=== PATIENT | female | born 1940 | race Caucasian/White ===

== ENCOUNTER 2021-06-07 13:34 | Inpatient (IN) | payer MEDICARE, OTHER ==
[2021-06-07] MEDS ORDERED: Albuterol 0.083% 2.5 MG/3 ML Neb Soln NEB ONE (15:18)
--- NOTE | 2021-06-07 15:21 | EDM.PDOC ---
<Jens Owens - Last Filed: 06/08/21 11:12> ED HPI GENERAL MEDICAL PROBLEM - General Chief Complaint: Respiratory Problem Stated Complaint: LOW OXYGEN Time Seen by Provider: 06/07/21 15:07 - Related Data Allergies Allergy/AdvReac Type Severity Reaction Status Date / Time acetaminophen Allergy Rash Verified 06/07/21 17:26 Beef Containing Products Allergy Hives Verified 06/08/21 12:26 Pork/Porcine Containing Allergy Hives Verified 06/08/21 12:25 Products soap Allergy Rash Verified 06/08/21 12:27 codeine AdvReac Nausea and Verified 06/08/21 12:25 Vomiting Home Meds: Home Meds Cholecalciferol (Vitamin D3) [Vitamin D] 4,000 unit PO DAILY 06/08/21 [History] Fish Oil/Borage/Flax/Om3,6,9 1 [[place] 3-6-9 Complex Softgel] 1 each PO DAILY [History] Mv-Mn/Folic AC/Calcium/Vit K1 [Women 50 Plus Multivit Adv Tab] 1 tab PO DAILY 06/08/21 [History] Zinc 1 tab PO DAILY 06/08/21 [History] Course - Re-Assessments/Exams Free Text/Narrative Re-Assessment/Exam: 06/08/21 08:22. Have assumed care from Dr Rojo after another change of shift. I agree with hx and exam initially done by Betsy Galeas about 18 hrs ago. Pt is reported to have done OK during the night, continues on high flow 02 60 L, 95 %, sats currently 95 to 96 %. RT reported did try lower her her O2 but sats are reported to have fallen with that. We continue to wait for a bed to open up somewhere in the region. 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 However there is no report of worsening cough, fever or chills so pneumonia was not the primary consideration last evening. The greater concern was her increased oxygen demand and her elevated trop of 0.127. Have ordered a repeat trop. Have ordered solumedrol 125 mg IV and a duoneb. Will see if we can start weaning her oxygen requirement as we further await a bed. Of note she has requested to be LYNDA [facility]. 06/08/21 09:07. On further review of labs I see there is a urine that has come back showing UTI, 1 + leuk Pos., 20-30 WBC. Have ordered a urine culture, rocephin 1 gram IV. I am informed that the neb treatment helped her, feels like it has helped her breathing 06/08/21 09:08 Departure - Departure Time of Disposition: 11:00 Disposition: Admitted As Inpatient 67 Condition: Serious Clinical Impression: Hypoxia Dyspnea Qualifiers: Dyspnea type: unspecified Qualified Code(s): R06.00 - Dyspnea, unspecified UTI (urinary tract infection) Qualifiers: Urinary tract infection type: site unspecified Hematuria presence: without hematuria Qualified Code(s): N39.0 - Urinary tract infection, site not specified - Discharge Information ED Communication - Discussed Case With (1) Discussed Case With (1): Admitting Provider ( discussed with Dr Lewis, decision to admit at about 1100.) <Sagar Galeas - Last Filed: 06/11/21 11:07> ED HPI GENERAL MEDICAL PROBLEM - General Source of Information: Reports: Patient, Family History Limitations: Reports: No Limitations - History of Present Illness INITIAL COMMENTS - FREE TEXT/NARRATIVE: 80-year-old female presents the emergency department with complaints of low oxygen saturations. Per the patient and her report, the patient was hospitalized at [facility] in [place] for 2 weeks for Covid pneumonia. She states that she has been home approximately 2 weeks on home oxygen. Prior to this she was not oxygen dependent. Patient's reports that in the middle the night last night, the patient's O2 saturations dropped down to a low as low as 50% and he increased her oxygen to 8 L per nasal cannula. 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 She does not have a history of smoking. She denies any recent fever, chills, nausea, vomiting or diarrhea. She denies any urinary symptoms. Past Medical History Respiratory History: Reports: Other (See Below) Other Respiratory History: meiners disease; covid pneumonia Gastrointestinal History: Reports: GERD - Infectious Disease History Infectious Disease History: Reports: Chicken Pox, Measles, Mumps - Past Surgical History HEENT Surgical History: Reports: Adenoidectomy, Cataract Surgery, Tonsillectomy GI Surgical History: Reports: Hernia, Inguinal Female Surgical History: Reports: Hysterectomy Social & Family History - Tobacco Use Tobacco Use Status *Q: Never Tobacco User - Caffeine Use Caffeine Use: Reports: Coffee, Tea - Recreational Drug Use Recreational Drug Use: No ED ROS GENERAL - Review of Systems Review Of Systems: Comprehensive ROS is negative, except as noted in HPI. ED EXAM, GENERAL - Physical Exam Exam: See Below Exam Limited By: No Limitations General Appearance: Alert, WD/WN, Moderate Distress Ears: Normal External Exam, Hearing Grossly Normal Nose: Normal Inspection Throat/Mouth: Normal Inspection, Normal Lips, Normal Voice, No Airway Compromise Head: Atraumatic Neck: Normal Inspection, Supple Respiratory/Chest: Chest Non-Tender, Respiratory Distress, Decreased Breath Sounds, Crackles (Left lower lobe) Cardiovascular: Normal Peripheral Pulses, No Edema, No Murmur, Tachycardia Peripheral Pulses: 2+: Radial (L), Radial (R) GI/Abdominal: Normal Bowel Sounds, Soft, Non-Tender, No Distention (Female) Exam: Deferred Rectal (Female) Exam: Deferred Back Exam: Normal Inspection Extremities: Normal Inspection Neurological: Alert, Oriented, Normal Cognition Psychiatric: Normal Affect, Normal Mood Skin Exam: Warm, Dry, Intact, Normal Color, No Rash Lymphatic: No Adenopathy #1 Interpretation EKG Date: 06/07/21 Time: 15:28 Rhythm: NSR Rate (Beats/Min): 109 [place]: Normal P-Wave: Present QRS: Normal ST-T: Normal QT: Normal Comparison: NA - No Prior EKG EKG Interpretation Comments: Per Dr. Owens interpretation: Sinus tach at a rate of 109; LAFB; very mild ST elevation in V2 and V3 Course - Vital Signs Text/Narrative:: Attestation above, patient presents with a history of Covid. Patient was sent home on home O2. Over the night, patient's O2 saturations dropped into the 50s and her oxygen was increased to 8 L per nasal cannula per the patient's . At the time of my exam, the patient is currently on a nonrebreather mask and O2 saturations are at about 90 to 91%. She is dyspneic at rest but only to speak in a few word sentences. Physical exam reveals crackles noted to the left posterior lobe. I have ordered labs to include CBC, CMP, magnesium, C-reactive protein, troponin, pro BNP, portable chest x-ray and an EKG. We will also obtain ABGs. Will order an albuterol nebulizer for this patient. Last Recorded V/S: Last Vital Signs Temp 97.2 F 06/11/21 03:11 Pulse 104 H 06/11/21 03:11 Resp 28 H 06/11/21 03:11 BP 146/94 H 06/11/21 03:11 Pulse Ox 93 L 06/11/21 08:59 - Orders/Labs/Meds Orders: Medication Orders Albuterol (Albuterol 0.083% 2.5 Mg/3 Ml Neb Soln) 2.5 mg NEB Q2H PRN PRN Reason: Shortness Of Breath/wheezing Albuterol/Ipratropium (Albuterol/Ipratropium 3.0-0.5 Mg/3 Ml Neb Soln) 3 ml NEB QIDRT CY Last Admin: 06/11/21 08:59 Dose: 3 ml Documented by: Admin: 06/11/21 05:59 Dose: 3 ml Documented by: Admin: 06/10/21 20:18 Dose: 3 ml Documented by: Admin: 06/10/21 15:02 Dose: 3 ml Documented by: Admin: 06/10/21 09:01 Dose: 3 ml Documented by: Admin: 06/10/21 05:55 Dose: 3 ml Documented by: Admin: 06/09/21 20:25 Dose: 3 ml Documented by: Admin: 06/09/21 14:59 Dose: 3 ml Documented by: Admin: 06/09/21 09:55 Dose: 3 ml Documented by: Admin: 06/09/21 06:19 Dose: 3 ml Documented by: Admin: 06/08/21 21:50 Dose: 3 ml Documented by: Admin: 06/08/21 18:27 Dose: Not Given Documented by: Admin: 06/08/21 13:43 Dose: 3 ml Documented by: ALEJANDRA Docusate Sodium (Docusate Sodium 100 Mg Cap) 100 mg PO Q12H PRN PRN Reason: Constipation Last Admin: 06/10/21 09:12 Dose: 100 mg Documented by: EDEEGRA Enoxaparin Sodium (Enoxaparin 60 Mg/0.6 Ml Syringe) 60 mg SUBCUT Q12H [facility] Last Admin: 06/11/21 09:56 Dose: 60 mg Documented by: Admin: 06/10/21 22:00 Dose: 60 mg Documented by: CECELIA Furosemide (Furosemide 20 Mg/2 Ml Vial) 20 mg IVPUSH DAILY [facility] Guaifenesin (Guaifenesin 600 Mg Tab.Er) 600 mg PO BID [facility] Last Admin: 06/11/21 09:56 Dose: 600 mg Documented by: Admin: 06/10/21 22:00 Dose: 600 mg Documented by: Admin: 06/10/21 09:12 Dose: 600 mg Documented by: Admin: 06/09/21 21:48 Dose: 600 mg Documented by: Admin: 06/09/21 08:57 Dose: 600 mg Documented by: Admin: 06/08/21 21:33 Dose: 600 mg Documented by: Admin: 06/08/21 15:56 Dose: 600 mg Documented by: JOVANNI Potassium Chloride 10 meq/ (Premix) 100 mls @ 100 mls/hr IV Q1H [facility] Stop: 06/11/21 12:59 Last Admin: 06/11/21 09:55 Dose: 100 mls/hr Documented by: ADRIANA Sodium Chloride (Normal Saline) 250 mls @ 40 mls/hr IV ASDIRECTED [facility] Last Admin: 06/11/21 09:54 Dose: 40 mls/hr Documented by: ADRIANA Methylprednisolone Sodium Succinate (Methylprednisolone Sodium Succinate 40 Mg/1 Ml Sdv) 60 mg IVPUSH Q8H [facility] Last Admin: 06/11/21 09:39 Dose: 60 mg Documented by: ADRIANA Ondansetron HCl (Ondansetron 4 Mg/2 Ml Sdv) 4 mg IV Q6H PRN PRN Reason: Nausea/Vomiting Sodium Chloride (Sodium Chloride 0.9% 10 Ml Syringe) 10 ml FLUSH ASDIRECTED PRN PRN Reason: Keep Vein Open Last Admin: 06/07/21 18:12 Dose: 10 ml Documented by: Admin: 06/07/21 15:30 Dose: 10 ml Documented by: MENDEZ Trimethoprim/Sulfamethoxazole (Sulfamethoxazole/Trimethoprim 800-160 Mg Tab) 1 tab PO BID [facility] Last Admin: 06/11/21 09:56 Dose: 1 tab Documented by: ADRIANA Warfarin Sodium (Pharmacy To Dose - Warfarin) 1 dose .XX ASDIRECTED PRN PRN Reason: RX TOD DOSE WARFARIN Warfarin Sodium (Warfarin 4 Mg Tab) 4 mg PO QPM [facility] Stop: 06/11/21 18:01 Labs: Laboratory Tests 06/07/21 06/07/21 06/07/21 Range/Units 15:10 15:10 15:10 WBC 8.57 (3.98-10.04) K/mm3 RBC 4.28 (3.98-5.22) M/mm3 Hgb 13.0 (11.2-15.7) gm/dl Hct 38.5 (34.1-44.9) % MCV 90.0 (79.4-94.8) fl MCH 30.4 (25.6-32.2) pg MCHC 33.8 (32.2-35.5) g/dl RDW Std Deviation 45.2 (36.4-46.3) fL Plt Count 250 (182-369) K/mm3 MPV 10.3 (9.4-12.3) fl Neut % (Auto) 75.7 H (34.0-71.1) % Lymph % (Auto) 9.9 L (19.3-51.7) % [place] % (Auto) 13.3 H (4.7-12.5) % Eos % (Auto) 0.5 L (0.7-5.8) Baso % (Auto) 0.4 (0.1-1.2) % Neut # (Auto) 6.49 H (1.56-6.13) K/mm3 Lymph # (Auto) 0.85 L (1.18-3.74) K/mm3 [place] # (Auto) 1.14 H (0.24-0.36) K/mm3 Eos # (Auto) 0.04 (0.04-0.36) K/mm3 Baso # (Auto) 0.03 (0.01-0.08) K/mm3 D-Dimer, Quantitative 8.16 H (0.19-0.50) mg/L Puncture Site ABG pH (7.35-7.45) ABG pCO2 (35.0-45.0) mmHg ABG pO2 (80.0-100.0) mmHg ABG HCO3 (22.0-26.0) meq/L ABG O2 Saturation (96.0-97.0) % ABG Base Excess (-2-2.0) Dae Test A-a Gradient mmHg Oxygen Flow Rate FiO2 (21.00-100.00) % Sodium 129 L (136-145) mEq/L Potassium 3.8 (3.5-5.1) mEq/L Chloride 94 L (98-107) mEq/L Carbon Dioxide 24 (21-32) mEq/L Anion Gap 14.8 (5-15) BUN 15 (7-18) mg/dL Creatinine 0.6 (0.55-1.02) mg/dL Est Cr Clr Drug Dosing 57.37 mL/min Estimated GFR (MDRD) > 60 (>60) mL/min BUN/Creatinine Ratio 25.0 H (14-18) Glucose 126 H (70-99) mg/dL Calcium 8.7 (8.5-10.1) mg/dL Magnesium 1.8 (1.8-2.4) mg/dL Total Bilirubin 0.6 (0.2-1.0) mg/dL AST 36 (15-37) U/L ALT 31 (14-59) U/L Alkaline Phosphatase 86 (46-116) U/L Troponin I 0.127 H* (0.00-0.056) ng/mL C-Reactive Protein 29.3 H* (<1.0) mg/dL NT-Pro-B Natriuret Pep (0-450) pg/mL Total Protein 7.1 (6.4-8.2) g/dl Albumin 2.1 L (3.4-5.0) g/dl Globulin 5.0 gm/dL Albumin/Globulin Ratio 0.4 L (1-2) Procalcitonin ng/mL Urine Color (Yellow) Urine Appearance (Clear) Urine pH (5.0-8.0) Ur Specific [place] (1.005-1.030) Urine Protein (Negative) Urine Glucose (UA) (Negative) Urine Ketones (Negative) Urine Occult Blood (Negative) Urine Nitrite (Negative) Urine Bilirubin (Negative) Urine Urobilinogen (0.2-1.0) Ur Leukocyte Esterase (Negative) Urine RBC (0-5) /hpf Urine WBC (0-5) /hpf Urine WBC Clumps (NOT SEEN) /hpf Ur Squamous Epith Cells (0-5) /hpf Urine Bacteria (FEW) /hpf Urine Mucus (FEW) /hpf Mycoplasma pneumon IgM (NEGATIVE) 06/07/21 06/07/21 06/07/21 Range/Units 15:10 15:18 19:10 WBC (3.98-10.04) K/mm3 RBC (3.98-5.22) M/mm3 Hgb (11.2-15.7) gm/dl Hct (34.1-44.9) % MCV (79.4-94.8) fl MCH (25.6-32.2) pg MCHC (32.2-35.5) g/dl RDW Std Deviation (36.4-46.3) fL Plt Count (182-369) K/mm3 MPV (9.4-12.3) fl Neut % (Auto) (34.0-71.1) % Lymph % (Auto) (19.3-51.7) % [place] % (Auto) (4.7-12.5) % Eos % (Auto) (0.7-5.8) Baso % (Auto) (0.1-1.2) % Neut # (Auto) (1.56-6.13) K/mm3 Lymph # (Auto) (1.18-3.74) K/mm3 [place] # (Auto) (0.24-0.36) K/mm3 Eos # (Auto) (0.04-0.36) K/mm3 Baso # (Auto) (0.01-0.08) K/mm3 D-Dimer, Quantitative (0.19-0.50) mg/L Puncture Site Lt radial ABG pH 7.44 (7.35-7.45) ABG pCO2 30.9 L (35.0-45.0) mmHg ABG pO2 58.0 L (80.0-100.0) mmHg ABG HCO3 20.5 L (22.0-26.0) meq/L ABG O2 Saturation 86.0 L (96.0-97.0) % ABG Base Excess -2.3 L (-2-2.0) Dae Test Positive A-a Gradient 474 mmHg Oxygen Flow Rate 15.0 FiO2 80.00 (21.00-100.00) % Sodium (136-145) mEq/L Potassium (3.5-5.1) mEq/L Chloride (98-107) mEq/L Carbon Dioxide (21-32) mEq/L Anion Gap (5-15) BUN (7-18) mg/dL Creatinine (0.55-1.02) mg/dL Est Cr Clr Drug Dosing mL/min Estimated GFR (MDRD) (>60) mL/min BUN/Creatinine Ratio (14-18) Glucose (70-99) mg/dL Calcium (8.5-10.1) mg/dL Magnesium (1.8-2.4) mg/dL Total Bilirubin (0.2-1.0) mg/dL AST (15-37) U/L ALT (14-59) U/L Alkaline Phosphatase (46-116) U/L Troponin I 0.156 H* (0.00-0.056) ng/mL C-Reactive Protein (<1.0) mg/dL NT-Pro-B Natriuret Pep 3117 H (0-450) pg/mL Total Protein (6.4-8.2) g/dl Albumin (3.4-5.0) g/dl Globulin gm/dL Albumin/Globulin Ratio (1-2) Procalcitonin ng/mL Urine Color (Yellow) Urine Appearance (Clear) Urine pH (5.0-8.0) Ur Specific [place] (1.005-1.030) Urine Protein (Negative) Urine Glucose (UA) (Negative) Urine Ketones (Negative) Urine Occult Blood (Negative) Urine Nitrite (Negative) Urine Bilirubin (Negative) Urine Urobilinogen (0.2-1.0) Ur Leukocyte Esterase (Negative) Urine RBC (0-5) /hpf Urine WBC (0-5) /hpf Urine WBC Clumps (NOT SEEN) /hpf Ur Squamous Epith Cells (0-5) /hpf Urine Bacteria (FEW) /hpf Urine Mucus (FEW) /hpf Mycoplasma pneumon IgM (NEGATIVE) 06/07/21 06/08/21 06/08/21 Range/Units 23:30 07:56 09:36 WBC (3.98-10.04) K/mm3 RBC (3.98-5.22) M/mm3 Hgb (11.2-15.7) gm/dl Hct (34.1-44.9) % MCV (79.4-94.8) fl MCH (25.6-32.2) pg MCHC (32.2-35.5) g/dl RDW Std Deviation (36.4-46.3) fL Plt Count (182-369) K/mm3 MPV (9.4-12.3) fl Neut % (Auto) (34.0-71.1) % Lymph % (Auto) (19.3-51.7) % [place] % (Auto) (4.7-12.5) % Eos % (Auto) (0.7-5.8) Baso % (Auto) (0.1-1.2) % Neut # (Auto) (1.56-6.13) K/mm3 Lymph # (Auto) (1.18-3.74) K/mm3 [place] # (Auto) (0.24-0.36) K/mm3 Eos # (Auto) (0.04-0.36) K/mm3 Baso # (Auto) (0.01-0.08) K/mm3 D-Dimer, Quantitative (0.19-0.50) mg/L Puncture Site ABG pH (7.35-7.45) ABG pCO2 (35.0-45.0) mmHg ABG pO2 (80.0-100.0) mmHg ABG HCO3 (22.0-26.0) meq/L ABG O2 Saturation (96.0-97.0) % ABG Base Excess (-2-2.0) Dae Test A-a Gradient mmHg Oxygen Flow Rate FiO2 (21.00-100.00) % Sodium (136-145) mEq/L Potassium (3.5-5.1) mEq/L Chloride (98-107) mEq/L Carbon Dioxide (21-32) mEq/L Anion Gap (5-15) BUN (7-18) mg/dL Creatinine (0.55-1.02) mg/dL Est Cr Clr Drug Dosing mL/min Estimated GFR (MDRD) (>60) mL/min BUN/Creatinine Ratio (14-18) Glucose (70-99) mg/dL Calcium (8.5-10.1) mg/dL Magnesium (1.8-2.4) mg/dL Total Bilirubin (0.2-1.0) mg/dL AST (15-37) U/L ALT (14-59) U/L Alkaline Phosphatase (46-116) U/L Troponin I 0.067 H* (0.00-0.056) ng/mL C-Reactive Protein (<1.0) mg/dL NT-Pro-B Natriuret Pep (0-450) pg/mL Total Protein (6.4-8.2) g/dl Albumin (3.4-5.0) g/dl Globulin gm/dL Albumin/Globulin Ratio (1-2) Procalcitonin 0.29 H ng/mL Urine Color Yellow (Yellow) Urine Appearance Slt cloudy H (Clear) Urine pH 6.0 (5.0-8.0) Ur Specific [place] 1.010 (1.005-1.030) Urine Protein 1+ H (Negative) Urine Glucose (UA) Negative (Negative) Urine Ketones 3+ H (Negative) Urine Occult Blood 2+ H (Negative) Urine Nitrite Negative (Negative) Urine Bilirubin Negative (Negative) Urine Urobilinogen 0.2 (0.2-1.0) Ur Leukocyte Esterase 1+ H (Negative) Urine RBC 5-10 H (0-5) /hpf Urine WBC 20-30 H (0-5) /hpf Urine WBC Clumps Rare (NOT SEEN) /hpf Ur Squamous Epith Cells 0-5 (0-5) /hpf Urine Bacteria Moderate H (FEW) /hpf Urine Mucus Few (FEW) /hpf Mycoplasma pneumon IgM (NEGATIVE) 06/08/21 Range/Units 09:36 WBC (3.98-10.04) K/mm3 RBC (3.98-5.22) M/mm3 Hgb (11.2-15.7) gm/dl Hct (34.1-44.9) % MCV (79.4-94.8) fl MCH (25.6-32.2) pg MCHC (32.2-35.5) g/dl RDW Std Deviation (36.4-46.3) fL Plt Count (182-369) K/mm3 MPV (9.4-12.3) fl Neut % (Auto) (34.0-71.1) % Lymph % (Auto) (19.3-51.7) % [place] % (Auto) (4.7-12.5) % Eos % (Auto) (0.7-5.8) Baso % (Auto) (0.1-1.2) % Neut # (Auto) (1.56-6.13) K/mm3 Lymph # (Auto) (1.18-3.74) K/mm3 [place] # (Auto) (0.24-0.36) K/mm3 Eos # (Auto) (0.04-0.36) K/mm3 Baso # (Auto) (0.01-0.08) K/mm3 D-Dimer, Quantitative (0.19-0.50) mg/L Puncture Site ABG pH (7.35-7.45) ABG pCO2 (35.0-45.0) mmHg ABG pO2 (80.0-100.0) mmHg ABG HCO3 (22.0-26.0) meq/L ABG O2 Saturation (96.0-97.0) % ABG Base Excess (-2-2.0) Dae Test A-a Gradient mmHg Oxygen Flow Rate FiO2 (21.00-100.00) % Sodium (136-145) mEq/L Potassium (3.5-5.1) mEq/L Chloride (98-107) mEq/L Carbon Dioxide (21-32) mEq/L Anion Gap (5-15) BUN (7-18) mg/dL Creatinine (0.55-1.02) mg/dL Est Cr Clr Drug Dosing mL/min Estimated GFR (MDRD) (>60) mL/min BUN/Creatinine Ratio (14-18) Glucose (70-99) mg/dL Calcium (8.5-10.1) mg/dL Magnesium (1.8-2.4) mg/dL Total Bilirubin (0.2-1.0) mg/dL AST (15-37) U/L ALT (14-59) U/L Alkaline Phosphatase (46-116) U/L Troponin I (0.00-0.056) ng/mL C-Reactive Protein (<1.0) mg/dL NT-Pro-B Natriuret Pep (0-450) pg/mL Total Protein (6.4-8.2) g/dl Albumin (3.4-5.0) g/dl Globulin gm/dL Albumin/Globulin Ratio (1-2) Procalcitonin ng/mL Urine Color (Yellow) Urine Appearance (Clear) Urine pH (5.0-8.0) Ur Specific [place] (1.005-1.030) Urine Protein (Negative) Urine Glucose (UA) (Negative) Urine Ketones (Negative) Urine Occult Blood (Negative) Urine Nitrite (Negative) Urine Bilirubin (Negative) Urine Urobilinogen (0.2-1.0) Ur Leukocyte Esterase (Negative) Urine RBC (0-5) /hpf Urine WBC (0-5) /hpf Urine WBC Clumps (NOT SEEN) /hpf Ur Squamous Epith Cells (0-5) /hpf Urine Bacteria (FEW) /hpf Urine Mucus (FEW) /hpf Mycoplasma pneumon IgM Negative (NEGATIVE) Meds: Medications Generic Name Dose Route Start Last Admin Trade Name Freq PRN Reason Stop Dose Admin Albuterol 2.5 mg 06/08/21 11:19 Albuterol 0.083% 2.5 Mg/3 Ml Neb Soln NEB Q2H PRN Shortness Of Breath/wheezing Albuterol/Ipratropium 3 ml 06/08/21 16:00 06/11/21 08:59 Albuterol/Ipratropium 3.0-0.5 Mg/3 Ml Neb Soln NEB 3 ml QIDRT CY Administration Docusate Sodium 100 mg 06/08/21 11:19 06/10/21 09:12 Docusate Sodium 100 Mg Cap PO 100 mg Q12H PRN Administration Constipation Enoxaparin Sodium 60 mg 06/10/21 21:00 06/11/21 09:56 Enoxaparin 60 Mg/0.6 Ml Syringe SUBCUT 60 mg Q12H CY Administration Furosemide 20 mg 06/12/21 09:00 Furosemide 20 Mg/2 Ml Vial IVPUSH DAILY CY Guaifenesin 600 mg 06/08/21 15:30 06/11/21 09:56 Guaifenesin 600 Mg Tab.Er PO 600 mg BID CY Administration Potassium Chloride 10 meq/ 100 mls @ 100 mls/hr 06/11/21 07:00 06/11/21 09:55 Premix IV 06/11/21 12:59 100 mls/hr Q1H CY Administration Sodium Chloride 250 mls @ 40 mls/hr 06/11/21 07:00 06/11/21 09:54 Normal Saline IV 40 mls/hr ASDIRECTED CY Administration Methylprednisolone Sodium Succinate 60 mg 06/11/21 07:00 06/11/21 09:39 Methylprednisolone Sodium Succinate 40 Mg/1 Ml Sdv IVPUSH 60 mg Q8H CY Administration Ondansetron HCl 4 mg 06/08/21 11:19 Ondansetron 4 Mg/2 Ml Sdv IV Q6H PRN Nausea/Vomiting Sodium Chloride 10 ml 06/07/21 15:18 06/07/21 18:12 Sodium Chloride 0.9% 10 Ml Syringe FLUSH 10 ml ASDIRECTED PRN Administration Keep Vein Open Trimethoprim/Sulfamethoxazole 1 tab 06/11/21 09:00 06/11/21 09:56 Sulfamethoxazole/Trimethoprim 800-160 Mg Tab PO 1 tab BID CY Administration Warfarin Sodium 1 dose 06/10/21 13:15 Pharmacy To Dose - Warfarin .XX ASDIRECTED PRN RX TOD DOSE WARFARIN Warfarin Sodium 4 mg 06/11/21 18:00 Warfarin 4 Mg Tab PO 06/11/21 18:01 QPM CY Discontinued Medications Generic Name Dose Route Start Last Admin Trade Name Freq PRN Reason Stop Dose Admin Albuterol 2.5 mg 06/07/21 15:18 06/07/21 15:47 Albuterol 0.083% 2.5 Mg/3 Ml Neb Soln NEB 06/07/21 15:19 2.5 mg ONETIME ONE Administration Albuterol/Ipratropium 3 ml 06/08/21 08:20 06/08/21 08:37 Albuterol/Ipratropium 3.0-0.5 Mg/3 Ml Neb Soln NEB 06/08/21 08:21 3 ml ONETIME ONE Administration Apixaban 10 mg 06/09/21 09:00 06/10/21 09:13 Apixaban 5 Mg Tab PO 06/15/21 21:01 10 mg BID CY Administration Enoxaparin Sodium 40 mg 06/08/21 09:00 06/08/21 14:49 Enoxaparin 40 Mg/0.4 Ml Syringe SUBCUT 40 mg DAILY CY Administration Enoxaparin Sodium 20 mg 06/08/21 16:30 06/08/21 16:53 Enoxaparin 60 Mg/0.6 Ml Syringe SUBCUT 06/08/21 16:31 20 mg ONETIME ONE Administration Furosemide 40 mg 06/08/21 20:03 06/08/21 21:33 Furosemide 40 Mg/4 Ml Vial IVPUSH 06/08/21 20:04 40 mg NOW ONE Administration Furosemide 20 mg 06/09/21 07:00 06/11/21 06:34 Furosemide 20 Mg/2 Ml Vial IVPUSH 20 mg TIDMEALS CY Administration Furosemide 20 mg 06/11/21 09:00 Furosemide 20 Mg/2 Ml Vial IVPUSH DAILY CY Sodium Chloride 100 mls @ 60 mls/min 06/07/21 18:15 06/07/21 18:12 Normal Saline IV 60 mls/min ASDIRECTED CY Administration Sodium Chloride 1,000 mls @ 250 mls/hr 06/07/21 22:15 06/07/21 22:14 Normal Saline IV 250 mls/hr ASDIRECTED CY Administration Ceftriaxone Sodium 1 gm/ 100 mls @ 200 mls/hr 06/08/21 08:56 06/08/21 09:20 Sodium Chloride IV 06/08/21 09:25 200 mls/hr ONETIME ONE Administration Vancomycin HCl 1 gm/ Sodium 250 mls @ 250 mls/hr 06/08/21 12:00 06/08/21 14:26 Chloride IV Not Given Q18H CY Vancomycin HCl 1 gm/ Sodium 250 mls @ 250 mls/hr 06/08/21 13:30 06/08/21 15:37 Chloride IV Not Given Q18H CY Piperacillin Sod/Tazobactam 100 mls @ 200 mls/hr 06/08/21 14:30 06/08/21 14:19 Sod 4.5 gm/ Sodium Chloride IV 06/08/21 14:59 200 mls/hr ONETIME ONE Administration Piperacillin Sod/Tazobactam 100 mls @ 25 mls/hr 06/08/21 22:30 06/11/21 06:34 Sod 4.5 gm/ Sodium Chloride IV 25 mls/hr Q8H CY Administration Vancomycin HCl 1 gm/ Sodium 250 mls @ 250 mls/hr 06/08/21 15:00 06/10/21 22:00 Chloride IV 06/10/21 23:59 250 mls/hr Q18H CY Administration Sodium Chloride 1,000 mls @ 100 mls/hr 06/08/21 18:45 Normal Saline IV ASDIRECTED CY Vancomycin HCl 1 gm/ Sodium 250 mls @ 250 mls/hr 06/11/21 10:00 Chloride IV Q12H CY Iopamidol 100 ml 06/07/21 18:11 06/07/21 18:12 Iopamidol 755 Mg/Ml 100 Ml Bottle IVPUSH 06/07/21 18:12 100 ml ONETIME ONE Administration Methylprednisolone Sodium Succinate 125 mg 06/08/21 08:20 06/08/21 08:25 Methylprednisolone Sodium Succinate 125 Mg/2 Ml Sdv IVPUSH 06/08/21 08:21 125 mg ONETIME ONE Administration Potassium Chloride 10 meq 06/08/21 21:00 06/10/21 22:00 Potassium Chloride 10 Meq Tab.Er PO 10 meq TID CY Administration Potassium Chloride 20 meq 06/09/21 07:20 06/09/21 08:37 Potassium Chloride 20 Meq Tab.Er PO 06/09/21 07:21 20 meq ONETIME ONE Administration Sodium Chloride 10 ml 06/07/21 18:11 06/07/21 20:31 Sodium Chloride 0.9% 10 Ml Sdv FLUSH 06/07/21 18:12 10 ml ONETIME ONE Administration Vancomycin HCl 1 dose 06/08/21 11:30 Pharmacy To Dose - Vancomycin .XX ASDIRECTED CY Warfarin Sodium 4 mg 06/10/21 18:00 06/10/21 18:08 Warfarin 4 Mg Tab PO 06/10/21 18:01 4 mg QPM CY Administration - Re-Assessments/Exams Free Text/Narrative Re-Assessment/Exam: 06/07/21 15:55 ABGs reveal a pH of 7.44, PCO2 30.9, PO2 58, HCO3 20.5 with a base excess of - 2.3 O2 saturation 86.9% on a nonrebreather mask. Spoke with respiratory care regarding starting the patient on CPAP however they are unsure if there are any CPAP's left in this facility. Respiratory therapist is going to check and let me know. 06/07/21 16:17 Respiratory therapist is going to start high flow O2 on this patient. 06/07/21 17:00 Hematology reveals a WBC of 8.57, hemoglobin 13.0, hematocrit 38.5, platelet count 250 Coagulation reveals a D-dimer of 8.16 Chemistry reveals a sodium of 129, potassium 3.8, chloride 94, carbon dioxide 24, anion gap 14.8, BUN 15, creatinine 0.6, glucose 126, magnesium 1.8, troponin 0 0.127, C-reactive protein 29.3, proBNP 3117 Patient is currently tolerating high flow O2 very well. O2 saturations are 92%. Heart rate in the 1 teens in a sinus rhythm. Patient denies having any chest pain or discomfort nor has she had any chest pain or discomfort. With the elevation in the patient's D-dimer I have ordered a CTA of the chest to rule out PE. 06/07/21 17:25 Portable chest x-ray reveals scattered infiltrates noted bilaterally most prominent in the left lower lobe. 06/07/21 18:[address] of the chest: 1. No findings of pulmonary embolism. 2. Minimal left-sided pleural effusion. 3. Diffuse emphysematous changes is seen. Both lungs show diffuse increased density and uncertain how much of this represents diffuse fibrosis versus possible superimposed pneumonia. Old comparison studies would be needed if available. 4. A sending aorta is mildly aneurysmal. 5. Other findings which are felt to be chronic as described above. Patient will need to be hospitalized however there are no beds available here at this hospital or at either hospitals in [place]. I will call the [facility] transfer [place] in regards to finding a bed for this patient. 06/07/21 19:37 The [facility] [place] calls to tell me that there are no beds available in [place], [place] or [place]. They state that they will revisit attempting to find her bed placement in the morning. The patient has stated that she request to be a DNR/DNI. 06/07/21 20:04 [address] [facility] call in [place] regarding the patient having positive troponins. They tell me that they are on diversion and have no beds available and are unable to take this patient in transfer. 06/07/21 22:17 Patient's blood pressure is noted to be 80/61. Will order for the patient to receive 500 mils of normal saline over 2 hours. 06/07/21 23:21 Pt's blood pressure is 69/52. I have ordered for nursing staff to give another 500ml bolus wide open. I have reported off to Dr. Rojo who will take over care of the patient.
[2021-06-07] MEDS: Sodium Chloride 0.9% 10 ML Syringe FLUSH PRN ×2 (15:30→18:12)
[2021-06-07] MEDS ORDERED: Iopamidol 755 Mg/ML 100 ML Bottle IVPUSH ONE (18:11)
[2021-06-07] MEDS ORDERED: Sodium Chloride 0.9% 10 ML SDV FLUSH ONE (18:11)
[2021-06-07] MEDS ORDERED: Sodium Chloride 0.9% 100 ML IV SCH (18:15)
--- NOTE | 2021-06-07 18:24 | CT ---
CT chest Technique: Multiple axial sections were obtained through the chest. Intravenous contrast was utilized. Study has been performed as a pulmonary angiogram protocol. Comparison: No prior chest imaging is available. Findings: Ascending aorta is mildly aneurysmal with AP dimension of 4.4 cm. Pulmonary arteries are well opacified. No filling defects are seen to indicate pulmonary embolism. Small scattered mediastinal lymph nodes are seen which are felt to be within normal limits. Moderately large hiatal hernia is noted. No pericardial thickening is seen. Other visualized upper abdominal structures show a small cyst within the right kidney. Lung window settings were reviewed which show diffuse emphysematous change. There is diffuse opacity seen throughout both lungs. Uncertain how much of this opacity is due to prominent pulmonary fibrosis versus questionable pneumonia. Old studies would be needed to differentiate. Minimal left-sided pleural effusion is noted. Bone window settings were reviewed. Diffuse disc space narrowing and endplate spurring is noted within the spine. No acute osseous abnormality is appreciated. Impression: 1. No findings of pulmonary embolism. 2. Minimal left-sided pleural effusion. 3. Diffuse emphysematous change is seen. Both lungs show diffuse increased density and uncertain how much of this represents diffuse fibrosis versus possible superimposed pneumonia. Old comparison studies would be needed if available. 4. 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 5. Other findings which are felt to be chronic as described above. Diagnostic code #3
[2021-06-07] MEDS ORDERED: Sodium Chloride 0.9% 1,000 ML IV SCH (22:15)
[2021-06-08] MEDS ORDERED: methylPREDNISolone Sodium Succinate 125 MG/2 ML SDV IVPUSH ONE (08:20)
[2021-06-08] MEDS ORDERED: Albuterol/Ipratropium 3.0-0.5 MG/3 ML Neb Soln NEB ONE (08:20)
[2021-06-08] MEDS ORDERED: cefTRIAXone 1 GM in Sodium Chloride 0.9% 100 ML IV ONE (08:56)
[2021-06-08] MEDS ORDERED: Enoxaparin 40 MG/0.4 ML Syringe SUBCUT SCH (09:00)
[2021-06-08] MEDS ORDERED: Piperacillin/Tazobactam 4.5 GM in Sodium Chloride 0.9% 100 ML IV ONE ×2 (11:17→14:30)
[2021-06-08] MEDS ORDERED: Ondansetron 4 MG/2 ML SDV IV PRN (11:19)
[2021-06-08] MEDS ORDERED: Docusate Sodium 100 MG Cap PO PRN (11:19)
--- NOTE | 2021-06-08 11:32 | PCM.HP.2 ---
<Zeus Carcamo - Last Filed: 06/08/21 15:24> H&P History of Present Illness - General Date of Service: 06/08/21 Admit Problem/Dx: Admission Diagnosis/Problem Admission Diagnosis/Problem Hypoxia Source of Information: Patient, Old Records, Provider, RN, RN Notes Reviewed History Limitations: Reports: No Limitations - History of Present Illness Initial Comments - Free Text/Narative: This is a 80-year-old female who presents to ED on 06/07/2021 with low oxygen saturations. Patient was hospitalized from 05/17/2021 through 05/31/2021 with COVID-19 pneumonia at [facility] in [place]. She was discharged home on 4 L of oxygen with activity after completing 4 days of remdesivir and 10 days of Decadron. Of note patient was noted to have episodes of bradycardia and hypotension with heart rate in the 30s and 40s. She was noticed to have episodes of Mobitz type I AV block and 2.5-second sinus pauses. It was believed this was due to remdesivir however this continued after stopping. Patient was to follow- up with EP and have a 2-week cross tie cutter after discharge. Prior to presenting to the ED she was noted to have saturations in the low 50s. Patient's increased her oxygen to 8 L via nasal cannula. Denies any recent fever, chills, nausea, vomiting, diarrhea, urinary symptoms, or smoking history. Of note patient did have acute cystitis with an E. coli UTI well in the hospital in [place] and completed 5 days of Rocephin there. In the ED twelve-lead EKG was obtained showing a sinus tachycardia at 109 bpm with a LAFB and very mild ST elevation in V2 and V3. She was placed on a nonrebreather mask which improved her saturations to 90 to 91%. She is noted to be dyspneic and only able to complete a few word sentences. Labs are obtained showing WBC of 8.57. Hemoglobin 13.0. Hematocrit 30.5. Platelet 250,000. Neutrophils are elevated 75.7%. D-dimer is very high at 8.16. Sodium is low at 129. Potassium 3.8. Chloride 94. Carbon dioxide 24. Anion gap is 14.8. BUN is 15. Creatinine 0.6. GFR greater than 60. Glucose is 126. Calcium 8.7. Magnesium 1.8. Total bilirubin 0.6. AST is 36, ALT 31, alkaline phosphatase 86. Troponin is elevated at 0.127. CRP is very high at 29.3. Protein 7.1. Albumin 2.1. ABGs obtained in the left radial with a pH of 7.44. PCO2 of 30.9. PO2 of 58.0. HCO3 of 20.5. O2 saturations 86%. Base excess is -2.3. Aa gradient is 15.0. This is obtained while on nonrebreather at 15 L. Facility was out of CPAP and BiPAP as they were being used on other patients and patient was started on high flow O2 with saturations in the low 90s. CTA of the chest is obtained to rule out PE and shows "1. No findings of pulmonary embolism. 2. Minimal left-sided pleural effusion. 3. Diffuse emphysematous changes seen. Both lungs show diffuse increased density uncertain how much of this represents diffuse fibrosis versus possible superimposed pneumonia. Old comparison studies would be needed if available. 4. 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 5. Other findings which are felt to be chronic as described above. Chest x-ray shows scattered infiltrates bilaterally most prominent in the left lower lobe. Plan was to transfer the patient for continued care due to elevated troponin however no beds are noted to be available [place], [place], or [place]. Patient does request to be a DNR/DNI. Patient is noted to have a blood pressure of 80/61 and is given a 500 mill fluid bolus over 2 hours. Repeat blood pressure is 69/52 and another 500 mL fluid bolus is given. proBNP is 3117. Repeat troponin is elevated at 0.156. UA is obtained and is mildly positive with slightly cloudy urine, 1+ protein, 3+ ketones, 2+ occult blood, 1+ leukocyte esterase, 5-10 RBCs, 20-30 WBCs, rare WBC clumps, and moderate bacteria. Patient remained in her ER. Attempts were made to decrease O2 but these were unsuccessful. Repeat troponin returns decreased at 0.067. She is given 1 dose of Rocephin in the ED. She is also given 125 mg Solu- Medrol and a DuoNeb, which she reports greatly helped. Ultimately inpatient bed does open up at our facility and she is admitted to the floor on telemetry for management of her hypoxia, suspected pneumonia, elevated BNP, elevated troponin - likely demand ischemia, and questionable UTI. She is a DNR/DNI. Her PCP is Dr. Isidoro Morley in [place]. She carries a history of Mnire's disease, GERD, and prior Covid pneumonia. - Related Data Allergies/Adverse Reactions: Allergies Allergy/AdvReac Type Severity Reaction Status Date / Time acetaminophen Allergy Rash Verified 06/07/21 17:26 Beef Containing Products Allergy Hives Verified 06/08/21 12:26 Pork/Porcine Containing Allergy Hives Verified 06/08/21 12:25 Products soap Allergy Rash Verified 06/08/21 12:27 codeine AdvReac Nausea and Verified 06/08/21 12:25 Vomiting Home Medications: Home Meds Cholecalciferol (Vitamin D3) [Vitamin D] 4,000 unit PO DAILY 06/08/21 [History] Fish Oil/Borage/Flax/Om3,6,9 1 [Rozet 3-6-9 Complex Softgel] 1 each PO DAILY 06/08/21 [History] Mv-Mn/Folic AC/Calcium/Vit K1 [Women 50 Plus Multivit Adv Tab] 1 tab PO DAILY 06/08/21 [History] Zinc 1 tab PO DAILY 06/08/21 [History] Past Medical History Respiratory History: Reports: Other (See Below) Other Respiratory History: meiners disease; covid pneumonia Gastrointestinal History: Reports: GERD - Infectious Disease History Infectious Disease History: Reports: Chicken Pox, Measles, Mumps, Novel Coronavirus - Past Surgical History HEENT Surgical History: Reports: Adenoidectomy, Cataract Surgery, Tonsillectomy GI Surgical History: Reports: Hernia, Inguinal Female Surgical History: Reports: Hysterectomy Social & Family History - Tobacco Use Tobacco Use Status *Q: Never Tobacco User - Caffeine Use Caffeine Use: Reports: Coffee, Tea - Recreational Drug Use Recreational Drug Use: No H&P Review of Systems - Review of Systems: Review Of Systems: See Below General: Reports: Weakness (mild baseline ). Denies: Fever, Chills, Malaise, Fatigue HEENT: Reports: No Symptoms. Denies: Headaches, Sore Throat Pulmonary: Denies: Shortness of Breath, Wheezing Cardiovascular: Reports: Dyspnea on Exertion, Orthopnea. Denies: Chest Pain, Palpitations, Edema Gastrointestinal: Reports: No Symptoms. Denies: Abdominal Pain, Constipation, Nausea, Vomiting Genitourinary: Reports: No Symptoms. Denies: Pain Musculoskeletal: Reports: No Symptoms. Denies: Leg Pain, Foot Pain Skin: Reports: No Symptoms. Denies: Cyanosis Psychiatric: Reports: No Symptoms. Denies: Confusion Neurological: Reports: No Symptoms. Denies: Confusion, Dizziness, Headache, Numbness, Pre-Existing Deficit, Seizure, Syncope, Tingling, Trouble Speaking, Difficulty Walking, Weakness, Change in Speech, Gait Disturbance Hematologic/Lymphatic: Reports: No Symptoms Immunologic: Reports: No Symptoms Exam - Exam Exam: See Below - Vital Signs Vital Signs: Last Vital Signs Temp 98.7 F 06/07/21 14:08 Pulse 112 H 06/07/21 14:08 Resp 28 H 06/07/21 14:08 BP 138/94 H 06/07/21 14:08 Pulse Ox 90 L 06/08/21 08:38 Weight: 135 lb - Exam Quality Assessment: Supplemental Oxygen (High flow 60 L with 95% FiO2), DVT Prophylaxis. No: Urinary Catheter General: Alert, Oriented, Cooperative. No: Mild Distress HEENT: Conjunctiva Clear, EACs Clear, Mucosa Moist & Peck, Posterior Pharynx Clear Neck: Supple, Trachea Midline Lungs: Decreased Breath Sounds, Crackles. No: Normal Respiratory Effort (Tachypnea), Rhonchi, Wheezing Cardiovascular: Regular Rhythm, Tachycardia. No: Systolic Murmur, Diastolic Murmur GI/Abdominal Exam: Normal Bowel Sounds, Soft, Non-Tender, No Distention (Female) Exam: Deferred Rectal (Female) Exam: Deferred Back Exam: Normal Inspection, Full Range of Motion Extremities: Normal Inspection, Normal Range of Motion, Non-Tender, No Pedal Edema, Normal Capillary Refill Peripheral Pulses: 2+: Radial (L), Radial (R), Dorsalis Pedis (L), Dorsalis Pedis (R) Skin: Warm, Dry, Intact Neurological: Cranial Nerves Intact (Grossly ) Neuro Extensive - Mental Status: Alert, Oriented x3, Normal Mood/Affect - Patient Data Lab Results Last 24 hrs: Laboratory Results - last 24 hr 06/07/21 06/07/21 06/07/21 Range/Units 15:10 15:10 15:10 WBC 8.57 (3.98-10.04) K/mm3 RBC 4.28 (3.98-5.22) M/mm3 Hgb 13.0 (11.2-15.7) gm/dl Hct 38.5 (34.1-44.9) % MCV 90.0 (79.4-94.8) fl MCH 30.4 (25.6-32.2) pg MCHC 33.8 (32.2-35.5) g/dl RDW Std Deviation 45.2 (36.4-46.3) fL Plt Count 250 (182-369) K/mm3 MPV 10.3 (9.4-12.3) fl Neut % (Auto) 75.7 H (34.0-71.1) % Lymph % (Auto) 9.9 L (19.3-51.7) % [place] % (Auto) 13.3 H (4.7-12.5) % Eos % (Auto) 0.5 L (0.7-5.8) Baso % (Auto) 0.4 (0.1-1.2) % Neut # (Auto) 6.49 H (1.56-6.13) K/mm3 Lymph # (Auto) 0.85 L (1.18-3.74) K/mm3 [place] # (Auto) 1.14 H (0.24-0.36) K/mm3 Eos # (Auto) 0.04 (0.04-0.36) K/mm3 Baso # (Auto) 0.03 (0.01-0.08) K/mm3 D-Dimer, Quantitative 8.16 H (0.19-0.50) mg/L Puncture Site ABG pH (7.35-7.45) ABG pCO2 (35.0-45.0) mmHg ABG pO2 (80.0-100.0) mmHg ABG HCO3 (22.0-26.0) meq/L ABG O2 Saturation (96.0-97.0) % ABG Base Excess (-2-2.0) Dae Test A-a Gradient mmHg Oxygen Flow Rate FiO2 (21.00-100.00) % Sodium 129 L (136-145) mEq/L Potassium 3.8 (3.5-5.1) mEq/L Chloride 94 L (98-107) mEq/L Carbon Dioxide 24 (21-32) mEq/L Anion Gap 14.8 (5-15) BUN 15 (7-18) mg/dL Creatinine 0.6 (0.55-1.02) mg/dL Est Cr Clr Drug Dosing 57.37 mL/min Estimated GFR (MDRD) > 60 (>60) mL/min BUN/Creatinine Ratio 25.0 H (14-18) Glucose 126 H (70-99) mg/dL Calcium 8.7 (8.5-10.1) mg/dL Magnesium 1.8 (1.8-2.4) mg/dL Total Bilirubin 0.6 (0.2-1.0) mg/dL AST 36 (15-37) U/L ALT 31 (14-59) U/L Alkaline Phosphatase 86 (46-116) U/L Troponin I 0.127 H* (0.00-0.056) ng/mL C-Reactive Protein 29.3 H* (<1.0) mg/dL NT-Pro-B Natriuret Pep (0-450) pg/mL Total Protein 7.1 (6.4-8.2) g/dl Albumin 2.1 L (3.4-5.0) g/dl Globulin 5.0 gm/dL Albumin/Globulin Ratio 0.4 L (1-2) Urine Color (Yellow) Urine Appearance (Clear) Urine pH (5.0-8.0) Ur Specific [place] (1.005-1.030) Urine Protein (Negative) Urine Glucose (UA) (Negative) Urine Ketones (Negative) Urine Occult Blood (Negative) Urine Nitrite (Negative) Urine Bilirubin (Negative) Urine Urobilinogen (0.2-1.0) Ur Leukocyte Esterase (Negative) Urine RBC (0-5) /hpf Urine WBC (0-5) /hpf Urine WBC Clumps (NOT SEEN) /hpf Ur Squamous Epith Cells (0-5) /hpf Urine Bacteria (FEW) /hpf Urine Mucus (FEW) /hpf 06/07/21 06/07/21 06/07/21 Range/Units 15:10 15:18 19:10 WBC (3.98-10.04) K/mm3 RBC (3.98-5.22) M/mm3 Hgb (11.2-15.7) gm/dl Hct (34.1-44.9) % MCV (79.4-94.8) fl MCH (25.6-32.2) pg MCHC (32.2-35.5) g/dl RDW Std Deviation (36.4-46.3) fL Plt Count (182-369) K/mm3 MPV (9.4-12.3) fl Neut % (Auto) (34.0-71.1) % Lymph % (Auto) (19.3-51.7) % [place] % (Auto) (4.7-12.5) % Eos % (Auto) (0.7-5.8) Baso % (Auto) (0.1-1.2) % Neut # (Auto) (1.56-6.13) K/mm3 Lymph # (Auto) (1.18-3.74) K/mm3 [place] # (Auto) (0.24-0.36) K/mm3 Eos # (Auto) (0.04-0.36) K/mm3 Baso # (Auto) (0.01-0.08) K/mm3 D-Dimer, Quantitative (0.19-0.50) mg/L Puncture Site Lt radial ABG pH 7.44 (7.35-7.45) ABG pCO2 30.9 L (35.0-45.0) mmHg ABG pO2 58.0 L (80.0-100.0) mmHg ABG HCO3 20.5 L (22.0-26.0) meq/L ABG O2 Saturation 86.0 L (96.0-97.0) % ABG Base Excess -2.3 L (-2-2.0) Dae Test Positive A-a Gradient 474 mmHg Oxygen Flow Rate 15.0 FiO2 80.00 (21.00-100.00) % Sodium (136-145) mEq/L Potassium (3.5-5.1) mEq/L Chloride (98-107) mEq/L Carbon Dioxide (21-32) mEq/L Anion Gap (5-15) BUN (7-18) mg/dL Creatinine (0.55-1.02) mg/dL Est Cr Clr Drug Dosing mL/min Estimated GFR (MDRD) (>60) mL/min BUN/Creatinine Ratio (14-18) Glucose (70-99) mg/dL Calcium (8.5-10.1) mg/dL Magnesium (1.8-2.4) mg/dL Total Bilirubin (0.2-1.0) mg/dL AST (15-37) U/L ALT (14-59) U/L Alkaline Phosphatase (46-116) U/L Troponin I 0.156 H* (0.00-0.056) ng/mL C-Reactive Protein (<1.0) mg/dL NT-Pro-B Natriuret Pep 3117 H (0-450) pg/mL Total Protein (6.4-8.2) g/dl Albumin (3.4-5.0) g/dl Globulin gm/dL Albumin/Globulin Ratio (1-2) Urine Color (Yellow) Urine Appearance (Clear) Urine pH (5.0-8.0) Ur Specific [place] (1.005-1.030) Urine Protein (Negative) Urine Glucose (UA) (Negative) Urine Ketones (Negative) Urine Occult Blood (Negative) Urine Nitrite (Negative) Urine Bilirubin (Negative) Urine Urobilinogen (0.2-1.0) Ur Leukocyte Esterase (Negative) Urine RBC (0-5) /hpf Urine WBC (0-5) /hpf Urine WBC Clumps (NOT SEEN) /hpf Ur Squamous Epith Cells (0-5) /hpf Urine Bacteria (FEW) /hpf Urine Mucus (FEW) /hpf 06/07/21 06/08/21 Range/Units 23:30 07:56 WBC (3.98-10.04) K/mm3 RBC (3.98-5.22) M/mm3 Hgb (11.2-15.7) gm/dl Hct (34.1-44.9) % MCV (79.4-94.8) fl MCH (25.6-32.2) pg MCHC (32.2-35.5) g/dl RDW Std Deviation (36.4-46.3) fL Plt Count (182-369) K/mm3 MPV (9.4-12.3) fl Neut % (Auto) (34.0-71.1) % Lymph % (Auto) (19.3-51.7) % [place] % (Auto) (4.7-12.5) % Eos % (Auto) (0.7-5.8) Baso % (Auto) (0.1-1.2) % Neut # (Auto) (1.56-6.13) K/mm3 Lymph # (Auto) (1.18-3.74) K/mm3 [place] # (Auto) (0.24-0.36) K/mm3 Eos # (Auto) (0.04-0.36) K/mm3 Baso # (Auto) (0.01-0.08) K/mm3 D-Dimer, Quantitative (0.19-0.50) mg/L Puncture Site ABG pH (7.35-7.45) ABG pCO2 (35.0-45.0) mmHg ABG pO2 (80.0-100.0) mmHg ABG HCO3 (22.0-26.0) meq/L ABG O2 Saturation (96.0-97.0) % ABG Base Excess (-2-2.0) Dae Test A-a Gradient mmHg Oxygen Flow Rate FiO2 (21.00-100.00) % Sodium (136-145) mEq/L Potassium (3.5-5.1) mEq/L Chloride (98-107) mEq/L Carbon Dioxide (21-32) mEq/L Anion Gap (5-15) BUN (7-18) mg/dL Creatinine (0.55-1.02) mg/dL Est Cr Clr Drug Dosing mL/min Estimated GFR (MDRD) (>60) mL/min BUN/Creatinine Ratio (14-18) Glucose (70-99) mg/dL Calcium (8.5-10.1) mg/dL Magnesium (1.8-2.4) mg/dL Total Bilirubin (0.2-1.0) mg/dL AST (15-37) U/L ALT (14-59) U/L Alkaline Phosphatase (46-116) U/L Troponin I 0.067 H* (0.00-0.056) ng/mL C-Reactive Protein (<1.0) mg/dL NT-Pro-B Natriuret Pep (0-450) pg/mL Total Protein (6.4-8.2) g/dl Albumin (3.4-5.0) g/dl Globulin gm/dL Albumin/Globulin Ratio (1-2) Urine Color Yellow (Yellow) Urine Appearance Slt cloudy H (Clear) Urine pH 6.0 (5.0-8.0) Ur Specific [place] 1.010 (1.005-1.030) Urine Protein 1+ H (Negative) Urine Glucose (UA) Negative (Negative) Urine Ketones 3+ H (Negative) Urine Occult Blood 2+ H (Negative) Urine Nitrite Negative (Negative) Urine Bilirubin Negative (Negative) Urine Urobilinogen 0.2 (0.2-1.0) Ur Leukocyte Esterase 1+ H (Negative) Urine RBC 5-10 H (0-5) /hpf Urine WBC 20-30 H (0-5) /hpf Urine WBC Clumps Rare (NOT SEEN) /hpf Ur Squamous Epith Cells 0-5 (0-5) /hpf Urine Bacteria Moderate H (FEW) /hpf Urine Mucus Few (FEW) /hpf Result Diagrams: 06/08/21 15:00 06/07/21 15:10 Sepsis Event Note - Focused Exam Vital Signs: Vital Signs Pulse Ox 06/08/21 08:38 90 L 06/08/21 04:52 91 L 06/08/21 02:03 91 L 06/08/21 00:39 97 06/07/21 23:51 96 - Problem List (1) History of COVID-19 SNOMED Code(s): 488952569345523524, 704040198442748103 ICD Code: Z86.16 - PERSONAL HISTORY OF COVID-19 Status: Chronic Priority: Medium Current Visit: Yes (2) Elevated d-dimer SNOMED Code(s): 993623924 ICD Code: R79.89 - OTHER SPECIFIED ABNORMAL FINDINGS OF BLOOD CHEMISTRY Status: Acute Priority: Medium Current Visit: Yes (3) Elevated troponin SNOMED Code(s): 693198680, 795122399, 523304755 ICD Code: R77.8 - OTHER SPECIFIED ABNORMALITIES OF PLASMA PROTEINS Status: Acute Priority: High Current Visit: Yes (4) Pneumonia SNOMED Code(s): 285868624 ICD Code: J18.9 - PNEUMONIA, UNSPECIFIED ORGANISM Status: Suspected Priority: High Current Visit: Yes Qualifiers: Pneumonia type: due to unspecified organism Laterality: unspecified laterality Lung location: unspecified part of lung Qualified Code(s): J18.9 - Pneumonia, unspecified organism (5) Dyspnea SNOMED Code(s): 132531882 ICD Code: R06.00 - DYSPNEA, UNSPECIFIED Status: Acute Priority: High Current Visit: Yes Qualifiers: Dyspnea type: unspecified Qualified Code(s): R06.00 - Dyspnea, unspecified (6) Hypoxia SNOMED Code(s): 205269414 ICD Code: R09.02 - HYPOXEMIA Status: Acute Priority: High Current Visi t: Yes (7) UTI (urinary tract infection) SNOMED Code(s): 38226743 ICD Code: N39.0 - URINARY TRACT INFECTION, SITE NOT SPECIFIED Status: Acute Priority: High Current Visit: Yes Qualifiers: Urinary tract infection type: site unspecified Hematuria presence: without hematuria Qualified Code(s): N39.0 - Urinary tract infection, site not specified (8) Elevated brain natriuretic peptide (BNP) level SNOMED Code(s): 530598521, 249960529 ICD Code: R79.89 - OTHER SPECIFIED ABNORMAL FINDINGS OF BLOOD CHEMISTRY Status: Acute Priority: High Current Visit: Yes (9) On home oxygen therapy SNOMED Code(s): 670297004121 ICD Code: Z99.81 - DEPENDENCE ON SUPPLEMENTAL OXYGEN Status: Chronic Priority: Medium Current Visit: Yes (10) GERD (gastroesophageal reflux disease) SNOMED Code(s): 335364068 ICD Code: K21.9 - GASTRO-ESOPHAGEAL REFLUX DISEASE WITHOUT ESOPHAGITIS Status: Chronic Priority: Low Current Visit: No Qualifiers: Esophagitis presence: esophagitis presence not specified Qualified Code(s): K21.9 - Gastro-esophageal reflux disease without esophagitis (11) Meniere disease SNOMED Code(s): 71857018 ICD Code: H81.09 - MENIERE'S DISEASE, UNSPECIFIED EAR Status: Chronic Priority: Low Current Visit: No Qualifiers: Laterality: unspecified laterality Qualified Code(s): H81.09 - Meniere's disease, unspecified ear (12) DVT (deep venous thrombosis) SNOMED Code(s): 505275593 ICD Code: I82.409 - ACUTE EMBOLISM AND THOMBOS UNSP DEEP VN UNSP LOWER EXTREMITY Status: Acute Priority: High Current Visit: Yes Qualifiers: DVT location: lower extremity Affected thrombotic vein of extremity: unspecified vein of extremity Chronicity: acute Laterality: left Qualified Code(s): I82.402 - Acute embolism and thrombosis of unspecified deep veins of left lower extremity (13) Hypotension SNOMED Code(s): 69225254 ICD Code: I95.9 - HYPOTENSION, UNSPECIFIED Status: Resolved Priority: High Current Visit: Yes Qualifiers: Hypotension type: unspecified hypotension type Qualified Code(s): I95.9 - Hypotension, unspecified Problem List Initiated/Reviewed/Updated: Yes Orders Last 24hrs: Active Orders 24 hr Category Date Time Status Admission Status [Patient Status] [ADT] Routine ADT 06/08/21 11:05 Active Cardiac Monitoring [RC] CONTINUOUS Care 06/08/21 11:19 Ordered Height and Weight [RC] DAILY Care 06/08/21 11:19 Ordered Intake and Output [RC] DAILY Care 06/08/21 11:19 Ordered Nurse Communication: Isolation [RC] ASDIRECTED Care 06/08/21 11:21 Ordered Oxygen Therapy [RC] ASDIRECTED Care 06/08/21 11:19 Active Pulse Oximetry [RC] PRN Care 06/08/21 11:19 Ordered RT Aerosol Therapy [RC] ASDIRECTED Care 06/07/21 15:19 Active RT Aerosol Therapy [RC] ASDIRECTED Care 06/08/21 08:21 Active RT Aerosol Therapy [RC] ASDIRECTED Care 06/08/21 11:20 Ordered RT Chest Physiotherapy [RC] ASDIRECTED Care 06/08/21 11:19 Ordered RT Incentive Spirometry [RC] ASDIRECTED Care 06/08/21 11:19 Ordered Up With Assistance [RC] ASDIRECTED Care 06/08/21 11:19 Ordered Vital Signs [RC] Q6H Care 06/08/21 11:19 Ordered OT Evaluation and Treatment [CONS] Routine Cons 06/08/21 11:21 Ordered PT Evaluation and Treatment [CONS] Routine Cons 06/08/21 11:21 Ordered Respiratory Care Assess and Treatment [CONS] Routine Cons 06/08/21 11:21 Ordered Regular Diet [DIET] Diet 06/08/21 Lunch Ordered Chest 1V Frontal [CR] Stat Exams 06/07/21 15:18 Taken Echo 2D wo Cont [US] Routine Exams 06/08/21 11:19 Ordered Venous Doppler Lwr Ext Bi [US] Routine Exams 06/08/21 11:16 Ordered C-REACTIVE PROTEIN [CHEM] AM Lab 06/09/21 05:11 Ordered C-REACTIVE PROTEIN [CHEM] AM Lab 06/10/21 05:11 Ordered C-REACTIVE PROTEIN [CHEM] AM Lab 06/11/21 05:11 Ordered C-REACTIVE PROTEIN [CHEM] AM Lab 06/12/21 05:11 Ordered CBC WITH AUTO DIFF [HEME] AM Lab 06/09/21 05:11 Ordered CBC WITH AUTO DIFF [HEME] AM Lab 06/10/21 05:11 Ordered CBC WITH AUTO DIFF [HEME] AM Lab 06/11/21 05:11 Ordered CBC WITH AUTO DIFF [HEME] AM Lab 06/12/21 05:11 Ordered COMPREHENSIVE METABOLIC PN,CMP [CHEM] AM Lab 06/09/21 05:11 Ordered COMPREHENSIVE METABOLIC PN,CMP [CHEM] AM Lab 06/10/21 05:11 Ordered COMPREHENSIVE METABOLIC PN,CMP [CHEM] AM Lab 06/11/21 05:11 Ordered COMPREHENSIVE METABOLIC PN,CMP [CHEM] AM Lab 06/12/21 05:11 Ordered CULTURE URINE [MREF] Stat Lab 06/07/21 23:30 Received MAGNESIUM [CHEM] AM Lab 06/09/21 05:11 Ordered MAGNESIUM [CHEM] AM Lab 06/10/21 05:11 Ordered MAGNESIUM [CHEM] AM Lab 06/11/21 05:11 Ordered MAGNESIUM [CHEM] AM Lab 06/12/21 05:11 Ordered MYCOPLASMA PNEUMONIAE IGM AB [CHEM] Routine Lab 06/08/21 11:26 Ordered PROCALCITONIN [REF] Stat Lab 06/08/21 09:36 Received RESPIRATORY PANEL Routine Lab 06/08/21 11:26 Ordered STREP PNEUMONIAE ANTIGEN [MREF] Routine Lab 06/08/21 11:27 Ordered TROPONIN I [CHEM] AM Lab 06/09/21 05:11 Ordered Albuterol [Proventil Neb Soln] Med 06/08/21 11:19 Ordered 2.5 mg NEB Q2H PRN Albuterol/Ipratropium [DuoNeb 3.0-0.5 MG/3 ML] Med 06/08/21 16:00 Ordered 3 ml NEB QIDRT Docusate Sodium [Colace] Med 06/08/21 11:19 Ordered 100 mg PO Q12H PRN Enoxaparin [Lovenox] Med 06/08/21 09:00 Ordered 40 mg SUBCUT DAILY Ondansetron [Zofran] Med 06/08/21 11:19 Ordered 4 mg IV Q6H PRN Pharmacy to Dose - Vancomycin Med 06/08/21 11:30 Ordered 1 dose .XX ASDIRECTED Piperacillin/Tazobactam 4.5 GM - First Dose Med 06/08/21 11:17 Ordered Piperacillin/Tazobactam [Piperacil-Tazobact] 4.5 gm Sodium Chloride 0.9% [Normal Saline] 100 ml IV ONETIME Sodium Chloride 0.9% [Normal Saline] 1,000 ml Med 06/07/21 22:15 Active IV ASDIRECTED Sodium Chloride 0.9% [Normal Saline] 100 ml Med 06/07/21 18:15 Active IV ASDIRECTED Sodium Chloride 0.9% [Saline Flush] Med 06/07/21 15:18 Active 10 ml FLUSH ASDIRECTED PRN Vancomycin [Vancocin] 1 gm Med 06/08/21 12:00 Active Sodium Chloride 0.9% [Normal Saline (AdvBag)] 250 ml IV Q18H Isolation [COMM] Routine Oth 06/08/21 11:19 Ordered Isolation [COMM] Routine Oth 06/08/21 11:26 Ordered RT Oxygen High Flow [RESPCARE] Routine Oth 06/08/21 11:28 Ordered Saline Lock Insert [OM.PC] Stat Oth 06/07/21 15:18 Ordered Code Status [Resuscitation Status] Stat Resus Stat 06/07/21 23:22 Ordered Medication Orders Albuterol (Albuterol 0.083% 2.5 Mg/3 Ml Neb Soln) 2.5 mg NEB Q2H PRN PRN Reason: Shortness Of Breath/wheezing Albuterol/Ipratropium (Albuterol/Ipratropium 3.0-0.5 Mg/3 Ml Neb Soln) 3 ml NEB QIDRT CY Docusate Sodium (Docusate Sodium 100 Mg Cap) 100 mg PO Q12H PRN PRN Reason: Constipation Enoxaparin Sodium (Enoxaparin 40 Mg/0.4 Ml Syringe) 40 mg SUBCUT DAILY CY Sodium Chloride (Normal Saline) 100 mls @ 60 mls/min IV ASDIRECTED CY Last Admin: 06/07/21 18:12 Dose: 60 mls/min Documented by: CARLOS Sodium Chloride (Normal Saline) 1,000 mls @ 250 mls/hr IV ASDIRECTED CY Last Admin: 06/07/21 22:14 Dose: 250 mls/hr Documented by: ZENOBIA Piperacillin Sod/Tazobactam (Sod 4.5 gm/ Sodium Chloride) 100 mls @ 200 mls/hr IV ONETIME ONE Stop: 06/08/21 11:46 Vancomycin HCl 1 gm/ Sodium (Chloride) 250 mls @ 250 mls/hr IV Q18H [facility] Ondansetron HCl (Ondansetron 4 Mg/2 Ml Sdv) 4 mg IV Q6H PRN PRN Reason: Nausea/Vomiting Sodium Chloride (Sodium Chloride 0.9% 10 Ml Syringe) 10 ml FLUSH ASDIRECTED PRN PRN Reason: Keep Vein Open Last Admin: 06/07/21 18:12 Dose: 10 ml Documented by: Admin: 06/07/21 15:30 Dose: 10 ml Documented by: MENDEZ Vancomycin HCl (Pharmacy To Dose - Vancomycin) 1 dose .XX ASDIRECTED [facility] Assessment/Plan Comment:: Admission assessment - 06/08/2021 * 80-year-old female who presents to ED on 06/07/2021 with low oxygen saturations * History of Mnire's disease, GERD, and prior Covid pneumonia * Was hospitalized from 05/17/2021 through 05/31/2021 with COVID-19 pneumonia at [facility] in [place]. * Discharged home on 4 L of oxygen with activity after completing 4 days of remdesivir and 10 days of Decadron. * Of note patient was noted to have episodes of bradycardia and hypotension with heart rate in the 30s and 40s. She was noticed to have episodes of Mobitz type I AV block and 2.5-second sinus pauses. It was believed this was due to remdesivir however this continued after stopping. Patient was to follow-up with EP and have a 2-week cross tie cutter after discharge. * Prior to presenting to the ED she was noted to have saturations in the low 50s. * Patient's increased her oxygen to 8 L via nasal cannula. * Denies any recent fever, chills, nausea, vomiting, diarrhea, urinary symptoms, or smoking history. * Of note patient did have acute cystitis with an E. coli UTI well in the hospital in [place] and completed 5 days of Rocephin there. * 12-lead EKG was obtained showing a sinus tachycardia at 109 bpm with a LAFB and very mild ST elevation in V2 and V3. * Placed on a nonrebreather mask which improved her saturations to 90 to 91%. * Noted to be dyspneic and only able to complete a few word sentences. * Labs are obtained: * WBC of 8.57. * Hemoglobin 13.0. * Hematocrit 30.5. * Platelet 250,000. * Neutrophils are elevated 75.7%. * D-dimer is very high at 8.16. * Sodium is low at 129. * Potassium 3.8. * Chloride 94. * Carbon dioxide 24. * Anion gap is 14.8. * BUN is 15. Creatinine 0.6. GFR greater than 60. * Glucose is 126. * Calcium 8.7. * Magnesium 1.8. * Total bilirubin 0.6. * AST is 36, ALT 31, alkaline phosphatase 86. * Troponin is elevated at 0.127-->0.156-->0.067. * CRP is very high at 29.3. * Protein 7.1. * Albumin 2.1. * proBNP is 3117 * UA is obtained and is mildly positive with slightly cloudy urine, 1+ pr otein, 3+ ketones, 2+ occult blood, 1+ leukocyte esterase, 5-10 RBCs, 20-30 WBCs, rare WBC clumps, and moderate bacteria. * ABG obtained in the left radial with a pH of 7.44. PCO2 of 30.9. PO2 of 58.0. HCO3 of 20.5. O2 saturations 86%. Base excess is -2.3. Aa gradient is 15.0. This is obtained while on nonrebreather at 15 L. * Facility was out of CPAP and BiPAP-> started on high flow O2 with saturations in the low 90s. * CTA of the chest is obtained to rule out PE and shows: * 1. No findings of pulmonary embolism. * 2. Minimal left-sided pleural effusion. * 3. Diffuse emphysematous changes seen. Both lungs show diffuse increased density uncertain how much of this represents diffuse fibrosis versus possible superimposed pneumonia. Old comparison studies would be needed if available. * 4. 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 * 5. Other findings which are felt to be chronic as described above. * Chest x-ray shows scattered infiltrates bilaterally most prominent in the left lower lobe. * Plan was to transfer the patient for continued care due to elevated troponin however no beds are noted to be available [place], [place], or [place]. * Noted to have a blood pressure of 80/61 and is given a 500 mill fluid bolus over 2 hours. * Given 1 dose of Rocephin in the ED. She is also given 125 mg Solu-Medrol and a DuoNeb, which she reports greatly helped. * Ultimately inpatient bed does open up at our facility and she is admitted to the floor on telemetry for management of her hypoxia, suspected pneumonia, elevated BNP, elevated troponin - likely demand ischemia, and questionable UTI. * On floor bilateral lower extremity ultrasound shows thrombus within the left mid and distal superficial, femoral, popliteal, posterior tibial, and peroneal veins. PLAN: Pneumonia - suspected Dyspnea Hypoxia History of COVID-19 On home oxygen therapy * Droplet isolation (airborne/contact while on high flow O2) * O2 as needed to keep saturation greater than 90% * I-S/Acapella * Given recent hospitalization we will start every 8 hours Zosyn and vancomycin with pharmacy to dose * Check procalcitonin * Repeat CBC, CMP, magnesium, CRP, and check lactic acid * High flow oxygen as directed * Check mycoplasma, strep pneumonia, respiratory viral panel * Sputum culture if able to produce * 4 times daily scheduled DuoNebs * Every 2 hours as needed albuterol nebulizer * Consult RT * Telemetry * Obtain blood cultures * Continuous pulse oximetry * Mucinex BID * Recommend PFT after recovery due to emphysematous changes noted in CTA DVT Elevated d-dimer * CTA in ED negative for PE * Start Eliquis 10mg BID for 7 days tomorrow then transition to 5mg BID * Patient given 40mg Lovenox earlier in day- increase dosing tonight to equal 1mg/kg x1 dose and then discontinue. Hypotension - resolved * Noted in ED and multiple fluid boluses given * Monitor Elevated troponin Elevated brain natriuretic peptide (BNP) level * Trending downward * Obtain echocardiogram -rule out cardiomyopathy * Recheck troponin in a.m. * Monitor patient's weight * Monitor I&O's * Telemetry UTI (urinary tract infection) * ? Chronic bacteriuria as patient is reportedly asymptomatic. * UA weakly positivepatient was treated for E. coli UTI with Rocephin in [place] * Urine culture pending * Obtain blood cultures * Zosyn and vancomycin as above GERD (gastroesophageal reflux disease) * No acute concerns * Monitor Meniere disease * Acute concerns * Monitor Code status: DNR/DNI PCP: Dr. Morley in [place] DVT prophylaxis: Lovenox Disposition: Patient mated to the floor for management and further work-up of suspected pneumonia, hypoxia, elevated troponin, elevated D-dimer, and weak UTI. Anticipated length of stay 3 to 4 days. - Mortality Measure Prognosis:: Poor (Overall poor prognosis given significant baseline lung disease secondary to Covid and oxygen dependency.) <Lisa Lewis - Last Filed: 06/08/21 18:43> H&P History of Present Illness - General Admit Problem/Dx: Admission Diagnosis/Problem Admission Diagnosis/Problem Hypoxia Exam - Vital Signs Vital Signs: Last Vital Signs Temp 97.7 F 06/08/21 17:04 Pulse 108 H 06/08/21 17:04 Resp 24 H 06/08/21 17:04 BP 122/67 06/08/21 17:04 Pulse Ox 91 L 06/08/21 17:08 - Patient Data Lab Results Last 24 hrs: Laboratory Results - last 24 hr 06/07/21 06/07/21 06/08/21 Range/Units 19:10 23:30 07:56 WBC (3.98-10.04) K/mm3 RBC (3.98-5.22) M/mm3 Hgb (11.2-15.7) gm/dl Hct (34.1-44.9) % MCV (79.4-94.8) fl MCH (25.6-32.2) pg MCHC (32.2-35.5) g/dl RDW Std Deviation (36.4-46.3) fL Plt Count (182-369) K/mm3 MPV (9.4-12.3) fl Neut % (Auto) (34.0-71.1) % Lymph % (Auto) (19.3-51.7) % [place] % (Auto) (4.7-12.5) % Eos % (Auto) (0.7-5.8) Baso % (Auto) (0.1-1.2) % Neut # (Auto) (1.56-6.13) K/mm3 Lymph # (Auto) (1.18-3.74) K/mm3 [place] # (Auto) (0.24-0.36) K/mm3 Eos # (Auto) (0.04-0.36) K/mm3 Baso # (Auto) (0.01-0.08) K/mm3 Sodium (136-145) mEq/L Potassium (3.5-5.1) mEq/L Chloride (98-107) mEq/L Carbon Dioxide (21-32) mEq/L Anion Gap (5-15) BUN (7-18) mg/dL Creatinine (0.55-1.02) mg/dL Est Cr Clr Drug Dosing mL/min Estimated GFR (MDRD) (>60) mL/min BUN/Creatinine Ratio (14-18) Glucose (70-99) mg/dL Lactic Acid (0.4-2.0) mmol/L Calcium (8.5-10.1) mg/dL Magnesium (1.8-2.4) mg/dL Troponin I 0.156 H* 0.067 H* (0.00-0.056) ng/mL C-Reactive Protein (<1.0) mg/dL Urine Color Yellow (Yellow) Urine Appearance Slt cloudy H (Clear) Urine pH 6.0 (5.0-8.0) Ur Specific [place] 1.010 (1.005-1.030) Urine Protein 1+ H (Negative) Urine Glucose (UA) Negative (Negative) Urine Ketones 3+ H (Negative) Urine Occult Blood 2+ H (Negative) Urine Nitrite Negative (Negative) Urine Bilirubin Negative (Negative) Urine Urobilinogen 0.2 (0.2-1.0) Ur Leukocyte Esterase 1+ H (Negative) Urine RBC 5-10 H (0-5) /hpf Urine WBC 20-30 H (0-5) /hpf Urine WBC Clumps Rare (NOT SEEN) /hpf Ur Squamous Epith Cells 0-5 (0-5) /hpf Urine Bacteria Moderate H (FEW) /hpf Urine Mucus Few (FEW) /hpf Mycoplasma pneumon IgM (NEGATIVE) 06/08/21 06/08/21 06/08/21 Range/Units 09:36 15:00 15:00 WBC 6.36 (3.98-10.04) K/mm3 RBC 3.78 L (3.98-5.22) M/mm3 Hgb 11.3 D (11.2-15.7) gm/dl Hct 33.8 L (34.1-44.9) % MCV 89.4 (79.4-94.8) fl MCH 29.9 (25.6-32.2) pg MCHC 33.4 (32.2-35.5) g/dl RDW Std Deviation 44.9 (36.4-46.3) fL Plt Count 221 (182-369) K/mm3 MPV 9.7 (9.4-12.3) fl Neut % (Auto) 91.1 H (34.0-71.1) % Lymph % (Auto) 5.5 L (19.3-51.7) % [place] % (Auto) 2.8 L (4.7-12.5) % Eos % (Auto) 0 L (0.7-5.8) Baso % (Auto) 0.0 L (0.1-1.2) % Neut # (Auto) 5.79 (1.56-6.13) K/mm3 Lymph # (Auto) 0.35 L (1.18-3.74) K/mm3 [place] # (Auto) 0.18 L (0.24-0.36) K/mm3 Eos # (Auto) 0.00 L (0.04-0.36) K/mm3 Baso # (Auto) 0.00 L (0.01-0.08) K/mm3 Sodium 135 L (136-145) mEq/L Potassium 3.5 (3.5-5.1) mEq/L Chloride 100 (98-107) mEq/L Carbon Dioxide 21 (21-32) mEq/L Anion Gap 17.5 H (5-15) BUN 16 (7-18) mg/dL Creatinine 0.5 L (0.55-1.02) mg/dL Est Cr Clr Drug Dosing 68.84 mL/min Estimated GFR (MDRD) > 60 (>60) mL/min BUN/Creatinine Ratio 32.0 H (14-18) Glucose 146 H (70-99) mg/dL Lactic Acid (0.4-2.0) mmol/L Calcium 8.5 (8.5-10.1) mg/dL Magnesium 2.0 (1.8-2.4) mg/dL Troponin I (0.00-0.056) ng/mL C-Reactive Protein 31.5 H* (<1.0) mg/dL Urine Color (Yellow) Urine Appearance (Clear) Urine pH (5.0-8.0) Ur Specific [place] (1.005-1.030) Urine Protein (Negative) Urine Glucose (UA) (Negative) Urine Ketones (Negative) Urine Occult Blood (Negative) Urine Nitrite (Negative) Urine Bilirubin (Negative) Urine Urobilinogen (0.2-1.0) Ur Leukocyte Esterase (Negative) Urine RBC (0-5) /hpf Urine WBC (0-5) /hpf Urine WBC Clumps (NOT SEEN) /hpf Ur Squamous Epith Cells (0-5) /hpf Urine Bacteria (FEW) /hpf Urine Mucus (FEW) /hpf Mycoplasma pneumon IgM Negative (NEGATIVE) 06/08/21 Range/Units 15:00 WBC (3.98-10.04) K/mm3 RBC (3.98-5.22) M/mm3 Hgb (11.2-15.7) gm/dl Hct (34.1-44.9) % MCV (79.4-94.8) fl MCH (25.6-32.2) pg MCHC (32.2-35.5) g/dl RDW Std Deviation (36.4-46.3) fL Plt Count (182-369) K/mm3 MPV (9.4-12.3) fl Neut % (Auto) (34.0-71.1) % Lymph % (Auto) (19.3-51.7) % [place] % (Auto) (4.7-12.5) % Eos % (Auto) (0.7-5.8) Baso % (Auto) (0.1-1.2) % Neut # (Auto) (1.56-6.13) K/mm3 Lymph # (Auto) (1.18-3.74) K/mm3 [place] # (Auto) (0.24-0.36) K/mm3 Eos # (Auto) (0.04-0.36) K/mm3 Baso # (Auto) (0.01-0.08) K/mm3 Sodium (136-145) mEq/L Potassium (3.5-5.1) mEq/L Chloride (98-107) mEq/L Carbon Dioxide (21-32) mEq/L Anion Gap (5-15) BUN (7-18) mg/dL Creatinine (0.55-1.02) mg/dL Est Cr Clr Drug Dosing mL/min Estimated GFR (MDRD) (>60) mL/min BUN/Creatinine Ratio (14-18) Glucose (70-99) mg/dL Lactic Acid 1.0 (0.4-2.0) mmol/L Calcium (8.5-10.1) mg/dL Magnesium (1.8-2.4) mg/dL Troponin I (0.00-0.056) ng/mL C-Reactive Protein (<1.0) mg/dL Urine Color (Yellow) Urine Appearance (Clear) Urine pH (5.0-8.0) Ur Specific [place] (1.005-1.030) Urine Protein (Negative) Urine Glucose (UA) (Negative) Urine Ketones (Negative) Urine Occult Blood (Negative) Urine Nitrite (Negative) Urine Bilirubin (Negative) Urine Urobilinogen (0.2-1.0) Ur Leukocyte Esterase (Negative) Urine RBC (0-5) /hpf Urine WBC (0-5) /hpf Urine WBC Clumps (NOT SEEN) /hpf Ur Squamous Epith Cells (0-5) /hpf Urine Bacteria (FEW) /hpf Urine Mucus (FEW) /hpf Mycoplasma pneumon IgM (NEGATIVE) Result Diagrams: 06/08/21 15:00 06/08/21 15:00 Sepsis Event Note - Focused Exam Vital Signs: Vital Signs Temp Pulse Resp BP Pulse Ox Pulse Ox 06/08/21 17:08 91 L 06/08/21 17:04 97.7 F 108 H 24 H 122/67 88 L 06/08/21 12:10 116 H 88 L 06/08/21 12:09 114 H 157/107 H 88 L 06/08/21 12:07 118 H 32 H 160/105 H 86 L 06/08/21 11:14 87 L 06/08/21 08:38 90 L Orders Last 24hrs: Active Orders 24 hr Category Date Time Status Admission Status [Patient Status] [ADT] Routine ADT 06/08/21 11:05 Active Height and Weight [RC] 06 Care 06/08/21 11:19 Active Intake and Output [RC] 04,16 Care 06/08/21 11:19 Active Oxygen Therapy [RC] ASDIRECTED Care 06/08/21 11:19 Active RT Aerosol Therapy [RC] ASDIRECTED Care 06/08/21 08:21 Active RT Chest Physiotherapy [RC] ASDIRECTED Care 06/08/21 11:19 Active RT Incentive Spirometry [RC] ASDIRECTED Care 06/08/21 11:19 Active Up With Assistance [RC] ASDIRECTED Care 06/08/21 11:19 Active Vital Signs [RC] Q6HR Care 06/08/21 11:19 Active OT Evaluation and Treatment [CONS] Routine Cons 06/08/21 11:21 Active PT Evaluation and Treatment [CONS] Routine Cons 06/08/21 11:21 Active Respiratory Care Assess and Treatment [CONS] Routine Cons 06/08/21 11:21 Active Regular Diet [DIET] Diet 06/08/21 Lunch Active BLOOD CULTURE [MREF] Stat Lab 06/08/21 16:20 Received BLOOD CULTURE [MREF] Stat Lab 06/08/21 16:30 Received C-REACTIVE PROTEIN [CHEM] AM Lab 06/09/21 05:11 Ordered C-REACTIVE PROTEIN [CHEM] AM Lab 06/10/21 05:11 Ordered C-REACTIVE PROTEIN [CHEM] AM Lab 06/11/21 05:11 Ordered C-REACTIVE PROTEIN [CHEM] AM Lab 06/12/21 05:11 Ordered CBC WITH AUTO DIFF [HEME] AM Lab 06/09/21 05:11 Ordered CBC WITH AUTO DIFF [HEME] AM Lab 06/10/21 05:11 Ordered CBC WITH AUTO DIFF [HEME] AM Lab 06/11/21 05:11 Ordered CBC WITH AUTO DIFF [HEME] AM Lab 06/12/21 05:11 Ordered COMPREHENSIVE METABOLIC PN,CMP [CHEM] AM Lab 06/09/21 05:11 Ordered COMPREHENSIVE METABOLIC PN,CMP [CHEM] AM Lab 06/10/21 05:11 Ordered COMPREHENSIVE METABOLIC PN,CMP [CHEM] AM Lab 06/11/21 05:11 Ordered COMPREHENSIVE METABOLIC PN,CMP [CHEM] AM Lab 06/12/21 05:11 Ordered CULTURE URINE [MREF] Stat Lab 06/07/21 23:30 Received MAGNESIUM [CHEM] AM Lab 06/09/21 05:11 Ordered MAGNESIUM [CHEM] AM Lab 06/10/21 05:11 Ordered MAGNESIUM [CHEM] AM Lab 06/11/21 05:11 Ordered MAGNESIUM [CHEM] AM Lab 06/12/21 05:11 Ordered PROCALCITONIN [REF] Stat Lab 06/08/21 09:36 Received RESPIRATORY PANEL Routine Lab 06/08/21 14:30 Received STREP PNEUMONIAE ANTIGEN [MREF] Routine Lab 06/08/21 11:27 Received TROPONIN I [CHEM] AM Lab 06/09/21 05:11 Ordered VANCOMYCIN TROUGH [CHEM] Timed Lab 06/10/21 20:30 Ordered Albuterol [Proventil Neb Soln] Med 06/08/21 11:19 Active 2.5 mg NEB Q2H PRN Albuterol/Ipratropium [DuoNeb 3.0-0.5 MG/3 ML] Med 06/08/21 16:00 Active 3 ml NEB QIDRT Apixaban [Eliquis] Med 06/09/21 09:00 Active 10 mg PO BID Docusate Sodium [Colace] Med 06/08/21 11:19 Active 100 mg PO Q12H PRN Ondansetron [Zofran] Med 06/08/21 11:19 Active 4 mg IV Q6H PRN Pharmacy to Dose - Vancomycin Med 06/08/21 11:30 Active 1 dose .XX ASDIRECTED Piperacillin/Tazobactam [Piperacil-Tazobact] 4.5 gm Med 06/08/21 22:30 Active Sodium Chloride 0.9% [Normal Saline] 100 ml IV Q8H Vancomycin [Vancocin] 1 gm Med 06/08/21 15:00 Active Sodium Chloride 0.9% [Normal Saline (AdvBag)] 250 ml IV Q18H guaiFENesin [Mucinex] Med 06/08/21 15:30 Active 600 mg PO BID Blood Culture x2 Reflex Set [OM.PC] Stat Oth 06/08/21 15:34 Ordered Isolation [COMM] Routine Oth 06/08/21 11:19 Ordered RT Oxygen High Flow [RESPCARE] Routine Oth 06/08/21 11:28 Active Code Status [Resuscitation Status] Stat Resus Stat 06/07/21 23:22 Ordered Medication Orders Albuterol (Albuterol 0.083% 2.5 Mg/3 Ml Neb Soln) 2.5 mg NEB Q2H PRN PRN Reason: Shortness Of Breath/wheezing Albuterol/Ipratropium (Albuterol/Ipratropium 3.0-0.5 Mg/3 Ml Neb Soln) 3 ml NEB QIDRT CY Last Admin: 06/08/21 18:27 Dose: Not Given Documented by: Admin: 06/08/21 13:43 Dose: 3 ml Documented by: ALEJANDRA Apixaban (Apixaban 5 Mg Tab) 10 mg PO BID [facility] Stop: 06/15/21 21:01 Docusate Sodium (Docusate Sodium 100 Mg Cap) 100 mg PO Q12H PRN PRN Reason: Constipation Guaifenesin (Guaifenesin 600 Mg Tab.Er) 600 mg PO BID [facility] Last Admin: 06/08/21 15:56 Dose: 600 mg Documented by: JOVANNI Piperacillin Sod/Tazobactam (Sod 4.5 gm/ Sodium Chloride) 100 mls @ 25 mls/hr IV Q8H [facility] Vancomycin HCl 1 gm/ Sodium (Chloride) 250 mls @ 250 mls/hr IV Q18H [facility] Last Admin: 06/08/21 14:49 Dose: 250 mls/hr Documented by: RENETTA Ondansetron HCl (Ondansetron 4 Mg/2 Ml Sdv) 4 mg IV Q6H PRN PRN Reason: Nausea/Vomiting Sodium Chloride (Sodium Chloride 0.9% 10 Ml Syringe) 10 ml FLUSH ASDIRECTED PRN PRN Reason: Keep Vein Open Last Admin: 06/07/21 18:12 Dose: 10 ml Documented by: Admin: 06/07/21 15:30 Dose: 10 ml Documented by: MENDEZ Vancomycin HCl (Pharmacy To Dose - Vancomycin) 1 dose .XX ASDIRECTED [facility] Assessment/Plan Comment:: Patient is appearing to be septic with tachycardia, hypoxia, UTI positive, probable pneumonia hospital-acquired. We will continue fluids. close monitoring. CVS: Tachycardia, no ectopic beats Nominal: Soft nontender nondistended Pulmonary: Shallow breath sounds, bilateral lower lobe crackles Ext: no edema Agree with assessment and plan. Will add fluids.
[2021-06-08] MEDS: Albuterol/Ipratropium 3.0-0.5 MG/3 ML Neb Soln NEB SCH ×3 (13:43→21:50)
--- NOTE | 2021-06-08 15:15 | CR ---
Chest: Portable view of the chest was obtained. Comparison: No prior chest imaging is available, subsequent chest CT performed later on the same day is available. Heart size and mediastinum are within normal limits for portable technique. Diffusely increased lung markings are seen throughout both sides of the chest. As mentioned on chest CT, uncertain how much of this represents diffuse pulmonary fibrosis versus superimposed infectious change. Degenerative change is noted within the spine with scoliosis. Osteopenia is noted. Impression: 1. Diffuse increased lung markings either due to diffuse pulmonary fibrosis versus superimposed infectious change. 2. Other chronic findings as described above. Diagnostic code #3
--- NOTE | 2021-06-08 15:41 | US ---
Bilateral lower extremity deep venous ultrasound: Duplex and color Doppler evaluation was obtained of the right and left common femoral, proximal greater saphenous, superficial femoral, popliteal, posterior tibial and peroneal veins. Comparison: No prior venous imaging is available. Findings: Left leg: Thrombus is seen within the left mid and distal superficial femoral, popliteal, posterior tibial and peroneal veins. Proximal superficial femoral and common femoral veins are patent. Right leg: Visualized veins show normal phasic flow, augmentation and compression. Impression: 1. Left lower extremity deep venous thrombosis as described above. Diagnostic code #5
[2021-06-08] MEDS: guaiFENesin 600 MG Tab.ER PO SCH ×2 (15:56→21:33)
[2021-06-08] MEDS ORDERED: Enoxaparin 60 MG/0.6 ML Syringe SUBCUT ONE (16:30)
[2021-06-08] MEDS ORDERED: Sodium Chloride 0.9% 1,000 ML IV SCH (18:45)
[2021-06-08] MEDS ORDERED: Furosemide 40 MG/4 ML VIAL IVPUSH ONE (20:03)
[2021-06-08] MEDS: Potassium Chloride 10 MEQ Tab.ER PO SCH (21:33)
[2021-06-08] MEDS: Piperacillin/Tazobactam 4.5 GM in Sodium Chloride 0.9% 100 ML IV SCH (21:50)
[2021-06-09] MEDS: Furosemide 20 MG/2 ML VIAL IVPUSH SCH ×3 (06:11→17:47)
[2021-06-09] MEDS: Piperacillin/Tazobactam 4.5 GM in Sodium Chloride 0.9% 100 ML IV SCH ×3 (06:11→21:47)
[2021-06-09] MEDS: Albuterol/Ipratropium 3.0-0.5 MG/3 ML Neb Soln NEB SCH ×4 (06:19→20:25)
[2021-06-09] MEDS ORDERED: Potassium Chloride 20 MEQ Tab.ER PO ONE (07:20)
--- NOTE | 2021-06-09 07:21 | PCM.PN ---
<Zeus Carcamo - Last Filed: 06/09/21 14:43> - General Info Date of Service: 06/09/21 Admission Dx/Problem (Free Text): Admission Diagnosis/Problem Admission Diagnosis/Problem Hypoxia Functional Status: Reports: Pain Controlled, Tolerating Diet, Ambulating (minimal due to SOB), Urinating, Incentive Spirometry. Denies: New Symptoms - Review of Systems General: Reports: Weakness. Denies: Fever, Fatigue, Malaise, Chills HEENT: Reports: No Symptoms, Sinus Congestion. Denies: Headaches, Sore Throat Pulmonary: Reports: Shortness of Breath, Cough, Sputum. Denies: Pleuritic Chest Pain Cardiovascular: Reports: Dyspnea on Exertion. Denies: Chest Pain, Palpitations, Edema Gastrointestinal: Denies: Abdominal Pain, Constipation, Diarrhea, Nausea, Vomiting Genitourinary: Reports: No Symptoms, Pain Musculoskeletal: Reports: No Symptoms Skin: Reports: No Symptoms. Denies: Cyanosis Neurological: Reports: No Symptoms, Difficulty Walking, Weakness. Denies: Confusion, Dizziness, Headache, Numbness, Paresthesia, Pre-Existing Deficit, Seizure, Syncope, Tingling, Tremors, Trouble Speaking, Gait Disturbance Psychiatric: Reports: No Symptoms - Patient Data Vitals - Most Recent: Last Vital Signs Temp 97.5 F 06/09/21 06:01 Pulse 90 06/09/21 06:01 Resp 24 H 06/09/21 06:01 BP 123/81 06/09/21 06:01 Pulse Ox 89 L 06/09/21 06:39 Weight - Most Recent: 135 lb 9.6 oz I&O - Last 24 Hours: Intake & Output 06/08/21 06/09/21 06/09/21 22:59 06:59 14:59 Intake Total 650 100 Output Total 650 1100 Balance 0 -1000 Lab Results Last 24 Hours: Laboratory Results - last 24 hr 06/08/21 06/08/21 06/08/21 Range/Units 07:56 09:36 09:36 WBC (3.98-10.04) K/mm3 RBC (3.98-5.22) M/mm3 Hgb (11.2-15.7) gm/dl Hct (34.1-44.9) % MCV (79.4-94.8) fl MCH (25.6-32.2) pg MCHC (32.2-35.5) g/dl RDW Std Deviation (36.4-46.3) fL Plt Count (182-369) K/mm3 MPV (9.4-12.3) fl Neut % (Auto) (34.0-71.1) % Lymph % (Auto) (19.3-51.7) % [place] % (Auto) (4.7-12.5) % Eos % (Auto) (0.7-5.8) Baso % (Auto) (0.1-1.2) % Neut # (Auto) (1.56-6.13) K/mm3 Lymph # (Auto) (1.18-3.74) K/mm3 [place] # (Auto) (0.24-0.36) K/mm3 Eos # (Auto) (0.04-0.36) K/mm3 Baso # (Auto) (0.01-0.08) K/mm3 Sodium (136-145) mEq/L Potassium (3.5-5.1) mEq/L Chloride (98-107) mEq/L Carbon Dioxide (21-32) mEq/L Anion Gap (5-15) BUN (7-18) mg/dL Creatinine (0.55-1.02) mg/dL Est Cr Clr Drug Dosing mL/min Estimated GFR (MDRD) (>60) mL/min BUN/Creatinine Ratio (14-18) Glucose (70-99) mg/dL Lactic Acid (0.4-2.0) mmol/L Calcium (8.5-10.1) mg/dL Magnesium (1.8-2.4) mg/dL Total Bilirubin (0.2-1.0) mg/dL AST (15-37) U/L ALT (14-59) U/L Alkaline Phosphatase (46-116) U/L Troponin I 0.067 H* (0.00-0.056) ng/mL C-Reactive Protein (<1.0) mg/dL NT-Pro-B Natriuret Pep (0-450) pg/mL Total Protein (6.4-8.2) g/dl Albumin (3.4-5.0) g/dl Globulin gm/dL Albumin/Globulin Ratio (1-2) Procalcitonin 0.29 H ng/mL Mycoplasma pneumon IgM Negative (NEGATIVE) 06/08/21 06/08/21 06/08/21 Range/Units 15:00 15:00 15:00 WBC 6.36 (3.98-10.04) K/mm3 RBC 3.78 L (3.98-5.22) M/mm3 Hgb 11.3 D (11.2-15.7) gm/dl Hct 33.8 L (34.1-44.9) % MCV 89.4 (79.4-94.8) fl MCH 29.9 (25.6-32.2) pg MCHC 33.4 (32.2-35.5) g/dl RDW Std Deviation 44.9 (36.4-46.3) fL Plt Count 221 (182-369) K/mm3 MPV 9.7 (9.4-12.3) fl Neut % (Auto) 91.1 H (34.0-71.1) % Lymph % (Auto) 5.5 L (19.3-51.7) % [place] % (Auto) 2.8 L (4.7-12.5) % Eos % (Auto) 0 L (0.7-5.8) Baso % (Auto) 0.0 L (0.1-1.2) % Neut # (Auto) 5.79 (1.56-6.13) K/mm3 Lymph # (Auto) 0.35 L (1.18-3.74) K/mm3 [place] # (Auto) 0.18 L (0.24-0.36) K/mm3 Eos # (Auto) 0.00 L (0.04-0.36) K/mm3 Baso # (Auto) 0.00 L (0.01-0.08) K/mm3 Sodium 135 L (136-145) mEq/L Potassium 3.5 (3.5-5.1) mEq/L Chloride 100 (98-107) mEq/L Carbon Dioxide 21 (21-32) mEq/L Anion Gap 17.5 H (5-15) BUN 16 (7-18) mg/dL Creatinine 0.5 L (0.55-1.02) mg/dL Est Cr Clr Drug Dosing 68.84 mL/min Estimated GFR (MDRD) > 60 (>60) mL/min BUN/Creatinine Ratio 32.0 H (14-18) Glucose 146 H (70-99) mg/dL Lactic Acid 1.0 (0.4-2.0) mmol/L Calcium 8.5 (8.5-10.1) mg/dL Magnesium 2.0 (1.8-2.4) mg/dL Total Bilirubin (0.2-1.0) mg/dL AST (15-37) U/L ALT (14-59) U/L Alkaline Phosphatase (46-116) U/L Troponin I (0.00-0.056) ng/mL C-Reactive Protein 31.5 H* (<1.0) mg/dL NT-Pro-B Natriuret Pep (0-450) pg/mL Total Protein (6.4-8.2) g/dl Albumin (3.4-5.0) g/dl Globulin gm/dL Albumin/Globulin Ratio (1-2) Procalcitonin ng/mL Mycoplasma pneumon IgM (NEGATIVE) 06/08/21 06/09/21 06/09/21 Range/Units 19:15 04:44 04:44 WBC 7.23 (3.98-10.04) K/mm3 RBC 3.73 L (3.98-5.22) M/mm3 Hgb 11.3 (11.2-15.7) gm/dl Hct 33.4 L (34.1-44.9) % MCV 89.5 (79.4-94.8) fl MCH 30.3 (25.6-32.2) pg MCHC 33.8 (32.2-35.5) g/dl RDW Std Deviation 44.8 (36.4-46.3) fL Plt Count 261 (182-369) K/mm3 MPV 10.5 (9.4-12.3) fl Neut % (Auto) 83.6 H (34.0-71.1) % Lymph % (Auto) 8.9 L (19.3-51.7) % [place] % (Auto) 7.1 (4.7-12.5) % Eos % (Auto) 0 L (0.7-5.8) Baso % (Auto) 0.1 (0.1-1.2) % Neut # (Auto) 6.05 (1.56-6.13) K/mm3 Lymph # (Auto) 0.64 L (1.18-3.74) K/mm3 [place] # (Auto) 0.51 H (0.24-0.36) K/mm3 Eos # (Auto) 0.00 L (0.04-0.36) K/mm3 Baso # (Auto) 0.01 (0.01-0.08) K/mm3 Sodium 137 (136-145) mEq/L Potassium 3.3 L (3.5-5.1) mEq/L Chloride 103 (98-107) mEq/L Carbon Dioxide 24 (21-32) mEq/L Anion Gap 13.3 (5-15) BUN 19 H (7-18) mg/dL Creatinine 0.6 (0.55-1.02) mg/dL Est Cr Clr Drug Dosing 57.37 mL/min Estimated GFR (MDRD) > 60 (>60) mL/min BUN/Creatinine Ratio 31.7 H (14-18) Glucose 146 H (70-99) mg/dL Lactic Acid (0.4-2.0) mmol/L Calcium 8.4 L (8.5-10.1) mg/dL Magnesium 1.8 (1.8-2.4) mg/dL Total Bilirubin 0.5 (0.2-1.0) mg/dL AST 26 (15-37) U/L ALT 26 (14-59) U/L Alkaline Phosphatase 90 (46-116) U/L Troponin I 0.031 (0.00-0.056) ng/mL C-Reactive Protein 24.2 H* (<1.0) mg/dL NT-Pro-B Natriuret Pep 4148 H (0-450) pg/mL Total Protein 6.5 (6.4-8.2) g/dl Albumin 1.8 L (3.4-5.0) g/dl Globulin 4.7 gm/dL Albumin/Globulin Ratio 0.4 L (1-2) Procalcitonin ng/mL Mycoplasma pneumon IgM (NEGATIVE) Med Orders - Current: Current Medications Albuterol (Albuterol 0.083% 2.5 Mg/3 Ml Neb Soln) 2.5 mg NEB Q2H PRN PRN Reason: Shortness Of Breath/wheezing Albuterol/Ipratropium (Albuterol/Ipratropium 3.0-0.5 Mg/3 Ml Neb Soln) 3 ml NEB QIDRT [facility] Last Admin: 06/09/21 06:19 Dose: 3 ml Documented by: Apixaban (Apixaban 5 Mg Tab) 10 mg PO BID [facility] Stop: 06/15/21 21:01 Docusate Sodium (Docusate Sodium 100 Mg Cap) 100 mg PO Q12H PRN PRN Reason: Constipation Furosemide (Furosemide 20 Mg/2 Ml Vial) 20 mg IVPUSH TIDMEALS [facility] Last Admin: 06/09/21 06:11 Dose: 20 mg Documented by: Guaifenesin (Guaifenesin 600 Mg Tab.Er) 600 mg PO BID [facility] Last Admin: 06/08/21 21:33 Dose: 600 mg Documented by: Piperacillin Sod/Tazobactam (Sod 4.5 gm/ Sodium Chloride) 100 mls @ 25 mls/hr IV Q8H [facility] Last Admin: 06/09/21 06:11 Dose: 25 mls/hr Documented by: Vancomycin HCl 1 gm/ Sodium (Chloride) 250 mls @ 250 mls/hr IV Q18H [facility] Last Admin: 06/08/21 14:49 Dose: 250 mls/hr Documented by: Ondansetron HCl (Ondansetron 4 Mg/2 Ml Sdv) 4 mg IV Q6H PRN PRN Reason: Nausea/Vomiting Potassium Chloride (Potassium Chloride 10 Meq Tab.Er) 10 meq PO TID [facility] Last Admin: 06/08/21 21:33 Dose: 10 meq Documented by: Potassium Chloride (Potassium Chloride 20 Meq Tab.Er) 20 meq PO ONETIME ONE Stop: 06/09/21 07:21 Sodium Chloride (Sodium Chloride 0.9% 10 Ml Syringe) 10 ml FLUSH ASDIRECTED PRN PRN Reason: Keep Vein Open Last Admin: 06/07/21 18:12 Dose: 10 ml Documented by: Vancomycin HCl (Pharmacy To Dose - Vancomycin) 1 dose .XX ASDIRECTED [facility] Discontinued Medications Albuterol (Albuterol 0.083% 2.5 Mg/3 Ml Neb Soln) 2.5 mg NEB ONETIME ONE Stop: 06/07/21 15:19 Last Admin: 06/07/21 15:47 Dose: 2.5 mg Documented by: Albuterol/Ipratropium (Albuterol/Ipratropium 3.0-0.5 Mg/3 Ml Neb Soln) 3 ml NEB ONETIME ONE Stop: 06/08/21 08:21 Last Admin: 06/08/21 08:37 Dose: 3 ml Documented by: Enoxaparin Sodium (Enoxaparin 40 Mg/0.4 Ml Syringe) 40 mg SUBCUT DAILY [facility] Last Admin: 06/08/21 14:49 Dose: 40 mg Documented by: Enoxaparin Sodium (Enoxaparin 60 Mg/0.6 Ml Syringe) 20 mg SUBCUT ONETIME ONE Stop: 06/08/21 16:31 Last Admin: 06/08/21 16:53 Dose: 20 mg Documented by: Furosemide (Furosemide 40 Mg/4 Ml Vial) 40 mg IVPUSH NOW ONE Stop: 06/08/21 20:04 Last Admin: 06/08/21 21:33 Dose: 40 mg Documented by: Sodium Chloride (Normal Saline) 100 mls @ 60 mls/min IV ASDIRECTED [facility] Last Admin: 06/07/21 18:12 Dose: 60 mls/min Documented by: Sodium Chloride (Normal Saline) 1,000 mls @ 250 mls/hr IV ASDIRECTED [facility] Last Admin: 06/07/21 22:14 Dose: 250 mls/hr Documented by: Ceftriaxone Sodium 1 gm/ (Sodium Chloride) 100 mls @ 200 mls/hr IV ONETIME ONE Stop: 06/08/21 09:25 Last Admin: 06/08/21 09:20 Dose: 200 mls/hr Documented by: Vancomycin HCl 1 gm/ Sodium (Chloride) 250 mls @ 250 mls/hr IV Q18H [facility] Last Admin: 06/08/21 14:26 Dose: Not Given Documented by: Vancomycin HCl 1 gm/ Sodium (Chloride) 250 mls @ 250 mls/hr IV Q18H [facility] Last Admin: 06/08/21 15:37 Dose: Not Given Documented by: Piperacillin Sod/Tazobactam (Sod 4.5 gm/ Sodium Chloride) 100 mls @ 200 mls/hr IV ONETIME ONE Stop: 06/08/21 14:59 Last Admin: 06/08/21 14:19 Dose: 200 mls/hr Documented by: Sodium Chloride (Normal Saline) 1,000 mls @ 100 mls/hr IV ASDIRECTED CY Iopamidol (Iopamidol 755 Mg/Ml 100 Ml Bottle) 100 ml IVPUSH ONETIME ONE Stop: 06/07/21 18:12 Last Admin: 06/07/21 18:12 Dose: 100 ml Documented by: Methylprednisolone Sodium Succinate (Methylprednisolone Sodium Succinate 125 Mg/2 Ml Sdv) 125 mg IVPUSH ONETIME ONE Stop: 06/08/21 08:21 Last Admin: 06/08/21 08:25 Dose: 125 mg Documented by: Sodium Chloride (Sodium Chloride 0.9% 10 Ml Sdv) 10 ml FLUSH ONETIME ONE Stop: 06/07/21 18:12 Last Admin: 06/07/21 20:31 Dose: 10 ml Documented by: - Exam Quality Assessment: Supplemental Oxygen (High flow 60 L with FiO2 of 80%.), DVT Prophylaxis. No: Urine Catheter General: Alert, Oriented, Cooperative, No Acute Distress HEENT: Pupils Equal, Pupils Reactive, Mucous Membr. Moist/[place] Neck: Supple, Trachea Midline Lungs: Decreased Breath Sounds, Crackles, Wheezing. No: Normal Respiratory Effort (Tachypnea), Rhonchi Cardiovascular: Regular Rate, Regular Rhythm GI/Abdominal Exam: Normal Bowel Sounds, Soft, Non-Tender, No Distention (Female) Exam: Deferred Back Exam: Normal Inspection, Full Range of Motion Extremities: Normal Inspection, Normal Range of Motion, Non-Tender, No Pedal Edema, Normal Capillary Refill Peripheral Pulses: 2+: Radial (L), Radial (R), Dorsalis Pedis (L), Dorsalis Pedis (R) Skin: Warm, Dry, Intact Neurological: No New Focal Deficit Psy/Mental Status: Alert, Normal Affect, Normal Mood - Patient Data Lab Results Last 24 hrs: Laboratory Results - last 24 hr 06/08/21 06/08/21 06/08/21 Range/Units 07:56 09:36 09:36 WBC (3.98-10.04) K/mm3 RBC (3.98-5.22) M/mm3 Hgb (11.2-15.7) gm/dl Hct (34.1-44.9) % MCV (79.4-94.8) fl MCH (25.6-32.2) pg MCHC (32.2-35.5) g/dl RDW Std Deviation (36.4-46.3) fL Plt Count (182-369) K/mm3 MPV (9.4-12.3) fl Neut % (Auto) (34.0-71.1) % Lymph % (Auto) (19.3-51.7) % [place] % (Auto) (4.7-12.5) % Eos % (Auto) (0.7-5.8) Baso % (Auto) (0.1-1.2) % Neut # (Auto) (1.56-6.13) K/mm3 Lymph # (Auto) (1.18-3.74) K/mm3 [place] # (Auto) (0.24-0.36) K/mm3 Eos # (Auto) (0.04-0.36) K/mm3 Baso # (Auto) (0.01-0.08) K/mm3 Sodium (136-145) mEq/L Potassium (3.5-5.1) mEq/L Chloride (98-107) mEq/L Carbon Dioxide (21-32) mEq/L Anion Gap (5-15) BUN (7-18) mg/dL Creatinine (0.55-1.02) mg/dL Est Cr Clr Drug Dosing mL/min Estimated GFR (MDRD) (>60) mL/min BUN/Creatinine Ratio (14-18) Glucose (70-99) mg/dL Lactic Acid (0.4-2.0) mmol/L Calcium (8.5-10.1) mg/dL Magnesium (1.8-2.4) mg/dL Total Bilirubin (0.2-1.0) mg/dL AST (15-37) U/L ALT (14-59) U/L Alkaline Phosphatase (46-116) U/L Troponin I 0.067 H* (0.00-0.056) ng/mL C-Reactive Protein (<1.0) mg/dL NT-Pro-B Natriuret Pep (0-450) pg/mL Total Protein (6.4-8.2) g/dl Albumin (3.4-5.0) g/dl Globulin gm/dL Albumin/Globulin Ratio (1-2) Procalcitonin 0.29 H ng/mL Mycoplasma pneumon IgM Negative (NEGATIVE) 06/08/21 06/08/21 06/08/21 Range/Units 15:00 15:00 15:00 WBC 6.36 (3.98-10.04) K/mm3 RBC 3.78 L (3.98-5.22) M/mm3 Hgb 11.3 D (11.2-15.7) gm/dl Hct 33.8 L (34.1-44.9) % MCV 89.4 (79.4-94.8) fl MCH 29.9 (25.6-32.2) pg MCHC 33.4 (32.2-35.5) g/dl RDW Std Deviation 44.9 (36.4-46.3) fL Plt Count 221 (182-369) K/mm3 MPV 9.7 (9.4-12.3) fl Neut % (Auto) 91.1 H (34.0-71.1) % Lymph % (Auto) 5.5 L (19.3-51.7) % [place] % (Auto) 2.8 L (4.7-12.5) % Eos % (Auto) 0 L (0.7-5.8) Baso % (Auto) 0.0 L (0.1-1.2) % Neut # (Auto) 5.79 (1.56-6.13) K/mm3 Lymph # (Auto) 0.35 L (1.18-3.74) K/mm3 [place] # (Auto) 0.18 L (0.24-0.36) K/mm3 Eos # (Auto) 0.00 L (0.04-0.36) K/mm3 Baso # (Auto) 0.00 L (0.01-0.08) K/mm3 Sodium 135 L (136-145) mEq/L Potassium 3.5 (3.5-5.1) mEq/L Chloride 100 (98-107) mEq/L Carbon Dioxide 21 (21-32) mEq/L Anion Gap 17.5 H (5-15) BUN 16 (7-18) mg/dL Creatinine 0.5 L (0.55-1.02) mg/dL Est Cr Clr Drug Dosing 68.84 mL/min Estimated GFR (MDRD) > 60 (>60) mL/min BUN/Creatinine Ratio 32.0 H (14-18) Glucose 146 H (70-99) mg/dL Lactic Acid 1.0 (0.4-2.0) mmol/L Calcium 8.5 (8.5-10.1) mg/dL Magnesium 2.0 (1.8-2.4) mg/dL Total Bilirubin (0.2-1.0) mg/dL AST (15-37) U/L ALT (14-59) U/L Alkaline Phosphatase (46-116) U/L Troponin I (0.00-0.056) ng/mL C-Reactive Protein 31.5 H* (<1.0) mg/dL NT-Pro-B Natriuret Pep (0-450) pg/mL Total Protein (6.4-8.2) g/dl Albumin (3.4-5.0) g/dl Globulin gm/dL Albumin/Globulin Ratio (1-2) Procalcitonin ng/mL Mycoplasma pneumon IgM (NEGATIVE) 06/08/21 06/09/21 06/09/21 Range/Units 19:15 04:44 04:44 WBC 7.23 (3.98-10.04) K/mm3 RBC 3.73 L (3.98-5.22) M/mm3 Hgb 11.3 (11.2-15.7) gm/dl Hct 33.4 L (34.1-44.9) % MCV 89.5 (79.4-94.8) fl MCH 30.3 (25.6-32.2) pg MCHC 33.8 (32.2-35.5) g/dl RDW Std Deviation 44.8 (36.4-46.3) fL Plt Count 261 (182-369) K/mm3 MPV 10.5 (9.4-12.3) fl Neut % (Auto) 83.6 H (34.0-71.1) % Lymph % (Auto) 8.9 L (19.3-51.7) % [place] % (Auto) 7.1 (4.7-12.5) % Eos % (Auto) 0 L (0.7-5.8) Baso % (Auto) 0.1 (0.1-1.2) % Neut # (Auto) 6.05 (1.56-6.13) K/mm3 Lymph # (Auto) 0.64 L (1.18-3.74) K/mm3 [place] # (Auto) 0.51 H (0.24-0.36) K/mm3 Eos # (Auto) 0.00 L (0.04-0.36) K/mm3 Baso # (Auto) 0.01 (0.01-0.08) K/mm3 Sodium 137 (136-145) mEq/L Potassium 3.3 L (3.5-5.1) mEq/L Chloride 103 (98-107) mEq/L Carbon Dioxide 24 (21-32) mEq/L Anion Gap 13.3 (5-15) BUN 19 H (7-18) mg/dL Creatinine 0.6 (0.55-1.02) mg/dL Est Cr Clr Drug Dosing 57.37 mL/min Estimated GFR (MDRD) > 60 (>60) mL/min BUN/Creatinine Ratio 31.7 H (14-18) Glucose 146 H (70-99) mg/dL Lactic Acid (0.4-2.0) mmol/L Calcium 8.4 L (8.5-10.1) mg/dL Magnesium 1.8 (1.8-2.4) mg/dL Total Bilirubin 0.5 (0.2-1.0) mg/dL AST 26 (15-37) U/L ALT 26 (14-59) U/L Alkaline Phosphatase 90 (46-116) U/L Troponin I 0.031 (0.00-0.056) ng/mL C-Reactive Protein 24.2 H* (<1.0) mg/dL NT-Pro-B Natriuret Pep 4148 H (0-450) pg/mL Total Protein 6.5 (6.4-8.2) g/dl Albumin 1.8 L (3.4-5.0) g/dl Globulin 4.7 gm/dL Albumin/Globulin Ratio 0.4 L (1-2) Procalcitonin ng/mL Mycoplasma pneumon IgM (NEGATIVE) Result Diagrams: 06/09/21 04:44 06/09/21 04:44 Sepsis Event Note - Evaluation Sepsis Screening Result: Sepsis Risk - Focused Exam Vital Signs: Vital Signs Temp Pulse Resp BP Pulse Ox Pulse Ox 06/09/21 06:39 89 L 06/09/21 06:01 97.5 F 90 24 H 123/81 88 L 06/09/21 03:52 97.5 F 94 26 H 144/85 H 89 L 06/08/21 22:38 87 L 06/08/21 21:32 97.5 F 90 24 H 125/87 88 L - Problem List & Annotations (1) History of COVID-19 SNOMED Code(s): 623423416322387356, 949038917420606426 Code(s): Z86.16 - PERSONAL HISTORY OF COVID-19 Status: Chronic Priority: Medium Current Visit: Yes (2) Elevated d-dimer SNOMED Code(s): 440722953 Code(s): R79.89 - OTHER SPECIFIED ABNORMAL FINDINGS OF BLOOD CHEMISTRY Status: Acute Priority: Medium Current Visit: Yes (3) Elevated troponin SNOMED Code(s): 799794302, 774679953, 773545659 Code(s): R77.8 - OTHER SPECIFIED ABNORMALITIES OF PLASMA PROTEINS Status: Resolved Priority: High Current Visit: Yes (4) Pneumonia SNOMED Code(s): 645328464 Code(s): J18.9 - PNEUMONIA, UNSPECIFIED ORGANISM Status: Suspected Priority: High Current Visit: Yes Qualifiers: Pneumonia type: due to unspecified organism Laterality: unspecified laterality Lung location: unspecified part of lung Qualified Code(s): J18.9 - Pneumonia, unspecified organism (5) Dyspnea SNOMED Code(s): 729692708 Code(s): R06.00 - DYSPNEA, UNSPECIFIED Status: Acute Priority: High Current Visit: Yes Qualifiers: Dyspnea type: unspecified Qualified Code(s): R06.00 - Dyspnea, unspecified (6) Hypoxia SNOMED Code(s): 441136106 Code(s): R09.02 - HYPOXEMIA Status: Acute Priority: High Current Visit: Yes (7) UTI (urinary tract infection) SNOMED Code(s): 74238525 Code(s): N39.0 - URINARY TRACT INFECTION, SITE NOT SPECIFIED Status: Acute Priority: High Current Visit: Yes Qualifiers: Urinary tract infection type: site unspecified Hematuria presence: without hematuria Qualified Code(s): N39.0 - Urinary tract infection, site not specified (8) Elevated brain natriuretic peptide (BNP) level SNOMED Code(s): 680513275, 928530467 Code(s): R79.89 - OTHER SPECIFIED ABNORMAL FINDINGS OF BLOOD CHEMISTRY Status: Acute Priority: High Current Visit: Yes (9) On home oxygen therapy SNOMED Code(s): 661054691647 Code(s): Z99.81 - DEPENDENCE ON SUPPLEMENTAL OXYGEN Status: Chronic Priority: Medium Current Visit: Yes (10) GERD (gastroesophageal reflux disease) SNOMED Code(s): 509905319 Code(s): K21.9 - GASTRO-ESOPHAGEAL REFLUX DISEASE WITHOUT ESOPHAGITIS Status: Chronic Priority: Low Current Visit: No Qualifiers: Esophagitis presence: esophagitis presence not specified Qualified Code(s): K21.9 - Gastro-esophageal reflux disease without esophagitis (11) Meniere disease SNOMED Code(s): 89273727 Code(s): H81.09 - MENIERE'S DISEASE, UNSPECIFIED EAR Status: Chronic Priority: Low Current Visit: No Qualifiers: Laterality: unspecified laterality Qualified Code(s): H81.09 - Meniere's disease, unspecified ear (12) DVT (deep venous thrombosis) SNOMED Code(s): 696955142 Code(s): I82.409 - ACUTE EMBOLISM AND THOMBOS UNSP DEEP VN UNSP LOWER EXTREMITY Status: Acute Priority: High Current Visit: Yes Qualifiers: DVT location: lower extremity Affected thrombotic vein of extremity: unspecified vein of extremity Chronicity: acute Laterality: left Qualified Code(s): I82.402 - Acute embolism and thrombosis of unspecified deep veins of left lower extremity (13) Hypotension SNOMED Code(s): 75454481 Code(s): I95.9 - HYPOTENSION, UNSPECIFIED Status: Resolved Priority: High Current Visit: Yes Qualifiers: Hypotension type: unspecified hypotension type Qualified Code(s): I95.9 - Hypotension, unspecified (14) Acute and chronic respiratory failure SNOMED Code(s): 37978603 Code(s): J96.20 - ACUTE AND CHR RESP FAILURE, UNSP W HYPOXIA OR HYPERCAPNIA Status: Acute Priority: High Current Visit: Yes Qualifiers: Respiratory failure complication: hypoxia Qualified Code(s): J96.21 - Acute and chronic respiratory failure with hypoxia (15) Myocarditis SNOMED Code(s): 53749913 Code(s): I51.4 - MYOCARDITIS, UNSPECIFIED Status: Suspected Priority: High Current Visit: Yes Qualifiers: Myocarditis type: infective Infective myocarditis organism: viral Chronicity: acute Qualified Code(s): I40.0 - Infective myocarditis (16) Hypokalemia SNOMED Code(s): 87066620 Code(s): E87.6 - HYPOKALEMIA Status: Acute Priority: High Current V isit: Yes - Problem List Review Problem List Initiated/Reviewed/Updated: Yes - My Orders Last 24 Hours: My Active Orders 06/08/21 Lunch Regular Diet [DIET] 06/08/21 11:19 Height and Weight [RC] 06 Intake and Output [RC] 04,16 Oxygen Therapy [RC] ASDIRECTED RT Chest Physiotherapy [RC] ASDIRECTED RT Incentive Spirometry [RC] ASDIRECTED Up With Assistance [RC] ASDIRECTED Vital Signs [RC] 0400,1000,1600,2200 Albuterol [Proventil Neb Soln] 2.5 mg NEB Q2H PRN Docusate Sodium [Colace] 100 mg PO Q12H PRN Ondansetron [Zofran] 4 mg IV Q6H PRN Isolation [COMM] Routine 06/08/21 11:21 OT Evaluation and Treatment [CONS] Routine PT Evaluation and Treatment [CONS] Routine Respiratory Care Assess and Treatment [CONS] Routine 06/08/21 11:27 STREP PNEUMONIAE ANTIGEN [MREF] Routine 06/08/21 11:28 RT Oxygen High Flow [RESPCARE] Routine 06/08/21 11:30 Pharmacy to Dose - Vancomycin 1 dose .XX ASDIRECTED 06/08/21 14:30 RESPIRATORY PANEL Routine 06/08/21 15:00 Vancomycin [Vancocin] 1 gm Sodium Chloride 0.9% [Normal Saline (AdvBag)] 250 ml IV Q18H 06/08/21 15:30 guaiFENesin [Mucinex] 600 mg PO BID 06/08/21 15:34 Blood Culture x2 Reflex Set [OM.PC] Stat 06/08/21 16:00 Albuterol/Ipratropium [DuoNeb 3.0-0.5 MG/3 ML] 3 ml NEB QIDRT 06/08/21 16:20 BLOOD CULTURE [MREF] Stat 06/08/21 16:30 BLOOD CULTURE [MREF] Stat 06/08/21 22:30 Piperacillin/Tazobactam [Piperacil-Tazobact] 4.5 gm Sodium Chloride 0.9% [Normal Saline] 100 ml IV Q8H 06/09/21 04:44 CBC WITH AUTO DIFF [HEME] AM 06/09/21 07:20 Potassium Chloride [Klor-Con M20] 20 meq PO ONETIME ONE 06/09/21 09:00 Apixaban [Eliquis] 10 mg PO BID 06/10/21 05:11 C-REACTIVE PROTEIN [CHEM] AM CBC WITH AUTO DIFF [HEME] AM COMPREHENSIVE METABOLIC PN,CMP [CHEM] AM MAGNESIUM [CHEM] AM 06/11/21 05:11 C-REACTIVE PROTEIN [CHEM] AM CBC WITH AUTO DIFF [HEME] AM COMPREHENSIVE METABOLIC PN,CMP [CHEM] AM MAGNESIUM [CHEM] AM 06/12/21 05:11 C-REACTIVE PROTEIN [CHEM] AM CBC WITH AUTO DIFF [HEME] AM COMPREHENSIVE METABOLIC PN,CMP [CHEM] AM MAGNESIUM [CHEM] AM - Assessment Assessment:: Admission assessment - 06/08/2021 * 80-year-old female who presents to ED on 06/07/2021 with low oxygen saturations * History of Mnire's disease, GERD, and prior Covid pneumonia * Was hospitalized from 05/17/2021 through 05/31/2021 with COVID-19 pneumonia at [facility] in [place]. * Discharged home on 4 L of oxygen with activity after completing 4 days of remdesivir and 10 days of Decadron. * Of note patient was noted to have episodes of bradycardia and hypotension with heart rate in the 30s and 40s. She was noticed to have episodes of Mobitz type I AV block and 2.5-second sinus pauses. It was believed this was due to remdesivir however this continued after stopping. Patient was to follow-up with EP and have a 2-week gambling monitor after discharge. * Prior to presenting to the ED she was noted to have saturations in the low 50s. * Patient's increased her oxygen to 8 L via nasal cannula. * Denies any recent fever, chills, nausea, vomiting, diarrhea, urinary symptoms, or smoking history. * Of note patient did have acute cystitis with an E. coli UTI well in the hospital in [place] and completed 5 days of Rocephin there. * 12-lead EKG was obtained showing a sinus tachycardia at 109 bpm with a LAFB and very mild ST elevation in V2 and V3. * Placed on a nonrebreather mask which improved her saturations to 90 to 91%. * Noted to be dyspneic and only able to complete a few word sentences. * Labs are obtained: * WBC of 8.57. * Hemoglobin 13.0. * Hematocrit 30.5. * Platelet 250,000. * Neutrophils are elevated 75.7%. * D-dimer is very high at 8.16. * Sodium is low at 129. * Potassium 3.8. * Chloride 94. * Carbon dioxide 24. * Anion gap is 14.8. * BUN is 15. Creatinine 0.6. GFR greater than 60. * Glucose is 126. * Calcium 8.7. * Magnesium 1.8. * Total bilirubin 0.6. * AST is 36, ALT 31, alkaline phosphatase 86. * Troponin is elevated at 0.127-->0.156-->0.067. * CRP is very high at 29.3. * Protein 7.1. * Albumin 2.1. * proBNP is 3117 * UA is obtained and is mildly positive with slightly cloudy urine, 1+ protein, 3+ ketones, 2+ occult blood, 1+ leukocyte esterase, 5-10 RBCs, 20- 30 WBCs, rare WBC clumps, and moderate bacteria. * ABG obtained in the left radial with a pH of 7.44. PCO2 of 30.9. PO2 of 58.0. HCO3 of 20.5. O2 saturations 86%. Base excess is -2.3. Aa gradient is 15.0. This is obtained while on nonrebreather at 15 L. * Facility was out of CPAP and BiPAP-> started on high flow O2 with saturations in the low 90s. * CTA of the chest is obtained to rule out PE and shows: * 1. No findings of pulmonary embolism. * 2. Minimal left-sided pleural effusion. * 3. Diffuse emphysematous changes seen. Both lungs show diffuse increased density uncertain how much of this represents diffuse fibrosis versus poss ible superimposed pneumonia. Old comparison studies would be needed if available. * 4. 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 * 5. Other findings which are felt to be chronic as described above. * Chest x-ray shows scattered infiltrates bilaterally most prominent in the left lower lobe. * Plan was to transfer the patient for continued care due to elevated troponin however no beds are noted to be available [place], [place], or [place]. * Noted to have a blood pressure of 80/61 and is given a 500 mill fluid bolus over 2 hours. * Given 1 dose of Rocephin in the ED. She is also given 125 mg Solu-Medrol and a DuoNeb, which she reports greatly helped. * Ultimately inpatient bed does open up at our facility and she is admitted to the floor on telemetry for management of her hypoxia, suspected pneumonia, elevated BNP, elevated troponin - likely demand ischemia, and questionable UTI. * On floor bilateral lower extremity ultrasound shows thrombus within the left mid and distal superficial, femoral, popliteal, posterior tibial, and peroneal veins. 06/09/2021 This is a 80 years old female post Covid infection who was hospitalized in [place] for approximately 2 weeks who presented to our ED with low saturations. On admission D-dimer was noted to be elevated however CTA was negative for any PE. Lower extremity ultrasound did show a DVT in the left extremity and patient was started on 1 mg/kg Lovenox transitioning to 10 mg twice daily Eliquis today. Patient has been requiring high flow 60 L and was weaned down to 80% FiO2 today. Unfortunately given patient's history of recent Covid infection CTA was not very helpful in differentiating pulmonary cause. Given recent hospitalization there are concerns of a secondary bacterial infection. WBC has been WNL however neutrophils are elevated. Procalcitonin was obtained and was 0.29. Lactic acid yesterday was 1.0. Patient was noted to be hypotensive in the emergency room and was given 2 fluid boluses. She was also started on fluids over concerns of sepsis. UA was positive and urine culture is growing out greater than 100,000 CFU's of gram-negative rods thus far. She does have a history of a E. coli UTI treated with Rocephin in [place]. Patient denies any urinary symptoms. proBNP was elevated. Echocardiogram was obtained on 06/08/2021 And interpreted as: " 1. The left ventricular internal cavity size is normal. 2. Normal left ventricular systolic function. 3. Left ventricular ejection fraction, by visual estimation, is 55 to 60%. 4. No regional wall motion abnormalities. 5. Mild proximal septal hypertrophy. 6. Aortic valve is tricuspid. 7. Mild mitral valve regurgitation. 8. Trace tricuspid valve regurgitation. 9. Mild pulmonic valve regurgitation. 10. The inferior vena cava is normal. 11. The right ventricular systolic pressure is mildly elevated at 32.2 mmHg." Patient was started on 20 mg IV push Lasix 3 times daily yesterday and has had over 1 L output. Potassium today is down to 3.3 and this is being supplemented. Sodium 137. Carbon dioxide 24. Anion gap is 13.3. BUN is 19. Creatinine 0.6. GFR greater than 60. Glucose is 146. Calcium 8.4. Magnesium is 1.8. Total bilirubin 0.5. AST is 26, ALT 26, alkaline phosphatase 90. Troponin today was down to 0.031. CRP is down to 24.2. Albumin is down to 1.8. Mycoplasma and strep pneumonia were both checked and were negative. Respiratory viral panel was obtained and was negative however patient did return positive for Covid, which is unsurprising given the patient's recent known Covid infection. We will continue current treatment plan. It is felt it is prudent to continue IV antibiotics for now given patient's symptoms and lab results. We will continue diuresis and Eliquis for DVT treatment. - Plan Plan:: Pneumonia - suspected Dyspnea Hypoxia History of COVID-19 On home oxygen therapy Acute on chronic respiratory failure * Droplet isolation (airborne/contact while on high flow O2) * O2 as needed to keep saturation greater than 90% * I-S/Acapella * Given recent hospitalization we will start every 8 hours Zosyn and vancomycin with pharmacy to dose * High flow oxygen as directed * Sputum culture if able to produce * 4 times daily scheduled DuoNebs * Every 2 hours as needed albuterol nebulizer * Consult RT * Telemetry * Blood cultures pending * Continuous pulse oximetry * Mucinex BID * Recommend PFT after recovery due to emphysematous changes noted in CTA DVT Elevated d-dimer * CTA in ED negative for PE * Start Eliquis 10mg BID for 7 days tomorrow then transition to 5mg BID 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 Chronic bacteriuria as patient is reportedly asymptomatic. * UA weakly positivepatient was treated for E. coli UTI with Rocephin in [place] * Urine culture showing >100cfu E. Coli, sensitivities pending * Blood cultures pending * Zosyn as above GERD (gastroesophageal reflux disease) * No acute concerns * Monitor Meniere disease * Acute concerns * Monitor Hypokalemia * Supplement Hypotension - resolved * Noted in ED and multiple fluid boluses given * Monitor Code status: DNR/DNI PCP: Dr. Morley in [place] DVT prophylaxis: Lovenox Disposition: Patient mated to the floor for management and further work-up of suspected pneumonia, hypoxia, elevated troponin, elevated D-dimer, and weak UTI. Anticipated length of stay 3 to 4 days. <Lisa Lewis - Last Filed: 06/09/21 15:50> - Patient Data Vitals - Most Recent: Last Vital Signs Temp 97.5 F 06/09/21 07:53 Pulse 95 06/09/21 07:53 Resp 22 H 06/09/21 07:53 BP 126/86 06/09/21 07:53 Pulse Ox 91 L 06/09/21 15:10 I&O - Last 24 Hours: Intake & Output 06/09/21 06/09/21 06/09/21 06:59 14:59 22:59 Intake Total 100 0 Output Total 1100 Balance -1000 0 Lab Results Last 24 Hours: Laboratory Results - last 24 hr 06/08/21 06/08/21 06/08/21 Range/Units 09:36 14:30 15:00 WBC (3.98-10.04) K/mm3 RBC (3.98-5.22) M/mm3 Hgb (11.2-15.7) gm/dl Hct (34.1-44.9) % MCV (79.4-94.8) fl MCH (25.6-32.2) pg MCHC (32.2-35.5) g/dl RDW Std Deviation (36.4-46.3) fL Plt Count (182-369) K/mm3 MPV (9.4-12.3) fl Neut % (Auto) (34.0-71.1) % Lymph % (Auto) (19.3-51.7) % [place] % (Auto) (4.7-12.5) % Eos % (Auto) (0.7-5.8) Baso % (Auto) (0.1-1.2) % Neut # (Auto) (1.56-6.13) K/mm3 Lymph # (Auto) (1.18-3.74) K/mm3 [place] # (Auto) (0.24-0.36) K/mm3 Eos # (Auto) (0.04-0.36) K/mm3 Baso # (Auto) (0.01-0.08) K/mm3 Manual Slide Review Sodium 135 L (136-145) mEq/L Potassium 3.5 (3.5-5.1) mEq/L Chloride 100 (98-107) mEq/L Carbon Dioxide 21 (21-32) mEq/L Anion Gap 17.5 H (5-15) BUN 16 (7-18) mg/dL Creatinine 0.5 L (0.55-1.02) mg/dL Est Cr Clr Drug Dosing 68.84 mL/min Estimated GFR (MDRD) > 60 (>60) mL/min BUN/Creatinine Ratio 32.0 H (14-18) Glucose 146 H (70-99) mg/dL Lactic Acid (0.4-2.0) mmol/L Calcium 8.5 (8.5-10.1) mg/dL Magnesium 2.0 (1.8-2.4) mg/dL Total Bilirubin (0.2-1.0) mg/dL AST (15-37) U/L ALT (14-59) U/L Alkaline Phosphatase (46-116) U/L Troponin I (0.00-0.056) ng/mL C-Reactive Protein 31.5 H* (<1.0) mg/dL NT-Pro-B Natriuret Pep (0-450) pg/mL Total Protein (6.4-8.2) g/dl Albumin (3.4-5.0) g/dl Globulin gm/dL Albumin/Globulin Ratio (1-2) Procalcitonin 0.29 H ng/mL Adenovirus (PCR) Not detected (Not Detected) B. pertussis DNA (PCR) Not detected (Not Detected) B.parapertussis DNA PCR Not detected (Not Detected) C. pneumoniae DNA (PCR) Not detected (Not Detected) Coronavirus OC43 (PCR) Not detected (Not Detected) Coronavirus HKU1 (PCR) Not detected (Not Detected) Coronavirus 229E (PCR) Not detected (Not Detected) Coronavirus NL63 (PCR) Not detected (Not Detected) Human Metapneumovir PCR Not detected (Not Detected) Influenza A (RT-PCR) Not detected (Not Detected) Influenza B (RT-PCR) Not detected (Not Detected) M. pneumoniae (PCR) Not detected (Not Detected) Parainfluenza 1 (PCR) Not detected (Not Detected) Parainfluenza 2 (PCR) Not detected (Not Detected) Parainfluenza 3 (PCR) Not detected (Not Detected) Parainfluenza 4 (PCR) Not detected (Not Detected) RSV (PCR) Not detected (Not Detected) Entero/Rhino (PCR) Not detected (Not Detected) SARS-CoV-2 (PCR) Detected H (Not Detected) 06/08/21 06/08/21 06/09/21 Range/Units 15:00 19:15 04:44 WBC 7.23 (3.98-10.04) K/mm3 RBC 3.73 L (3.98-5.22) M/mm3 Hgb 11.3 (11.2-15.7) gm/dl Hct 33.4 L (34.1-44.9) % MCV 89.5 (79.4-94.8) fl MCH 30.3 (25.6-32.2) pg MCHC 33.8 (32.2-35.5) g/dl RDW Std Deviation 44.8 (36.4-46.3) fL Plt Count 261 (182-369) K/mm3 MPV 10.5 (9.4-12.3) fl Neut % (Auto) 83.6 H (34.0-71.1) % Lymph % (Auto) 8.9 L (19.3-51.7) % [place] % (Auto) 7.1 (4.7-12.5) % Eos % (Auto) 0 L (0.7-5.8) Baso % (Auto) 0.1 (0.1-1.2) % Neut # (Auto) 6.05 (1.56-6.13) K/mm3 Lymph # (Auto) 0.64 L (1.18-3.74) K/mm3 [place] # (Auto) 0.51 H (0.24-0.36) K/mm3 Eos # (Auto) 0.00 L (0.04-0.36) K/mm3 Baso # (Auto) 0.01 (0.01-0.08) K/mm3 Manual Slide Review Normal smear Sodium (136-145) mEq/L Potassium (3.5-5.1) mEq/L Chloride (98-107) mEq/L Carbon Dioxide (21-32) mEq/L Anion Gap (5-15) BUN (7-18) mg/dL Creatinine (0.55-1.02) mg/dL Est Cr Clr Drug Dosing mL/min Estimated GFR (MDRD) (>60) mL/min BUN/Creatinine Ratio (14-18) Glucose (70-99) mg/dL Lactic Acid 1.0 (0.4-2.0) mmol/L Calcium (8.5-10.1) mg/dL Magnesium (1.8-2.4) mg/dL Total Bilirubin (0.2-1.0) mg/dL AST (15-37) U/L ALT (14-59) U/L Alkaline Phosphatase (46-116) U/L Troponin I (0.00-0.056) ng/mL C-Reactive Protein (<1.0) mg/dL NT-Pro-B Natriuret Pep 4148 H (0-450) pg/mL Total Protein (6.4-8.2) g/dl Albumin (3.4-5.0) g/dl Globulin gm/dL Albumin/Globulin Ratio (1-2) Procalcitonin ng/mL Adenovirus (PCR) (Not Detected) B. pertussis DNA (PCR) (Not Detected) B.parapertussis DNA PCR (Not Detected) C. pneumoniae DNA (PCR) (Not Detected) Coronavirus OC43 (PCR) (Not Detected) Coronavirus HKU1 (PCR) (Not Detected) Coronavirus 229E (PCR) (Not Detected) Coronavirus NL63 (PCR) (Not Detected) Human Metapneumovir PCR (Not Detected) Influenza A (RT-PCR) (Not Detected) Influenza B (RT-PCR) (Not Detected) M. pneumoniae (PCR) (Not Detected) Parainfluenza 1 (PCR) (Not Detected) Parainfluenza 2 (PCR) (Not Detected) Parainfluenza 3 (PCR) (Not Detected) Parainfluenza 4 (PCR) (Not Detected) RSV (PCR) (Not Detected) Entero/Rhino (PCR) (Not Detected) SARS-CoV-2 (PCR) (Not Detected) 06/09/21 Range/Units 04:44 WBC (3.98-10.04) K/mm3 RBC (3.98-5.22) M/mm3 Hgb (11.2-15.7) gm/dl Hct (34.1-44.9) % MCV (79.4-94.8) fl MCH (25.6-32.2) pg MCHC (32.2-35.5) g/dl RDW Std Deviation (36.4-46.3) fL Plt Count (182-369) K/mm3 MPV (9.4-12.3) fl Neut % (Auto) (34.0-71.1) % Lymph % (Auto) (19.3-51.7) % [place] % (Auto) (4.7-12.5) % Eos % (Auto) (0.7-5.8) Baso % (Auto) (0.1-1.2) % Neut # (Auto) (1.56-6.13) K/mm3 Lymph # (Auto) (1.18-3.74) K/mm3 [place] # (Auto) (0.24-0.36) K/mm3 Eos # (Auto) (0.04-0.36) K/mm3 Baso # (Auto) (0.01-0.08) K/mm3 Manual Slide Review Sodium 137 (136-145) mEq/L Potassium 3.3 L (3.5-5.1) mEq/L Chloride 103 (98-107) mEq/L Carbon Dioxide 24 (21-32) mEq/L Anion Gap 13.3 (5-15) BUN 19 H (7-18) mg/dL Creatinine 0.6 (0.55-1.02) mg/dL Est Cr Clr Drug Dosing 57.37 mL/min Estimated GFR (MDRD) > 60 (>60) mL/min BUN/Creatinine Ratio 31.7 H (14-18) Glucose 146 H (70-99) mg/dL Lactic Acid (0.4-2.0) mmol/L Calcium 8.4 L (8.5-10.1) mg/dL Magnesium 1.8 (1.8-2.4) mg/dL Total Bilirubin 0.5 (0.2-1.0) mg/dL AST 26 (15-37) U/L ALT 26 (14-59) U/L Alkaline Phosphatase 90 (46-116) U/L Troponin I 0.031 (0.00-0.056) ng/mL C-Reactive Protein 24.2 H* (<1.0) mg/dL NT-Pro-B Natriuret Pep (0-450) pg/mL Total Protein 6.5 (6.4-8.2) g/dl Albumin 1.8 L (3.4-5.0) g/dl Globulin 4.7 gm/dL Albumin/Globulin Ratio 0.4 L (1-2) Procalcitonin ng/mL Adenovirus (PCR) (Not Detected) B. pertussis DNA (PCR) (Not Detected) B.parapertussis DNA PCR (Not Detected) C. pneumoniae DNA (PCR) (Not Detected) Coronavirus OC43 (PCR) (Not Detected) Coronavirus HKU1 (PCR) (Not Detected) Coronavirus 229E (PCR) (Not Detected) Coronavirus NL63 (PCR) (Not Detected) Human Metapneumovir PCR (Not Detected) Influenza A (RT-PCR) (Not Detected) Influenza B (RT-PCR) (Not Detected) M. pneumoniae (PCR) (Not Detected) Parainfluenza 1 (PCR) (Not Detected) Parainfluenza 2 (PCR) (Not Detected) Parainfluenza 3 (PCR) (Not Detected) Parainfluenza 4 (PCR) (Not Detected) RSV (PCR) (Not Detected) Entero/Rhino (PCR) (Not Detected) SARS-CoV-2 (PCR) (Not Detected) Bipin Results Last 24 Hours: Microbiology 06/07/21 23:30 Streptococcus pneumoniae Antigen (M - Final Urine 06/07/21 23:30 Urine Culture - Preliminary Urine Escherichia Coli Med Orders - Current: Current Medications Albuterol (Albuterol 0.083% 2.5 Mg/3 Ml Neb Soln) 2.5 mg NEB Q2H PRN PRN Reason: Shortness Of Breath/wheezing Albuterol/Ipratropium (Albuterol/Ipratropium 3.0-0.5 Mg/3 Ml Neb Soln) 3 ml NEB QIDRT [facility] Last Admin: 06/09/21 14:59 Dose: 3 ml Documented by: Apixaban (Apixaban 5 Mg Tab) 10 mg PO BID [facility] Stop: 06/15/21 21:01 Last Admin: 06/09/21 08:57 Dose: 10 mg Documented by: Docusate Sodium (Docusate Sodium 100 Mg Cap) 100 mg PO Q12H PRN PRN Reason: Constipation Furosemide (Furosemide 20 Mg/2 Ml Vial) 20 mg IVPUSH TIDMEALS [facility] Last Admin: 06/09/21 11:10 Dose: 20 mg Documented by: Guaifenesin (Guaifenesin 600 Mg Tab.Er) 600 mg PO BID [facility] Last Admin: 06/09/21 08:57 Dose: 600 mg Documented by: Piperacillin Sod/Tazobactam (Sod 4.5 gm/ Sodium Chloride) 100 mls @ 25 mls/hr IV Q8H [facility] Last Admin: 06/09/21 15:40 Dose: 25 mls/hr Documented by: Vancomycin HCl 1 gm/ Sodium (Chloride) 250 mls @ 250 mls/hr IV Q18H [facility] Last Admin: 06/09/21 11:10 Dose: 250 mls/hr Documented by: Ondansetron HCl (Ondansetron 4 Mg/2 Ml Sdv) 4 mg IV Q6H PRN PRN Reason: Nausea/Vomiting Potassium Chloride (Potassium Chloride 10 Meq Tab.Er) 10 meq PO TID [facility] Last Admin: 06/09/21 15:40 Dose: 10 meq Documented by: Sodium Chloride (Sodium Chloride 0.9% 10 Ml Syringe) 10 ml FLUSH ASDIRECTED PRN PRN Reason: Keep Vein Open Last Admin: 06/07/21 18:12 Dose: 10 ml Documented by: Vancomycin HCl (Pharmacy To Dose - Vancomycin) 1 dose .XX ASDIRECTED [facility] Discontinued Medications Albuterol (Albuterol 0.083% 2.5 Mg/3 Ml Neb Soln) 2.5 mg NEB ONETIME ONE Stop: 06/07/21 15:19 Last Admin: 06/07/21 15:47 Dose: 2.5 mg Documented by: Albuterol/Ipratropium (Albuterol/Ipratropium 3.0-0.5 Mg/3 Ml Neb Soln) 3 ml NEB ONETIME ONE Stop: 06/08/21 08:21 Last Admin: 06/08/21 08:37 Dose: 3 ml Documented by: Enoxaparin Sodium (Enoxaparin 40 Mg/0.4 Ml Syringe) 40 mg SUBCUT DAILY [facility] Last Admin: 06/08/21 14:49 Dose: 40 mg Documented by: Enoxaparin Sodium (Enoxaparin 60 Mg/0.6 Ml Syringe) 20 mg SUBCUT ONETIME ONE Stop: 06/08/21 16:31 Last Admin: 06/08/21 16:53 Dose: 20 mg Documented by: Furosemide (Furosemide 40 Mg/4 Ml Vial) 40 mg IVPUSH NOW ONE Stop: 06/08/21 20:04 Last Admin: 06/08/21 21:33 Dose: 40 mg Documented by: Sodium Chloride (Normal Saline) 100 mls @ 60 mls/min IV ASDIRECTED [facility] Last Admin: 06/07/21 18:12 Dose: 60 mls/min Documented by: Sodium Chloride (Normal Saline) 1,000 mls @ 250 mls/hr IV ASDIRECTED [facility] Last Admin: 06/07/21 22:14 Dose: 250 mls/hr Documented by: Ceftriaxone Sodium 1 gm/ (Sodium Chloride) 100 mls @ 200 mls/hr IV ONETIME ONE Stop: 06/08/21 09:25 Last Admin: 06/08/21 09:20 Dose: 200 mls/hr Documented by: Vancomycin HCl 1 gm/ Sodium (Chloride) 250 mls @ 250 mls/hr IV Q18H [facility] Last Admin: 06/08/21 14:26 Dose: Not Given Documented by: Vancomycin HCl 1 gm/ Sodium (Chloride) 250 mls @ 250 mls/hr IV Q18H [facility] Last Admin: 06/08/21 15:37 Dose: Not Given Documented by: Piperacillin Sod/Tazobactam (Sod 4.5 gm/ Sodium Chloride) 100 mls @ 200 mls/hr IV ONETIME ONE Stop: 06/08/21 14:59 Last Admin: 06/08/21 14:19 Dose: 200 mls/hr Documented by: Sodium Chloride (Normal Saline) 1,000 mls @ 100 mls/hr IV ASDIRECTED CY Iopamidol (Iopamidol 755 Mg/Ml 100 Ml Bottle) 100 ml IVPUSH ONETIME ONE Stop: 06/07/21 18:12 Last Admin: 06/07/21 18:12 Dose: 100 ml Documented by: Methylprednisolone Sodium Succinate (Methylprednisolone Sodium Succinate 125 Mg/2 Ml Sdv) 125 mg IVPUSH ONETIME ONE Stop: 06/08/21 08:21 Last Admin: 06/08/21 08:25 Dose: 125 mg Documented by: Potassium Chloride (Potassium Chloride 20 Meq Tab.Er) 20 meq PO ONETIME ONE Stop: 06/09/21 07:21 Last Admin: 06/09/21 08:37 Dose: 20 meq Documented by: Sodium Chloride (Sodium Chloride 0.9% 10 Ml Sdv) 10 ml FLUSH ONETIME ONE Stop: 06/07/21 18:12 Last Admin: 06/07/21 20:31 Dose: 10 ml Documented by: - Patient Data Lab Results Last 24 hrs: Laboratory Results - last 24 hr 06/08/21 06/08/21 06/08/21 Range/Units 09:36 14:30 15:00 WBC (3.98-10.04) K/mm3 RBC (3.98-5.22) M/mm3 Hgb (11.2-15.7) gm/dl Hct (34.1-44.9) % MCV (79.4-94.8) fl MCH (25.6-32.2) pg MCHC (32.2-35.5) g/dl RDW Std Deviation (36.4-46.3) fL Plt Count (182-369) K/mm3 MPV (9.4-12.3) fl Neut % (Auto) (34.0-71.1) % Lymph % (Auto) (19.3-51.7) % [place] % (Auto) (4.7-12.5) % Eos % (Auto) (0.7-5.8) Baso % (Auto) (0.1-1.2) % Neut # (Auto) (1.56-6.13) K/mm3 Lymph # (Auto) (1.18-3.74) K/mm3 [place] # (Auto) (0.24-0.36) K/mm3 Eos # (Auto) (0.04-0.36) K/mm3 Baso # (Auto) (0.01-0.08) K/mm3 Manual Slide Review Sodium 135 L (136-145) mEq/L Potassium 3.5 (3.5-5.1) mEq/L Chloride 100 (98-107) mEq/L Carbon Dioxide 21 (21-32) mEq/L Anion Gap 17.5 H (5-15) BUN 16 (7-18) mg/dL Creatinine 0.5 L (0.55-1.02) mg/dL Est Cr Clr Drug Dosing 68.84 mL/min Estimated GFR (MDRD) > 60 (>60) mL/min BUN/Creatinine Ratio 32.0 H (14-18) Glucose 146 H (70-99) mg/dL Lactic Acid (0.4-2.0) mmol/L Calcium 8.5 (8.5-10.1) mg/dL Magnesium 2.0 (1.8-2.4) mg/dL Total Bilirubin (0.2-1.0) mg/dL AST (15-37) U/L ALT (14-59) U/L Alkaline Phosphatase (46-116) U/L Troponin I (0.00-0.056) ng/mL C-Reactive Protein 31.5 H* (<1.0) mg/dL NT-Pro-B Natriuret Pep (0-450) pg/mL Total Protein (6.4-8.2) g/dl Albumin (3.4-5.0) g/dl Globulin gm/dL Albumin/Globulin Ratio (1-2) Procalcitonin 0.29 H ng/mL Adenovirus (PCR) Not detected (Not Detected) B. pertussis DNA (PCR) Not detected (Not Detected) B.parapertussis DNA PCR Not detected (Not Detected) C. pneumoniae DNA (PCR) Not detected (Not Detected) Coronavirus OC43 (PCR) Not detected (Not Detected) Coronavirus HKU1 (PCR) Not detected (Not Detected) Coronavirus 229E (PCR) Not detected (Not Detected) Coronavirus NL63 (PCR) Not detected (Not Detected) Human Metapneumovir PCR Not detected (Not Detected) Influenza A (RT-PCR) Not detected (Not Detected) Influenza B (RT-PCR) Not detected (Not Detected) M. pneumoniae (PCR) Not detected (Not Detected) Parainfluenza 1 (PCR) Not detected (Not Detected) Parainfluenza 2 (PCR) Not detected (Not Detected) Parainfluenza 3 (PCR) Not detected (Not Detected) Parainfluenza 4 (PCR) Not detected (Not Detected) RSV (PCR) Not detected (Not Detected) Entero/Rhino (PCR) Not detected (Not Detected) SARS-CoV-2 (PCR) Detected H (Not Detected) 06/08/21 06/08/21 06/09/21 Range/Units 15:00 19:15 04:44 WBC 7.23 (3.98-10.04) K/mm3 RBC 3.73 L (3.98-5.22) M/mm3 Hgb 11.3 (11.2-15.7) gm/dl Hct 33.4 L (34.1-44.9) % MCV 89.5 (79.4-94.8) fl MCH 30.3 (25.6-32.2) pg MCHC 33.8 (32.2-35.5) g/dl RDW Std Deviation 44.8 (36.4-46.3) fL Plt Count 261 (182-369) K/mm3 MPV 10.5 (9.4-12.3) fl Neut % (Auto) 83.6 H (34.0-71.1) % Lymph % (Auto) 8.9 L (19.3-51.7) % [place] % (Auto) 7.1 (4.7-12.5) % Eos % (Auto) 0 L (0.7-5.8) Baso % (Auto) 0.1 (0.1-1.2) % Neut # (Auto) 6.05 (1.56-6.13) K/mm3 Lymph # (Auto) 0.64 L (1.18-3.74) K/mm3 [place] # (Auto) 0.51 H (0.24-0.36) K/mm3 Eos # (Auto) 0.00 L (0.04-0.36) K/mm3 Baso # (Auto) 0.01 (0.01-0.08) K/mm3 Manual Slide Review Normal smear Sodium (136-145) mEq/L Potassium (3.5-5.1) mEq/L Chloride (98-107) mEq/L Carbon Dioxide (21-32) mEq/L Anion Gap (5-15) BUN (7-18) mg/dL Creatinine (0.55-1.02) mg/dL Est Cr Clr Drug Dosing mL/min Estimated GFR (MDRD) (>60) mL/min BUN/Creatinine Ratio (14-18) Glucose (70-99) mg/dL Lactic Acid 1.0 (0.4-2.0) mmol/L Calcium (8.5-10.1) mg/dL Magnesium (1.8-2.4) mg/dL Total Bilirubin (0.2-1.0) mg/dL AST (15-37) U/L ALT (14-59) U/L Alkaline Phosphatase (46-116) U/L Troponin I (0.00-0.056) ng/mL C-Reactive Protein (<1.0) mg/dL NT-Pro-B Natriuret Pep 4148 H (0-450) pg/mL Total Protein (6.4-8.2) g/dl Albumin (3.4-5.0) g/dl Globulin gm/dL Albumin/Globulin Ratio (1-2) Procalcitonin ng/mL Adenovirus (PCR) (Not Detected) B. pertussis DNA (PCR) (Not Detected) B.parapertussis DNA PCR (Not Detected) C. pneumoniae DNA (PCR) (Not Detected) Coronavirus OC43 (PCR) (Not Detected) Coronavirus HKU1 (PCR) (Not Detected) Coronavirus 229E (PCR) (Not Detected) Coronavirus NL63 (PCR) (Not Detected) Human Metapneumovir PCR (Not Detected) Influenza A (RT-PCR) (Not Detected) Influenza B (RT-PCR) (Not Detected) M. pneumoniae (PCR) (Not Detected) Parainfluenza 1 (PCR) (Not Detected) Parainfluenza 2 (PCR) (Not Detected) Parainfluenza 3 (PCR) (Not Detected) Parainfluenza 4 (PCR) (Not Detected) RSV (PCR) (Not Detected) Entero/Rhino (PCR) (Not Detected) SARS-CoV-2 (PCR) (Not Detected) 10/06/21 Range/Units 04:44 WBC (3.98-10.04) K/mm3 RBC (3.98-5.22) M/mm3 Hgb (11.2-15.7) gm/dl Hct (34.1-44.9) % MCV (79.4-94.8) fl MCH (25.6-32.2) pg MCHC (32.2-35.5) g/dl RDW Std Deviation (36.4-46.3) fL Plt Count (182-369) K/mm3 MPV (9.4-12.3) fl Neut % (Auto) (34.0-71.1) % Lymph % (Auto) (19.3-51.7) % [place] % (Auto) (4.7-12.5) % Eos % (Auto) (0.7-5.8) Baso % (Auto) (0.1-1.2) % Neut # (Auto) (1.56-6.13) K/mm3 Lymph # (Auto) (1.18-3.74) K/mm3 [place] # (Auto) (0.24-0.36) K/mm3 Eos # (Auto) (0.04-0.36) K/mm3 Baso # (Auto) (0.01-0.08) K/mm3 Manual Slide Review Sodium 137 (136-145) mEq/L Potassium 3.3 L (3.5-5.1) mEq/L Chloride 103 (98-107) mEq/L Carbon Dioxide 24 (21-32) mEq/L Anion Gap 13.3 (5-15) BUN 19 H (7-18) mg/dL Creatinine 0.6 (0.55-1.02) mg/dL Est Cr Clr Drug Dosing 57.37 mL/min Estimated GFR (MDRD) > 60 (>60) mL/min BUN/Creatinine Ratio 31.7 H (14-18) Glucose 146 H (70-99) mg/dL Lactic Acid (0.4-2.0) mmol/L Calcium 8.4 L (8.5-10.1) mg/dL Magnesium 1.8 (1.8-2.4) mg/dL Total Bilirubin 0.5 (0.2-1.0) mg/dL AST 26 (15-37) U/L ALT 26 (14-59) U/L Alkaline Phosphatase 90 (46-116) U/L Troponin I 0.031 (0.00-0.056) ng/mL C-Reactive Protein 24.2 H* (<1.0) mg/dL NT-Pro-B Natriuret Pep (0-450) pg/mL Total Protein 6.5 (6.4-8.2) g/dl Albumin 1.8 L (3.4-5.0) g/dl Globulin 4.7 gm/dL Albumin/Globulin Ratio 0.4 L (1-2) Procalcitonin ng/mL Adenovirus (PCR) (Not Detected) B. pertussis DNA (PCR) (Not Detected) B.parapertussis DNA PCR (Not Detected) C. pneumoniae DNA (PCR) (Not Detected) Coronavirus OC43 (PCR) (Not Detected) Coronavirus HKU1 (PCR) (Not Detected) Coronavirus 229E (PCR) (Not Detected) Coronavirus NL63 (PCR) (Not Detected) Human Metapneumovir PCR (Not Detected) Influenza A (RT-PCR) (Not Detected) Influenza B (RT-PCR) (Not Detected) M. pneumoniae (PCR) (Not Detected) Parainfluenza 1 (PCR) (Not Detected) Parainfluenza 2 (PCR) (Not Detected) Parainfluenza 3 (PCR) (Not Detected) Parainfluenza 4 (PCR) (Not Detected) RSV (PCR) (Not Detected) Entero/Rhino (PCR) (Not Detected) SARS-CoV-2 (PCR) (Not Detected) Result Diagrams: 06/09/21 04:44 06/09/21 04:44 [place] Results Last 24 hrs: Microbiology 06/07/21 23:30 Streptococcus pneumoniae Antigen (M - Final Urine 06/07/21 23:30 Urine Culture - Preliminary Urine Escherichia Coli Sepsis Event Note - Focused Exam Vital Signs: Vital Signs Temp Pulse Resp BP Pulse Ox Pulse Ox 06/09/21 15:10 91 L 06/09/21 14:59 94 L 06/09/21 09:56 89 L 06/09/21 07:53 97.5 F 95 22 H 126/86 83 L 06/09/21 06:39 89 L 06/09/21 06:01 97.5 F 90 24 H 123/81 88 L 06/09/21 03:52 97.5 F 94 26 H 144/85 H 89 L - Problem List Review Problem List Initiated/Reviewed/Updated: Yes - My Orders Last 24 Hours: My Active Orders 06/08/21 21:00 Potassium Chloride [Klor-Con 10] 10 meq PO TID 06/09/21 07:00 Furosemide [Lasix] 20 mg IVPUSH TIDMEALS - Plan Plan:: Patient was seen and examined, agree with assessment and plan. Patient has had relief with diuresis. We are agreeing that this is likely a myocarditis secondary to Covid. The echo shows very mild changes. CVS: Regular rate and rhythm Abdominal: Soft nontender Extremity: No edema Respiratory: Crackles mild, clear with cough
[2021-06-09] MEDS: Apixaban 5 MG Tab PO SCH ×2 (08:57→21:47)
[2021-06-09] MEDS: Potassium Chloride 10 MEQ Tab.ER PO SCH ×3 (08:57→21:47)
[2021-06-09] MEDS: guaiFENesin 600 MG Tab.ER PO SCH ×2 (08:57→21:48)
[2021-06-09 12:47] LABS: BORDETELLA PARAPERT IS1001 Not Detected (Not Detected)
[2021-06-10] MEDS: Albuterol/Ipratropium 3.0-0.5 MG/3 ML Neb Soln NEB SCH ×4 (05:55→20:18)
[2021-06-10] MEDS: Piperacillin/Tazobactam 4.5 GM in Sodium Chloride 0.9% 100 ML IV SCH ×3 (06:33→22:01)
[2021-06-10] MEDS: Furosemide 20 MG/2 ML VIAL IVPUSH SCH ×3 (06:33→16:46)
--- NOTE | 2021-06-10 07:15 | PCM.PN ---
- General Info Date of Service: 06/10/21 Admission Dx/Problem (Free Text): Admission Diagnosis/Problem Admission Diagnosis/Problem Hypoxia Functional Status: Reports: Pain Controlled, Tolerating Diet, Ambulating, Urinating, Incentive Spirometry. Denies: New Symptoms - Review of Systems General: Reports: Weakness. Denies: Fever, Fatigue, Malaise, Chills HEENT: Reports: No Symptoms. Denies: Headaches, Sore Throat Pulmonary: Reports: Shortness of Breath, Cough, Sputum. Denies: Pleuritic Chest Pain, Wheezing Cardiovascular: Reports: Dyspnea on Exertion. Denies: Chest Pain, Palpitations, Edema Gastrointestinal: Reports: No Symptoms. Denies: Abdominal Pain, Constipation, Diarrhea, Nausea, Vomiting Genitourinary: Reports: No Symptoms. Denies: Pain Musculoskeletal: Reports: No Symptoms Skin: Reports: No Symptoms. Denies: Cyanosis Neurological: Reports: No Symptoms, Weakness. Denies: Confusion, Headache, Numbness, Pre-Existing Deficit, Syncope, Tingling Psychiatric: Reports: No Symptoms - Patient Data Vitals - Most Recent: Last Vital Signs Temp 98.1 F 06/10/21 06:37 Pulse 95 06/10/21 06:37 Resp 24 H 06/10/21 06:37 BP 124/79 06/10/21 06:37 Pulse Ox 92 L 06/10/21 06:37 Weight - Most Recent: 133 lb 6.4 oz I&O - Last 24 Hours: Intake & Output 06/09/21 06/10/21 06/10/21 22:59 06:59 14:59 Intake Total 750 350 Output Total 1250 150 Balance -500 200 Lab Results Last 24 Hours: Laboratory Results - last 24 hr 06/08/21 06/09/21 06/10/21 Range/Units 14:30 04:44 04:45 WBC 8.94 (3.98-10.04) K/mm3 RBC 3.69 L (3.98-5.22) M/mm3 Hgb 11.1 L (11.2-15.7) gm/dl Hct 33.4 L (34.1-44.9) % MCV 90.5 (79.4-94.8) fl MCH 30.1 (25.6-32.2) pg MCHC 33.2 (32.2-35.5) g/dl RDW Std Deviation 46.0 (36.4-46.3) fL Plt Count 313 (182-369) K/mm3 MPV 10.0 (9.4-12.3) fl Neut % (Auto) 77.7 H (34.0-71.1) % Lymph % (Auto) 10.6 L (19.3-51.7) % Hayes % (Auto) 11.3 (4.7-12.5) % Eos % (Auto) 0 L (0.7-5.8) Baso % (Auto) 0.1 (0.1-1.2) % Neut # (Auto) 6.94 H (1.56-6.13) K/mm3 Lymph # (Auto) 0.95 L (1.18-3.74) K/mm3 Hayes # (Auto) 1.01 H (0.24-0.36) K/mm3 Eos # (Auto) 0.00 L (0.04-0.36) K/mm3 Baso # (Auto) 0.01 (0.01-0.08) K/mm3 Manual Slide Review Normal smear Sodium (136-145) mEq/L Potassium (3.5-5.1) mEq/L Chloride (98-107) mEq/L Carbon Dioxide (21-32) mEq/L Anion Gap (5-15) BUN (7-18) mg/dL Creatinine (0.55-1.02) mg/dL Est Cr Clr Drug Dosing mL/min Estimated GFR (MDRD) (>60) mL/min BUN/Creatinine Ratio (14-18) Glucose (70-99) mg/dL Calcium (8.5-10.1) mg/dL Magnesium (1.8-2.4) mg/dL Total Bilirubin (0.2-1.0) mg/dL AST (15-37) U/L ALT (14-59) U/L Alkaline Phosphatase (46-116) U/L C-Reactive Protein (<1.0) mg/dL Total Protein (6.4-8.2) g/dl Albumin (3.4-5.0) g/dl Globulin gm/dL Albumin/Globulin Ratio (1-2) Adenovirus (PCR) Not detected (Not Detected) B. pertussis DNA (PCR) Not detected (Not Detected) B.parapertussis DNA PCR Not detected (Not Detected) C. pneumoniae DNA (PCR) Not detected (Not Detected) Coronavirus OC43 (PCR) Not detected (Not Detected) Coronavirus HKU1 (PCR) Not detected (Not Detected) Coronavirus 229E (PCR) Not detected (Not Detected) Coronavirus NL63 (PCR) Not detected (Not Detected) Human Metapneumovir PCR Not detected (Not Detected) Influenza A (RT-PCR) Not detected (Not Detected) Influenza B (RT-PCR) Not detected (Not Detected) M. pneumoniae (PCR) Not detected (Not Detected) Parainfluenza 1 (PCR) Not detected (Not Detected) Parainfluenza 2 (PCR) Not detected (Not Detected) Parainfluenza 3 (PCR) Not detected (Not Detected) Parainfluenza 4 (PCR) Not detected (Not Detected) RSV (PCR) Not detected (Not Detected) Entero/Rhino (PCR) Not detected (Not Detected) SARS-CoV-2 (PCR) Detected H (Not Detected) 06/10/21 Range/Units 04:45 WBC (3.98-10.04) K/mm3 RBC (3.98-5.22) M/mm3 Hgb (11.2-15.7) gm/dl Hct (34.1-44.9) % MCV (79.4-94.8) fl MCH (25.6-32.2) pg MCHC (32.2-35.5) g/dl RDW Std Deviation (36.4-46.3) fL Plt Count (182-369) K/mm3 MPV (9.4-12.3) fl Neut % (Auto) (34.0-71.1) % Lymph % (Auto) (19.3-51.7) % Hayes % (Auto) (4.7-12.5) % Eos % (Auto) (0.7-5.8) Baso % (Auto) (0.1-1.2) % Neut # (Auto) (1.56-6.13) K/mm3 Lymph # (Auto) (1.18-3.74) K/mm3 Hayes # (Auto) (0.24-0.36) K/mm3 Eos # (Auto) (0.04-0.36) K/mm3 Baso # (Auto) (0.01-0.08) K/mm3 Manual Slide Review Sodium 140 (136-145) mEq/L Potassium 3.7 (3.5-5.1) mEq/L Chloride 103 (98-107) mEq/L Carbon Dioxide 28 (21-32) mEq/L Anion Gap 12.7 (5-15) BUN 25 H (7-18) mg/dL Creatinine 0.8 (0.55-1.02) mg/dL Est Cr Clr Drug Dosing 43.03 mL/min Estimated GFR (MDRD) > 60 (>60) mL/min BUN/Creatinine Ratio 31.3 H (14-18) Glucose 107 H (70-99) mg/dL Calcium 8.6 (8.5-10.1) mg/dL Magnesium 1.9 (1.8-2.4) mg/dL Total Bilirubin 0.5 (0.2-1.0) mg/dL AST 24 (15-37) U/L ALT 29 (14-59) U/L Alkaline Phosphatase 90 (46-116) U/L C-Reactive Protein 12.5 H* (<1.0) mg/dL Total Protein 6.3 L (6.4-8.2) g/dl Albumin 1.8 L (3.4-5.0) g/dl Globulin 4.5 gm/dL Albumin/Globulin Ratio 0.4 L (1-2) Adenovirus (PCR) (Not Detected) B. pertussis DNA (PCR) (Not Detected) B.parapertussis DNA PCR (Not Detected) C. pneumoniae DNA (PCR) (Not Detected) Coronavirus OC43 (PCR) (Not Detected) Coronavirus HKU1 (PCR) (Not Detected) Coronavirus 229E (PCR) (Not Detected) Coronavirus NL63 (PCR) (Not Detected) Human Metapneumovir PCR (Not Detected) Influenza A (RT-PCR) (Not Detected) Influenza B (RT-PCR) (Not Detected) M. pneumoniae (PCR) (Not Detected) Parainfluenza 1 (PCR) (Not Detected) Parainfluenza 2 (PCR) (Not Detected) Parainfluenza 3 (PCR) (Not Detected) Parainfluenza 4 (PCR) (Not Detected) RSV (PCR) (Not Detected) Entero/Rhino (PCR) (Not Detected) SARS-CoV-2 (PCR) (Not Detected) Bipin Results Last 24 Hours: Microbiology 06/07/21 23:30 Streptococcus pneumoniae Antigen (M - Final Urine 06/07/21 23:30 Urine Culture - Preliminary Urine Escherichia Coli Med Orders - Current: Current Medications Albuterol (Albuterol 0.083% 2.5 Mg/3 Ml Neb Soln) 2.5 mg NEB Q2H PRN PRN Reason: Shortness Of Breath/wheezing Albuterol/Ipratropium (Albuterol/Ipratropium 3.0-0.5 Mg/3 Ml Neb Soln) 3 ml NEB QIDRT [facility] Last Admin: 06/10/21 05:55 Dose: 3 ml Documented by: Apixaban (Apixaban 5 Mg Tab) 10 mg PO BID [facility] Stop: 06/15/21 21:01 Last Admin: 06/09/21 21:47 Dose: 10 mg Documented by: Docusate Sodium (Docusate Sodium 100 Mg Cap) 100 mg PO Q12H PRN PRN Reason: Constipation Furosemide (Furosemide 20 Mg/2 Ml Vial) 20 mg IVPUSH TIDMEALS [facility] Last Admin: 06/10/21 06:33 Dose: 20 mg Documented by: Guaifenesin (Guaifenesin 600 Mg Tab.Er) 600 mg PO BID [facility] Last Admin: 06/09/21 21:48 Dose: 600 mg Documented by: Piperacillin Sod/Tazobactam (Sod 4.5 gm/ Sodium Chloride) 100 mls @ 25 mls/hr IV Q8H [facility] Last Admin: 06/10/21 06:33 Dose: 25 mls/hr Documented by: Vancomycin HCl 1 gm/ Sodium (Chloride) 250 mls @ 250 mls/hr IV Q18H [facility] Last Admin: 06/10/21 02:28 Dose: 250 mls/hr Documented by: Ondansetron HCl (Ondansetron 4 Mg/2 Ml Sdv) 4 mg IV Q6H PRN PRN Reason: Nausea/Vomiting Potassium Chloride (Potassium Chloride 10 Meq Tab.Er) 10 meq PO TID [facility] Last Admin: 06/09/21 21:47 Dose: 10 meq Documented by: Sodium Chloride (Sodium Chloride 0.9% 10 Ml Syringe) 10 ml FLUSH ASDIRECTED PRN PRN Reason: Keep Vein Open Last Admin: 06/07/21 18:12 Dose: 10 ml Documented by: Vancomycin HCl (Pharmacy To Dose - Vancomycin) 1 dose .XX ASDIRECTED [facility] Discontinued Medications Albuterol (Albuterol 0.083% 2.5 Mg/3 Ml Neb Soln) 2.5 mg NEB ONETIME ONE Stop: 06/07/21 15:19 Last Admin: 06/07/21 15:47 Dose: 2.5 mg Documented by: Albuterol/Ipratropium (Albuterol/Ipratropium 3.0-0.5 Mg/3 Ml Neb Soln) 3 ml NEB ONETIME ONE Stop: 06/08/21 08:21 Last Admin: 06/08/21 08:37 Dose: 3 ml Documented by: Enoxaparin Sodium (Enoxaparin 40 Mg/0.4 Ml Syringe) 40 mg SUBCUT DAILY [facility] Last Admin: 06/08/21 14:49 Dose: 40 mg Documented by: Enoxaparin Sodium (Enoxaparin 60 Mg/0.6 Ml Syringe) 20 mg SUBCUT ONETIME ONE Stop: 06/08/21 16:31 Last Admin: 06/08/21 16:53 Dose: 20 mg Documented by: Furosemide (Furosemide 40 Mg/4 Ml Vial) 40 mg IVPUSH NOW ONE Stop: 06/08/21 20:04 Last Admin: 06/08/21 21:33 Dose: 40 mg Documented by: Sodium Chloride (Normal Saline) 100 mls @ 60 mls/min IV ASDIRECTED [facility] Last Admin: 06/07/21 18:12 Dose: 60 mls/min Documented by: Sodium Chloride (Normal Saline) 1,000 mls @ 250 mls/hr IV ASDIRECTED [facility] Last Admin: 06/07/21 22:14 Dose: 250 mls/hr Documented by: Ceftriaxone Sodium 1 gm/ (Sodium Chloride) 100 mls @ 200 mls/hr IV ONETIME ONE Stop: 06/08/21 09:25 Last Admin: 06/08/21 09:20 Dose: 200 mls/hr Documented by: Vancomycin HCl 1 gm/ Sodium (Chloride) 250 mls @ 250 mls/hr IV Q18H [facility] Last Admin: 06/08/21 14:26 Dose: Not Given Documented by: Vancomycin HCl 1 gm/ Sodium (Chloride) 250 mls @ 250 mls/hr IV Q18H [facility] Last Admin: 06/08/21 15:37 Dose: Not Given Documented by: Piperacillin Sod/Tazobactam (Sod 4.5 gm/ Sodium Chloride) 100 mls @ 200 mls/hr IV ONETIME ONE Stop: 06/08/21 14:59 Last Admin: 06/08/21 14:19 Dose: 200 mls/hr Documented by: Sodium Chloride (Normal Saline) 1,000 mls @ 100 mls/hr IV ASDIRECTED [facility] Iopamidol (Iopamidol 755 Mg/Ml 100 Ml Bottle) 100 ml IVPUSH ONETIME ONE Stop: 06/07/21 18:12 Last Admin: 06/07/21 18:12 Dose: 100 ml Documented by: Methylprednisolone Sodium Succinate (Methylprednisolone Sodium Succinate 125 Mg/2 Ml Sdv) 125 mg IVPUSH ONETIME ONE Stop: 06/08/21 08:21 Last Admin: 06/08/21 08:25 Dose: 125 mg Documented by: Potassium Chloride (Potassium Chloride 20 Meq Tab.Er) 20 meq PO ONETIME ONE Stop: 06/09/21 07:21 Last Admin: 06/09/21 08:37 Dose: 20 meq Documented by: Sodium Chloride (Sodium Chloride 0.9% 10 Ml Sdv) 10 ml FLUSH ONETIME ONE Stop: 06/07/21 18:12 Last Admin: 06/07/21 20:31 Dose: 10 ml Documented by: - Exam Quality Assessment: Supplemental Oxygen (High flow 55 L with an FiO2 of 70%), DVT Prophylaxis General: Alert, Oriented, Cooperative, No Acute Distress HEENT: Pupils Equal, Pupils Reactive, Mucous Membr. Moist/[place] Neck: Supple, Trachea Midline Lungs: Decreased Breath Sounds, Crackles, Rhonchi. No: Normal Respiratory Effort (Tachypnea), Wheezing Cardiovascular: Regular Rate, Regular Rhythm GI/Abdominal Exam: Normal Bowel Sounds, Soft, Non-Tender, No Distention (Female) Exam: Deferred Back Exam: Normal Inspection, Full Range of Motion Extremities: Normal Inspection, Normal Range of Motion, Non-Tender, No Pedal Edema, Normal Capillary Refill Peripheral Pulses: 2+: Dorsalis Pedis (L), Dorsalis Pedis (R), 3+: Radial (L), Radial (R) Skin: Warm, Dry, Intact Neurological: No New Focal Deficit Psy/Mental Status: Alert, Normal Affect, Normal Mood - Patient Data Lab Results Last 24 hrs: Laboratory Results - last 24 hr 06/08/21 06/09/21 06/10/21 Range/Units 14:30 04:44 04:45 WBC 8.94 (3.98-10.04) K/mm3 RBC 3.69 L (3.98-5.22) M/mm3 Hgb 11.1 L (11.2-15.7) gm/dl Hct 33.4 L (34.1-44.9) % MCV 90.5 (79.4-94.8) fl MCH 30.1 (25.6-32.2) pg MCHC 33.2 (32.2-35.5) g/dl RDW Std Deviation 46.0 (36.4-46.3) fL Plt Count 313 (182-369) K/mm3 MPV 10.0 (9.4-12.3) fl Neut % (Auto) 77.7 H (34.0-71.1) % Lymph % (Auto) 10.6 L (19.3-51.7) % Hayes % (Auto) 11.3 (4.7-12.5) % Eos % (Auto) 0 L (0.7-5.8) Baso % (Auto) 0.1 (0.1-1.2) % Neut # (Auto) 6.94 H (1.56-6.13) K/mm3 Lymph # (Auto) 0.95 L (1.18-3.74) K/mm3 Hayes # (Auto) 1.01 H (0.24-0.36) K/mm3 Eos # (Auto) 0.00 L (0.04-0.36) K/mm3 Baso # (Auto) 0.01 (0.01-0.08) K/mm3 Manual Slide Review Normal smear Sodium (136-145) mEq/L Potassium (3.5-5.1) mEq/L Chloride (98-107) mEq/L Carbon Dioxide (21-32) mEq/L Anion Gap (5-15) BUN (7-18) mg/dL Creatinine (0.55-1.02) mg/dL Est Cr Clr Drug Dosing mL/min Estimated GFR (MDRD) (>60) mL/min BUN/Creatinine Ratio (14-18) Glucose (70-99) mg/dL Calcium (8.5-10.1) mg/dL Magnesium (1.8-2.4) mg/dL Total Bilirubin (0.2-1.0) mg/dL AST (15-37) U/L ALT (14-59) U/L Alkaline Phosphatase (46-116) U/L C-Reactive Protein (<1.0) mg/dL Total Protein (6.4-8.2) g/dl Albumin (3.4-5.0) g/dl Globulin gm/dL Albumin/Globulin Ratio (1-2) Adenovirus (PCR) Not detected (Not Detected) B. pertussis DNA (PCR) Not detected (Not Detected) B.parapertussis DNA PCR Not detected (Not Detected) C. pneumoniae DNA (PCR) Not detected (Not Detected) Coronavirus OC43 (PCR) Not detected (Not Detected) Coronavirus HKU1 (PCR) Not detected (Not Detected) Coronavirus 229E (PCR) Not detected (Not Detected) Coronavirus NL63 (PCR) Not detected (Not Detected) Human Metapneumovir PCR Not detected (Not Detected) Influenza A (RT-PCR) Not detected (Not Detected) Influenza B (RT-PCR) Not detected (Not Detected) M. pneumoniae (PCR) Not detected (Not Detected) Parainfluenza 1 (PCR) Not detected (Not Detected) Parainfluenza 2 (PCR) Not detected (Not Detected) Parainfluenza 3 (PCR) Not detected (Not Detected) Parainfluenza 4 (PCR) Not detected (Not Detected) RSV (PCR) Not detected (Not Detected) Entero/Rhino (PCR) Not detected (Not Detected) SARS-CoV-2 (PCR) Detected H (Not Detected) 06/10/21 Range/Units 04:45 WBC (3.98-10.04) K/mm3 RBC (3.98-5.22) M/mm3 Hgb (11.2-15.7) gm/dl Hct (34.1-44.9) % MCV (79.4-94.8) fl MCH (25.6-32.2) pg MCHC (32.2-35.5) g/dl RDW Std Deviation (36.4-46.3) fL Plt Count (182-369) K/mm3 MPV (9.4-12.3) fl Neut % (Auto) (34.0-71.1) % Lymph % (Auto) (19.3-51.7) % Hayes % (Auto) (4.7-12.5) % Eos % (Auto) (0.7-5.8) Baso % (Auto) (0.1-1.2) % Neut # (Auto) (1.56-6.13) K/mm3 Lymph # (Auto) (1.18-3.74) K/mm3 Hayes # (Auto) (0.24-0.36) K/mm3 Eos # (Auto) (0.04-0.36) K/mm3 Baso # (Auto) (0.01-0.08) K/mm3 Manual Slide Review Sodium 140 (136-145) mEq/L Potassium 3.7 (3.5-5.1) mEq/L Chloride 103 (98-107) mEq/L Carbon Dioxide 28 (21-32) mEq/L Anion Gap 12.7 (5-15) BUN 25 H (7-18) mg/dL Creatinine 0.8 (0.55-1.02) mg/dL Est Cr Clr Drug Dosing 43.03 mL/min Estimated GFR (MDRD) > 60 (>60) mL/min BUN/Creatinine Ratio 31.3 H (14-18) Glucose 107 H (70-99) mg/dL Calcium 8.6 (8.5-10.1) mg/dL Magnesium 1.9 (1.8-2.4) mg/dL Total Bilirubin 0.5 (0.2-1.0) mg/dL AST 24 (15-37) U/L ALT 29 (14-59) U/L Alkaline Phosphatase 90 (46-116) U/L C-Reactive Protein 12.5 H* (<1.0) mg/dL Total Protein 6.3 L (6.4-8.2) g/dl Albumin 1.8 L (3.4-5.0) g/dl Globulin 4.5 gm/dL Albumin/Globulin Ratio 0.4 L (1-2) Adenovirus (PCR) (Not Detected) B. pertussis DNA (PCR) (Not Detected) B.parapertussis DNA PCR (Not Detected) C. pneumoniae DNA (PCR) (Not Detected) Coronavirus OC43 (PCR) (Not Detected) Coronavirus HKU1 (PCR) (Not Detected) Coronavirus 229E (PCR) (Not Detected) Coronavirus NL63 (PCR) (Not Detected) Human Metapneumovir PCR (Not Detected) Influenza A (RT-PCR) (Not Detected) Influenza B (RT-PCR) (Not Detected) M. pneumoniae (PCR) (Not Detected) Parainfluenza 1 (PCR) (Not Detected) Parainfluenza 2 (PCR) (Not Detected) Parainfluenza 3 (PCR) (Not Detected) Parainfluenza 4 (PCR) (Not Detected) RSV (PCR) (Not Detected) Entero/Rhino (PCR) (Not Detected) SARS-CoV-2 (PCR) (Not Detected) Result Diagrams: 06/10/21 04:45 06/10/21 04:45 Bipin Results Last 24 hrs: Microbiology 06/07/21 23:30 Streptococcus pneumoniae Antigen (M - Final Urine 06/07/21 23:30 Urine Culture - Preliminary Urine Escherichia Coli Sepsis Event Note - Evaluation Sepsis Screening Result: Sepsis Risk - Focused Exam Vital Signs: Vital Signs Temp Pulse Resp BP Pulse Ox Pulse Ox 06/10/21 06:37 98.1 F 95 24 H 124/79 92 L 06/10/21 05:57 89 L 06/09/21 20:29 96 06/09/21 20:25 92 L 06/09/21 19:38 97.7 F 112 H 26 H 140/95 H 89 L - Problem List & Annotations (1) History of COVID-19 SNOMED Code(s): 382828267642288919, 228999814576033333 Code(s): Z86.16 - PERSONAL HISTORY OF COVID-19 Status: Chronic Priority: Medium Current Visit: Yes (2) Elevated d-dimer SNOMED Code(s): 751678419 Code(s): R79.89 - OTHER SPECIFIED ABNORMAL FINDINGS OF BLOOD CHEMISTRY Status: Acute Priority: Medium Current Visit: Yes (3) Elevated troponin SNOMED Code(s): 879180990, 219353748, 559392926 Code(s): R77.8 - OTHER SPECIFIED ABNORMALITIES OF PLASMA PROTEINS Status: Resolved Priority: High Current Visit: Yes (4) Pneumonia SNOMED Code(s): 627252803 Code(s): J18.9 - PNEUMONIA, UNSPECIFIED ORGANISM Status: Suspected Priority: High Current Visit: Yes Qualifiers: Pneumonia type: due to unspecified organism Laterality: unspecified laterality Lung location: unspecified part of lung Qualified Code(s): J18.9 - Pneumonia, unspecified organism (5) Dyspnea SNOMED Code(s): 176193425 Code(s): R06.00 - DYSPNEA, UNSPECIFIED Status: Acute Priority: High Current Visit: Yes Qualifiers: Dyspnea type: unspecified Qualified Code(s): R06.00 - Dyspnea, unspecified (6) Hypoxia SNOMED Code(s): 635688795 Code(s): R09.02 - HYPOXEMIA Status: Acute Priority: High Current Visit: Yes (7) UTI (urinary tract infection) SNOMED Code(s): 58661203 Code(s): N39.0 - URINARY TRACT INFECTION, SITE NOT SPECIFIED Status: Acute Priority: High Current Visit: Yes Qualifiers: Urinary tract infection type: site unspecified Hematuria presence: without hematuria Qualified Code(s): N39.0 - Urinary tract infection, site not specified (8) Elevated brain natriuretic peptide (BNP) level SNOMED Code(s): 480553196, 310823133 Code(s): R79.89 - OTHER SPECIFIED ABNORMAL FINDINGS OF BLOOD CHEMISTRY Status: Acute Priority: High Current Visit: Yes (9) On home oxygen therapy SNOMED Code(s): 347964892406 Code(s): Z99.81 - DEPENDENCE ON SUPPLEMENTAL OXYGEN Status: Chronic Priority: Medium Current Visit: Yes (10) GERD (gastroesophageal reflux disease) SNOMED Code(s): 393352611 Code(s): K21.9 - GASTRO-ESOPHAGEAL REFLUX DISEASE WITHOUT ESOPHAGITIS Status: Chronic Priority: Low Current Visit: No Qualifiers: Esophagitis presence: esophagitis presence not specified Qualified Code(s): K21.9 - Gastro-esophageal reflux disease without esophagitis (11) Meniere disease SNOMED Code(s): 84606314 Code(s): H81.09 - MENIERE'S DISEASE, UNSPECIFIED EAR Status: Chronic Priority: Low Current Visit: No Qualifiers: Laterality: unspecified laterality Qualified Code(s): H81.09 - Meniere's disease, unspecified ear (12) DVT (deep venous thrombosis) SNOMED Code(s): 187959731 Code(s): I82.409 - ACUTE EMBOLISM AND THOMBOS UNSP DEEP VN UNSP LOWER EXTREMITY Status: Acute Priority: High Current Visit: Yes Qualifiers: DVT location: lower extremity Affected thrombotic vein of extremity: unspecified vein of extremity Chronicity: acute Laterality: left Qualified Code(s): I82.402 - Acute embolism and thrombosis of unspecified deep veins of left lower extremity (13) Hypotension SNOMED Code(s): 90078155 Code(s): I95.9 - HYPOTENSION, UNSPECIFIED Status: Resolved Priority: High Current Visit: Yes Qualifiers: Hypotension type: unspecified hypotension type Qualified Code(s): I95.9 - Hypotension, unspecified (14) Acute and chronic respiratory failure SNOMED Code(s): 40028461 Code(s): J96.20 - ACUTE AND CHR RESP FAILURE, UNSP W HYPOXIA OR HYPERCAPNIA Status: Acute Priority: High Current Visit: Yes Qualifiers: Respiratory failure complication: hypoxia Qualified Code(s): J96.21 - Acute and chronic respiratory failure with hypoxia (15) Myocarditis SNOMED Code(s): 76080262 Code(s): I51.4 - MYOCARDITIS, UNSPECIFIED Status: Suspected Priority: High Current Visit: Yes Qualifiers: Myocarditis type: infective Infective myocarditis organism: viral Chronicity: acute Qualified Code(s): I40.0 - Infective myocarditis (16) Hypokalemia SNOMED Code(s): 69554513 Code(s): E87.6 - HYPOKALEMIA Status: Acute Priority: High Current Visit: Yes (17) Pulmonary fibrosis SNOMED Code(s): 80621954 Code(s): J84.10 - PULMONARY FIBROSIS, UNSPECIFIED Status: Suspected Priority: High Current Visit: Yes - Problem List Review Problem List Initiated/Reviewed/Updated: Yes - My Orders Last 24 Hours: My Active Orders 06/09/21 09:00 Apixaban [Eliquis] 10 mg PO BID 06/09/21 10:41 Intake and Output Strict [RC] ASDIRECTED 06/11/21 05:11 C-REACTIVE PROTEIN [CHEM] AM CBC WITH AUTO DIFF [HEME] AM COMPREHENSIVE METABOLIC PN,CMP [CHEM] AM MAGNESIUM [CHEM] AM 06/12/21 05:11 C-REACTIVE PROTEIN [CHEM] AM CBC WITH AUTO DIFF [HEME] AM COMPREHENSIVE METABOLIC PN,CMP [CHEM] AM MAGNESIUM [CHEM] AM - Assessment Assessment:: Admission assessment - 06/08/2021 * 80-year-old female who presents to ED on 06/07/2021 with low oxygen saturations * History of Mnire's disease, GERD, and prior Covid pneumonia * Was hospitalized from 05/17/2021 through 05/31/2021 with COVID-19 pneumonia at [facility] in [place]. * Discharged home on 4 L of oxygen with activity after completing 4 days of remdesivir and 10 days of Decadron. * Of note patient was noted to have episodes of bradycardia and hypotension with heart rate in the 30s and 40s. She was noticed to have episodes of Mobitz typ e I AV block and 2.5-second sinus pauses. It was believed this was due to remdesivir however this continued after stopping. 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 * Prior to presenting to the ED she was noted to have saturations in the low 50s. * Patient's increased her oxygen to 8 L via nasal cannula. * Denies any recent fever, chills, nausea, vomiting, diarrhea, urinary symptoms, or smoking history. * Of note patient did have acute cystitis with an E. coli UTI well in the hospital in [place] and completed 5 days of Rocephin there. * 12-lead EKG was obtained showing a sinus tachycardia at 109 bpm with a LAFB and very mild ST elevation in V2 and V3. * Placed on a nonrebreather mask which improved her saturations to 90 to 91%. * Noted to be dyspneic and only able to complete a few word sentences. * Labs are obtained: * WBC of 8.57. * Hemoglobin 13.0. * Hematocrit 30.5. * Platelet 250,000. * Neutrophils are elevated 75.7%. * D-dimer is very high at 8.16. * Sodium is low at 129. * Potassium 3.8. * Chloride 94. * Carbon dioxide 24. * Anion gap is 14.8. * BUN is 15. Creatinine 0.6. GFR greater than 60. * Glucose is 126. * Calcium 8.7. * Magnesium 1.8. * Total bilirubin 0.6. * AST is 36, ALT 31, alkaline phosphatase 86. * Troponin is elevated at 0.127-->0.156-->0.067. * CRP is very high at 29.3. * Protein 7.1. * Albumin 2.1. * proBNP is 3117 * UA is obtained and is mildly positive with slightly cloudy urine, 1+ protein, 3+ ketones, 2+ occult blood, 1+ leukocyte esterase, 5-10 RBCs, 20- 30 WBCs, rare WBC clumps, and moderate bacteria. * ABG obtained in the left radial with a pH of 7.44. PCO2 of 30.9. PO2 of 58.0. HCO3 of 20.5. O2 saturations 86%. Base excess is -2.3. Aa gradient is 15.0. This is obtained while on nonrebreather at 15 L. * Facility was out of CPAP and BiPAP-> started on high flow O2 with saturations in the low 90s. * CTA of the chest is obtained to rule out PE and shows: * 1. No findings of pulmonary embolism. * 2. Minimal left-sided pleural effusion. * 3. Diffuse emphysematous changes seen. Both lungs show diffuse increased density uncertain how much of this represents diffuse fibrosis versus possible superimposed pneumonia. Old comparison studies would be needed if available. * 4. 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 * 5. Other findings which are felt to be chronic as described above. * Chest x-ray shows scattered infiltrates bilaterally most prominent in the left lower lobe. * Plan was to transfer the patient for continued care due to elevated troponin however no beds are noted to be available [place], [place], or [place]. * Noted to have a blood pressure of 80/61 and is given a 500 mill fluid bolus over 2 hours. * Given 1 dose of Rocephin in the ED. She is also given 125 mg Solu-Medrol and a DuoNeb, which she reports greatly helped. * Ultimately inpatient bed does open up at our facility and she is admitted to the floor on telemetry for management of her hypoxia, suspected pneumonia, elevated BNP, elevated troponin - likely demand ischemia, and questionable UTI. * On floor bilateral lower extremity ultrasound shows thrombus within the left mid and distal superficial, femoral, popliteal, posterior tibial, and peroneal veins. 06/09/2021 This is a 80 years old female post Covid infection who was hospitalized in [place] for approximately 2 weeks who presented to our ED with low saturations. On admission D-dimer was noted to be elevated however CTA was negative for any PE. Lower extremity ultrasound did show a DVT in the left extremity and patient was started on 1 mg/kg Lovenox transitioning to 10 mg twice daily Eliquis today. Patient has been requiring high flow 60 L and was weaned down to 80% FiO2 today. Unfortunately given patient's history of recent Covid infection CTA was not very helpful in differentiating pulmonary cause. Given recent hospitalization there are concerns of a secondary bacterial infection. WBC has been WNL however neutrophils are elevated. Procalcitonin was obtained and was 0.29. Lactic acid yesterday was 1.0. Patient was noted to be hypotensive in the emergency room and was given 2 fluid boluses. She was also started on fluids over concerns of sepsis. UA was positive and urine culture is growing out greater than 100,000 CFU's of gram-negative rods thus far. She does have a history of a E. coli UTI treated with Rocephin in [place]. Patient denies any urinary symptoms. proBNP was elevated. Echocardiogram was obtained on 06/08/2021 And interpreted as: " 1. The left ventricular internal cavity size is normal. 2. Normal left ventricular systolic function. 3. Left ventricular ejection fraction, by visual estimation, is 55 to 60%. 4. No regional wall motion abnormalities. 5. Mild proximal septal hypertrophy. 6. Aortic valve is tricuspid. 7. Mild mitral valve regurgitation. 8. Trace tricuspid valve regurgitation. 9. Mild pulmonic valve regurgitation. 10. The inferior vena cava is normal. 11. The right ventricular systolic pressure is mildly elevated at 32.2 mmHg." Patient was started on 20 mg IV push Lasix 3 times daily yesterday and has had over 1 L output. Potassium today is down to 3.3 and this is being supplemented. Sodium 137. Carbon dioxide 24. Anion gap is 13.3. BUN is 19. Creatinine 0.6. GFR greater than 60. Glucose is 146. Calcium 8.4. Magnesium is 1.8. Total bilirubin 0.5. AST is 26, ALT 26, alkaline phosphatase 90. Troponin today was down to 0.031. CRP is down to 24.2. Albumin is down to 1.8. Mycoplasma and strep pneumonia were both checked and were negative. Respiratory viral panel was obtained and was negative however patient did return positive for Covid, which is unsurprising given the patient's recent known Covid infection. We will continue current treatment plan. It is felt it is prudent to continue IV antibiotics for now given patient's symptoms and lab results. We will continue diuresis and Eliquis for DVT treatment. 06/10/2021 This is a 80-year-old female post Covid infection who was admitted for suspected pneumonia, pulmonary fibrosis, myocarditis, DVT, and apparent UTI. Labs today show WBC of 8.94. Hemoglobin is 11.1. Neutrophils are elevated 77.7%. Smear review feels slight toxic granulation and abnormal RBC morphology. Sodium today is 140. Potassium 3.7. Chloride 103. Carbon dioxide 20. Anion gap is 12.7. BUN is 25. Creatinine 0.8. GFR greater than 60. Magnesium is 1.9. Bilirubin 0.5. AST is 24, ALT 29, alkaline phosphatase is 90. CRP is down to 12.5. Albumin is 1.8. Patient does report that she feels quite a bit better today. She is down on high flow to 55 L with an FiO2 of 70% with saturations of upper 80s to low 90s. Urine culture continues to show greater than 100,000 CFU's of E. coli. Sensitivities are pending. Blood cultures have returned negative. Strep pneumonia is negative. Discussed plan of care with Dr. Ibarra who recommends patient receive 1 more dose of Lasix and then either discontinue or continue with 20 mg daily. We will continue vancomycin and Zosyn due to concerns over possible pneumonia. Unfortunately today patient reported that her insurance company tells her Eliquis will be $600 for 30-day supply. She states she cannot afford this. Apparently Xarelto is around the same pricing per case management. We will therefore discontinue Eliquis start patient on 1 mg/kg Lovenox twice daily and start warfarin with pharmacy to dose. Patient has had no fevers. We will continue current treatment plan and hope to wean patient off of high flow. Unknown length of stay due to severity of symptoms. - Plan Plan:: Pneumonia - suspected Dyspnea Hypoxia History of COVID-19 On home oxygen therapy Acute on chronic respiratory failure Pulmonary fibrosis - suspected * Droplet isolation (airborne/contact while on high flow O2) * O2 as needed to keep saturation greater than 90% * I-S/Acapella * Given recent hospitalization we will start every 8 hours Zosyn and vancomycin with pharmacy to dose * High flow oxygen as directed * Sputum culture if able to produce * 4 times daily scheduled DuoNebs * Every 2 hours as needed albuterol nebulizer * Consult RT * Telemetry * Blood cultures negative thus far * Continuous pulse oximetry * Mucinex BID * Recommend PFT after recovery due to emphysematous changes noted in CTA * Recommend pulmonology follow-up after discharge DVT Elevated d-dimer * CTA in ED negative for PE * Discontinue Eliquis as patient reports $600 for 30 day supply * Begin Warfarin with pharmacy to dose * Start Lovenox 60mg (1mg/kg) BID as bridging 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 Chronic bacteriuria as patient is reportedly asymptomatic. * UA weakly positivepatient was treated for E. coli UTI with Rocephin in [place] * Urine culture showing >100cfu E. Coli, sensitivities pending * Blood cultures negative thus far * Zosyn as above GERD (gastroesophageal reflux disease) * No acute concerns * Monitor Meniere disease * No acute concerns * Monitor Hypokalemia * Supplement Hypotension - resolved * Noted in ED and multiple fluid boluses given * Monitor Code status: DNR/DNI PCP: Dr. Morley in [place] DVT prophylaxis: Lovenox Disposition: Patient admitted to the floor for management and further work-up of suspected pneumonia, hypoxia, elevated troponin, elevated D-dimer, and weak UTI. Anticipated length of stay 3 to 4 days.
[2021-06-10] MEDS: guaiFENesin 600 MG Tab.ER PO SCH ×2 (09:12→22:00)
[2021-06-10] MEDS: Potassium Chloride 10 MEQ Tab.ER PO SCH ×3 (09:13→22:00)
[2021-06-10] MEDS: Apixaban 5 MG Tab PO SCH (09:13)
[2021-06-10] MEDS ORDERED: Warfarin 4 MG Tab PO SCH (18:00)
[2021-06-10] MEDS ORDERED: Enoxaparin 40 MG/0.4 ML Syringe SUBCUT SCH (21:00)
[2021-06-10] MEDS: Enoxaparin 60 MG/0.6 ML Syringe SUBCUT SCH (22:00)
[2021-06-11] MEDS: Albuterol/Ipratropium 3.0-0.5 MG/3 ML Neb Soln NEB SCH ×4 (05:59→21:04)
[2021-06-11] MEDS: Piperacillin/Tazobactam 4.5 GM in Sodium Chloride 0.9% 100 ML IV SCH (06:34)
[2021-06-11] MEDS: Furosemide 20 MG/2 ML VIAL IVPUSH SCH (06:34)
--- NOTE | 2021-06-11 06:56 | PCM.PN ---
- General Info Date of Service: 06/11/21 Admission Dx/Problem (Free Text): Admission Diagnosis/Problem Admission Diagnosis/Problem Hypoxia Functional Status: Reports: Pain Controlled, Tolerating Diet, Urinating, Incentive Spirometry, Other (Acapella ). Denies: Ambulating, New Symptoms - Review of Systems General: Reports: No Symptoms, Weakness, Fatigue. Denies: Fever, Malaise, Chills HEENT: Reports: No Symptoms. Denies: Headaches, Sore Throat Pulmonary: Reports: Shortness of Breath, Cough, Sputum. Denies: Wheezing Cardiovascular: Reports: Dyspnea on Exertion. Denies: Chest Pain, Palpitations, Edema Gastrointestinal: Reports: Difficulty Swallowing. Denies: Abdominal Pain, Constipation, Decreased Appetite, Diarrhea, Nausea, Vomiting Genitourinary: Reports: No Symptoms. Denies: Pain Musculoskeletal: Reports: No Symptoms Skin: Reports: No Symptoms. Denies: Cyanosis Neurological: Reports: No Symptoms, Difficulty Walking, Weakness, Gait Disturbance. Denies: Confusion, Dizziness, Headache, Numbness, Seizure, Sync ope, Tingling, Tremors Psychiatric: Reports: No Symptoms - Patient Data Vitals - Most Recent: Last Vital Signs Temp 97.2 F 06/11/21 03:11 Pulse 104 H 06/11/21 03:11 Resp 28 H 06/11/21 03:11 BP 146/94 H 06/11/21 03:11 Pulse Ox 89 L 06/11/21 06:00 Weight - Most Recent: 130 lb 1.6 oz I&O - Last 24 Hours: Intake & Output 06/10/21 06/10/21 06/11/21 14:59 22:59 06:59 Intake Total 1050 800 850 Output Total 1300 480 420 Balance -250 320 430 Lab Results Last 24 Hours: Laboratory Results - last 24 hr 06/10/21 06/10/21 06/10/21 Range/Units 04:45 13:27 20:34 WBC (3.98-10.04) K/mm3 RBC (3.98-5.22) M/mm3 Hgb (11.2-15.7) gm/dl Hct (34.1-44.9) % MCV (79.4-94.8) fl MCH (25.6-32.2) pg MCHC (32.2-35.5) g/dl RDW Std Deviation (36.4-46.3) fL Plt Count (182-369) K/mm3 MPV (9.4-12.3) fl Neut % (Auto) (34.0-71.1) % Lymph % (Auto) (19.3-51.7) % [place] % (Auto) (4.7-12.5) % Eos % (Auto) (0.7-5.8) Baso % (Auto) (0.1-1.2) % Neut # (Auto) (1.56-6.13) K/mm3 Lymph # (Auto) (1.18-3.74) K/mm3 [place] # (Auto) (0.24-0.36) K/mm3 Eos # (Auto) (0.04-0.36) K/mm3 Baso # (Auto) (0.01-0.08) K/mm3 Manual Slide Review Abnormal smear PT 13.1 H (9.7-12.0) SECONDS INR 1.19 Sodium (136-145) mEq/L Potassium (3.5-5.1) mEq/L Chloride (98-107) mEq/L Carbon Dioxide (21-32) mEq/L Anion Gap (5-15) BUN (7-18) mg/dL Creatinine (0.55-1.02) mg/dL Est Cr Clr Drug Dosing mL/min Estimated GFR (MDRD) (>60) mL/min BUN/Creatinine Ratio (14-18) Glucose (70-99) mg/dL Calcium (8.5-10.1) mg/dL Magnesium (1.8-2.4) mg/dL Total Bilirubin (0.2-1.0) mg/dL AST (15-37) U/L ALT (14-59) U/L Alkaline Phosphatase (46-116) U/L C-Reactive Protein (<1.0) mg/dL Total Protein (6.4-8.2) g/dl Albumin (3.4-5.0) g/dl Globulin gm/dL Albumin/Globulin Ratio (1-2) Vancomycin Trough 12.4 (10.0-20.0) 06/11/21 06/11/21 06/11/21 Range/Units 05:01 05:01 05:01 WBC 8.33 (3.98-10.04) K/mm3 RBC 3.87 L (3.98-5.22) M/mm3 Hgb 11.7 (11.2-15.7) gm/dl Hct 35.2 (34.1-44.9) % MCV 91.0 (79.4-94.8) fl MCH 30.2 (25.6-32.2) pg MCHC 33.2 (32.2-35.5) g/dl RDW Std Deviation 46.6 H (36.4-46.3) fL Plt Count 339 (182-369) K/mm3 MPV 9.9 (9.4-12.3) fl Neut % (Auto) 70.6 (34.0-71.1) % Lymph % (Auto) 12.4 L (19.3-51.7) % [place] % (Auto) 12.5 (4.7-12.5) % Eos % (Auto) 2.9 (0.7-5.8) Baso % (Auto) 0.2 (0.1-1.2) % Neut # (Auto) 5.88 (1.56-6.13) K/mm3 Lymph # (Auto) 1.03 L (1.18-3.74) K/mm3 [place] # (Auto) 1.04 H (0.24-0.36) K/mm3 Eos # (Auto) 0.24 (0.04-0.36) K/mm3 Baso # (Auto) 0.02 (0.01-0.08) K/mm3 Manual Slide Review PT 13.2 H (9.7-12.0) SECONDS INR 1.20 Sodium 137 (136-145) mEq/L Potassium 3.2 L (3.5-5.1) mEq/L Chloride 98 (98-107) mEq/L Carbon Dioxide 29 (21-32) mEq/L Anion Gap 13.2 (5-15) BUN 29 H (7-18) mg/dL Creatinine 1.0 (0.55-1.02) mg/dL Est Cr Clr Drug Dosing 34.42 mL/min Estimated GFR (MDRD) 53 (>60) mL/min BUN/Creatinine Ratio 29.0 H (14-18) Glucose 101 H (70-99) mg/dL Calcium 8.4 L (8.5-10.1) mg/dL Magnesium 1.9 (1.8-2.4) mg/dL Total Bilirubin 0.6 (0.2-1.0) mg/dL AST 22 (15-37) U/L ALT 22 (14-59) U/L Alkaline Phosphatase 91 (46-116) U/L C-Reactive Protein 16.2 H* (<1.0) mg/dL Total Protein 6.7 (6.4-8.2) g/dl Albumin 1.9 L (3.4-5.0) g/dl Globulin 4.8 gm/dL Albumin/Globulin Ratio 0.4 L (1-2) Vancomycin Trough (10.0-20.0) Bipin Results Last 24 Hours: Microbiology 06/07/21 23:30 Urine Culture - Final Urine Escherichia Coli Mixed Gram Positive Addl Isol 06/08/21 16:30 Blood Culture - Preliminary Blood - Venous - Lab Draw 06/08/21 16:20 Blood Culture - Preliminary Blood - Venous Med Orders - Current: Current Medications Albuterol (Albuterol 0.083% 2.5 Mg/3 Ml Neb Soln) 2.5 mg NEB Q2H PRN PRN Reason: Shortness Of Breath/wheezing Albuterol/Ipratropium (Albuterol/Ipratropium 3.0-0.5 Mg/3 Ml Neb Soln) 3 ml NEB QIDRT [facility] Last Admin: 06/11/21 05:59 Dose: 3 ml Documented by: Docusate Sodium (Docusate Sodium 100 Mg Cap) 100 mg PO Q12H PRN PRN Reason: Constipation Last Admin: 06/10/21 09:12 Dose: 100 mg Documented by: Enoxaparin Sodium (Enoxaparin 60 Mg/0.6 Ml Syringe) 60 mg SUBCUT Q12H [facility] Last Admin: 06/10/21 22:00 Dose: 60 mg Documented by: Furosemide (Furosemide 20 Mg/2 Ml Vial) 20 mg IVPUSH DAILY [facility] Guaifenesin (Guaifenesin 600 Mg Tab.Er) 600 mg PO BID [facility] Last Admin: 06/10/21 22:00 Dose: 600 mg Documented by: Potassium Chloride 10 meq/ (Premix) 100 mls @ 100 mls/hr IV Q1H [facility] Stop: 06/11/21 12:59 Methylprednisolone Sodium Succinate (Methylprednisolone Sodium Succinate 40 Mg/1 Ml Sdv) 60 mg IVPUSH Q8H [facility] Ondansetron HCl (Ondansetron 4 Mg/2 Ml Sdv) 4 mg IV Q6H PRN PRN Reason: Nausea/Vomiting Sodium Chloride (Sodium Chloride 0.9% 10 Ml Syringe) 10 ml FLUSH ASDIRECTED PRN PRN Reason: Keep Vein Open Last Admin: 06/07/21 18:12 Dose: 10 ml Documented by: Trimethoprim/Sulfamethoxazole (Sulfamethoxazole/Trimethoprim 800-160 Mg Tab) 1 tab PO BID [facility] Vancomycin HCl (Pharmacy To Dose - Vancomycin) 1 dose .XX ASDIRECTED [facility] Warfarin Sodium (Pharmacy To Dose - Warfarin) 1 dose .XX ASDIRECTED PRN PRN Reason: RX TOD DOSE WARFARIN Discontinued Medications Albuterol (Albuterol 0.083% 2.5 Mg/3 Ml Neb Soln) 2.5 mg NEB ONETIME ONE Stop: 06/07/21 15:19 Last Admin: 06/07/21 15:47 Dose: 2.5 mg Documented by: Albuterol/Ipratropium (Albuterol/Ipratropium 3.0-0.5 Mg/3 Ml Neb Soln) 3 ml NEB ONETIME ONE Stop: 06/08/21 08:21 Last Admin: 06/08/21 08:37 Dose: 3 ml Documented by: Apixaban (Apixaban 5 Mg Tab) 10 mg PO BID [facility] Stop: 06/15/21 21:01 Last Admin: 06/10/21 09:13 Dose: 10 mg Documented by: Enoxaparin Sodium (Enoxaparin 40 Mg/0.4 Ml Syringe) 40 mg SUBCUT DAILY [facility] Last Admin: 06/08/21 14:49 Dose: 40 mg Documented by: Enoxaparin Sodium (Enoxaparin 60 Mg/0.6 Ml Syringe) 20 mg SUBCUT ONETIME ONE Stop: 06/08/21 16:31 Last Admin: 06/08/21 16:53 Dose: 20 mg Documented by: Furosemide (Furosemide 40 Mg/4 Ml Vial) 40 mg IVPUSH NOW ONE Stop: 06/08/21 20:04 Last Admin: 06/08/21 21:33 Dose: 40 mg Documented by: Furosemide (Furosemide 20 Mg/2 Ml Vial) 20 mg IVPUSH TIDMEALS [facility] Last Admin: 06/11/21 06:34 Dose: 20 mg Documented by: Furosemide (Furosemide 20 Mg/2 Ml Vial) 20 mg IVPUSH DAILY [facility] Sodium Chloride (Normal Saline) 100 mls @ 60 mls/min IV ASDIRECTED [facility] Last Admin: 06/07/21 18:12 Dose: 60 mls/min Documented by: Sodium Chloride (Normal Saline) 1,000 mls @ 250 mls/hr IV ASDIRECTED [facility] Last Admin: 06/07/21 22:14 Dose: 250 mls/hr Documented by: Ceftriaxone Sodium 1 gm/ (Sodium Chloride) 100 mls @ 200 mls/hr IV ONETIME ONE Stop: 06/08/21 09:25 Last Admin: 06/08/21 09:20 Dose: 200 mls/hr Documented by: Vancomycin HCl 1 gm/ Sodium (Chloride) 250 mls @ 250 mls/hr IV Q18H [facility] Last Admin: 06/08/21 14:26 Dose: Not Given Documented by: Vancomycin HCl 1 gm/ Sodium (Chloride) 250 mls @ 250 mls/hr IV Q18H [facility] Last Admin: 06/08/21 15:37 Dose: Not Given Documented by: Piperacillin Sod/Tazobactam (Sod 4.5 gm/ Sodium Chloride) 100 mls @ 200 mls/hr IV ONETIME ONE Stop: 06/08/21 14:59 Last Admin: 06/08/21 14:19 Dose: 200 mls/hr Documented by: Piperacillin Sod/Tazobactam (Sod 4.5 gm/ Sodium Chloride) 100 mls @ 25 mls/hr IV Q8H [facility] Last Admin: 06/11/21 06:34 Dose: 25 mls/hr Documented by: Vancomycin HCl 1 gm/ Sodium (Chloride) 250 mls @ 250 mls/hr IV Q18H [facility] Stop: 06/10/21 23:59 Last Admin: 06/10/21 22:00 Dose: 250 mls/hr Documented by: Sodium Chloride (Normal Saline) 1,000 mls @ 100 mls/hr IV ASDIRECTED [facility] Vancomycin HCl 1 gm/ Sodium (Chloride) 250 mls @ 250 mls/hr IV Q12H [facility] Iopamidol (Iopamidol 755 Mg/Ml 100 Ml Bottle) 100 ml IVPUSH ONETIME ONE Stop: 06/07/21 18:12 Last Admin: 06/07/21 18:12 Dose: 100 ml Documented by: Methylprednisolone Sodium Succinate (Methylprednisolone Sodium Succinate 125 Mg/2 Ml Sdv) 125 mg IVPUSH ONETIME ONE Stop: 06/08/21 08:21 Last Admin: 06/08/21 08:25 Dose: 125 mg Documented by: Potassium Chloride (Potassium Chloride 10 Meq Tab.Er) 10 meq PO TID [facility] Last Admin: 06/10/21 22:00 Dose: 10 meq Documented by: Potassium Chloride (Potassium Chloride 20 Meq Tab.Er) 20 meq PO ONETIME ONE Stop: 06/09/21 07:21 Last Admin: 06/09/21 08:37 Dose: 20 meq Documented by: Sodium Chloride (Sodium Chloride 0.9% 10 Ml Sdv) 10 ml FLUSH ONETIME ONE Stop: 06/07/21 18:12 Last Admin: 06/07/21 20:31 Dose: 10 ml Documented by: Warfarin Sodium (Warfarin 4 Mg Tab) 4 mg PO QPM [facility] Stop: 06/10/21 18:01 Last Admin: 06/10/21 18:08 Dose: 4 mg Documented by: - Exam Quality Assessment: Supplemental Oxygen (55 L with an FiO2 of 65%), DVT Prophylaxis (Warfarin with Lovenox bridging). No: Urine Catheter General: Alert, Oriented, Cooperative, Mild Distress (Looks uncomfortable) HEENT: Pupils Equal, Pupils Reactive, Mucous Membr. Moist/[place] Neck: Supple, Trachea Midline Lungs: Normal Respiratory Effort, Decreased Breath Sounds, Crackles, Rhonchi, Wheezing Cardiovascular: Regular Rate, Regular Rhythm GI/Abdominal Exam: Normal Bowel Sounds, Soft, Non-Tender, No Distention (Female) Exam: Deferred Back Exam: Normal Inspection, Decreased Range of Motion Extremities: Normal Inspection, Normal Range of Motion, Non-Tender, No Pedal Edema, Normal Capillary Refill Peripheral Pulses: 2+: Radial (L), Radial (R), Dorsalis Pedis (L), Dorsalis Pedis (R) Skin: Warm, Dry, Intact Neurological: No New Focal Deficit Psy/Mental Status: Alert, Normal Affect, Normal Mood - Patient Data Lab Results Last 24 hrs: Laboratory Results - last 24 hr 06/10/21 06/10/21 06/10/21 Range/Units 04:45 13:27 20:34 WBC (3.98-10.04) K/mm3 RBC (3.98-5.22) M/mm3 Hgb (11.2-15.7) gm/dl Hct (34.1-44.9) % MCV (79.4-94.8) fl MCH (25.6-32.2) pg MCHC (32.2-35.5) g/dl RDW Std Deviation (36.4-46.3) fL Plt Count (182-369) K/mm3 MPV (9.4-12.3) fl Neut % (Auto) (34.0-71.1) % Lymph % (Auto) (19.3-51.7) % [place] % (Auto) (4.7-12.5) % Eos % (Auto) (0.7-5.8) Baso % (Auto) (0.1-1.2) % Neut # (Auto) (1.56-6.13) K/mm3 Lymph # (Auto) (1.18-3.74) K/mm3 [place] # (Auto) (0.24-0.36) K/mm3 Eos # (Auto) (0.04-0.36) K/mm3 Baso # (Auto) (0.01-0.08) K/mm3 Manual Slide Review Abnormal smear PT 13.1 H (9.7-12.0) SECONDS INR 1.19 Sodium (136-145) mEq/L Potassium (3.5-5.1) mEq/L Chloride (98-107) mEq/L Carbon Dioxide (21-32) mEq/L Anion Gap (5-15) BUN (7-18) mg/dL Creatinine (0.55-1.02) mg/dL Est Cr Clr Drug Dosing mL/min Estimated GFR (MDRD) (>60) mL/min BUN/Creatinine Ratio (14-18) Glucose (70-99) mg/dL Calcium (8.5-10.1) mg/dL Magnesium (1.8-2.4) mg/dL Total Bilirubin (0.2-1.0) mg/dL AST (15-37) U/L ALT (14-59) U/L Alkaline Phosphatase (46-116) U/L C-Reactive Protein (<1.0) mg/dL Total Protein (6.4-8.2) g/dl Albumin (3.4-5.0) g/dl Globulin gm/dL Albumin/Globulin Ratio (1-2) Vancomycin Trough 12.4 (10.0-20.0) 06/11/21 06/11/21 06/11/21 Range/Units 05:01 05:01 05:01 WBC 8.33 (3.98-10.04) K/mm3 RBC 3.87 L (3.98-5.22) M/mm3 Hgb 11.7 (11.2-15.7) gm/dl Hct 35.2 (34.1-44.9) % MCV 91.0 (79.4-94.8) fl MCH 30.2 (25.6-32.2) pg MCHC 33.2 (32.2-35.5) g/dl RDW Std Deviation 46.6 H (36.4-46.3) fL Plt Count 339 (182-369) K/mm3 MPV 9.9 (9.4-12.3) fl Neut % (Auto) 70.6 (34.0-71.1) % Lymph % (Auto) 12.4 L (19.3-51.7) % [place] % (Auto) 12.5 (4.7-12.5) % Eos % (Auto) 2.9 (0.7-5.8) Baso % (Auto) 0.2 (0.1-1.2) % Neut # (Auto) 5.88 (1.56-6.13) K/mm3 Lymph # (Auto) 1.03 L (1.18-3.74) K/mm3 [place] # (Auto) 1.04 H (0.24-0.36) K/mm3 Eos # (Auto) 0.24 (0.04-0.36) K/mm3 Baso # (Auto) 0.02 (0.01-0.08) K/mm3 Manual Slide Review PT 13.2 H (9.7-12.0) SECONDS INR 1.20 Sodium 137 (136-145) mEq/L Potassium 3.2 L (3.5-5.1) mEq/L Chloride 98 (98-107) mEq/L Carbon Dioxide 29 (21-32) mEq/L Anion Gap 13.2 (5-15) BUN 29 H (7-18) mg/dL Creatinine 1.0 (0.55-1.02) mg/dL Est Cr Clr Drug Dosing 34.42 mL/min Estimated GFR (MDRD) 53 (>60) mL/min BUN/Creatinine Ratio 29.0 H (14-18) Glucose 101 H (70-99) mg/dL Calcium 8.4 L (8.5-10.1) mg/dL Magnesium 1.9 (1.8-2.4) mg/dL Total Bilirubin 0.6 (0.2-1.0) mg/dL AST 22 (15-37) U/L ALT 22 (14-59) U/L Alkaline Phosphatase 91 (46-116) U/L C-Reactive Protein 16.2 H* (<1.0) mg/dL Total Protein 6.7 (6.4-8.2) g/dl Albumin 1.9 L (3.4-5.0) g/dl Globulin 4.8 gm/dL Albumin/Globulin Ratio 0.4 L (1-2) Vancomycin Trough (10.0-20.0) Result Diagrams: 06/11/21 05:01 06/11/21 05:01 Bipin Results Last 24 hrs: Microbiology 06/07/21 23:30 Urine Culture - Final Urine Escherichia Coli Mixed Gram Positive Addl Isol 06/08/21 16:30 Blood Culture - Preliminary Blood - Venous - Lab Draw 06/08/21 16:20 Blood Culture - Preliminary Blood - Venous Sepsis Event Note - Evaluation Sepsis Screening Result: Sepsis Risk - Focused Exam Vital Signs: Vital Signs Temp Pulse Resp BP Pulse Ox Pulse Ox 06/11/21 06:00 89 L 06/11/21 03:11 97.2 F 104 H 28 H 146/94 H 90 L 06/10/21 22:10 24 H 06/10/21 22:02 109 H 135/98 H 91 L 06/10/21 20:19 89 L - Problem List & Annotations (1) History of COVID-19 SNOMED Code(s): 994359391588986774, 483713694286910343 Code(s): Z86.16 - PERSONAL HISTORY OF COVID-19 Status: Chronic Priority: Medium Current Visit: Yes (2) Elevated d-dimer SNOMED Code(s): 226051342 Code(s): R79.89 - OTHER SPECIFIED ABNORMAL FINDINGS OF BLOOD CHEMISTRY Status: Acute Priority: Medium Current Visit: Yes (3) Elevated troponin SNOMED Code(s): 966698526, 459483307, 590243288 Code(s): R77.8 - OTHER SPECIFIED ABNORMALITIES OF PLASMA PROTEINS Status: Resolved Priority: High Current Visit: Yes (4) Pneumonia SNOMED Code(s): 188968755 Code(s): J18.9 - PNEUMONIA, UNSPECIFIED ORGANISM Status: Suspected Priority: High Current Visit: Yes Qualifiers: Pneumonia type: due to unspecified organism Laterality: unspecified laterality Lung location: unspecified part of lung Qualified Code(s): J18.9 - Pneumonia, unspecified organism (5) Dyspnea SNOMED Code(s): 631046487 Code(s): R06.00 - DYSPNEA, UNSPECIFIED Status: Acute Priority: High Current Visit: Yes Qualifiers: Dyspnea type: unspecified Qualified Code(s): R06.00 - Dyspnea, unspecified (6) Hypoxia SNOMED Code(s): 111915314 Code(s): R09.02 - HYPOXEMIA Status: Acute Priority: High Current Visit: Yes (7) UTI (urinary tract infection) SNOMED Code(s): 30933962 Code(s): N39.0 - URINARY TRACT INFECTION, SITE NOT SPECIFIED Status: Acute Priority: High Current Visit: Yes Qualifiers: Urinary tract infection type: site unspecified Hematuria presence: without hematuria Qualified Code(s): N39.0 - Urinary tract infection, site not specified (8) Elevated brain natriuretic peptide (BNP) level SNOMED Code(s): 088518582, 501979930 Code(s): R79.89 - OTHER SPECIFIED ABNORMAL FINDINGS OF BLOOD CHEMISTRY Status: Acute Priority: High Current Visit: Yes (9) On home oxygen therapy SNOMED Code(s): 689479804871 Code(s): Z99.81 - DEPENDENCE ON SUPPLEMENTAL OXYGEN Status: Chronic Priority: Medium Current Visit: Yes (10) GERD (gastroesophageal reflux disease) SNOMED Code(s): 642561711 Code(s): K21.9 - GASTRO-ESOPHAGEAL REFLUX DISEASE WITHOUT ESOPHAGITIS Status: Chronic Priority: Low Current Visit: No Qualifiers: Esophagitis presence: esophagitis presence not specified Qualified Code(s): K21.9 - Gastro-esophageal reflux disease without esophagitis (11) Meniere disease SNOMED Code(s): 11082763 Code(s): H81.09 - MENIERE'S DISEASE, UNSPECIFIED EAR Status: Chronic Priority: Low Current Visit: No Qualifiers: Laterality: unspecified laterality Qualified Code(s): H81.09 - Meniere's disease, unspecified ear (12) DVT (deep venous thrombosis) SNOMED Code(s): 534341884 Code(s): I82.409 - ACUTE EMBOLISM AND THOMBOS UNSP DEEP VN UNSP LOWER EXTREMITY Status: Acute Priority: High Current Visit: Yes Qualifiers: DVT location: lower extremity Affected thrombotic vein of extremity: unspecified vein of extremity Chronicity: acute Laterality: left Qualified Code(s): I82.402 - Acute embolism and thrombosis of unspecified deep veins of left lower extremity (13) Hypotension SNOMED Code(s): 12271358 Code(s): I95.9 - HYPOTENSION, UNSPECIFIED Status: Resolved Priority: High Current Visit: Yes Qualifiers: Hypotension type: unspecified hypotension type Qualified Code(s): I95.9 - Hypotension, unspecified (14) Acute and chronic respiratory failure SNOMED Code(s): 55358013 Code(s): J96.20 - ACUTE AND CHR RESP FAILURE, UNSP W HYPOXIA OR HYPERCAPNIA Status: Acute Priority: High Current Visit: Yes Qualifiers: Respiratory failure complication: hypoxia Qualified Code(s): J96.21 - Acute and chronic respiratory failure with hypoxia (15) Myocarditis SNOMED Code(s): 72616716 Code(s): I51.4 - MYOCARDITIS, UNSPECIFIED Status: Suspected Priority: High Current Visit: Yes Qualifiers: Myocarditis type: infective Infective myocarditis organism: viral Chronicity: acute Qualified Code(s): I40.0 - Infective myocarditis (16) Hypokalemia SNOMED Code(s): 89772568 Code(s): E87.6 - HYPOKALEMIA Status: Acute Priority: High Current Visit: Yes (17) Pulmonary fibrosis SNOMED Code(s): 61417527 Code(s): J84.10 - PULMONARY FIBROSIS, UNSPECIFIED Status: Suspected Priority: High Current Visit: Yes - Problem List Review Problem List Initiated/Reviewed/Updated: Yes - My Orders Last 24 Hours: My Active Orders 06/10/21 13:15 Pharmacy to Dose - Warfarin 1 dose .XX ASDIRECTED PRN 06/10/21 21:00 Enoxaparin [Lovenox] 60 mg SUBCUT Q12H 06/11/21 05:01 CBC WITH AUTO DIFF [HEME] AM 06/11/21 06:52 PROCALCITONIN [REF] Routine 06/11/21 06:55 KALSOMINER Evaluation and Treatment [CONS] Routine 06/11/21 07:00 Potassium Chloride [KCl in Water 10 MEQ/100 ML] 10 meq Premix Bag 1 bag IV Q1H methylPREDNISolone Sod Succ [Solu-MEDROL] 60 mg IVPUSH Q8H 06/11/21 09:00 Sulfamethoxazole/Trimethoprim [Septra DS] 1 tab PO BID 06/12/21 05:11 C-REACTIVE PROTEIN [CHEM] AM CBC WITH AUTO DIFF [HEME] AM COMPREHENSIVE METABOLIC PN,CMP [CHEM] AM INR,PT,PROTHROMBIN TIME [COAG] AM MAGNESIUM [CHEM] AM 06/12/21 09:00 Furosemide [Lasix] 20 mg IVPUSH DAILY 06/13/21 05:11 INR,PT,PROTHROMBIN TIME [COAG] AM 06/14/21 05:11 INR,PT,PROTHROMBIN TIME [COAG] AM - Assessment Assessment:: Admission assessment - 06/08/2021 * 80-year-old female who presents to ED on 06/07/2021 with low oxygen saturations * History of Mnire's disease, GERD, and prior Covid pneumonia * Was hospitalized from 05/17/2021 through 05/31/2021 with COVID-19 pneumonia at [facility] in [place]. * Discharged home on 4 L of oxygen with activity after completing 4 days of remdesivir and 10 days of Decadron. * Of note patient was noted to have episodes of bradycardia and hypotension with heart rate in the 30s and 40s. She was noticed to have episodes of Mobitz type I AV block and 2.5-second sinus pauses. It was believed this was due to remdesivir however this continued after stopping. Patient was to follow-up with EP and have a 2-week residential monitor after discharge. * Prior to presenting to the ED she was noted to have saturations in the low 50s. * Patient's increased her oxygen to 8 L via nasal cannula. * Denies any recent fever, chills, nausea, vomiting, diarrhea, urinary symptoms, or smoking history. * Of note patient did have acute cystitis with an E. coli UTI well in the hospital in [place] and completed 5 days of Rocephin there. * 12-lead EKG was obtained showing a sinus tachycardia at 109 bpm with a LAFB and very mild ST elevation in V2 and V3. * Placed on a nonrebreather mask which improved her saturations to 90 to 91%. * Noted to be dyspneic and only able to complete a few word sentences. * Labs are obtained: * WBC of 8.57. * Hemoglobin 13.0. * Hematocrit 30.5. * Platelet 250,000. * Neutrophils are elevated 75.7%. * D-dimer is very high at 8.16. * Sodium is low at 129. * Potassium 3.8. * Chloride 94. * Carbon dioxide 24. * Anion gap is 14.8. * BUN is 15. Creatinine 0.6. GFR greater than 60. * Glucose is 126. * Calcium 8.7. * Magnesium 1.8. * Total bilirubin 0.6. * AST is 36, ALT 31, alkaline phosphatase 86. * Troponin is elevated at 0.127-->0.156-->0.067. * CRP is very high at 29.3. * Protein 7.1. * Albumin 2.1. * proBNP is 3117 * UA is obtained and is mildly positive with slightly cloudy urine, 1+ protein, 3+ ketones, 2+ occult blood, 1+ leukocyte esterase, 5-10 RBCs, 20- 30 WBCs, rare WBC clumps, and moderate bacteria. * ABG obtained in the left radial with a pH of 7.44. PCO2 of 30.9. PO2 of 58.0. HCO3 of 20.5. O2 saturations 86%. Base excess is -2.3. Aa gradient is 15.0. This is obtained while on nonrebreather at 15 L. * Facility was out of CPAP and BiPAP-> started on high flow O2 with saturations in the low 90s. * CTA of the chest is obtained to rule out PE and shows: * 1. No findings of pulmonary embolism. * 2. Minimal left-sided pleural effusion. * 3. Diffuse emphysematous changes seen. Both lungs show diffuse increased density uncertain how much of this represents diffuse fibrosis versus possible superimposed pneumonia. Old comparison studies would be needed if available. * 4. 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 * 5. Other findings which are felt to be chronic as described above. * Chest x-ray shows scattered infiltrates bilaterally most prominent in the left lower lobe. * Plan was to transfer the patient for continued care due to elevated troponin however no beds are noted to be available [place] * Noted to have a blood pressure of 80/61 and is given a 500 mill fluid bolus over 2 hours. * Given 1 dose of Rocephin in the ED. She is also given 125 mg Solu-Medrol and a DuoNeb, which she reports greatly helped. * Ultimately inpatient bed does open up at our facility and she is admitted to the floor on telemetry for management of her hypoxia, suspected pneumonia, elevated BNP, elevated troponin - likely demand ischemia, and questionable UTI. * On floor bilateral lower extremity ultrasound shows thrombus within the left mid and distal superficial, femoral, popliteal, posterior tibial, and peroneal veins. 06/09/2021 This is a 80 years old female post Covid infection who was hospitalized in [place] for approximately 2 weeks who presented to our ED with low saturations. On admission D-dimer was noted to be elevated however CTA was negative for any PE. Lower extremity ultrasound did show a DVT in the left extremity and pat ient was started on 1 mg/kg Lovenox transitioning to 10 mg twice daily Eliquis today. Patient has been requiring high flow 60 L and was weaned down to 80% FiO2 today. Unfortunately given patient's history of recent Covid infection CTA was not very helpful in differentiating pulmonary cause. Given recent hospitalization there are concerns of a secondary bacterial infection. WBC has been WNL however neutrophils are elevated. Procalcitonin was obtained and was 0.29. Lactic acid yesterday was 1.0. Patient was noted to be hypotensive in the emergency room and was given 2 fluid boluses. She was also started on fluids over concerns of sepsis. UA was positive and urine culture is growing ou t greater than 100,000 CFU's of gram-negative rods thus far. She does have a history of a E. coli UTI treated with Rocephin in [place]. Patient denies any urinary symptoms. proBNP was elevated. Echocardiogram was obtained on 06/08/2021 And interpreted as: " 1. The left ventricular internal cavity size is normal. 2. Normal left ventricular systolic function. 3. Left ventricular ejection fraction, by visual estimation, is 55 to 60%. 4. No regional wall motion abnormalities. 5. Mild proximal septal hypertrophy. 6. Aortic valve is tricuspid. 7. Mild mitral valve regurgitation. 8. Trace tricuspid valve regurgitation. 9. Mild pulmonic valve regurgitation. 10. The inferior vena cava is normal. 11. The right ventricular systolic pressure is mildly elevated at 32.2 mmHg." Patient was started on 20 mg IV push Lasix 3 times daily yesterday and has had over 1 L output. Potassium today is down to 3.3 and this is being supplemented. Sodium 137. Carbon dioxide 24. Anion gap is 13.3. BUN is 19. Creatinine 0.6. GFR greater than 60. Glucose is 146. Calcium 8.4. Magnesium is 1.8. Total bilirubin 0.5. AST is 26, ALT 26, alkaline phosphatase 90. Troponin today was down to 0.031. CRP is down to 24.2. Albumin is down to 1.8. Mycoplasma and strep pneumonia were both checked and were negative. Respiratory viral panel was obtained and was negative however patient did return positive for Covid, which is unsurprising given the patient's recent known Covid infection. We will continue current treatment plan. It is felt it is prudent to continue IV antibiotics for now given patient's symptoms and lab results. We will continue diuresis and Eliquis for DVT treatment. 06/10/2021 This is a 80-year-old female post Covid infection who was admitted for suspected pneumonia, pulmonary fibrosis, myocarditis, DVT, and apparent UTI. Labs today show WBC of 8.94. Hemoglobin is 11.1. Neutrophils are elevated 77.7%. Smear review feels slight toxic granulation and abnormal RBC morphology. Sodium today is 140. Potassium 3.7. Chloride 103. Carbon dioxide 20. Anion gap is 12.7. BUN is 25. Creatinine 0.8. GFR greater than 60. Magnesium is 1.9. Bilirubin 0.5. AST is 24, ALT 29, alkaline phosphatase is 90. CRP is down to 12.5. Albumin is 1.8. Patient does report that she feels quite a bit better today. She is down on high flow to 55 L with an FiO2 of 70% with saturations of upper 80s to low 90s. Urine culture continues to show greater than 100,000 CFU's of E. coli. Sensitivities are pending. Blood cultures have returned negative. Strep pneumonia is negative. Discussed plan of care with Dr. Ibarra who recommends patient receive 1 more dose of Lasix and then either discontinue or continue with 20 mg daily. We will continue vancomycin and Zosyn due to concerns over possible pneumonia. Unfortunately today patient reported that her insurance company tells her Eliquis will be $600 for 30-day supply. She states she cannot afford this. Apparently Xarelto is around the same pricing per case management. We will therefore discontinue Eliquis start patient on 1 mg/kg Lovenox twice daily and start warfarin with pharmacy to dose. Patient has had no fevers. We will continue current treatment plan and hope to wean patient off of high flow. Unknown length of stay due to severity of symptoms. 06/11/2021 80-year-old female who is post Covid admitted for suspected pneumonia, pulmonary fibrosis, suspected myocarditis, DVT and UTI. Labs today show WBC of 8.33. Hemoglobin is 11.7. Neutrophils are 70.6. INR is 1.20. Sodium is 137. Potassium 3.2. Chloride 98. Carbon dioxide 29. Anion gap is 13.2. BUN is 29. Creatinine 1.0. GFR 53. Glucose 101. CRP is up to 16.2. Albumin is 1.9. Discussed plan of care with Dr. Youssef, attending hospitalist. We will at this time discontinue vancomycin and Zosyn and switch patient to Bactrim DS twice daily based on E. coli urine sensitivities. We will repeat a procalcitonin. We will also decrease Lasix to 20 mg IV push daily. Patient's potassium will be supplemented. Pharmacy continues to dose warfarin and patient remains on 1 mg/k g twice daily Lovenox bridging. Will start patient on 60 mg every 8 hour IV push methylprednisolone. Patient has been reporting difficulty with swallowing pills. Because of this we will order an [facility]ALSOMINER evaluation. We have made some improvement with her high flow she is now at 55 L with an FiO2 of 65%. We will continue to wean as patient tolerates. Unknown length of stay due to severity of symptoms. - Plan Plan:: Pneumonia - suspected Dyspnea Hypoxia History of COVID-19 On home oxygen therapy Acute on chronic respiratory failure Pulmonary fibrosis - suspected * Droplet isolation (airborne/contact while on high flow O2) * O2 as needed to keep saturation greater than 90% * I-S/Acapella * Discontinue zosyn and vancomycin * High flow oxygen as directed * 4 times daily scheduled DuoNebs * Every 2 hours as needed albuterol nebulizer * Consult RT * Telemetry * Blood cultures negative thus far * Continuous pulse oximetry * Mucinex BID * Recommend PFT after recovery due to emphysematous changes noted in CTA * Recommend pulmonology follow-up after discharge * Re-check procalcitonin * Start solu-medrol 60mg TID DVT Elevated d-dimer * CTA in ED negative for PE * Discontinue Eliquis as patient reports $600 for 30 day supply * Warfarin with pharmacy to dose * Lovenox 60mg (1mg/kg) BID as bridging Myocarditis - suspected Elevated troponin, resolved Elevated brain natriuretic peptide (BNP) level * Troponin now WNL * Echocardiogram obtained as above * Monitor patient's weight * Strict I&O's * Telemetry * 20mg daily lasix * Supplement potassium as needed * Monitor CRP UTI (urinary tract infection) * UA weakly positivepatient was treated for E. coli UTI with Rocephin in [facility] * Urine culture showing >100cfu E. Coli, with good sensitivities to Bactrim DS * Blood cultures negative thus far * Switch from zosyn/vancomycin to Bactrim DS BID PO GERD (gastroesophageal reflux disease) * No acute concerns * Monitor Meniere disease * No acute concerns * Monitor Hypokalemia * Supplement Hypotension - resolved * Noted in ED and multiple fluid boluses given * Monitor Dysphagia * Patient reports difficulty swallowing pills * [facility]OMINER evaluation Code status: DNR/DNI PCP: Dr. Morley in [place] DVT prophylaxis: Lovenox Disposition: Patient admitted to the floor for management and further work-up of suspected pneumonia, hypoxia, elevated troponin, elevated D-dimer, and weak UTI. Length of stay greater than 96 hours due to need for continued treatment.
[2021-06-11] MEDS ORDERED: Furosemide 20 MG/2 ML VIAL IVPUSH SCH (09:00)
[2021-06-11] MEDS: methylPREDNISolone Sodium Succinate 40 MG/1 ML SDV IVPUSH SCH ×3 (09:39→23:06)
[2021-06-11] MEDS: Sodium Chloride 0.9% 250 ML IV SCH ×2 (09:54→15:51)
[2021-06-11] MEDS: Potassium Chloride 10 MEQ in Premix Bag 1 BAG IV SCH ×6 (09:55→15:37)
[2021-06-11] MEDS: guaiFENesin 600 MG Tab.ER PO SCH ×2 (09:56→20:08)
[2021-06-11] MEDS: Enoxaparin 60 MG/0.6 ML Syringe SUBCUT SCH ×2 (09:56→20:08)
[2021-06-11] MEDS: Sulfamethoxazole/Trimethoprim 800-160 MG Tab PO SCH ×2 (09:56→20:08)
[2021-06-11] MEDS ORDERED: Warfarin 4 MG Tab PO SCH (18:00)
[2021-06-11] MEDS ORDERED: Aluminum Hydroxide/Magnesium Hydroxide/Simethicone Susp 30 ML Cup PO PRN (23:09)
[2021-06-12] MEDS: Albuterol/Ipratropium 3.0-0.5 MG/3 ML Neb Soln NEB SCH ×4 (06:16→21:34)
[2021-06-12] MEDS: methylPREDNISolone Sodium Succinate 40 MG/1 ML SDV IVPUSH SCH ×3 (07:29→22:10)
[2021-06-12] MEDS ORDERED: Furosemide 20 MG/2 ML VIAL IVPUSH SCH (09:00)
[2021-06-12] MEDS: guaiFENesin 600 MG Tab.ER PO SCH ×2 (09:05→21:21)
[2021-06-12] MEDS: Sulfamethoxazole/Trimethoprim 800-160 MG Tab PO SCH ×2 (09:05→21:21)
[2021-06-12] MEDS: Enoxaparin 60 MG/0.6 ML Syringe SUBCUT SCH ×2 (09:05→21:22)
[2021-06-12] MEDS: Diltiazem 50 MG/10 ML SDV IVPUSH PRN (10:36)
--- NOTE | 2021-06-12 12:36 | PCM.PN ---
- General Info Date of Service: 06/12/21 Admission Dx/Problem (Free Text): Admission Diagnosis/Problem Admission Diagnosis/Problem Hypoxia Subjective Update: Patient had a difficult morning. She required high flow nasal cannula at 60 L at 95% with a nonrebreather mask over that. Oxygen saturations did finally increase. Also, patient was in atrial fib with rate in the 1 teens to 130s. She required Cardizem 10 mg IV x1 to get her heart rate below 100. This did help her oxygen saturations and at this time she is on high flow nasal cannula 60 L at 95% without the nonrebreather mask. Patient remains short of breath. I had a long discussion with her and her in regards to her outcome. Patient at this point appears to have very poor prognosis secondary to pulmonary fibrosis. She does not want to be intubated, but she also does not want to be comfort measures at this time. understands her condition and is supportive. Functional Status: Reports: Pain Controlled - Review of Systems General: Reports: Fatigue Pulmonary: Reports: Shortness of Breath, Cough Cardiovascular: Reports: Dyspnea on Exertion - Patient Data Vitals - Most Recent: Last Vital Signs Temp 96.4 F L 06/12/21 10:02 Pulse 110 H 06/12/21 10:02 Resp 22 H 06/12/21 10:02 BP 102/67 06/12/21 10:02 Pulse Ox 90 L 06/12/21 10:02 Weight - Most Recent: 129 lb 4.8 oz I&O - Last 24 Hours: Intake & Output 06/11/21 06/12/21 06/12/21 22:59 06:59 14:59 Intake Total 1300 200 Output Total 150 Balance 1300 50 Lab Results Last 24 Hours: Laboratory Results - last 24 hr 06/11/21 06/12/21 06/12/21 Range/Units 05:01 05:37 05:37 WBC 10.99 H (3.98-10.04) K/mm3 RBC 3.97 L (3.98-5.22) M/mm3 Hgb 12.0 (11.2-15.7) gm/dl Hct 35.4 (34.1-44.9) % MCV 89.2 (79.4-94.8) fl MCH 30.2 (25.6-32.2) pg MCHC 33.9 (32.2-35.5) g/dl RDW Std Deviation 46.6 H (36.4-46.3) fL Plt Count 415 H D (182-369) K/mm3 MPV 10.1 (9.4-12.3) fl Neut % (Auto) 84.8 H (34.0-71.1) % Lymph % (Auto) 10.3 L (19.3-51.7) % Latimer % (Auto) 3.5 L (4.7-12.5) % Eos % (Auto) 0.1 L (0.7-5.8) Baso % (Auto) 0.1 (0.1-1.2) % Neut # (Auto) 9.33 H (1.56-6.13) K/mm3 Lymph # (Auto) 1.13 L (1.18-3.74) K/mm3 [place] # (Auto) 0.38 H (0.24-0.36) K/mm3 Eos # (Auto) 0.01 L (0.04-0.36) K/mm3 Baso # (Auto) 0.01 (0.01-0.08) K/mm3 PT (9.7-12.0) SECONDS INR Sodium 134 L (136-145) mEq/L Potassium 3.7 (3.5-5.1) mEq/L Chloride 100 (98-107) mEq/L Carbon Dioxide 23 (21-32) mEq/L Anion Gap 14.7 (5-15) BUN 41 H (7-18) mg/dL Creatinine 1.4 H (0.55-1.02) mg/dL Est Cr Clr Drug Dosing 24.59 mL/min Estimated GFR (MDRD) 36 (>60) mL/min BUN/Creatinine Ratio 29.3 H (14-18) Glucose 142 H (70-99) mg/dL Calcium 8.9 (8.5-10.1) mg/dL Magnesium 2.1 (1.8-2.4) mg/dL Total Bilirubin 0.3 (0.2-1.0) mg/dL AST 24 (15-37) U/L ALT 22 (14-59) U/L Alkaline Phosphatase 85 (46-116) U/L C-Reactive Protein 12.7 H* (<1.0) mg/dL Total Protein 6.8 (6.4-8.2) g/dl Albumin 1.9 L (3.4-5.0) g/dl Globulin 4.9 gm/dL Albumin/Globulin Ratio 0.4 L (1-2) Procalcitonin 0.18 H ng/mL 06/12/21 Range/Units 05:37 WBC (3.98-10.04) K/mm3 RBC (3.98-5.22) M/mm3 Hgb (11.2-15.7) gm/dl Hct (34.1-44.9) % MCV (79.4-94.8) fl MCH (25.6-32.2) pg MCHC (32.2-35.5) g/dl RDW Std Deviation (36.4-46.3) fL Plt Count (182-369) K/mm3 MPV (9.4-12.3) fl Neut % (Auto) (34.0-71.1) % Lymph % (Auto) (19.3-51.7) % Latimer % (Auto) (4.7-12.5) % Eos % (Auto) (0.7-5.8) Baso % (Auto) (0.1-1.2) % Neut # (Auto) (1.56-6.13) K/mm3 Lymph # (Auto) (1.18-3.74) K/mm3 Latimer # (Auto) (0.24-0.36) K/mm3 Eos # (Auto) (0.04-0.36) K/mm3 Baso # (Auto) (0.01-0.08) K/mm3 PT 20.1 H D (9.7-12.0) SECONDS INR 1.85 Sodium (136-145) mEq/L Potassium (3.5-5.1) mEq/L Chloride (98-107) mEq/L Carbon Dioxide (21-32) mEq/L Anion Gap (5-15) BUN (7-18) mg/dL Creatinine (0.55-1.02) mg/dL Est Cr Clr Drug Dosing mL/min Estimated GFR (MDRD) (>60) mL/min BUN/Creatinine Ratio (14-18) Glucose (70-99) mg/dL Calcium (8.5-10.1) mg/dL Magnesium (1.8-2.4) mg/dL Total Bilirubin (0.2-1.0) mg/dL AST (15-37) U/L ALT (14-59) U/L Alkaline Phosphatase (46-116) U/L C-Reactive Protein (<1.0) mg/dL Total Protein (6.4-8.2) g/dl Albumin (3.4-5.0) g/dl Globulin gm/dL Albumin/Globulin Ratio (1-2) Procalcitonin ng/mL Med Orders - Current: Current Medications Al Hydroxide/Mg Hydroxide (Aluminum Hydroxide/Magnesium Hydroxide/Simethicone Susp 30 Ml Cup) 30 ml PO Q4H PRN PRN Reason: Heartburn Last Admin: 06/11/21 23:27 Dose: 30 ml Documented by: Albuterol (Albuterol 0.083% 2.5 Mg/3 Ml Neb Soln) 2.5 mg NEB Q2H PRN PRN Reason: Shortness Of Breath/wheezing Albuterol/Ipratropium (Albuterol/Ipratropium 3.0-0.5 Mg/3 Ml Neb Soln) 3 ml NEB QIDRT [facility] Last Admin: 06/12/21 09:15 Dose: 3 ml Documented by: Diltiazem HCl (Diltiazem 50 Mg/10 Ml Sdv) 10 mg IVPUSH Q1H PRN PRN Reason: Tachycardia Last Admin: 06/12/21 10:36 Dose: 10 mg Documented by: Docusate Sodium (Docusate Sodium 100 Mg Cap) 100 mg PO Q12H PRN PRN Reason: Constipation Last Admin: 06/10/21 09:12 Dose: 100 mg Documented by: Enoxaparin Sodium (Enoxaparin 60 Mg/0.6 Ml Syringe) 60 mg SUBCUT Q12H [facility] Last Admin: 06/12/21 09:05 Dose: 60 mg Documented by: Furosemide (Furosemide 20 Mg/2 Ml Vial) 20 mg IVPUSH DAILY [facility] Last Admin: 06/12/21 09:05 Dose: 20 mg Documented by: Guaifenesin (Guaifenesin 600 Mg Tab.Er) 600 mg PO BID [facility] Last Admin: 06/12/21 09:05 Dose: 600 mg Documented by: Sodium Chloride (Normal Saline) 250 mls @ 40 mls/hr IV ASDIRECTED [facility] Last Admin: 06/11/21 15:51 Dose: 40 mls/hr Documented by: Methylprednisolone Sodium Succinate (Methylprednisolone Sodium Succinate 40 Mg/1 Ml Sdv) 60 mg IVPUSH Q8H [facility] Last Admin: 06/12/21 07:29 Dose: 60 mg Documented by: Ondansetron HCl (Ondansetron 4 Mg/2 Ml Sdv) 4 mg IV Q6H PRN PRN Reason: Nausea/Vomiting Sodium Chloride (Sodium Chloride 0.9% 10 Ml Syringe) 10 ml FLUSH ASDIRECTED PRN PRN Reason: Keep Vein Open Last Admin: 06/07/21 18:12 Dose: 10 ml Documented by: Trimethoprim/Sulfamethoxazole (Sulfamethoxazole/Trimethoprim 800-160 Mg Tab) 1 tab PO BID [facility] Last Admin: 06/12/21 09:05 Dose: 1 tab Documented by: Warfarin Sodium (Pharmacy To Dose - Warfarin) 1 dose .XX ASDIRECTED PRN PRN Reason: RX TOD DOSE WARFARIN Warfarin Sodium (Warfarin 4 Mg Tab) 4 mg PO QPM [facility] Stop: 06/12/21 18:01 Discontinued Medications Albuterol (Albuterol 0.083% 2.5 Mg/3 Ml Neb Soln) 2.5 mg NEB ONETIME ONE Stop: 06/07/21 15:19 Last Admin: 06/07/21 15:47 Dose: 2.5 mg Documented by: Albuterol/Ipratropium (Albuterol/Ipratropium 3.0-0.5 Mg/3 Ml Neb Soln) 3 ml NEB ONETIME ONE Stop: 06/08/21 08:21 Last Admin: 06/08/21 08:37 Dose: 3 ml Documented by: Apixaban (Apixaban 5 Mg Tab) 10 mg PO BID [facility] Stop: 06/15/21 21:01 Last Admin: 06/10/21 09:13 Dose: 10 mg Documented by: Enoxaparin Sodium (Enoxaparin 40 Mg/0.4 Ml Syringe) 40 mg SUBCUT DAILY [facility] Last Admin: 06/08/21 14:49 Dose: 40 mg Documented by: Enoxaparin Sodium (Enoxaparin 60 Mg/0.6 Ml Syringe) 20 mg SUBCUT ONETIME ONE Stop: 06/08/21 16:31 Last Admin: 06/08/21 16:53 Dose: 20 mg Documented by: Furosemide (Furosemide 40 Mg/4 Ml Vial) 40 mg IVPUSH NOW ONE Stop: 06/08/21 20:04 Last Admin: 06/08/21 21:33 Dose: 40 mg Documented by: Furosemide (Furosemide 20 Mg/2 Ml Vial) 20 mg IVPUSH TIDMEALS [facility] Last Admin: 06/11/21 06:34 Dose: 20 mg Documented by: Furosemide (Furosemide 20 Mg/2 Ml Vial) 20 mg IVPUSH DAILY [facility] Sodium Chloride (Normal Saline) 100 mls @ 60 mls/min IV ASDIRECTED [facility] Last Admin: 06/07/21 18:12 Dose: 60 mls/min Documented by: Sodium Chloride (Normal Saline) 1,000 mls @ 250 mls/hr IV ASDIRECTED [facility] Last Admin: 06/07/21 22:14 Dose: 250 mls/hr Documented by: Ceftriaxone Sodium 1 gm/ (Sodium Chloride) 100 mls @ 200 mls/hr IV ONETIME ONE Stop: 06/08/21 09:25 Last Admin: 06/08/21 09:20 Dose: 200 mls/hr Documented by: Vancomycin HCl 1 gm/ Sodium (Chloride) 250 mls @ 250 mls/hr IV Q18H [facility] Last Admin: 06/08/21 14:26 Dose: Not Given Documented by: Vancomycin HCl 1 gm/ Sodium (Chloride) 250 mls @ 250 mls/hr IV Q18H [facility] Last Admin: 06/08/21 15:37 Dose: Not Given Documented by: Piperacillin Sod/Tazobactam (Sod 4.5 gm/ Sodium Chloride) 100 mls @ 200 mls/hr IV ONETIME ONE Stop: 06/08/21 14:59 Last Admin: 06/08/21 14:19 Dose: 200 mls/hr Documented by: Piperacillin Sod/Tazobactam (Sod 4.5 gm/ Sodium Chloride) 100 mls @ 25 mls/hr IV Q8H [facility] Last Admin: 06/11/21 06:34 Dose: 25 mls/hr Documented by: Vancomycin HCl 1 gm/ Sodium (Chloride) 250 mls @ 250 mls/hr IV Q18H [facility] Stop: 06/10/21 23:59 Last Admin: 06/10/21 22:00 Dose: 250 mls/hr Documented by: Sodium Chloride (Normal Saline) 1,000 mls @ 100 mls/hr IV ASDIRECTED [facility] Vancomycin HCl 1 gm/ Sodium (Chloride) 250 mls @ 250 mls/hr IV Q12H [facility] Potassium Chloride 10 meq/ (Premix) 100 mls @ 100 mls/hr IV Q1H [facility] Stop: 06/11/21 12:59 Last Admin: 06/11/21 15:37 Dose: 100 mls/hr Documented by: Iopamidol (Iopamidol 755 Mg/Ml 100 Ml Bottle) 100 ml IVPUSH ONETIME ONE Stop: 06/07/21 18:12 Last Admin: 06/07/21 18:12 Dose: 100 ml Documented by: Methylprednisolone Sodium Succinate (Methylprednisolone Sodium Succinate 125 Mg/2 Ml Sdv) 125 mg IVPUSH ONETIME ONE Stop: 06/08/21 08:21 Last Admin: 06/08/21 08:25 Dose: 125 mg Documented by: Potassium Chloride (Potassium Chloride 10 Meq Tab.Er) 10 meq PO TID [facility] Last Admin: 06/10/21 22:00 Dose: 10 meq Documented by: Potassium Chloride (Potassium Chloride 20 Meq Tab.Er) 20 meq PO ONETIME ONE Stop: 06/09/21 07:21 Last Admin: 06/09/21 08:37 Dose: 20 meq Documented by: Sodium Chloride (Sodium Chloride 0.9% 10 Ml Sdv) 10 ml FLUSH ONETIME ONE Stop: 06/07/21 18:12 Last Admin: 06/07/21 20:31 Dose: 10 ml Documented by: Vancomycin HCl (Pharmacy To Dose - Vancomycin) 1 dose .XX ASDIRECTED [facility] Warfarin Sodium (Warfarin 4 Mg Tab) 4 mg PO QPM [facility] Stop: 06/10/21 18:01 Last Admin: 06/10/21 18:08 Dose: 4 mg Documented by: Warfarin Sodium (Warfarin 4 Mg Tab) 4 mg PO QPM [facility] Stop: 06/11/21 18:01 Last Admin: 06/11/21 18:36 Dose: 4 mg Documented by: - Exam Quality Assessment: Supplemental Oxygen General: Alert, Oriented HEENT: Pupils Equal, Mucous Membr. Moist/[place] Neck: Supple Lungs: Clear to Auscultation. No: Normal Respiratory Effort (Increased respiratory rate) Cardiovascular: Regular Rate, Regular Rhythm GI/Abdominal Exam: Normal Bowel Sounds, Soft, Non-Tender, No Distention Extremities: Normal Inspection, Normal Capillary Refill Skin: Warm, Dry, Intact Psy/Mental Status: Alert, Normal Affect, Normal Mood - Patient Data Lab Results Last 24 hrs: Laboratory Results - last 24 hr 06/11/21 06/12/21 06/12/21 Range/Units 05:01 05:37 05:37 WBC 10.99 H (3.98-10.04) K/mm3 RBC 3.97 L (3.98-5.22) M/mm3 Hgb 12.0 (11.2-15.7) gm/dl Hct 35.4 (34.1-44.9) % MCV 89.2 (79.4-94.8) fl MCH 30.2 (25.6-32.2) pg MCHC 33.9 (32.2-35.5) g/dl RDW Std Deviation 46.6 H (36.4-46.3) fL Plt Count 415 H D (182-369) K/mm3 MPV 10.1 (9.4-12.3) fl Neut % (Auto) 84.8 H (34.0-71.1) % Lymph % (Auto) 10.3 L (19.3-51.7) % [place] % (Auto) 3.5 L (4.7-12.5) % Eos % (Auto) 0.1 L (0.7-5.8) Baso % (Auto) 0.1 (0.1-1.2) % Neut # (Auto) 9.33 H (1.56-6.13) K/mm3 Lymph # (Auto) 1.13 L (1.18-3.74) K/mm3 [place] # (Auto) 0.38 H (0.24-0.36) K/mm3 Eos # (Auto) 0.01 L (0.04-0.36) K/mm3 Baso # (Auto) 0.01 (0.01-0.08) K/mm3 PT (9.7-12.0) SECONDS INR Sodium 134 L (136-145) mEq/L Potassium 3.7 (3.5-5.1) mEq/L Chloride 100 (98-107) mEq/L Carbon Dioxide 23 (21-32) mEq/L Anion Gap 14.7 (5-15) BUN 41 H (7-18) mg/dL Creatinine 1.4 H (0.55-1.02) mg/dL Est Cr Clr Drug Dosing 24.59 mL/min Estimated GFR (MDRD) 36 (>60) mL/min BUN/Creatinine Ratio 29.3 H (14-18) Glucose 142 H (70-99) mg/dL Calcium 8.9 (8.5-10.1) mg/dL Magnesium 2.1 (1.8-2.4) mg/dL Total Bilirubin 0.3 (0.2-1.0) mg/dL AST 24 (15-37) U/L ALT 22 (14-59) U/L Alkaline Phosphatase 85 (46-116) U/L C-Reactive Protein 12.7 H* (<1.0) mg/dL Total Protein 6.8 (6.4-8.2) g/dl Albumin 1.9 L (3.4-5.0) g/dl Globulin 4.9 gm/dL Albumin/Globulin Ratio 0.4 L (1-2) Procalcitonin 0.18 H ng/mL 06/12/21 Range/Units 05:37 WBC (3.98-10.04) K/mm3 RBC (3.98-5.22) M/mm3 Hgb (11.2-15.7) gm/dl Hct (34.1-44.9) % MCV (79.4-94.8) fl MCH (25.6-32.2) pg MCHC (32.2-35.5) g/dl RDW Std Deviation (36.4-46.3) fL Plt Count (182-369) K/mm3 MPV (9.4-12.3) fl Neut % (Auto) (34.0-71.1) % Lymph % (Auto) (19.3-51.7) % [place] % (Auto) (4.7-12.5) % Eos % (Auto) (0.7-5.8) Baso % (Auto) (0.1-1.2) % Neut # (Auto) (1.56-6.13) K/mm3 Lymph # (Auto) (1.18-3.74) K/mm3 [place] # (Auto) (0.24-0.36) K/mm3 Eos # (Auto) (0.04-0.36) K/mm3 Baso # (Auto) (0.01-0.08) K/mm3 PT 20.1 H D (9.7-12.0) SECONDS INR 1.85 Sodium (136-145) mEq/L Potassium (3.5-5.1) mEq/L Chloride (98-107) mEq/L Carbon Dioxide (21-32) mEq/L Anion Gap (5-15) BUN (7-18) mg/dL Creatinine (0.55-1.02) mg/dL Est Cr Clr Drug Dosing mL/min Estimated GFR (MDRD) (>60) mL/min BUN/Creatinine Ratio (14-18) Glucose (70-99) mg/dL Calcium (8.5-10.1) mg/dL Magnesium (1.8-2.4) mg/dL Total Bilirubin (0.2-1.0) mg/dL AST (15-37) U/L ALT (14-59) U/L Alkaline Phosphatase (46-116) U/L C-Reactive Protein (<1.0) mg/dL Total Protein (6.4-8.2) g/dl Albumin (3.4-5.0) g/dl Globulin gm/dL Albumin/Globulin Ratio (1-2) Procalcitonin ng/mL Result Diagrams: 06/12/21 05:37 06/12/21 05:37 Sepsis Event Note - Evaluation Sepsis Screening Result: Sepsis Risk - Focused Exam Vital Signs: Vital Signs Temp Pulse Resp BP Pulse Ox Pulse Ox Pulse Ox 06/12/21 10:02 96.4 F L 110 H 22 H 102/67 90 L 06/12/21 09:28 86 L 86 L 06/12/21 09:16 89 L 89 L 06/12/21 06:19 97.3 F 93 24 H 126/91 H 81 L 06/12/21 06:16 91 L - Problem List & Annotations (1) Acute and chronic respiratory failure SNOMED Code(s): 26611705 Code(s): J96.20 - ACUTE AND CHR RESP FAILURE, UNSP W HYPOXIA OR HYPERCAPNIA Status: Acute Priority: High Current Visit: Yes Qualifiers: Respiratory failure complication: hypoxia Qualified Code(s): J96.21 - Acute and chronic respiratory failure with hypoxia (2) Pulmonary fibrosis SNOMED Code(s): 99715453 Code(s): J84.10 - PULMONARY FIBROSIS, UNSPECIFIED Status: Suspected Priority: High Current Visit: Yes - Problem List Review Problem List Initiated/Reviewed/Updated: Yes - My Orders Last 24 Hours: My Active Orders 06/11/21 23:09 Alum Hydrox/Mag Hydrox/Simeth [Mag-Al Plus] 30 ml PO Q4H PRN 06/12/21 10:24 Diltiazem [Cardizem] 10 mg IVPUSH Q1H PRN - Assessment Assessment:: Admission assessment - 06/08/2021 * 80-year-old female who presents to ED on 06/07/2021 with low oxygen saturations * History of Mnire's disease, GERD, and prior Covid pneumonia * Was hospitalized from 05/17/2021 through 05/31/2021 with COVID-19 pneumonia at [facility] in [place]. * Discharged home on 4 L of oxygen with activity after completing 4 days of remdesivir and 10 days of Decadron. * Of note patient was noted to have episodes of bradycardia and hypotension with heart rate in the 30s and 40s. She was noticed to have episodes of Mobitz type I AV block and 2.5-second sinus pauses. It was believed this was due to remdesivir however this continued after stopping. Patient was to follow-up with EP and have a 2-week cardiac specialist after discharge. * Prior to presenting to the ED she was noted to have saturations in the low 50s. * Patient's increased her oxygen to 8 L via nasal cannula. * Denies any recent fever, chills, nausea, vomiting, diarrhea, urinary symptoms, or smoking history. * Of note patient did have acute cystitis with an E. coli UTI well in the hospital in [place] and completed 5 days of Rocephin there. * 12-lead EKG was obtained showing a sinus tachycardia at 109 bpm with a LAFB and very mild ST elevation in V2 and V3. * Placed on a nonrebreather mask which improved her saturations to 90 to 91%. * Noted to be dyspneic and only able to complete a few word sentences. * Labs are obtained: * WBC of 8.57. * Hemoglobin 13.0. * Hematocrit 30.5. * Platelet 250,000. * Neutrophils are elevated 75.7%. * D-dimer is very high at 8.16. * Sodium is low at 129. * Potassium 3.8. * Chloride 94. * Carbon dioxide 24. * Anion gap is 14.8. * BUN is 15. Creatinine 0.6. GFR greater than 60. * Glucose is 126. * Calcium 8.7. * Magnesium 1.8. * Total bilirubin 0.6. * AST is 36, ALT 31, alkaline phosphatase 86. * Troponin is elevated at 0.127-->0.156-->0.067. * CRP is very high at 29.3. * Protein 7.1. * Albumin 2.1. * proBNP is 3117 * UA is obtained and is mildly positive with slightly cloudy urine, 1+ p rotein, 3+ ketones, 2+ occult blood, 1+ leukocyte esterase, 5-10 RBCs, 20- 30 WBCs, rare WBC clumps, and moderate bacteria. * ABG obtained in the left radial with a pH of 7.44. PCO2 of 30.9. PO2 of 58.0. HCO3 of 20.5. O2 saturations 86%. Base excess is -2.3. Aa gradient is 15.0. This is obtained while on nonrebreather at 15 L. * Facility was out of CPAP and BiPAP-> started on high flow O2 with saturations in the low 90s. * CTA of the chest is obtained to rule out PE and shows: * 1. No findings of pulmonary embolism. * 2. Minimal left-sided pleural effusion. * 3. Diffuse emphysematous changes seen. Both lungs show diffuse increased density uncertain how much of this represents diffuse fibrosis versus possible superimposed pneumonia. Old comparison studies would be needed if available. * 4. 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 * 5. Other findings which are felt to be chronic as described above. * Chest x-ray shows scattered infiltrates bilaterally most prominent in the left lower lobe. * Plan was to transfer the patient for continued care due to elevated troponin however [place] * Noted to have a blood pressure of 80/61 and is given a 500 mill fluid bolus over 2 hours. * Given 1 dose of Rocephin in the ED. She is also given 125 mg Solu-Medrol and a DuoNeb, which she reports greatly helped. * Ultimately inpatient bed does open up at our facility and she is admitted to the floor on telemetry for management of her hypoxia, suspected pneumonia, elevated BNP, elevated troponin - likely demand ischemia, and questionable UTI. * On floor bilateral lower extremity ultrasound shows thrombus within the left mid and distal superficial, femoral, popliteal, posterior tibial, and peroneal veins. 06/09/2021 This is a 80 years old female post Covid infection who was hospitalized in [place] for approximately 2 weeks who presented to our ED with low saturations. On admission D-dimer was noted to be elevated however CTA was negative for any PE. Lower extremity ultrasound did show a DVT in the left extremity and patient was started on 1 mg/kg Lovenox transitioning to 10 mg twice daily Eliq uis today. Patient has been requiring high flow 60 L and was weaned down to 80% FiO2 today. Unfortunately given patient's history of recent Covid infection CTA was not very helpful in differentiating pulmonary cause. Given recent hospitalization there are concerns of a secondary bacterial infection. WBC has been WNL however neutrophils are elevated. Procalcitonin was obtained and was 0.29. Lactic acid yesterday was 1.0. Patient was noted to be hypotensive in the emergency room and was given 2 fluid boluses. She was also started on fluids over concerns of sepsis. UA was positive and urine culture is growing out greater than 100,000 CFU's of gram-negative rods thus far. She does have a history of a E. coli UTI treated with Rocephin in [place]. Patient denies any urinary symptoms. proBNP was elevated. Echocardiogram was obtained on 06/08/2021 And interpreted as: " 1. The left ventricular internal cavity size is normal. 2. Normal left ventricular systolic function. 3. Left ventricular ejection fraction, by visual estimation, is 55 to 60%. 4. No regional wall motion abnormalities. 5. Mild proximal septal hypertrophy. 6. Aortic valve is tricuspid. 7. Mild mitral valve regurgitation. 8. Trace tricuspid valve regurgitation. 9. Mild pulmonic valve regurgitation. 10. The inferior vena cava is normal. 11. The right ventricular systolic pressure is mildly elevated at 32.2 mmHg." Patient was started on 20 mg IV push Lasix 3 times daily yesterday and has had over 1 L output. Potassium today is down to 3.3 and this is being supplemented. Sodium 137. Carbon dioxide 24. Anion gap is 13.3. BUN is 19. Creatinine 0.6. GFR greater than 60. Glucose is 146. Calcium 8.4. Magnesium is 1.8. Total bilirubin 0.5. AST is 26, ALT 26, alkaline phosphatase 90. Troponin today was down to 0.031. CRP is down to 24.2. Albumin is down to 1.8. Mycoplasma and strep pneumonia were both checked and were negative. Respiratory viral panel was obtained and was negative however patient did return positive for Covid, which is unsurprising given the patient's recent known Covid infection. We will continue current treatment plan. It is felt it is prudent to continue IV antibiotics for now given patient's symptoms and lab results. We will continue diuresis and Eliquis for DVT treatment. 06/10/2021 This is a 80-year-old female post Covid infection who was admitted for suspected pneumonia, pulmonary fibrosis, myocarditis, DVT, and apparent UTI. Labs today show WBC of 8.94. Hemoglobin is 11.1. Neutrophils are elevated 77.7%. Smear review feels slight toxic granulation and abnormal RBC morphology. Sodium today is 140. Potassium 3.7. Chloride 103. Carbon dioxide 20. Anion gap is 12.7. BUN is 25. Creatinine 0.8. GFR greater than 60. Magnesium is 1.9. Bilirubin 0.5. AST is 24, ALT 29, alkaline phosphatase is 90. CRP is down to 12.5. Albumin is 1.8. Patient does report that she feels quite a bit better today. She is down on high flow to 55 L with an FiO2 of 70% with saturations of upper 80s to low 90s. Urine culture continues to show greater than 100,000 CFU's of E. coli. Sensitivities are pending. Blood cultures have returned negative. Strep pneumonia is negative. Discussed plan of care with Dr. Ibarra who recommends patient receive 1 more dose of Lasix and then either discontinue or continue with 20 mg daily. We will continue vancomycin and Zosyn due to concerns over possible pneumonia. Unfortunately today patient reported that her insurance company tells her Eliquis will be $600 for 30-day supply. She states she cannot afford this. Apparently Xarelto is around the same pricing per case management. We will therefore discontinue Eliquis start patient on 1 mg/kg Lovenox twice daily and start warfarin with pharmacy to dose. Patient has had no fevers. We will continue current treatment plan and hope to wean patient off of high flow. Unknown length of stay due to severity of symptoms. 06/11/2021 80-year-old female who is post Covid admitted for suspected pneumonia, pulmonary fibrosis, suspected myocarditis, DVT and UTI. Labs today show WBC of 8.33. Hemoglobin is 11.7. Neutrophils are 70.6. INR is 1.20. Sodium is 137. Potassium 3.2. Chloride 98. Carbon dioxide 29. Anion gap is 13.2. BUN is 29. Creatinine 1.0. GFR 53. Glucose 101. CRP is up to 16.2. Albumin is 1.9. Discussed plan of care with Dr. Youssef, attending hospitalist. We will at this time discontinue vancomycin and Zosyn and switch patient to Bactrim DS twice daily based on E. coli urine sensitivities. We will repeat a procalcitonin. We will also decrease Lasix to 20 mg IV push daily. Patient's potassium will be supplemented. Pharmacy continues to dose warfarin and patient remains on 1 mg/kg twice daily Lovenox bridging. Will start patient on 60 mg every 8 hour IV push methylprednisolone. Patient has been reporting difficulty with swallowing pills. Because of this we will order an [employer] evaluation. We have made some improvement with her high flow she is now at 55 L with an FiO2 of 65%. We will continue to wean as patient tolerates. Unknown length of stay due to severity of symptoms. 06/12/2021 Seven 10-year-old female with post Covid admitted for suspected pneumonia, pulmonary fibrosis, suspected myocarditis, DVT, and UTI developed A. fib with RVR with rates in the 110s to 120s+ this morning. This required increasing oxygen support with high flow nasal cannula at 60 L with FiO2 of 95% and nonrebreather mask. Patient continues to be DNR/DNI. She was given 1 dose of Cardizem 10 mg IV x1. Blood pressure was stable with systolic in the 120s. After rate control was achieved we were able to remove the nonrebreather mask. CRP continues to be elevated at 12.7. She was started on methylprednisolone yesterday and switched vancomycin and Zosyn to Bactrim for her UTI. Procalcitonin did return at 0.18 reassuring us that she does not have a severe bacterial sepsis. Patient is getting warfarin secondary to DVT with INR today at 1.85. She continues on Lovenox until therapeutic INR. EKG shows diffuse T wave inversion consistent with heart strain. Troponin was drawn and increased to 0.14. Also suggesting some component of heart strain versus infarction. EKG also demonstrates new onset atrial fibrillation. She is not a candidate for transfer at this time and is already on full dose Lovenox and INR is 1.8 as we titrate up her warfarin. - Plan Plan:: Pneumonia - suspected Dyspnea Hypoxia History of COVID-19 On home oxygen therapy Acute on chronic respiratory failure Pulmonary fibrosis -on CT scan * Droplet isolation (airborne/contact while on high flow O2) * O2 as needed to keep saturation greater than 90% * I-S/Acapella * Discontinued zosyn and vancomycin on 06/11/2021 * High flow oxygen as directed * 4 times daily scheduled DuoNebs * Every 2 hours as needed albuterol nebulizer * Consult RT * Telemetry * Blood cultures negative thus far * Continuous pulse oximetry * Mucinex BID * Recommend PFT after recovery due to emphysematous changes noted in CTA * Recommend pulmonology follow-up after discharge * Repeat procalcitonin 0.18 on 06/11/2021 * Continue solu-medrol 60mg TID * Continue to follow CRP DVT Elevated d-dimer * CTA in ED negative for PE * Discontinue Eliquis as patient reports $600 for 30 day supply * Warfarin with pharmacy to dose * Lovenox 60mg (1mg/kg) BID as bridging Myocarditis - suspected Elevated troponin Elevated brain natriuretic peptide (BNP) level * Troponin increased to 0.14 with new onset atrial fibrillation * Echocardiogram obtained as above * Monitor patient's weight * Strict I&O's * Telemetry * Hold Lasix tomorrow morning * Supplement potassium as needed * Monitor CRP UTI (urinary tract infection) * UA weakly positivepatient was treated for E. coli UTI with Rocephin in [place] * Urine culture showing >100cfu E. Coli, with good sensitivities to Bactrim DS * Blood cultures negative thus far * Switch from zosyn/vancomycin to Bactrim DS BID PO GERD (gastroesophageal reflux disease) * No acute concerns * Monitor Meniere disease * No acute concerns * Monitor Hypokalemiaresolved * Supplement as needed Hypotension - resolved * Noted in ED and multiple fluid boluses given * Monitor Dysphagia * Patient reports difficulty swallowing pills * [employer] evaluation Code status: DNR/DNI PCP: Dr. Morley in [place] DVT prophylaxis: Lovenox Disposition: Patient admitted to the floor for management and further work-up of suspected pneumonia, hypoxia, elevated troponin, elevated D-dimer, and weak UTI. Length of stay greater than 96 hours due to need for continued treatment. Prognosis poor.
--- NOTE | 2021-06-12 16:36 | PCM.EKG ---
#1 Interpretation EKG Date: 06/12/21 Time: 15:30 Rhythm: A-Fib Rate (Beats/Min): 91 [place]: LAD-Left [place] Deviation (Left anterior fascicular block) P-Wave: Absent QRS: Normal ST-T: Normal QT: Prolonged (649 ms) Comparison: Change From Previous EKG (New T wave inversion in all leads except lead III) EKG Interpretation Comments: Significant change in EKG from prior EKG on 06/07/2021. New inverted T waves suggesting heart strain
[2021-06-12] MEDS ORDERED: Warfarin 4 MG Tab PO SCH (18:00)
[2021-06-12] MEDS: Diltiazem IR 30 MG Tab PO SCH (21:21)
[2021-06-13] MEDS: Diltiazem IR 30 MG Tab PO SCH (05:51)
[2021-06-13] MEDS: methylPREDNISolone Sodium Succinate 40 MG/1 ML SDV IVPUSH SCH ×3 (06:00→22:00)
[2021-06-13] MEDS: Albuterol/Ipratropium 3.0-0.5 MG/3 ML Neb Soln NEB SCH ×4 (06:19→21:14)
[2021-06-13] MEDS: Metoprolol Tartrate 25 MG Tab PO SCH ×2 (09:04→21:48)
[2021-06-13] MEDS: Sulfamethoxazole/Trimethoprim 800-160 MG Tab PO SCH ×2 (09:04→20:14)
[2021-06-13] MEDS: Aspirin 81 MG Tab.EC PO SCH (09:04)
[2021-06-13] MEDS: guaiFENesin 600 MG Tab.ER PO SCH ×2 (09:12→20:14)
[2021-06-13] MEDS: Enoxaparin 60 MG/0.6 ML Syringe SUBCUT SCH ×2 (09:12→12:17)
--- NOTE | 2021-06-13 10:28 | PCM.PN ---
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 Oxygen saturations marginally better overnight with oxygen saturations in the low 90s at 60 L and 90% FiO2. Troponin decreased back down to normal range at 0.056 from a slight elevation yesterday of 0.14. INR has increased to 4. BUN continues to increase. Patient is feeling much better than yesterday. Functional Status: Reports: Pain Controlled - Review of Systems General: Reports: Fatigue HEENT: Reports: No Symptoms Pulmonary: Reports: Shortness of Breath, Cough Cardiovascular: Reports: No Symptoms Gastrointestinal: Reports: No Symptoms Musculoskeletal: Reports: No Symptoms - Patient Data Vitals - Most Recent: Last Vital Signs Temp 97.5 F 06/13/21 09:09 Pulse 94 06/13/21 09:09 Resp 18 06/13/21 09:09 BP 106/68 06/13/21 09:09 Pulse Ox 93 L 06/13/21 10:17 Weight - Most Recent: 129 lb 1.6 oz I&O - Last 24 Hours: Intake & Output 06/12/21 06/13/21 06/13/21 22:59 06:59 14:59 Intake Total 300 200 Output Total 500 325 Balance -200 -125 Lab Results Last 24 Hours: Laboratory Results - last 24 hr 06/12/21 06/13/21 06/13/21 Range/Units 16:05 06:31 06:31 WBC 12.48 H (3.98-10.04) K/mm3 RBC 4.23 (3.98-5.22) M/mm3 Hgb 12.7 (11.2-15.7) gm/dl Hct 37.7 (34.1-44.9) % MCV 89.1 (79.4-94.8) fl MCH 30.0 (25.6-32.2) pg MCHC 33.7 (32.2-35.5) g/dl RDW Std Deviation 46.7 H (36.4-46.3) fL Plt Count 446 H (182-369) K/mm3 MPV 9.8 (9.4-12.3) fl Neut % (Auto) 84.9 H (34.0-71.1) % Lymph % (Auto) 8.9 L (19.3-51.7) % Blaine % (Auto) 5.1 (4.7-12.5) % Eos % (Auto) 0 L (0.7-5.8) Baso % (Auto) 0.1 (0.1-1.2) % Neut # (Auto) 10.59 H (1.56-6.13) K/mm3 Lymph # (Auto) 1.11 L (1.18-3.74) K/mm3 Blaine # (Auto) 0.64 H (0.24-0.36) K/mm3 Eos # (Auto) 0.00 L (0.04-0.36) K/mm3 Baso # (Auto) 0.01 (0.01-0.08) K/mm3 PT 41.9 H D (9.7-12.0) SECONDS INR 3.98 Sodium (136-145) mEq/L Potassium (3.5-5.1) mEq/L Chloride (98-107) mEq/L Carbon Dioxide (21-32) mEq/L Anion Gap (5-15) BUN (7-18) mg/dL Creatinine (0.55-1.02) mg/dL Est Cr Clr Drug Dosing mL/min Estimated GFR (MDRD) (>60) mL/min BUN/Creatinine Ratio (14-18) Glucose (70-99) mg/dL Calcium (8.5-10.1) mg/dL Magnesium (1.8-2.4) mg/dL Total Bilirubin (0.2-1.0) mg/dL AST (15-37) U/L ALT (14-59) U/L Alkaline Phosphatase (46-116) U/L Troponin I 0.141 H* (0.00-0.056) ng/mL Total Protein (6.4-8.2) g/dl Albumin (3.4-5.0) g/dl Globulin gm/dL Albumin/Globulin Ratio (1-2) 06/13/21 Range/Units 06:31 WBC (3.98-10.04) K/mm3 RBC (3.98-5.22) M/mm3 Hgb (11.2-15.7) gm/dl Hct (34.1-44.9) % MCV (79.4-94.8) fl MCH (25.6-32.2) pg MCHC (32.2-35.5) g/dl RDW Std Deviation (36.4-46.3) fL Plt Count (182-369) K/mm3 MPV (9.4-12.3) fl Neut % (Auto) (34.0-71.1) % Lymph % (Auto) (19.3-51.7) % Blaine % (Auto) (4.7-12.5) % Eos % (Auto) (0.7-5.8) Baso % (Auto) (0.1-1.2) % Neut # (Auto) (1.56-6.13) K/mm3 Lymph # (Auto) (1.18-3.74) K/mm3 Blaine # (Auto) (0.24-0.36) K/mm3 Eos # (Auto) (0.04-0.36) K/mm3 Baso # (Auto) (0.01-0.08) K/mm3 PT (9.7-12.0) SECONDS INR Sodium 135 L (136-145) mEq/L Potassium 3.8 (3.5-5.1) mEq/L Chloride 101 (98-107) mEq/L Carbon Dioxide 24 (21-32) mEq/L Anion Gap 13.8 (5-15) BUN 49 H (7-18) mg/dL Creatinine 1.4 H (0.55-1.02) mg/dL Est Cr Clr Drug Dosing 24.59 mL/min Estimated GFR (MDRD) 36 (>60) mL/min BUN/Creatinine Ratio 35.0 H (14-18) Glucose 153 H (70-99) mg/dL Calcium 9.1 (8.5-10.1) mg/dL Magnesium 2.3 (1.8-2.4) mg/dL Total Bilirubin 0.3 (0.2-1.0) mg/dL AST 18 (15-37) U/L ALT 23 (14-59) U/L Alkaline Phosphatase 76 (46-116) U/L Troponin I 0.056 (0.00-0.056) ng/mL Total Protein 6.9 (6.4-8.2) g/dl Albumin 2.1 L (3.4-5.0) g/dl Globulin 4.8 gm/dL Albumin/Globulin Ratio 0.4 L (1-2) Med Orders - Current: Current Medications Al Hydroxide/Mg Hydroxide (Aluminum Hydroxide/Magnesium Hydroxide/Simethicone Susp 30 Ml Cup) 30 ml PO Q4H PRN PRN Reason: Heartburn Last Admin: 06/11/21 23:27 Dose: 30 ml Documented by: Albuterol (Albuterol 0.083% 2.5 Mg/3 Ml Neb Soln) 2.5 mg NEB Q2H PRN PRN Reason: Shortness Of Breath/wheezing Albuterol/Ipratropium (Albuterol/Ipratropium 3.0-0.5 Mg/3 Ml Neb Soln) 3 ml NEB QIDRT [facility] Last Admin: 06/13/21 10:03 Dose: 3 ml Documented by: Aspirin (Aspirin 81 Mg Tab.Ec) 81 mg PO DAILY [facility] Last Admin: 06/13/21 09:04 Dose: 81 mg Documented by: Diltiazem HCl (Diltiazem 50 Mg/10 Ml Sdv) 10 mg IVPUSH Q1H PRN PRN Reason: Tachycardia Last Admin: 06/12/21 10:36 Dose: 10 mg Documented by: Docusate Sodium (Docusate Sodium 100 Mg Cap) 100 mg PO Q12H PRN PRN Reason: Constipation Last Admin: 06/10/21 09:12 Dose: 100 mg Documented by: Guaifenesin (Guaifenesin 600 Mg Tab.Er) 600 mg PO BID [facility] Last Admin: 06/13/21 09:12 Dose: 600 mg Documented by: Sodium Chloride (Normal Saline) 250 mls @ 40 mls/hr IV ASDIRECTED [facility] Last Admin: 06/11/21 15:51 Dose: 40 mls/hr Documented by: Methylprednisolone Sodium Succinate (Methylprednisolone Sodium Succinate 40 Mg/1 Ml Sdv) 60 mg IVPUSH Q8H [facility] Last Admin: 06/13/21 06:00 Dose: 60 mg Documented by: Metoprolol Tartrate (Metoprolol Tartrate 25 Mg Tab) 25 mg PO Q12H [facility] Last Admin: 06/13/21 09:04 Dose: 25 mg Documented by: Ondansetron HCl (Ondansetron 4 Mg/2 Ml Sdv) 4 mg IV Q6H PRN PRN Reason: Nausea/Vomiting Sodium Chloride (Sodium Chloride 0.9% 10 Ml Syringe) 10 ml FLUSH ASDIRECTED PRN PRN Reason: Keep Vein Open Last Admin: 06/07/21 18:12 Dose: 10 ml Documented by: Trimethoprim/Sulfamethoxazole (Sulfamethoxazole/Trimethoprim 800-160 Mg Tab) 1 tab PO BID [facility] Last Admin: 06/13/21 09:04 Dose: 1 tab Documented by: Warfarin Sodium (Pharmacy To Dose - Warfarin) 1 dose .XX ASDIRECTED PRN PRN Reason: RX TOD DOSE WARFARIN Warfarin Sodium (Warfarin 1 Mg Tab) 1 mg PO QPM [facility] Discontinued Medications Albuterol (Albuterol 0.083% 2.5 Mg/3 Ml Neb Soln) 2.5 mg NEB ONETIME ONE Stop: 06/07/21 15:19 Last Admin: 06/07/21 15:47 Dose: 2.5 mg Documented by: Albuterol/Ipratropium (Albuterol/Ipratropium 3.0-0.5 Mg/3 Ml Neb Soln) 3 ml NEB ONETIME ONE Stop: 06/08/21 08:21 Last Admin: 06/08/21 08:37 Dose: 3 ml Documented by: Apixaban (Apixaban 5 Mg Tab) 10 mg PO BID [facility] Stop: 06/15/21 21:01 Last Admin: 06/10/21 09:13 Dose: 10 mg Documented by: Diltiazem HCl (Diltiazem Ir 30 Mg Tab) 30 mg PO Q8HR [facility] Last Admin: 06/13/21 05:51 Dose: 30 mg Documented by: Enoxaparin Sodium (Enoxaparin 40 Mg/0.4 Ml Syringe) 40 mg SUBCUT DAILY [facility] Last Admin: 06/08/21 14:49 Dose: 40 mg Documented by: Enoxaparin Sodium (Enoxaparin 60 Mg/0.6 Ml Syringe) 20 mg SUBCUT ONETIME ONE Stop: 06/08/21 16:31 Last Admin: 06/08/21 16:53 Dose: 20 mg Documented by: Enoxaparin Sodium (Enoxaparin 60 Mg/0.6 Ml Syringe) 60 mg SUBCUT Q12H [facility] Last Admin: 06/12/21 21:22 Dose: 60 mg Documented by: Furosemide (Furosemide 40 Mg/4 Ml Vial) 40 mg IVPUSH NOW ONE Stop: 06/08/21 20:04 Last Admin: 06/08/21 21:33 Dose: 40 mg Documented by: Furosemide (Furosemide 20 Mg/2 Ml Vial) 20 mg IVPUSH TIDMEALS [facility] Last Admin: 06/11/21 06:34 Dose: 20 mg Documented by: Furosemide (Furosemide 20 Mg/2 Ml Vial) 20 mg IVPUSH DAILY [facility] Furosemide (Furosemide 20 Mg/2 Ml Vial) 20 mg IVPUSH DAILY [facility] Last Admin: 06/12/21 09:05 Dose: 20 mg Documented by: Sodium Chloride (Normal Saline) 100 mls @ 60 mls/min IV ASDIRECTED [facility] Last Admin: 06/07/21 18:12 Dose: 60 mls/min Documented by: Sodium Chloride (Normal Saline) 1,000 mls @ 250 mls/hr IV ASDIRECTED [facility] Last Admin: 06/07/21 22:14 Dose: 250 mls/hr Documented by: Ceftriaxone Sodium 1 gm/ (Sodium Chloride) 100 mls @ 200 mls/hr IV ONETIME ONE Stop: 06/08/21 09:25 Last Admin: 06/08/21 09:20 Dose: 200 mls/hr Documented by: Vancomycin HCl 1 gm/ Sodium (Chloride) 250 mls @ 250 mls/hr IV Q18H [facility] Last Admin: 06/08/21 14:26 Dose: Not Given Documented by: Vancomycin HCl 1 gm/ Sodium (Chloride) 250 mls @ 250 mls/hr IV Q18H [facility] Last Admin: 06/08/21 15:37 Dose: Not Given Documented by: Piperacillin Sod/Tazobactam (Sod 4.5 gm/ Sodium Chloride) 100 mls @ 200 mls/hr IV ONETIME ONE Stop: 06/08/21 14:59 Last Admin: 06/08/21 14:19 Dose: 200 mls/hr Documented by: Piperacillin Sod/Tazobactam (Sod 4.5 gm/ Sodium Chloride) 100 mls @ 25 mls/hr IV Q8H [facility] Last Admin: 06/11/21 06:34 Dose: 25 mls/hr Documented by: Vancomycin HCl 1 gm/ Sodium (Chloride) 250 mls @ 250 mls/hr IV Q18H [facility] Stop: 06/10/21 23:59 Last Admin: 06/10/21 22:00 Dose: 250 mls/hr Documented by: Sodium Chloride (Normal Saline) 1,000 mls @ 100 mls/hr IV ASDIRECTED [facility] Vancomycin HCl 1 gm/ Sodium (Chloride) 250 mls @ 250 mls/hr IV Q12H [facility] Potassium Chloride 10 meq/ (Premix) 100 mls @ 100 mls/hr IV Q1H [facility] Stop: 06/11/21 12:59 Last Admin: 06/11/21 15:37 Dose: 100 mls/hr Documented by: Iopamidol (Iopamidol 755 Mg/Ml 100 Ml Bottle) 100 ml IVPUSH ONETIME ONE Stop: 06/07/21 18:12 Last Admin: 06/07/21 18:12 Dose: 100 ml Documented by: Methylprednisolone Sodium Succinate (Methylprednisolone Sodium Succinate 125 Mg/2 Ml Sdv) 125 mg IVPUSH ONETIME ONE Stop: 06/08/21 08:21 Last Admin: 06/08/21 08:25 Dose: 125 mg Documented by: Potassium Chloride (Potassium Chloride 10 Meq Tab.Er) 10 meq PO TID [facility] Last Admin: 06/10/21 22:00 Dose: 10 meq Documented by: Potassium Chloride (Potassium Chloride 20 Meq Tab.Er) 20 meq PO ONETIME ONE Stop: 06/09/21 07:21 Last Admin: 06/09/21 08:37 Dose: 20 meq Documented by: Sodium Chloride (Sodium Chloride 0.9% 10 Ml Sdv) 10 ml FLUSH ONETIME ONE Stop: 06/07/21 18:12 Last Admin: 06/07/21 20:31 Dose: 10 ml Documented by: Vancomycin HCl (Pharmacy To Dose - Vancomycin) 1 dose .XX ASDIRECTED [facility] Warfarin Sodium (Warfarin 4 Mg Tab) 4 mg PO QPM [facility] Stop: 06/10/21 18:01 Last Admin: 06/10/21 18:08 Dose: 4 mg Documented by: Warfarin Sodium (Warfarin 4 Mg Tab) 4 mg PO QPM [facility] Stop: 06/11/21 18:01 Last Admin: 06/11/21 18:36 Dose: 4 mg Documented by: Warfarin Sodium (Warfarin 4 Mg Tab) 4 mg PO QPM [facility] Stop: 06/12/21 18:01 Last Admin: 06/12/21 18:15 Dose: 4 mg Documented by: - Exam Quality Assessment: Supplemental Oxygen (High flow) General: Alert, Oriented HEENT: Pupils Equal, Mucous Membr. Moist/[place] Neck: Supple Lungs: Crackles (Bibasilar). No: Normal Respiratory Effort (Increased rate) Cardiovascular: Regular Rate, Regular Rhythm GI/Abdominal Exam: Normal Bowel Sounds, Soft, Non-Tender, No Distention Extremities: Normal Inspection, No Pedal Edema, Normal Capillary Refill Skin: Warm, Dry, Intact Neurological: No New Focal Deficit - Patient Data Lab Results Last 24 hrs: Laboratory Results - last 24 hr 06/12/21 06/13/21 06/13/21 Range/Units 16:05 06:31 06:31 WBC 12.48 H (3.98-10.04) K/mm3 RBC 4.23 (3.98-5.22) M/mm3 Hgb 12.7 (11.2-15.7) gm/dl Hct 37.7 (34.1-44.9) % MCV 89.1 (79.4-94.8) fl MCH 30.0 (25.6-32.2) pg MCHC 33.7 (32.2-35.5) g/dl RDW Std Deviation 46.7 H (36.4-46.3) fL Plt Count 446 H (182-369) K/mm3 MPV 9.8 (9.4-12.3) fl Neut % (Auto) 84.9 H (34.0-71.1) % Lymph % (Auto) 8.9 L (19.3-51.7) % Blaine % (Auto) 5.1 (4.7-12.5) % Eos % (Auto) 0 L (0.7-5.8) Baso % (Auto) 0.1 (0.1-1.2) % Neut # (Auto) 10.59 H (1.56-6.13) K/mm3 Lymph # (Auto) 1.11 L (1.18-3.74) K/mm3 Blaine # (Auto) 0.64 H (0.24-0.36) K/mm3 Eos # (Auto) 0.00 L (0.04-0.36) K/mm3 Baso # (Auto) 0.01 (0.01-0.08) K/mm3 PT 41.9 H D (9.7-12.0) SECONDS INR 3.98 Sodium (136-145) mEq/L Potassium (3.5-5.1) mEq/L Chloride (98-107) mEq/L Carbon Dioxide (21-32) mEq/L Anion Gap (5-15) BUN (7-18) mg/dL Creatinine (0.55-1.02) mg/dL Est Cr Clr Drug Dosing mL/min Estimated GFR (MDRD) (>60) mL/min BUN/Creatinine Ratio (14-18) Glucose (70-99) mg/dL Calcium (8.5-10.1) mg/dL Magnesium (1.8-2.4) mg/dL Total Bilirubin (0.2-1.0) mg/dL AST (15-37) U/L ALT (14-59) U/L Alkaline Phosphatase (46-116) U/L Troponin I 0.141 H* (0.00-0.056) ng/mL Total Protein (6.4-8.2) g/dl Albumin (3.4-5.0) g/dl Globulin gm/dL Albumin/Globulin Ratio (1-2) 06/13/21 Range/Units 06:31 WBC (3.98-10.04) K/mm3 RBC (3.98-5.22) M/mm3 Hgb (11.2-15.7) gm/dl Hct (34.1-44.9) % MCV (79.4-94.8) fl MCH (25.6-32.2) pg MCHC (32.2-35.5) g/dl RDW Std Deviation (36.4-46.3) fL Plt Count (182-369) K/mm3 MPV (9.4-12.3) fl Neut % (Auto) (34.0-71.1) % Lymph % (Auto) (19.3-51.7) % Blaine % (Auto) (4.7-12.5) % Eos % (Auto) (0.7-5.8) Baso % (Auto) (0.1-1.2) % Neut # (Auto) (1.56-6.13) K/mm3 Lymph # (Auto) (1.18-3.74) K/mm3 Blaine # (Auto) (0.24-0.36) K/mm3 Eos # (Auto) (0.04-0.36) K/mm3 Baso # (Auto) (0.01-0.08) K/mm3 PT (9.7-12.0) SECONDS INR Sodium 135 L (136-145) mEq/L Potassium 3.8 (3.5-5.1) mEq/L Chloride 101 (98-107) mEq/L Carbon Dioxide 24 (21-32) mEq/L Anion Gap 13.8 (5-15) BUN 49 H (7-18) mg/dL Creatinine 1.4 H (0.55-1.02) mg/dL Est Cr Clr Drug Dosing 24.59 mL/min Estimated GFR (MDRD) 36 (>60) mL/min BUN/Creatinine Ratio 35.0 H (14-18) Glucose 153 H (70-99) mg/dL Calcium 9.1 (8.5-10.1) mg/dL Magnesium 2.3 (1.8-2.4) mg/dL Total Bilirubin 0.3 (0.2-1.0) mg/dL AST 18 (15-37) U/L ALT 23 (14-59) U/L Alkaline Phosphatase 76 (46-116) U/L Troponin I 0.056 (0.00-0.056) ng/mL Total Protein 6.9 (6.4-8.2) g/dl Albumin 2.1 L (3.4-5.0) g/dl Globulin 4.8 gm/dL Albumin/Globulin Ratio 0.4 L (1-2) Result Diagrams: 06/13/21 06:31 06/13/21 06:31 Sepsis Event Note - Evaluation Sepsis Screening Result: No Definite Risk - Focused Exam Vital Signs: Vital Signs Temp Temp Pulse Resp BP BP Pulse Ox 06/13/21 10:17 06/13/21 10:03 06/13/21 09:09 97.5 F 94 18 106/68 90 L 06/13/21 09:04 94 106/68 06/13/21 06:20 06/13/21 04:00 98.1 F 22 H 112/71 84 L Pulse Ox 06/13/21 10:17 93 L 06/13/21 10:03 93 L 06/13/21 09:09 06/13/21 09:04 06/13/21 06:20 92 L 06/13/21 04:00 - Problem List & Annotations (1) Acute and chronic respiratory failure SNOMED Code(s): 12494494 Code(s): J96.20 - ACUTE AND CHR RESP FAILURE, UNSP W HYPOXIA OR HYPERCAPNIA Status: Acute Priority: High Current Visit: Yes Qualifiers: Respiratory failure complication: hypoxia Qualified Code(s): J96.21 - Acute and chronic respiratory failure with hypoxia (2) Pulmonary fibrosis SNOMED Code(s): 46687006 Code(s): J84.10 - PULMONARY FIBROSIS, UNSPECIFIED Status: Suspected Priority: High Current Visit: Yes - Problem List Review Problem List Initiated/Reviewed/Updated: Yes - My Orders Last 24 Hours: My Active Orders 06/12/21 10:24 Diltiazem [Cardizem] 10 mg IVPUSH Q1H PRN 06/12/21 18:59 EKG 12 Lead [EK] Routine 06/13/21 09:00 Aspirin [Halfprin] 81 mg PO DAILY 06/13/21 10:00 Metoprolol Tartrate [Lopressor] 25 mg PO Q12H - Assessment Assessment:: Admission assessment - 06/08/2021 * 80-year-old female who presents to ED on 06/07/2021 with low oxygen saturations * History of Mnire's disease, GERD, and prior Covid pneumonia * Was hospitalized from 05/17/2021 through 05/31/2021 with COVID-[address] [facility] in [place]. * Discharged home on 4 L of oxygen with activity after completing 4 days of remdesivir and 10 days of Decadron. * Of note patient was noted to have episodes of bradycardia and hypotension with heart rate in the 30s and 40s. She was noticed to have episodes of Mobitz type I AV block and 2.5-second sinus pauses. It was believed this was due to remdesivir however this continued after stopping. Patient was to follow-up with EP and have a 2-week threat monitoring analyst after discharge. * Prior to presenting to the ED she was noted to have saturations in the low 50s. * Patient's increased her oxygen to 8 L via nasal cannula. * Denies any recent fever, chills, nausea, vomiting, diarrhea, urinary symptoms, or smoking history. * Of note patient did have acute cystitis with an E. coli UTI well in the hospital in [place] and completed 5 days of Rocephin there. * 12-lead EKG was obtained showing a sinus tachycardia at 109 bpm with a LAFB and very mild ST elevation in V2 and V3. * Placed on a nonrebreather mask which improved her saturations to 90 to 91%. * Noted to be dyspneic and only able to complete a few word sentences. * Labs are obtained: * WBC of 8.57. * Hemoglobin 13.0. * Hematocrit 30.5. * Platelet 250,000. * Neutrophils are elevated 75.7%. * D-dimer is very high at 8.16. * Sodium is low at 129. * Potassium 3.8. * Chloride 94. * Carbon dioxide 24. * Anion gap is 14.8. * BUN is 15. Creatinine 0.6. GFR greater than 60. * Glucose is 126. * Calcium 8.7. * Magnesium 1.8. * Total bilirubin 0.6. * AST is 36, ALT 31, alkaline phosphatase 86. * Troponin is elevated at 0.127-->0.156-->0.067. * CRP is very high at 29.3. * Protein 7.1. * Albumin 2.1. * proBNP is 3117 * UA is obtained and is mildly positive with slightly cloudy urine, 1+ protein, 3+ ketones, 2+ occult blood, 1+ leukocyte esterase, 5-10 RBCs, 20-30 WBCs, rare WBC clumps, and moderate bacteria. * ABG obtained in the left radial with a pH of 7.44. PCO2 of 30.9. PO2 of 58.0. HCO3 of 20.5. O2 saturations 86%. Base excess is -2.3. Aa gradient is 15.0. This is obtained while on nonrebreather at 15 L. * Facility was out of CPAP and BiPAP-> started on high flow O2 with saturations in the low 90s. * CTA of the chest is obtained to rule out PE and shows: * 1. No findings of pulmonary embolism. * 2. Minimal left-sided pleural effusion. * 3. Diffuse emphysematous changes seen. Both lungs show diffuse increased density uncertain how much of this represents diffuse fibrosis versus possible superimposed pneumonia. Old comparison studies would be needed if available. * 4. 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 * 5. Other findings which are felt to be chronic as described above. * Chest x-ray shows scattered infiltrates bilaterally most prominent in the left lower lobe. * Plan was to transfer the patient for continued care due to elevated troponin however no beds are noted to be available [place], [place], or [place]. * Noted to have a blood pressure of 80/61 and is given a 500 mill fluid bolus over 2 hours. * Given 1 dose of Rocephin in the ED. She is also given 125 mg Solu-Medrol and a DuoNeb, which she reports greatly helped. * Ultimately inpatient bed does open up at our facility and she is admitted to the floor on telemetry for management of her hypoxia, suspected pneumonia, elevated BNP, elevated troponin - likely demand ischemia, and questionable UTI. * On floor bilateral lower extremity ultrasound shows thrombus within the left mid and distal superficial, femoral, popliteal, posterior tibial, and peroneal veins. 06/09/2021 This is a 80 years old female post Covid infection who was hospitalized in [place] for approximately 2 weeks who presented to our ED with low saturations. On admission D-dimer was noted to be elevated however CTA was negative for any PE. Lower extremity ultrasound did show a DVT in the left extremity and patient was started on 1 mg/kg Lovenox transitioning to 10 mg twice daily Eliquis today. Patient has been requiring high flow 60 L and was weaned down to 80% FiO2 today. Unfortunately given patient's history of recent Covid infection CTA was not very helpful in differentiating pulmonary cause. Given recent hospitalization there are concerns of a secondary bacterial infection. WBC has been WNL however neutrophils are elevated. Procalcitonin was obtained and was 0.29. Lactic acid yesterday was 1.0. Patient was noted to be hypotensive in the emergency room and was given 2 fluid boluses. She was also started on fluids over concerns of sepsis. UA was positive and urine culture is growing out greater than 100,000 CFU's of gram-negative rods thus far. She does have a history of a E. coli UTI treated with Rocephin in [place]. Patient denies any urinary symptoms. proBNP was elevated. Echocardiogram was obtained on 06/08/2021 And interpreted as: " 1. The left ventricular internal cavity size is normal. 2. Normal left ventricular systolic function. 3. Left ventricular ejection fraction, by visual estimation, is 55 to 60%. 4. No r egional wall motion abnormalities. 5. Mild proximal septal hypertrophy. 6. Aortic valve is tricuspid. 7. Mild mitral valve regurgitation. 8. Trace tricuspid valve regurgitation. 9. Mild pulmonic valve regurgitation. 10. The inferior vena cava is normal. 11. The right ventricular systolic pressure is mildly elevated at 32.2 mmHg." Patient was started on 20 mg IV push Lasix 3 times daily yesterday and has had over 1 L output. Potassium today is down to 3.3 and this is being supplemented. Sodium 137. Carbon dioxide 24. Anion gap is 13.3. BUN is 19. Creatinine 0.6. GFR greater than 60. Glucose is 146. Calcium 8.4. Magnesium is 1.8. Total bilirubin 0.5. AST is 26, ALT 26, leatha line phosphatase 90. Troponin today was down to 0.031. CRP is down to 24.2. Albumin is down to 1.8. Mycoplasma and strep pneumonia were both checked and were negative. Respiratory viral panel was obtained and was negative however patient did return positive for Covid, which is unsurprising given the patient's recent known Covid infection. We will continue current treatment plan. It is felt it is prudent to continue IV antibiotics for now given patient's symptoms and lab results. We will continue diuresis and Eliquis for DVT treatment. 06/10/2021 This is a 80-year-old female post Covid infection who was admitted for suspected pneumonia, pulmonary fibrosis, myocarditis, DVT, and apparent UTI. Labs today show WBC of 8.94. Hemoglobin is 11.1. Neutrophils are elevated 77.7%. Smear review feels slight toxic granulation and abnormal RBC morphology. Sodium today is 140. Potassium 3.7. Chloride 103. Carbon dioxide 20. Anion gap is 12.7. BUN is 25. Creatinine 0.8. GFR greater than 60. Magnesium is 1.9. Bilirubin 0.5. AST is 24, ALT 29, alkaline phosphatase is 90. CRP is down to 12.5. Albumin is 1.8. Patient does report that she feels quite a bit better today. She is down on high flow to 55 L with an FiO2 of 70% with saturations of upper 8 0s to low 90s. Urine culture continues to show greater than 100,000 CFU's of E. coli. Sensitivities are pending. Blood cultures have returned negative. Strep pneumonia is negative. Discussed plan of care with Dr. Ibarra who recommends patient receive 1 more dose of Lasix and then either discontinue or continue with 20 mg daily. We will continue vancomycin and Zosyn due to concerns over possible pneumonia. Unfortunately today patient reported that her insurance company tells her Eliquis will be $600 for 30-day supply. She states she cannot afford this. Apparently Xarelto is around the same pricing per case management. We will therefore discontinue Eliquis start patient on 1 mg/kg L ovenox twice daily and start warfarin with pharmacy to dose. Patient has had no fevers. We will continue current treatment plan and hope to wean patient off of high flow. Unknown length of stay due to severity of symptoms. 06/11/2021 80-year-old female who is post Covid admitted for suspected pneumonia, pulmonary fibrosis, suspected myocarditis, DVT and UTI. Labs today show WBC of 8.33. Hemoglobin is 11.7. Neutrophils are 70.6. INR is 1.20. Sodium is 137. Potass ium 3.2. Chloride 98. Carbon dioxide 29. Anion gap is 13.2. BUN is 29. Creatinine 1.0. GFR 53. Glucose 101. CRP is up to 16.2. Albumin is 1.9. Discussed plan of care with Dr. Youssef, attending hospitalist. We will at this time discontinue vancomycin and Zosyn and switch patient to Bactrim DS twice daily based on E. coli urine sensitivities. We will repeat a procalcitonin. We will also decrease Lasix to 20 mg IV push daily. Patient's potassium will be supplemented. Pharmacy continues to dose warfarin and patient remains on 1 mg/kg twice daily Lovenox bridging. Will start patient on 60 mg every 8 hour IV push methylprednisolone. Patient has been reporting difficulty with swallowing pills. Because of this we will order an COMMUNICATIONS PROGRAMMER evaluation. We have made some improvement with her high flow she is now at 55 L with an FiO2 of 65%. We will continue to wean as patient tolerates. Unknown length of stay due to severity of symptoms. 06/12/2021 80-year-old female with post Covid admitted for suspected pneumonia, pulmonary fibrosis, suspected myocarditis, DVT, and UTI developed A. fib with RVR with rates in the 110s to 120s+ this morning. This required increasing oxygen support with high flow nasal cannula at 60 L with FiO2 of 95% and nonrebreather mask. Patient continues to be DNR/DNI. She was given 1 dose of Cardizem 10 mg IV x1. Blood pressure was stable with systolic in the 120s. After rate control was achieved we were able to remove the nonrebreather mask. CRP continues to be elevated at 12.7. She was started on methylprednisolone yesterday and switched vancomycin and Zosyn to Bactrim for her UTI. Procalcitonin did return at 0.18 reassuring us that she does not have a severe bacterial sepsis. Patient is getting warfarin secondary to DVT with INR today at 1.85. She continues on Lovenox until therapeutic INR. EKG shows diffuse T wave inversion consistent with heart strain. Troponin was drawn and increased to 0.14. Also suggesting some component of heart strain versus infarction. EKG also demonstrates new onset atrial fibrillation. She is not a candidate for transfer at this time and is already on full dose Lovenox a nd INR is 1.8 as we titrate up her warfarin. 06/13/2021 Patient has had a marginal improvement with high flow nasal cannula at 60 L and FiO2 of 90%. She no longer has a nonrebreather mask over it. Her INR is now supratherapeutic and her Lovenox will be held. Pharmacy is dosing INR. Creatinine is 1.4 with estimated GFR of 36 and BUN of 49. Lasix was stopped after the morning dose yesterday. Today is day 6 of antibiotics for her UTI and she should be able to stop them tomorrow. White count has increased to 12.5, but she has been placed on moderately high Solu-Medrol. INR is also likely higher because of the Bactrim. This will make getting her INR stabilized di fficult. - Plan Plan:: Pneumonia - suspected Dyspnea Hypoxia History of COVID-19 On home oxygen therapy Acute on chronic respiratory failure Pulmonary fibrosis -on CT scan * Droplet isolation (airborne/contact while on high flow O2) * O2 as needed to keep saturation greater than 90% * I-S/Acapella * Discontinued zosyn and vancomycin on 06/11/2021 * High flow oxygen as directed * 4 times daily scheduled DuoNebs * Every 2 hours as needed albuterol nebulizer * Consult RT * Telemetry * Blood cultures negative * Continuous pulse oximetry * Mucinex BID * Recommend PFT after recovery due to emphysematous changes noted in CTA * Recommend pulmonology follow-up after discharge * Repeat procalcitonin 0.18 on 06/11/2021 * Continue solu-medrol 60mg TID consider decreasing in the next day or 2 * Continue to follow CRP DVT Elevated d-dimer * CTA in ED negative for PE * Discontinue Eliquis as patient reports $600 for 30 day supply * Warfarin with pharmacy to dose; INR for today * DC Lovenox 60mg (1mg/kg) BID as bridging 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 coli UTI with Rocephin in [place] * Urine culture showing >100cfu E. Coli, with good sensitivities to Bactrim DS * Blood cultures negative thus far * Switch from zosyn/vancomycin to Bactrim DS BID PO. Tomorrow will be final day of Bactrim. 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 Morley in [place] DVT prophylaxis: Lovenox Disposition: Patient admitted to the floor for management and further work-up of suspected pneumonia, hypoxia, elevated troponin, elevated D-dimer, and weak UTI. Length of stay greater than 96 hours due to need for continued treatment. Prognosis poor.
--- NOTE | 2021-06-13 15:09 | PCM.EKG ---
#1 Interpretation EKG Date: 06/12/21 Time: 19:35 Rhythm: Other (Sinus tachycardia) Rate (Beats/Min): 103 [place]: LAD-Left [place] Deviation (Left anterior hemiblock) P-Wave: Present QRS: Normal ST-T: Other (Diffuse T wave inversion) QT: Normal (Prolonged 592 ms) Comparison: Change From Previous EKG (Return to sinus rhythm) EKG Interpretation Comments: Abnormal EKG. Resolution of atrial fibrillation with return to sinus tachycardia. T wave inversion with poor R wave progression. Likely heart strain.
[2021-06-14] MEDS: Albuterol 0.083% 2.5 MG/3 ML Neb Soln NEB PRN (03:26)
[2021-06-14] MEDS: Albuterol/Ipratropium 3.0-0.5 MG/3 ML Neb Soln NEB SCH ×4 (06:02→20:03)
[2021-06-14] MEDS: methylPREDNISolone Sodium Succinate 40 MG/1 ML SDV IVPUSH SCH ×3 (06:45→18:17)
--- NOTE | 2021-06-14 08:20 | PCM.PN ---
- General Info Date of Service: 06/14/21 Admission Dx/Problem (Free Text): Admission Diagnosis/Problem Admission Diagnosis/Problem Hypoxia Functional Status: Reports: Pain Controlled, Tolerating Diet, Ambulating, Urinating, Incentive Spirometry. Denies: New Symptoms - Review of Systems General: Reports: No Symptoms. Denies: Fever, Weakness, Fatigue, Malaise, Chills HEENT: Reports: No Symptoms. Denies: Headaches, Sore Throat Pulmonary: Reports: Shortness of Breath. Denies: Cough, Sputum Cardiovascular: Reports: Dyspnea on Exertion. Denies: Chest Pain, Palpitations Gastrointestinal: Reports: Diarrhea. Denies: Abdominal Pain, Constipation, Nausea, Vomiting Genitourinary: Reports: No Symptoms. Denies: Pain Musculoskeletal: Reports: No Symptoms Skin: Reports: No Symptoms. Denies: Cyanosis Neurological: Reports: No Symptoms, Difficulty Walking, Weakness. Denies: Confusion, Dizziness, Headache, Numbness, Pre-Existing Deficit, Seizure, Syncope, Tingling, Gait Disturbance Psychiatric: Reports: No Symptoms - Patient Data Vitals - Most Recent: Last Vital Signs Temp 97.2 F 06/14/21 07:46 Pulse 55 L 06/14/21 07:46 Resp 22 H 06/14/21 07:46 BP 128/71 06/14/21 07:46 Pulse Ox 86 L 06/14/21 07:46 Weight - Most Recent: 134 lb 11.2 oz I&O - Last 24 Hours: Intake & Output 06/13/21 06/14/21 06/14/21 22:59 06:59 14:59 Intake Total 1100 400 Output Total 500 400 Balance 600 0 Lab Results Last 24 Hours: Laboratory Results - last 24 hr 06/14/21 06/14/21 06/14/21 Range/Units 05:06 05:06 05:06 WBC 11.29 H (3.98-10.04) K/mm3 RBC 3.74 L (3.98-5.22) M/mm3 Hgb 11.3 (11.2-15.7) gm/dl Hct 33.9 L (34.1-44.9) % MCV 90.6 (79.4-94.8) fl MCH 30.2 (25.6-32.2) pg MCHC 33.3 (32.2-35.5) g/dl RDW Std Deviation 47.8 H (36.4-46.3) fL Plt Count 391 H (182-369) K/mm3 MPV 10.3 (9.4-12.3) fl Neut % (Auto) 87.0 H (34.0-71.1) % Lymph % (Auto) 7.0 L (19.3-51.7) % [place] % (Auto) 5.0 (4.7-12.5) % Eos % (Auto) 0 L (0.7-5.8) Baso % (Auto) 0.1 (0.1-1.2) % Neut # (Auto) 9.82 H (1.56-6.13) K/mm3 Lymph # (Auto) 0.79 L (1.18-3.74) K/mm3 [place] # (Auto) 0.57 H (0.24-0.36) K/mm3 Eos # (Auto) 0.00 L (0.04-0.36) K/mm3 Baso # (Auto) 0.01 (0.01-0.08) K/mm3 PT 44.5 H (9.7-12.0) SECONDS INR 4.24 Sodium 135 L (136-145) mEq/L Potassium 4.4 (3.5-5.1) mEq/L Chloride 104 (98-107) mEq/L Carbon Dioxide 25 (21-32) mEq/L Anion Gap 10.4 (5-15) BUN 55 H (7-18) mg/dL Creatinine 1.1 H (0.55-1.02) mg/dL Est Cr Clr Drug Dosing 31.29 mL/min Estimated GFR (MDRD) 48 (>60) mL/min BUN/Creatinine Ratio 50.0 H (14-18) Glucose 126 H (70-99) mg/dL Calcium 8.7 (8.5-10.1) mg/dL Phosphorus 3.4 (2.6-4.7) mg/dL Magnesium 2.2 (1.8-2.4) mg/dL Total Bilirubin 0.2 (0.2-1.0) mg/dL AST 18 (15-37) U/L ALT 24 (14-59) U/L Alkaline Phosphatase 62 (46-116) U/L C-Reactive Protein 3.2 H* (<1.0) mg/dL Total Protein 5.9 L (6.4-8.2) g/dl Albumin 1.9 L (3.4-5.0) g/dl Globulin 4.0 gm/dL Albumin/Globulin Ratio 0.5 L (1-2) Med Orders - Current: Current Medications Al Hydroxide/Mg Hydroxide (Aluminum Hydroxide/Magnesium Hydroxide/Simethicone S fpc 30 Ml Cup) 30 ml PO Q4H PRN PRN Reason: Heartburn Last Admin: 06/11/21 23:27 Dose: 30 ml Documented by: Albuterol (Albuterol 0.083% 2.5 Mg/3 Ml Neb Soln) 2.5 mg NEB Q2H PRN PRN Reason: Shortness Of Breath/wheezing Last Admin: 06/14/21 03:26 Dose: 2.5 mg Documented by: Albuterol/Ipratropium (Albuterol/Ipratropium 3.0-0.5 Mg/3 Ml Neb Soln) 3 ml NEB QIDRT [facility] Last Admin: 06/14/21 06:02 Dose: 3 ml Documented by: Aspirin (Aspirin 81 Mg Tab.Ec) 81 mg PO DAILY [facility] Last Admin: 06/13/21 09:04 Dose: 81 mg Documented by: Diltiazem HCl (Diltiazem 50 Mg/10 Ml Sdv) 10 mg IVPUSH Q1H PRN PRN Reason: Tachycardia Last Admin: 06/12/21 10:36 Dose: 10 mg Documented by: Docusate Sodium (Docusate Sodium 100 Mg Cap) 100 mg PO Q12H PRN PRN Reason: Constipation Last Admin: 06/10/21 09:12 Dose: 100 mg Documented by: Guaifenesin (Guaifenesin 600 Mg Tab.Er) 600 mg PO BID [facility] Last Admin: 06/13/21 20:14 Dose: 600 mg Documented by: Sodium Chloride (Normal Saline) 250 mls @ 40 mls/hr IV ASDIRECTED [facility] Last Admin: 06/11/21 15:51 Dose: 40 mls/hr Documented by: Methylprednisolone Sodium Succinate (Methylprednisolone Sodium Succinate 40 Mg/1 Ml Sdv) 60 mg IVPUSH Q8H [facility] Last Admin: 06/14/21 06:45 Dose: 60 mg Documented by: Metoprolol Tartrate (Metoprolol Tartrate 25 Mg Tab) 25 mg PO Q12H [facility] Last Admin: 06/13/21 21:48 Dose: 25 mg Documented by: Ondansetron HCl (Ondansetron 4 Mg/2 Ml Sdv) 4 mg IV Q6H PRN PRN Reason: Nausea/Vomiting Sodium Chloride (Sodium Chloride 0.9% 10 Ml Syringe) 10 ml FLUSH ASDIRECTED PRN PRN Reason: Keep Vein Open Last Admin: 06/07/21 18:12 Dose: 10 ml Documented by: Trimethoprim/Sulfamethoxazole (Sulfamethoxazole/Trimethoprim 800-160 Mg Tab) 1 tab PO BID [facility] Last Admin: 06/13/21 20:14 Dose: 1 tab Documented by: Warfarin Sodium (Pharmacy To Dose - Warfarin) 1 dose .XX ASDIRECTED PRN PRN Reason: RX TOD DOSE WARFARIN Warfarin Sodium (Warfarin 1 Mg Tab) 1 mg PO QPM [facility] Last Admin: 06/13/21 18:04 Dose: 1 mg Documented by: Discontinued Medications Albuterol (Albuterol 0.083% 2.5 Mg/3 Ml Neb Soln) 2.5 mg NEB ONETIME ONE Stop: 06/07/21 15:19 Last Admin: 06/07/21 15:47 Dose: 2.5 mg Documented by: Albuterol/Ipratropium (Albuterol/Ipratropium 3.0-0.5 Mg/3 Ml Neb Soln) 3 ml NEB ONETIME ONE Stop: 06/08/21 08:21 Last Admin: 06/08/21 08:37 Dose: 3 ml Documented by: Apixaban (Apixaban 5 Mg Tab) 10 mg PO BID [facility] Stop: 06/15/21 21:01 Last Admin: 06/10/21 09:13 Dose: 10 mg Documented by: Diltiazem HCl (Diltiazem Ir 30 Mg Tab) 30 mg PO Q8HR [facility] Last Admin: 06/13/21 05:51 Dose: 30 mg Documented by: Enoxaparin Sodium (Enoxaparin 40 Mg/0.4 Ml Syringe) 40 mg SUBCUT DAILY [facility] Last Admin: 06/08/21 14:49 Dose: 40 mg Documented by: Enoxaparin Sodium (Enoxaparin 60 Mg/0.6 Ml Syringe) 20 mg SUBCUT ONETIME ONE Stop: 06/08/21 16:31 Last Admin: 06/08/21 16:53 Dose: 20 mg Documented by: Enoxaparin Sodium (Enoxaparin 60 Mg/0.6 Ml Syringe) 60 mg SUBCUT Q12H [facility] Last Admin: 06/13/21 12:17 Dose: Not Given Documented by: Furosemide (Furosemide 40 Mg/4 Ml Vial) 40 mg IVPUSH NOW ONE Stop: 06/08/21 20:04 Last Admin: 06/08/21 21:33 Dose: 40 mg Documented by: Furosemide (Furosemide 20 Mg/2 Ml Vial) 20 mg IVPUSH TIDMEALS [facility] Last Admin: 06/11/21 06:34 Dose: 20 mg Documented by: Furosemide (Furosemide 20 Mg/2 Ml Vial) 20 mg IVPUSH DAILY [facility] Furosemide (Furosemide 20 Mg/2 Ml Vial) 20 mg IVPUSH DAILY [facility] Last Admin: 06/12/21 09:05 Dose: 20 mg Documented by: Sodium Chloride (Normal Saline) 100 mls @ 60 mls/min IV ASDIRECTED [facility] Last Admin: 06/07/21 18:12 Dose: 60 mls/min Documented by: Sodium Chloride (Normal Saline) 1,000 mls @ 250 mls/hr IV ASDIRECTED [facility] Last Admin: 06/07/21 22:14 Dose: 250 mls/hr Documented by: Ceftriaxone Sodium 1 gm/ (Sodium Chloride) 100 mls @ 200 mls/hr IV ONETIME ONE Stop: 06/08/21 09:25 Last Admin: 06/08/21 09:20 Dose: 200 mls/hr Documented by: Vancomycin HCl 1 gm/ Sodium (Chloride) 250 mls @ 250 mls/hr IV Q18H [facility] Last Admin: 06/08/21 14:26 Dose: Not Given Documented by: Vancomycin HCl 1 gm/ Sodium (Chloride) 250 mls @ 250 mls/hr IV Q18H [facility] Last Admin: 06/08/21 15:37 Dose: Not Given Documented by: Piperacillin Sod/Tazobactam (Sod 4.5 gm/ Sodium Chloride) 100 mls @ 200 mls/hr IV ONETIME ONE Stop: 06/08/21 14:59 Last Admin: 06/08/21 14:19 Dose: 200 mls/hr Documented by: Piperacillin Sod/Tazobactam (Sod 4.5 gm/ Sodium Chloride) 100 mls @ 25 mls/hr IV Q8H [facility] Last Admin: 06/11/21 06:34 Dose: 25 mls/hr Documented by: Vancomycin HCl 1 gm/ Sodium (Chloride) 250 mls @ 250 mls/hr IV Q18H [facility] Stop: 06/10/21 23:59 Last Admin: 06/10/21 22:00 Dose: 250 mls/hr Documented by: Sodium Chloride (Normal Saline) 1,000 mls @ 100 mls/hr IV ASDIRECTED [facility] Vancomycin HCl 1 gm/ Sodium (Chloride) 250 mls @ 250 mls/hr IV Q12H [facility] Potassium Chloride 10 meq/ (Premix) 100 mls @ 100 mls/hr IV Q1H [facility] Stop: 06/11/21 12:59 Last Admin: 06/11/21 15:37 Dose: 100 mls/hr Documented by: Iopamidol (Iopamidol 755 Mg/Ml 100 Ml Bottle) 100 ml IVPUSH ONETIME ONE Stop: 06/07/21 18:12 Last Admin: 06/07/21 18:12 Dose: 100 ml Documented by: Methylprednisolone Sodium Succinate (Methylprednisolone Sodium Succinate 125 Mg/2 Ml Sdv) 125 mg IVPUSH ONETIME ONE Stop: 06/08/21 08:21 Last Admin: 06/08/21 08:25 Dose: 125 mg Documented by: Potassium Chloride (Potassium Chloride 10 Meq Tab.Er) 10 meq PO TID [facility] Last Admin: 06/10/21 22:00 Dose: 10 meq Documented by: Potassium Chloride (Potassium Chloride 20 Meq Tab.Er) 20 meq PO ONETIME ONE Stop: 06/09/21 07:21 Last Admin: 06/09/21 08:37 Dose: 20 meq Documented by: Sodium Chloride (Sodium Chloride 0.9% 10 Ml Sdv) 10 ml FLUSH ONETIME ONE Stop: 06/07/21 18:12 Last Admin: 06/07/21 20:31 Dose: 10 ml Documented by: Vancomycin HCl (Pharmacy To Dose - Vancomycin) 1 dose .XX ASDIRECTED [facility] Warfarin Sodium (Warfarin 4 Mg Tab) 4 mg PO QPM [facility] Stop: 06/10/21 18:01 Last Admin: 06/10/21 18:08 Dose: 4 mg Documented by: Warfarin Sodium (Warfarin 4 Mg Tab) 4 mg PO QPM [facility] Stop: 06/11/21 18:01 Last Admin: 06/11/21 18:36 Dose: 4 mg Documented by: Warfarin Sodium (Warfarin 4 Mg Tab) 4 mg PO QPM [facility] Stop: 06/12/21 18:01 Last Admin: 06/12/21 18:15 Dose: 4 mg Documented by: - Exam Quality Assessment: Supplemental Oxygen (55 L with FiO2 of 85%), DVT Prophylaxis. No: Urine Catheter General: Alert, Oriented, Cooperative, No Acute Distress HEENT: Pupils Equal, Pupils Reactive, Mucous Membr. Moist/[place] Neck: Supple, Trachea Midline Lungs: Decreased Breath Sounds, Crackles (Bibasilar). No: Normal Respiratory Effort (Tachypnea) Cardiovascular: Regular Rate, Regular Rhythm GI/Abdominal Exam: Normal Bowel Sounds, Soft, Non-Tender, No Distention (Female) Exam: Deferred Back Exam: Normal Inspection, Full Range of Motion Extremities: Normal Inspection, Normal Range of Motion, Non-Tender, No Pedal Edema Peripheral Pulses: 2+: Radial (L), Radial (R), Dorsalis Pedis (L), Dorsalis Pedis (R) Skin: Warm, Dry, Intact Neurological: No New Focal Deficit Psy/Mental Status: Alert, Normal Affect, Normal Mood - Patient Data Lab Results Last 24 hrs: Laboratory Results - last 24 hr 06/14/21 06/14/21 06/14/21 Range/Units 05:06 05:06 05:06 WBC 11.29 H (3.98-10.04) K/mm3 RBC 3.74 L (3.98-5.22) M/mm3 Hgb 11.3 (11.2-15.7) gm/dl Hct 33.9 L (34.1-44.9) % MCV 90.6 (79.4-94.8) fl MCH 30.2 (25.6-32.2) pg MCHC 33.3 (32.2-35.5) g/dl RDW Std Deviation 47.8 H (36.4-46.3) fL Plt Count 391 H (182-369) K/mm3 MPV 10.3 (9.4-12.3) fl Neut % (Auto) 87.0 H (34.0-71.1) % Lymph % (Auto) 7.0 L (19.3-51.7) % [place] % (Auto) 5.0 (4.7-12.5) % Eos % (Auto) 0 L (0.7-5.8) Baso % (Auto) 0.1 (0.1-1.2) % Neut # (Auto) 9.82 H (1.56-6.13) K/mm3 Lymph # (Auto) 0.79 L (1.18-3.74) K/mm3 [place] # (Auto) 0.57 H (0.24-0.36) K/mm3 Eos # (Auto) 0.00 L (0.04-0.36) K/mm3 Baso # (Auto) 0.01 (0.01-0.08) K/mm3 PT 44.5 H (9.7-12.0) SECONDS INR 4.24 Sodium 135 L (136-145) mEq/L Potassium 4.4 (3.5-5.1) mEq/L Chloride 104 (98-107) mEq/L Carbon Dioxide 25 (21-32) mEq/L Anion Gap 10.4 (5-15) BUN 55 H (7-18) mg/dL Creatinine 1.1 H (0.55-1.02) mg/dL Est Cr Clr Drug Dosing 31.29 mL/min Estimated GFR (MDRD) 48 (>60) mL/min BUN/Creatinine Ratio 50.0 H (14-18) Glucose 126 H (70-99) mg/dL Calcium 8.7 (8.5-10.1) mg/dL Phosphorus 3.4 (2.6-4.7) mg/dL Magnesium 2.2 (1.8-2.4) mg/dL Total Bilirubin 0.2 (0.2-1.0) mg/dL AST 18 (15-37) U/L ALT 24 (14-59) U/L Alkaline Phosphatase 62 (46-116) U/L C-Reactive Protein 3.2 H* (<1.0) mg/dL Total Protein 5.9 L (6.4-8.2) g/dl Albumin 1.9 L (3.4-5.0) g/dl Globulin 4.0 gm/dL Albumin/Globulin Ratio 0.5 L (1-2) Result Diagrams: 06/14/21 05:06 06/14/21 05:06 Sepsis Event Note - Evaluation Sepsis Screening Result: No Definite Risk - Focused Exam Vital Signs: Vital Signs Temp Pulse Resp BP Pulse Ox Pulse Ox 06/14/21 07:46 97.2 F 55 L 22 H 128/71 86 L 06/14/21 06:02 90 L 06/14/21 04:09 60 94/59 L 91 L 06/14/21 03:26 91 L 06/13/21 21:48 67 107/79 06/13/21 21:14 91 L - Problem List & Annotations (1) History of COVID-19 SNOMED Code(s): 900269779299204580, 739593833676957301 Code(s): Z86.16 - PERSONAL HISTORY OF COVID-19 Status: Chronic Priority: Medium Current Visit: Yes (2) Elevated d-dimer SNOMED Code(s): 561075571 Code(s): R79.89 - OTHER SPECIFIED ABNORMAL FINDINGS OF BLOOD CHEMISTRY Status: Acute Priority: Medium Current Visit: Yes (3) Elevated troponin SNOMED Code(s): 793368088, 641449883, 635670860 Code(s): R77.8 - OTHER SPECIFIED ABNORMALITIES OF PLASMA PROTEINS Status: Resolved Priority: High Current Visit: Yes (4) Pneumonia SNOMED Code(s): 946061780 Code(s): J18.9 - PNEUMONIA, UNSPECIFIED ORGANISM Status: Ruled-out Priority: High Current Visit: Yes Qualifiers: Pneumonia type: due to unspecified organism Laterality: unspecified laterality Lung location: unspecified part of lung Qualified Code(s): J18.9 - Pneumonia, unspecified organism (5) Dyspnea SNOMED Code(s): 089852610 Code(s): R06.00 - DYSPNEA, UNSPECIFIED Status: Acute Priority: High Current Visit: Yes Qualifiers: Dyspnea type: unspecified Qualified Code(s): R06.00 - Dyspnea, unspecified (6) Hypoxia SNOMED Code(s): 937481777 Code(s): R09.02 - HYPOXEMIA Status: Acute Priority: High Current Visit: Yes (7) UTI (urinary tract infection) SNOMED Code(s): 17666354 Code(s): N39.0 - URINARY TRACT INFECTION, SITE NOT SPECIFIED Status: Acute Priority: High Current Visit: Yes Qualifiers: Urinary tract infection type: site unspecified Hematuria presence: without hematuria Qualified Code(s): N39.0 - Urinary tract infection, site not specified (8) Elevated brain natriuretic peptide (BNP) level SNOMED Code(s): 194818555, 631229001 Code(s): R79.89 - OTHER SPECIFIED ABNORMAL FINDINGS OF BLOOD CHEMISTRY Status: Acute Priority: High Current Visit: Yes (9) On home oxygen therapy SNOMED Code(s): 242912361095 Code(s): Z99.81 - DEPENDENCE ON SUPPLEMENTAL OXYGEN Status: Chronic Priority: Medium Current Visit: Yes (10) GERD (gastroesophageal reflux disease) SNOMED Code(s): 071471158 Code(s): K21.9 - GASTRO-ESOPHAGEAL REFLUX DISEASE WITHOUT ESOPHAGITIS Status: Chronic Priority: Low Current Visit: No Qualifiers: Esophagitis presence: esophagitis presence not specified Qualified Code(s): K21.9 - Gastro-esophageal reflux disease without esophagitis (11) Meniere disease SNOMED Code(s): 61323203 Code(s): H81.09 - MENIERE'S DISEASE, UNSPECIFIED EAR Status: Chronic Priority: Low Current Visit: No Qualifiers: Laterality: unspecified laterality Qualified Code(s): H81.09 - Meniere's disease, unspecified ear (12) DVT (deep venous thrombosis) SNOMED Code(s): 946192779 Code(s): I82.409 - ACUTE EMBOLISM AND THOMBOS UNSP DEEP VN UNSP LOWER EXTREMITY Status: Acute Priority: High Current Visit: Yes Qualifiers: DVT location: lower extremity Affected thrombotic vein of extremity: unspecified vein of extremity Chronicity: acute Laterality: left Qualified Code(s): I82.402 - Acute embolism and thrombosis of unspecified deep veins of left lower extremity (13) Hypotension SNOMED Code(s): 03879754 Code(s): I95.9 - HYPOTENSION, UNSPECIFIED Status: Resolved Priority: High Current Visit: Yes Qualifiers: Hypotension type: unspecified hypotension type Qualified Code(s): I95.9 - Hypotension, unspecified (14) Acute and chronic respiratory failure SNOMED Code(s): 06713569 Code(s): J96.20 - ACUTE AND CHR RESP FAILURE, UNSP W HYPOXIA OR HYPERCAPNIA Status: Acute Priority: High Current Visit: Yes Qualifiers: Respiratory failure complication: hypoxia Qualified Code(s): J96.21 - Acute and chronic respiratory failure with hypoxia (15) Myocarditis SNOMED Code(s): 63826847 Code(s): I51.4 - MYOCARDITIS, UNSPECIFIED Status: Suspected Priority: High Current Visit: Yes Qualifiers: Myocarditis type: infective Infective myocarditis organism: viral Chronicity: acute Qualified Code(s): I40.0 - Infective myocarditis (16) Hypokalemia SNOMED Code(s): 44347678 Code(s): E87.6 - HYPOKALEMIA Status: Resolved Priority: High Current Visit: Yes (17) Pulmonary fibrosis SNOMED Code(s): 71637779 Code(s): J84.10 - PULMONARY FIBROSIS, UNSPECIFIED Status: Suspected Priority: High Current Visit: Yes (18) Diarrhea SNOMED Code(s): 62314103 Code(s): R19.7 - DIARRHEA, UNSPECIFIED Status: Acute Priority: Medium Current Visit: Yes Qualifiers: Diarrhea type: unspecified type Qualified Code(s): R19.7 - Diarrhea, unspecified (19) New onset a-fib SNOMED Code(s): 31070221 Code(s): I48.91 - UNSPECIFIED ATRIAL FIBRILLATION Status: Acute Priority: High Current Visit: Yes - Problem List Review Problem List Initiated/Reviewed/Updated: Yes - My Orders Last 24 Hours: My Active Orders 06/13/21 18:00 Warfarin [Coumadin] 1 mg PO QPM - Assessment Assessment:: Admission assessment - 06/08/2021 * 80-year-old female who presents to ED on 06/07/2021 with low oxygen saturations * History of Mnire's disease, GERD, and prior Covid pneumonia * Was hospitalized from 05/17/2021 through 05/31/2021 with COVID-19 pneumonia at [facility] in [place]. * Discharged home on 4 L of oxygen with activity after completing 4 days of remdesivir and 10 days of Decadron. * Of note patient was noted to have episodes of bradycardia and hypotension with heart rate in the 30s and 40s. She was noticed to have episodes of Mobitz type I AV block and 2.5-second sinus pauses. It was believed this was due to remdesivir however this continued after stopping. Patient was to follow-up with EP and have a 2-week quality assurance monitor chassis after discharge. * Prior to presenting to the ED she was noted to have saturations in the low 50s. * Patient's increased her oxygen to 8 L via nasal cannula. * Denies any recent fever, chills, nausea, vomiting, diarrhea, urinary symptoms, or smoking history. * Of note patient did have acute cystitis with an E. coli UTI well in the hospital in [place] and completed 5 days of Rocephin there. * 12-lead EKG was obtained showing a sinus tachycardia at 109 bpm with a LAFB and very mild ST elevation in V2 and V3. * Placed on a nonrebreather mask which improved her saturations to 90 to 91%. * Noted to be dyspneic and only able to complete a few word sentences. * Labs are obtained: * WBC of 8.57. * Hemoglobin 13.0. * Hematocrit 30.5. * Platelet 250,000. * Neutrophils are elevated 75.7%. * D-dimer is very high at 8.16. * Sodium is low at 129. * Potassium 3.8. * Chloride 94. * Carbon dioxide 24. * Anion gap is 14.8. * BUN is 15. Creatinine 0.6. GFR greater than 60. * Glucose is 126. * Calcium 8.7. * Magnesium 1.8. * Total bilirubin 0.6. * AST is 36, ALT 31, alkaline phosphatase 86. * Troponin is elevated at 0.127-->0.156-->0.067. * CRP is very high at 29.3. * Protein 7.1. * Albumin 2.1. * proBNP is 3117 * UA is obtained and is mildly positive with slightly cloudy urine, 1+ protein, 3+ ketones, 2+ occult blood, 1+ leukocyte esterase, 5-10 RBCs, 20- 30 WBCs, rare WBC clumps, and moderate bacteria. * ABG obtained in the left radial with a pH of 7.44. PCO2 of 30.9. PO2 of 58.0. HCO3 of 20.5. O2 saturations 86%. Base excess is -2.3. Aa gradient is 15.0. This is obtained while on nonrebreather at 15 L. * Facility was out of CPAP and BiPAP-> started on high flow O2 with saturations in the low 90s. * CTA of the chest is obtained to rule out PE and shows: * 1. No findings of pulmonary embolism. * 2. Minimal left-sided pleural effusion. * 3. Diffuse emphysematous changes seen. Both lungs show diffuse increased density uncertain how much of this represents diffuse fibrosis versus possible superimposed pneumonia. Old comparison studies would be needed if available. * 4. 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 * 5. Other findings which are felt to be chronic as described above. * Chest x-ray shows scattered infiltrates bilaterally most prominent in the left lower lobe. * Plan was to transfer the patient for continued care due to elevated troponin however no beds are noted to be available [place], [place], or [place]. * Noted to have a blood pressure of 80/61 and is given a 500 mill fluid bolus over 2 hours. * Given 1 dose of Rocephin in the ED. She is also given 125 mg Solu-Medrol and a DuoNeb, which she reports greatly helped. * Ultimately inpatient bed does open up at our facility and she is admitted to the floor on telemetry for management of her hypoxia, suspected pneumonia, elevated BNP, elevated troponin - likely demand ischemia, and questionable UTI . * On floor bilateral lower extremity ultrasound shows thrombus within the left mid and distal superficial, femoral, popliteal, posterior tibial, and peroneal veins. 06/09/2021 This is a 80 years old female post Covid infection who was hospitalized in [place] for approximately 2 weeks who presented to our ED with low saturations. On admission D-dimer was noted to be elevated however CTA was negative for any PE. Lower extremity ultrasound did show a DVT in the left extremity and patient was started on 1 mg/kg Lovenox transitioning to 10 mg twice daily Eliquis today. Patient has been requiring high flow 60 L and was weaned down to 80% FiO2 today. Unfortunately given patient's history of recent Covid infection CTA was not very helpful in differentiating pulmonary cause. Given recent hospitalization there are concerns of a secondary bacterial infection. WBC has been WNL however neutrophils are elevated. Procalcitonin was obtained and was 0.29. Lactic acid yesterday was 1.0. Patient was noted to be hypotensive in the emergency room and was given 2 fluid boluses. She was also started on fluids over concerns of sepsis. UA was positive and urine culture is growing out greater than 100,000 CFU's of gram-negative rods thus far. She does have a history of a E. coli UTI treated with Rocephin in [place]. Patient denies any urinary symptoms. proBNP was elevated. Echocardiogram was obtained on 06/08/2021 And interpreted as: " 1. The left ventricular internal cavity size is normal. 2. Normal left ventricular systolic function. 3. Left ventricular ejection fraction, by visual estimation, is 55 to 60%. 4. No regional wall motion abnormalities. 5. Mild proximal septal hypertrophy. 6. Aortic valve is tricuspid. 7. Mild mitral valve regurgitation. 8. Trace tricuspid valve regurgitation. 9. Mild pulmonic valve regurgitation. 10. The inferior vena cava is normal. 11. The right ventricular systolic pressure is mildly elevated at 32.2 mmHg." Patient was started on 20 mg IV push Lasix 3 times daily yesterday and has had over 1 L output. Potassium today is down to 3.3 and this is being supplemented. Sodium 137. Carbon dioxide 24. Anion gap is 13.3. BUN is 19. Creatinine 0.6. GFR greater than 60. Glucose is 146. Calcium 8.4. Magnesium is 1.8. Total bilirubin 0.5. AST is 26, ALT 26, alkaline phosphatase 90. Troponin today was down to 0.031. CRP is down to 24.2. Albumin is down to 1.8. Mycoplasma and strep pneumonia were both checked and were negative. Respiratory viral panel was obtained and was negative however patient did return positive for Covid, which is unsurprising given the patient's recent known Covid infection. We will continue current treatment plan. It is felt it is prudent to continue IV antibiotics for now given patient's symptoms and lab results. We will continue diuresis and Eliquis for DVT treatment. 06/10/2021 This is a 80-year-old female post Covid infection who was admitted for suspected pneumonia, pulmonary fibrosis, myocarditis, DVT, and apparent UTI. Labs today show WBC of 8.94. Hemoglobin is 11.1. Neutrophils are elevated 77.7%. Smear review feels slight toxic granulation and abnormal RBC morphology. Sodium today is 140. Potassium 3.7. Chloride 103. Carbon dioxide 20. Anion gap is 12.7. BUN is 25. Creatinine 0.8. GFR greater than 60. Magnesium is 1.9. Bilirubin 0.5. AST is 24, ALT 29, alkaline phosphatase is 90. CRP is down to 12.5. Albumin is 1.8. Patient does report that she feels quite a bit better today. She is down on high flow to 55 L with an FiO2 of 70% with saturations of upper 80s to low 90s. Urine culture continues to show greater than 100,000 CFU's of E. coli. Sensitivities are pending. Blood cultures have returned negative. Strep pneumonia is negative. Discussed plan of care with Dr. Ibarra who katrin mmends patient receive 1 more dose of Lasix and then either discontinue or continue with 20 mg daily. We will continue vancomycin and Zosyn due to concerns over possible pneumonia. Unfortunately today patient reported that her insurance company tells her Eliquis will be $600 for 30-day supply. She states she cannot afford this. Apparently Xarelto is around the same pricing per case management. We will therefore discontinue Eliquis start patient on 1 mg/kg Lovenox twice daily and start warfarin with pharmacy to dose. Patient has had no fevers. We will continue current treatment plan and hope to wean patient off of high flow. Unknown length of stay due to severity of symptoms. 06/11/2021 80-year-old female who is post Covid admitted for suspected pneumonia, pulmonary fibrosis, suspected myocarditis, DVT and UTI. Labs today show WBC of 8.33. Hemoglobin is 11.7. Neutrophils are 70.6. INR is 1.20. Sodium is 137. Potassium 3.2. Chloride 98. Carbon dioxide 29. Anion gap is 13.2. BUN is 29. Creatinine 1.0. GFR 53. Glucose 101. CRP is up to 16.2. Albumin is 1.9. Discussed plan of care with Dr. Youssef, attending hospitalist. We will at this time discontinue vancomycin and Zosyn and switch patient to Bactrim DS twice daily based on E. coli urine sensitivities. We will repeat a procalcitonin. We will also decrease Lasix to 20 mg IV push daily. Patient's potassium will be supplemented. Pharmacy continues to dose warfarin and patient remains on 1 mg/kg twice daily Lovenox bridging. Will start patient on 60 mg every 8 hour IV push methylprednisolone. Patient has been reporting difficulty with swallowing pills. Because of this we will order an BELT FIXER evaluation. We have made some improvement with her high flow she is now at 55 L with an FiO2 of 65%. We will continue to wean as patient tolerates. Unknown length of stay due to severity of symptoms. 06/12/2021 80-year-old female with post Covid admitted for suspected pneumonia, pulmonary fibrosis, suspected myocarditis, DVT, and UTI developed A. fib with RVR with rates in the 110s to 120s+ this morning. This required increasing oxygen support with high flow nasal cannula at 60 L with FiO2 of 95% and nonrebreather mask. Patient continues to be DNR/DNI. She was given 1 dose of Cardizem 10 mg IV x1. Blood pressure was stable with systolic in the 120s. After rate control was achieved we were able to remove the nonrebreather mask. CRP continues to be elevated at 12.7. She was started on methylprednisolone yesterday and switched vancomycin and Zosyn to Bactrim for her UTI. Procalcitonin did return at 0.18 reassuring us that she does not have a severe bacterial sepsis. Patient is getting warfarin secondary to DVT with INR today at 1.85. She continues on Lovenox until therapeutic INR. EKG shows diffuse T wave inversion consistent with heart strain. Troponin was drawn and increased to 0.14. Also suggesting some component of heart strain versus infarction. EKG also demonstrates new onset atrial fibrillation. She is not a candidate for transfer at this time and is already on full dose Lovenox and INR is 1.8 as we titrate up her warfarin. 06/13/2021 Patient has had a marginal improvement with high flow nasal cannula at 60 L and FiO2 of 90%. She no longer has a nonrebreather mask over it. Her INR is now supratherapeutic and her Lovenox will be held. Pharmacy is dosing INR. Creatinine is 1.4 with estimated GFR of 36 and BUN of 49. Lasix was stopped after the morning dose yesterday. Today is day 6 of antibiotics for her UTI and she should be able to stop them tomorrow. White count has increased to 12.5, but she has been placed on moderately high Solu-Medrol. INR is also likely higher because of the Bactrim. This will make getting her INR stabilized difficult. 06/14/2021 This is a 80-year-old female post Covid who was admitted due to acute on chronic respiratory failure. She has been requiring high flow and is currently on 55 L with an FiO2 of 85%. She is initially treated for possible pneumonia and given labs and CT results it appears she has more of a pulmonary fibrosis picture. She was noted to have a UTI and was switched to Bactrim DS and she will complete treatment today. Questioning myocarditis. She also has a left leg DVT and was started on Eliquis, however patient has concerns with affording this and she was switched to warfarin. INR today is 4.21. She was started on steroids and will be decreased to 60 mg IV push Solu-Medrol twice daily today. Given the Bactrim and Solu-Medrol her INR has been somewhat variable with difficult to dose warfarin. Pharmacy continues to dose this. WBC today is 11.29. Hemoglobin 11.3. Platelet 391,000. Neutrophils are 87%. Sodium 135. Potassium 4.4. Chloride 104. Carbon dioxide 25. Anion gap 10.4. BUN is 55. Creatinine 1.1. GFR is up to 48. Glucose is 126. Phosphorus 3.4. Magnesium 2.2. Total bilirubin 0.2. AST is 18, ALT 24, alkaline phosphatase 62. CRP is down to 3.2. Protein is 5.9. Albumin is down to 1.9. Patient was complaining of some diarrhea today and given all of her antibiotic she was on we checked a C. difficile which was negative. We will therefore schedule Imodium. Unknown length of stay due to severity of symptoms and concern over minimal improvement in oxygenation. We will look at possible swing bed/LTAC facilities in the future. - Plan Plan:: Dyspnea Hypoxia History of COVID-19 On home oxygen therapy Acute on chronic respiratory failure Pulmonary fibrosis -on CT scan * Droplet isolation (airborne/contact while on high flow O2) * O2 as needed to keep saturation greater than 90% * I-S/Acapella * Discontinued zosyn and vancomycin on 06/11/2021 * High flow oxygen as directed * 4 times daily scheduled DuoNebs * Every 2 hours as needed albuterol nebulizer * Consult RT * Telemetry * Blood cultures negative * Continuous pulse oximetry * Mucinex BID * Recommend PFT after recovery due to emphysematous changes noted in CTA * Recommend pulmonology follow-up after discharge * Repeat procalcitonin 0.18 on 06/11/2021 * Discontinue solu-medrol 60mg BID * Continue to follow CRP DVT Elevated d-dimer * CTA in ED negative for PE * Discontinue Eliquis as patient reports $600 for 30 day supply * Warfarin with pharmacy to dose; INR for today * DC Lovenox 60mg (1mg/kg) BID as bridging Myocarditis - suspected Elevated troponin, resolved Elevated brain natriuretic peptide (BNP) level New onset A-fib * Troponin increased returned to normal of 0.056 and she is back in sinus rhythm * Metoprolol tartrate - 25mg BID * Start 81mg daily aspirin * DC Cardizem and switch to PRN * Echocardiogram obtained as above * Monitor patient's weight * Monitor I&O's * Telemetry * Continue to hold Lasix * Supplement potassium as needed * Monitor CRP UTI (urinary tract infection), Resolved * UA weakly positivepatient was treated for E. coli UTI with Rocephin in [place] * Urine culture showing >100cfu E. Coli, with good sensitivities to Bactrim DS * Blood cultures negative thus far * Switch from zosyn/vancomycin to Bactrim DS BID PO --> Completed treatment on 06/14/2021 GERD (gastroesophageal reflux disease) * No acute concerns * Monitor Meniere disease * No acute concerns * Monitor Hypokalemiaresolved * Supplement as needed Hypotension - resolved * Noted in ED and multiple fluid boluses given * Monitor Dysphagia * Patient reports difficulty swallowing pills * BELT FIXER evaluation -> crush pills Diarrhea * Check c. diff -->negative * Start PRN Imodium Code status: DNR/DNI PCP: Dr. Morley in [place] DVT prophylaxis: Lovenox Disposition: Patient admitted to the floor for management and further work-up of suspected pneumonia, hypoxia, elevated troponin, elevated D-dimer, and weak UTI. Length of stay greater than 96 hours due to need for continued treatment. Unfortunately very poor overall prognosis
[2021-06-14] MEDS: guaiFENesin 600 MG Tab.ER PO SCH ×2 (08:44→20:28)
[2021-06-14] MEDS: Aspirin 81 MG Tab.EC PO SCH (08:44)
[2021-06-14] MEDS: Sulfamethoxazole/Trimethoprim 800-160 MG Tab PO SCH (08:44)
[2021-06-14] MEDS: Metoprolol Tartrate 25 MG Tab PO SCH ×2 (09:01→21:23)
[2021-06-14] MEDS ORDERED: Loperamide 2 MG Cap PO ONE (10:50)
[2021-06-14] MEDS ORDERED: Warfarin Sliding Scale PO SCH (18:00)
[2021-06-15] MEDS: Albuterol/Ipratropium 3.0-0.5 MG/3 ML Neb Soln NEB SCH ×4 (05:50→20:35)
[2021-06-15] MEDS: methylPREDNISolone Sodium Succinate 40 MG/1 ML SDV IVPUSH SCH ×2 (06:41→18:54)
--- NOTE | 2021-06-15 07:08 | PCM.PN ---
- General Info Date of Service: 06/15/21 Admission Dx/Problem (Free Text): Admission Diagnosis/Problem Admission Diagnosis/Problem Hypoxia Functional Status: Reports: Pain Controlled, Tolerating Diet, Ambulating, Urinating, Incentive Spirometry. Denies: New Symptoms - Review of Systems General: Reports: Weakness. Denies: Fever, Fatigue, Malaise, Chills HEENT: Reports: No Symptoms. Denies: Headaches, Sore Throat Pulmonary: Reports: Shortness of Breath. Denies: Pleuritic Chest Pain, Cough, Sputum Cardiovascular: Reports: Dyspnea on Exertion. Denies: Chest Pain, Palpitations, Lightheadedness Gastrointestinal: Reports: Diarrhea (improving ). Denies: Abdominal Pain, Constipation, Nausea, Vomiting Genitourinary: Reports: No Symptoms Musculoskeletal: Reports: No Symptoms Skin: Reports: No Symptoms. Denies: Cyanosis Neurological: Reports: Difficulty Walking (Becomes short of breath), Weakness. Denies: Confusion, Headache, Numbness, Paresthesia, Pre-Existing Deficit, Seizure, Syncope, Tingling, Tremors, Trouble Speaking, Change in Speech, Gait Disturbance Psychiatric: Reports: No Symptoms - Patient Data Vitals - Most Recent: Last Vital Signs Temp 97.7 F 06/14/21 20:35 Pulse 77 06/14/21 21:23 Resp 26 H 06/14/21 20:35 BP 108/81 06/14/21 21:23 Pulse Ox 90 L 06/15/21 05:53 Weight - Most Recent: 132 lb 1.6 oz I&O - Last 24 Hours: Intake & Output 06/14/21 06/15/21 06/15/21 22:59 06:59 14:59 Intake Total 530 300 Output Total 550 400 Balance -20 -100 Lab Results Last 24 Hours: Laboratory Results - last 24 hr 06/14/21 Range/Units 09:00 C.difficile [id number] Presumptive negative C. difficile Tox (PCR) Negative Bipin Results Last 24 Hours: Microbiology 06/08/21 16:30 Blood Culture - Final Blood - Venous - Lab Draw 06/08/21 16:20 Blood Culture - Final Blood - Venous Med Orders - Current: Current Medications Al Hydroxide/Mg Hydroxide (Aluminum Hydroxide/Magnesium Hydroxide/Simethicone Susp 30 Ml Cup) 30 ml PO Q4H PRN PRN Reason: Heartburn Last Admin: 06/11/21 23:27 Dose: 30 ml Documented by: Albuterol (Albuterol 0.083% 2.5 Mg/3 Ml Neb Soln) 2.5 mg NEB Q2H PRN PRN Reason: Shortness Of Breath/wheezing Last Admin: 06/14/21 03:26 Dose: 2.5 mg Documented by: Albuterol/Ipratropium (Albuterol/Ipratropium 3.0-0.5 Mg/3 Ml Neb Soln) 3 ml NEB QIDRT [facility] Last Admin: 06/15/21 05:50 Dose: 3 ml Documented by: Aspirin (Aspirin 81 Mg Tab.Ec) 81 mg PO DAILY [facility] Last Admin: 06/14/21 08:44 Dose: 81 mg Documented by: Diltiazem HCl (Diltiazem 50 Mg/10 Ml Sdv) 10 mg IVPUSH Q1H PRN PRN Reason: Tachycardia Last Admin: 06/12/21 10:36 Dose: 10 mg Documented by: Docusate Sodium (Docusate Sodium 100 Mg Cap) 100 mg PO Q12H PRN PRN Reason: Constipation Last Admin: 06/10/21 09:12 Dose: 100 mg Documented by: Guaifenesin (Guaifenesin 600 Mg Tab.Er) 600 mg PO BID [facility] Last Admin: 06/14/21 20:28 Dose: 600 mg Documented by: Sodium Chloride (Normal Saline) 250 mls @ 40 mls/hr IV ASDIRECTED [facility] Last Admin: 06/11/21 15:51 Dose: 40 mls/hr Documented by: Loperamide HCl (Loperamide 2 Mg Cap) 2 mg PO Q4H PRN PRN Reason: Diarrhea Methylprednisolone Sodium Succinate (Methylprednisolone Sodium Succinate 40 Mg/1 Ml Sdv) 60 mg IVPUSH Q12H [facility] Last Admin: 06/15/21 06:41 Dose: 60 mg Documented by: Metoprolol Tartrate (Metoprolol Tartrate 25 Mg Tab) 25 mg PO Q12H [facility] Last Admin: 06/14/21 21:23 Dose: 25 mg Documented by: Ondansetron HCl (Ondansetron 4 Mg/2 Ml Sdv) 4 mg IV Q6H PRN PRN Reason: Nausea/Vomiting Sodium Chloride (Sodium Chloride 0.9% 10 Ml Syringe) 10 ml FLUSH ASDIRECTED PRN PRN Reason: Keep Vein Open Last Admin: 06/07/21 18:12 Dose: 10 ml Documented by: Warfarin Sodium (Pharmacy To Dose - Warfarin) 1 dose .XX ASDIRECTED PRN PRN Reason: RX TOD DOSE WARFARIN Discontinued Medications Albuterol (Albuterol 0.083% 2.5 Mg/3 Ml Neb Soln) 2.5 mg NEB ONETIME ONE Stop: 06/07/21 15:19 Last Admin: 06/07/21 15:47 Dose: 2.5 mg Documented by: Albuterol/Ipratropium (Albuterol/Ipratropium 3.0-0.5 Mg/3 Ml Neb Soln) 3 ml NEB ONETIME ONE Stop: 06/08/21 08:21 Last Admin: 06/08/21 08:37 Dose: 3 ml Documented by: Apixaban (Apixaban 5 Mg Tab) 10 mg PO BID [facility] Stop: 06/15/21 21:01 Last Admin: 06/10/21 09:13 Dose: 10 mg Documented by: Diltiazem HCl (Diltiazem Ir 30 Mg Tab) 30 mg PO Q8HR [facility] Last Admin: 06/13/21 05:51 Dose: 30 mg Documented by: Enoxaparin Sodium (Enoxaparin 40 Mg/0.4 Ml Syringe) 40 mg SUBCUT DAILY [facility] Last Admin: 06/08/21 14:49 Dose: 40 mg Documented by: Enoxaparin Sodium (Enoxaparin 60 Mg/0.6 Ml Syringe) 20 mg SUBCUT ONETIME ONE Stop: 06/08/21 16:31 Last Admin: 06/08/21 16:53 Dose: 20 mg Documented by: Enoxaparin Sodium (Enoxaparin 60 Mg/0.6 Ml Syringe) 60 mg SUBCUT Q12H [facility] Last Admin: 06/13/21 12:17 Dose: Not Given Documented by: Furosemide (Furosemide 40 Mg/4 Ml Vial) 40 mg IVPUSH NOW ONE Stop: 06/08/21 20:04 Last Admin: 06/08/21 21:33 Dose: 40 mg Documented by: Furosemide (Furosemide 20 Mg/2 Ml Vial) 20 mg IVPUSH TIDMEALS [facility] Last Admin: 06/11/21 06:34 Dose: 20 mg Documented by: Furosemide (Furosemide 20 Mg/2 Ml Vial) 20 mg IVPUSH DAILY [facility] Furosemide (Furosemide 20 Mg/2 Ml Vial) 20 mg IVPUSH DAILY [facility] Last Admin: 06/12/21 09:05 Dose: 20 mg Documented by: Sodium Chloride (Normal Saline) 100 mls @ 60 mls/min IV ASDIRECTED [facility] Last Admin: 06/07/21 18:12 Dose: 60 mls/min Documented by: Sodium Chloride (Normal Saline) 1,000 mls @ 250 mls/hr IV ASDIRECTED [facility] Last Admin: 06/07/21 22:14 Dose: 250 mls/hr Documented by: Ceftriaxone Sodium 1 gm/ (Sodium Chloride) 100 mls @ 200 mls/hr IV ONETIME ONE Stop: 06/08/21 09:25 Last Admin: 06/08/21 09:20 Dose: 200 mls/hr Documented by: Vancomycin HCl 1 gm/ Sodium (Chloride) 250 mls @ 250 mls/hr IV Q18H [facility] Last Admin: 06/08/21 14:26 Dose: Not Given Documented by: Vancomycin HCl 1 gm/ Sodium (Chloride) 250 mls @ 250 mls/hr IV Q18H [facility] Last Admin: 06/08/21 15:37 Dose: Not Given Documented by: Piperacillin Sod/Tazobactam (Sod 4.5 gm/ Sodium Chloride) 100 mls @ 200 mls/hr IV ONETIME ONE Stop: 06/08/21 14:59 Last Admin: 06/08/21 14:19 Dose: 200 mls/hr Documented by: Piperacillin Sod/Tazobactam (Sod 4.5 gm/ Sodium Chloride) 100 mls @ 25 mls/hr IV Q8H [facility] Last Admin: 06/11/21 06:34 Dose: 25 mls/hr Documented by: Vancomycin HCl 1 gm/ Sodium (Chloride) 250 mls @ 250 mls/hr IV Q18H [facility] Stop: 06/10/21 23:59 Last Admin: 06/10/21 22:00 Dose: 250 mls/hr Documented by: Sodium Chloride (Normal Saline) 1,000 mls @ 100 mls/hr IV ASDIRECTED [facility] Vancomycin HCl 1 gm/ Sodium (Chloride) 250 mls @ 250 mls/hr IV Q12H [facility] Potassium Chloride 10 meq/ (Premix) 100 mls @ 100 mls/hr IV Q1H [facility] Stop: 06/11/21 12:59 Last Admin: 06/11/21 15:37 Dose: 100 mls/hr Documented by: Iopamidol (Iopamidol 755 Mg/Ml 100 Ml Bottle) 100 ml IVPUSH ONETIME ONE Stop: 06/07/21 18:12 Last Admin: 06/07/21 18:12 Dose: 100 ml Documented by: Loperamide HCl (Loperamide 2 Mg Cap) 4 mg PO ONETIME ONE Stop: 06/14/21 10:51 Last Admin: 06/14/21 11:06 Dose: 4 mg Documented by: Methylprednisolone Sodium Succinate (Methylprednisolone Sodium Succinate 125 Mg/2 Ml Sdv) 125 mg IVPUSH ONETIME ONE Stop: 06/08/21 08:21 Last Admin: 06/08/21 08:25 Dose: 125 mg Documented by: Methylprednisolone Sodium Succinate (Methylprednisolone Sodium Succinate 40 Mg/1 Ml Sdv) 60 mg IVPUSH Q8H [facility] Last Admin: 06/14/21 06:45 Dose: 60 mg Documented by: Potassium Chloride (Potassium Chloride 10 Meq Tab.Er) 10 meq PO TID [facility] Last Admin: 06/10/21 22:00 Dose: 10 meq Documented by: Potassium Chloride (Potassium Chloride 20 Meq Tab.Er) 20 meq PO ONETIME ONE Stop: 06/09/21 07:21 Last Admin: 06/09/21 08:37 Dose: 20 meq Documented by: Sodium Chloride (Sodium Chloride 0.9% 10 Ml Sdv) 10 ml FLUSH ONETIME ONE Stop: 06/07/21 18:12 Last Admin: 06/07/21 20:31 Dose: 10 ml Documented by: Trimethoprim/Sulfamethoxazole (Sulfamethoxazole/Trimethoprim 800-160 Mg Tab) 1 tab PO BID [facility] Last Admin: 06/14/21 08:44 Dose: 1 tab Documented by: Vancomycin HCl (Pharmacy To Dose - Vancomycin) 1 dose .XX ASDIRECTED [facility] Warfarin Sodium (Warfarin 4 Mg Tab) 4 mg PO QPM [facility] Stop: 06/10/21 18:01 Last Admin: 06/10/21 18:08 Dose: 4 mg Documented by: Warfarin Sodium (Warfarin 4 Mg Tab) 4 mg PO QPM [facility] Stop: 06/11/21 18:01 Last Admin: 06/11/21 18:36 Dose: 4 mg Documented by: Warfarin Sodium (Warfarin 4 Mg Tab) 4 mg PO QPM [facility] Stop: 06/12/21 18:01 Last Admin: 06/12/21 18:15 Dose: 4 mg Documented by: Warfarin Sodium (Warfarin 1 Mg Tab) 1 mg PO QPM [facility] Last Admin: 06/13/21 18:04 Dose: 1 mg Documented by: Warfarin Sodium (Warfarin Sliding Scale) 0 each PO QPM [facility] Stop: 06/14/21 18:01 Last Admin: 06/14/21 17:46 Dose: Not Given Documented by: - Exam Quality Assessment: Supplemental Oxygen (High flow 55 L with 90% FiO2), DVT Prophylaxis. No: Urine Catheter General: Alert, Oriented, Cooperative, No Acute Distress HEENT: Pupils Equal, Pupils Reactive, Mucous Membr. Moist/[place] Neck: Supple, Trachea Midline Lungs: Normal Respiratory Effort, Decreased Breath Sounds, Crackles Cardiovascular: Regular Rate, Regular Rhythm GI/Abdominal Exam: Normal Bowel Sounds, Soft, Non-Tender, No Distention (Female) Exam: Deferred Back Exam: Normal Inspection, Full Range of Motion Extremities: Normal Inspection, Normal Range of Motion, Non-Tender, No Pedal Edema, Normal Capillary Refill Skin: Warm, Dry, Intact Neurological: No New Focal Deficit Psy/Mental Status: Alert, Normal Affect, Normal Mood - Patient Data Lab Results Last 24 hrs: Laboratory Results - last 24 hr 06/14/21 Range/Units 09:00 C.difficile [id number]-[id number] Presumptive negative C. difficile Tox (PCR) Negative Result Diagrams: 06/15/21 06:50 06/15/21 06:50 Bipin Results Last 24 hrs: Microbiology 06/08/21 16:30 Blood Culture - Final Blood - Venous - Lab Draw 06/08/21 16:20 Blood Culture - Final Blood - Venous Sepsis Event Note - Evaluation Sepsis Screening Result: No Definite Risk - Focused Exam Vital Signs: Vital Signs Temp Pulse Resp BP Pulse Ox Pulse Ox 06/15/21 05:53 90 L 06/14/21 21:23 77 108/81 06/14/21 20:35 97.7 F 77 26 H 108/81 88 L 06/14/21 20:07 90 L - Problem List & Annotations (1) History of COVID-19 SNOMED Code(s): 871819499018768485, 741411042131006278 Code(s): Z86.16 - PERSONAL HISTORY OF COVID-19 Status: Chronic Priority: Medium Current Visit: Yes (2) Elevated d-dimer SNOMED Code(s): 510072034 Code(s): R79.89 - OTHER SPECIFIED ABNORMAL FINDINGS OF BLOOD CHEMISTRY Status: Acute Priority: Medium Current Visit: Yes (3) Elevated troponin SNOMED Code(s): 227862960, 724394810, 435283532 Code(s): R77.8 - OTHER SPECIFIED ABNORMALITIES OF PLASMA PROTEINS Status: Resolved Priority: High Current Visit: Yes (4) Pneumonia SNOMED Code(s): 289124124 Code(s): J18.9 - PNEUMONIA, UNSPECIFIED ORGANISM Status: Ruled-out Priority: High Current Visit: Yes Qualifiers: Pneumonia type: due to unspecified organism Laterality: unspecified laterality Lung location: unspecified part of lung Qualified Code(s): J18.9 - Pneumonia, unspecified organism (5) Dyspnea SNOMED Code(s): 755805687 Code(s): R06.00 - DYSPNEA, UNSPECIFIED Status: Acute Priority: High Current Visit: Yes Qualifiers: Dyspnea type: unspecified Qualified Code(s): R06.00 - Dyspnea, unspecified (6) Hypoxia SNOMED Code(s): 881163461 Code(s): R09.02 - HYPOXEMIA Status: Acute Priority: High Current Visit: Yes (7) UTI (urinary tract infection) SNOMED Code(s): 20266478 Code(s): N39.0 - URINARY TRACT INFECTION, SITE NOT SPECIFIED Status: Acute Priority: High Current Visit: Yes Qualifiers: Urinary tract infection type: site unspecified Hematuria presence: without hematuria Qualified Code(s): N39.0 - Urinary tract infection, site not specified (8) Elevated brain natriuretic peptide (BNP) level SNOMED Code(s): 822039693, 406701790 Code(s): R79.89 - OTHER SPECIFIED ABNORMAL FINDINGS OF BLOOD CHEMISTRY Status: Acute Priority: High Current Visit: Yes (9) On home oxygen therapy SNOMED Code(s): 269388584367 Code(s): Z99.81 - DEPENDENCE ON SUPPLEMENTAL OXYGEN Status: Chronic Priority: Medium Current Visit: Yes (10) GERD (gastroesophageal reflux disease) SNOMED Code(s): 081102231 Code(s): K21.9 - GASTRO-ESOPHAGEAL REFLUX DISEASE WITHOUT ESOPHAGITIS Status: Chronic Priority: Low Current Visit: No Qualifiers: Esophagitis presence: esophagitis presence not specified Qualified Code(s): K21.9 - Gastro-esophageal reflux disease without esophagitis (11) Meniere disease SNOMED Code(s): 68143420 Code(s): H81.09 - MENIERE'S DISEASE, UNSPECIFIED EAR Status: Chronic Priority: Low Current Visit: No Qualifiers: Laterality: unspecified laterality Qualified Code(s): H81.09 - Meniere's disease, unspecified ear (12) DVT (deep venous thrombosis) SNOMED Code(s): 827643118 Code(s): I82.409 - ACUTE EMBOLISM AND THOMBOS UNSP DEEP VN UNSP LOWER EXTREMITY Status: Acute Priority: High Current Visit: Yes Qualifiers: DVT location: lower extremity Affected thrombotic vein of extremity: unspecified vein of extremity Chronicity: acute Laterality: left Qualified Code(s): I82.402 - Acute embolism and thrombosis of unspecified deep veins of left lower extremity (13) Hypotension SNOMED Code(s): 45550442 Code(s): I95.9 - HYPOTENSION, UNSPECIFIED Status: Resolved Priority: High Current Visit: Yes Qualifiers: Hypotension type: unspecified hypotension type Qualified Code(s): I95.9 - Hypotension, unspecified (14) Acute and chronic respiratory failure SNOMED Code(s): 98976386 Code(s): J96.20 - ACUTE AND CHR RESP FAILURE, UNSP W HYPOXIA OR HYPERCAPNIA Status: Acute Priority: High Current Visit: Yes Qualifiers: Respiratory failure complication: hypoxia Qualified Code(s): J96.21 - Acute and chronic respiratory failure with hypoxia (15) Myocarditis SNOMED Code(s): 72045945 Code(s): I51.4 - MYOCARDITIS, UNSPECIFIED Status: Suspected Priority: High Current Visit: Yes Qualifiers: Myocarditis type: infective Infective myocarditis organism: viral Chronicity: acute Qualified Code(s): I40.0 - Infective myocarditis (16) Hypokalemia SNOMED Code(s): 16105848 Code(s): E87.6 - HYPOKALEMIA Status: Resolved Priority: High Current Visit: Yes (17) Pulmonary fibrosis SNOMED Code(s): 44832702 Code(s): J84.10 - PULMONARY FIBROSIS, UNSPECIFIED Status: Suspected Priority: High Current Visit: Yes (18) Diarrhea SNOMED Code(s): 68523518 Code(s): R19.7 - DIARRHEA, UNSPECIFIED Status: Acute Priority: Medium Current Visit: Yes Qualifiers: Diarrhea type: unspecified type Qualified Code(s): R19.7 - Diarrhea, unspecified (19) New onset a-fib SNOMED Code(s): 21531768 Code(s): I48.91 - UNSPECIFIED ATRIAL FIBRILLATION Status: Acute Priority: High Current Visit: Yes - Problem List Review Problem List Initiated/Reviewed/Updated: Yes - My Orders Last 24 Hours: My Active Orders 06/14/21 15:00 Loperamide [Imodium] 2 mg PO Q4H PRN 06/14/21 19:00 methylPREDNISolone Sod Succ [Solu-MEDROL] 60 mg IVPUSH Q12H 06/15/21 06:50 BASIC METABOLIC PANEL,BMP [CHEM] AM CBC WITH AUTO DIFF [HEME] AM CRP [C-REACTIVE PROTEIN] [CHEM] AM INR,PT,PROTHROMBIN TIME [COAG] AM MAGNESIUM [CHEM] AM 06/16/21 05:11 BASIC METABOLIC PANEL,BMP [CHEM] AM CBC WITH AUTO DIFF [HEME] AM CRP [C-REACTIVE PROTEIN] [CHEM] AM INR,PT,PROTHROMBIN TIME [COAG] AM MAGNESIUM [CHEM] AM 06/17/21 05:11 BASIC METABOLIC PANEL,BMP [CHEM] AM CBC WITH AUTO DIFF [HEME] AM CRP [C-REACTIVE PROTEIN] [CHEM] AM INR,PT,PROTHROMBIN TIME [COAG] AM MAGNESIUM [CHEM] AM 06/18/21 05:11 BASIC METABOLIC PANEL,BMP [CHEM] AM CBC WITH AUTO DIFF [HEME] AM CRP [C-REACTIVE PROTEIN] [CHEM] AM INR,PT,PROTHROMBIN TIME [COAG] AM MAGNESIUM [CHEM] AM - Assessment Assessment:: Admission assessment - 06/08/2021 * 80-year-old female who presents to ED on 06/07/2021 with low oxygen saturations * History of Mnire's disease, GERD, and prior Covid pneumonia * Was hospitalized from 05/17/2021 through 05/31/2021 with COVID-19 pneumonia at [facility] in [place]. * Discharged home on 4 L of oxygen with activity after completing 4 days of remdesivir and 10 days of Decadron. * Of note patient was noted to have episodes of bradycardia and hypotension with heart rate in the 30s and 40s. She was noticed to have episodes of Mobitz type I AV block and 2.5-second sinus pauses. It was believed this was due to remdesivir however this continued after stopping. Patient was to follow-up wit h EP and have a 2-week head of geography after discharge. * Prior to presenting to the ED she was noted to have saturations in the low 50s. * Patient's increased her oxygen to 8 L via nasal cannula. * Denies any recent fever, chills, nausea, vomiting, diarrhea, urinary symptoms, or smoking history. * Of note patient did have acute cystitis with an E. coli UTI well in the hospital in [place] and completed 5 days of Rocephin there. * 12-lead EKG was obtained showing a sinus tachycardia at 109 bpm with a LAFB and very mild ST elevation in V2 and V3. * Placed on a nonrebreather mask which improved her saturations to 90 to 91%. * Noted to be dyspneic and only able to complete a few word sentences. * Labs are obtained: * WBC of 8.57. * Hemoglobin 13.0. * Hematocrit 30.5. * Platelet 250,000. * Neutrophils are elevated 75.7%. * D-dimer is very high at 8.16. * Sodium is low at 129. * Potassium 3.8. * Chloride 94. * Carbon dioxide 24. * Anion gap is 14.8. * BUN is 15. Creatinine 0.6. GFR greater than 60. * Glucose is 126. * Calcium 8.7. * Magnesium 1.8. * Total bilirubin 0.6. * AST is 36, ALT 31, alkaline phosphatase 86. * Troponin is elevated at 0.127-->0.156-->0.067. * CRP is very high at 29.3. * Protein 7.1. * Albumin 2.1. * proBNP is 3117 * UA is obtained and is mildly positive with slightly cloudy urine, 1+ protein, 3+ ketones, 2+ occult blood, 1+ leukocyte esterase, 5-10 RBCs, 20- 30 WBCs, rare WBC clumps, and moderate bacteria. * ABG obtained in the left radial with a pH of 7.44. PCO2 of 30.9. PO2 of 58.0. HCO3 of 20.5. O2 saturations 86%. Base excess is -2.3. Aa gradient is 15.0. This is obtained while on nonrebreather at 15 L. * Facility was out of CPAP and BiPAP-> started on high flow O2 with saturations in the low 90s. * CTA of the chest is obtained to rule out PE and shows: * 1. No findings of pulmonary embolism. * 2. Minimal left-sided pleural effusion. * 3. Diffuse emphysematous changes seen. Both lungs show diffuse increased density uncertain how much of this represents diffuse fibrosis versus possible superimposed pneumonia. Old comparison studies would be needed if available. * 4. 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 * 5. Other findings which are felt to be chronic as described above. * Chest x-ray shows scattered infiltrates bilaterally most prominent in the left lower lobe. * Plan was to transfer the patient for continued care due to elevated troponin however no beds are noted to be available [place], [place], or [place]. * Noted to have a blood pressure of 80/61 and is given a 500 mill fluid bolus over 2 hours. * Given 1 dose of Rocephin in the ED. She is also given 125 mg Solu-Medrol and a DuoNeb, which she reports greatly helped. * Ultimately inpatient bed does open up at our facility and she is admitted to the floor on telemetry for management of her hypoxia, suspected pneumonia, elevated BNP, elevated troponin - likely demand ischemia, and questionable UTI. * On floor bilateral lower extremity ultrasound shows thrombus within the left mid and distal superficial, femoral, popliteal, posterior tibial, and peroneal veins. 06/09/2021 This is a 80 years old female post Covid infection who was hospitalized in [place] for approximately 2 weeks who presented to our ED with low saturations. On admission D-dimer was noted to be elevated however CTA was negative for any PE. Lower extremity ultrasound did show a DVT in the left extremity and patient was started on 1 mg/kg Lovenox transitioning to 10 mg twice daily Eliquis today. Patient has been requiring high flow 60 L and was weaned down to 80% FiO2 today. Unfortunately given patient's history of recent Covid infection CTA was not very helpful in differentiating pulmonary cause. Given recent hospitalization there are concerns of a secondary bacterial infection. WBC has been WNL however neutrophils are elevated. Procalcitonin was obtained and was 0.29. Lactic acid yesterday was 1.0. Patient was noted to be hypotensive in the emergency room and was given 2 fluid boluses. She was also started on fluids over concerns of sepsis. UA was positive and urine culture is growing out greater than 100,000 CFU's of gram-negative rods thus far. She does have a history of a E. coli UTI treated with Rocephin in [place]. Patient denies any urinary symptoms. proBNP was elevated. Echocardiogram was obtained on 06/08/2021 And interpreted as: " 1. The left ventricular internal cavity size is normal. 2. Normal left ventricular systolic function. 3. Left ventricular ejection fraction, by visual estimation, is 55 to 60%. 4. No regional wall motion abnormalities. 5. Mild proximal septal hypertrophy. 6. Aortic valve is tricuspid. 7. Mild mitral valve regurgitation. 8. Trace tricuspid valve regurgitation. 9. Mild pulmonic valve regurgitation. 10. The inferior vena cava is normal. 11. The right ventricular systolic pressure is mildly elevated at 32.2 mmHg." Patient was started on 20 mg IV push Lasix 3 times daily yesterday and has had over 1 L output. Potassium today is down to 3.3 and this is being supplemented. Sodium 137. Carbon dioxide 24. Anion gap is 13.3. BUN is 19. Creatinine 0.6. GFR greater than 60. Glucose is 146. Calcium 8.4. Magnesium is 1.8. Total bilirubin 0.5. AST is 26, ALT 26, alkaline phosphatase 90. Troponin today was down to 0.031. CRP is down to 24.2. Albumin is down to 1.8. Mycoplasma and strep pneumonia were both checked and were negative. Respiratory viral panel was obtained and was negative however patient did return positive for Covid, which is unsurprising given the patient's recent known Covid infection. We will continue current treatment plan. It is felt it is prudent to continue IV antibiotics for now given patient's symptoms and lab results. We will continue diuresis and Eliquis for DVT treatment. 06/10/2021 This is a 80-year-old female post Covid infection who was admitted for suspected pneumonia, pulmonary fibrosis, myocarditis, DVT, and apparent UTI. Labs today show WBC of 8.94. Hemoglobin is 11.1. Neutrophils are elevated 77.7%. Smear review feels slight toxic granulation and abnormal RBC morphology. Sodium today is 140. Potassium 3.7. Chloride 103. Carbon dioxide 20. Anion gap is 12.7. BUN is 25. Creatinine 0.8. GFR greater than 60. Magnesium is 1.9. Bilirubin 0.5. AST is 24, ALT 29, alkaline phosphatase is 90. CRP is down to 12.5. Albumin is 1.8. Patient does report that she feels quite a bit better today. She is down on high flow to 55 L with an FiO2 of 70% with saturations of upper 80s to low 90s. Urine culture continues to show greater than 100,000 CFU's of E. coli. Sensitivities are pending. Blood cultures have returned negative. Strep pneumonia is negative. Discussed plan of care with Dr. Ibarra who recommends patient receive 1 more dose of Lasix and then either discontinue or continue with 20 mg daily. We will continue vancomycin and Zosyn due to concerns over possible pneumonia. Unfortunately today patient reported that her insurance company tells her Eliquis will be $600 for 30-day supply. She states she cannot afford this. Apparently Xarelto is around the same pricing per case management. We will therefore discontinue Eliquis start patient on 1 mg/kg Lovenox twice daily and start warfarin with pharmacy to dose. Patient has had no fevers. We will continue current treatment plan and hope to wean patient off of high flow. Unknown length of stay due to severity of symptoms. 06/11/2021 80-year-old female who is post Covid admitted for suspected pneumonia, pulmonary fibrosis, suspected myocarditis, DVT and UTI. Labs today show WBC of 8.33. Hemoglobin is 11.7. Neutrophils are 70.6. INR is 1.20. Sodium is 137. Potassium 3.2. Chloride 98. Carbon dioxide 29. Anion gap is 13.2. BUN is 29. Creatinine 1.0. GFR 53. Glucose 101. CRP is up to 16.2. Albumin is 1.9. Discussed plan of care with Dr. Youssef, attending hospitalist. We will at this time discontinue vancomycin and Zosyn and switch patient to Bactrim DS twice daily based on E. coli urine sensitivities. We will repeat a procalcitonin. We will also decrease Lasix to 20 mg IV push daily. Patient's potassium will be supplemented. Pharmacy continues to dose warfarin and patient remains on 1 mg/kg twice daily Lovenox bridging. Will start patient on 60 mg every 8 hour IV push methylprednisolone. Patient has been reporting difficulty with swallowing pills. Because of this we will order an RENEWAL SPECIALIST evaluation. We have made some improvement with her high flow she is now at 55 L with an FiO2 of 65%. We will continue to wean as patient tolerates. Unknown length of stay due to severity of symptoms. 06/12/2021 80-year-old female with post Covid admitted for suspected pneumonia, pulmonary fibrosis, suspected myocarditis, DVT, and UTI developed A. fib with RVR with rates in the 110s to 120s+ this morning. This required increasing oxygen support with high flow nasal cannula at 60 L with FiO2 of 95% and nonrebreather mask. Patient continues to be DNR/DNI. She was given 1 dose of Cardizem 10 mg IV x1. Blood pressure was stable with systolic in the 120s. After rate control was achieved we were able to remove the nonrebreather mask. CRP continues to be elevated at 12.7. She was started on methylprednisolone yesterday and switched vancomycin and Zosyn to Bactrim for her UTI. Procalcitonin did return at 0.18 reassuring us that she does not have a severe bacterial sepsis. Patient is getting warfarin secondary to DVT with INR today at 1.85. She continues on Lovenox until therapeutic INR. EKG shows diffuse T wave inversion consistent with heart strain. Troponin was drawn and increased to 0.14. Also suggesting some component of heart strain versus infarction. EKG also demonstrates new onset atrial fibrillation. She is not a candidate for transfer at this time and is already on full dose Lovenox and INR is 1.8 as we titrate up her warfarin. 06/13/2021 Patient has had a marginal improvement with high flow nasal cannula at 60 L and FiO2 of 90%. She no longer has a nonrebreather mask over it. Her INR is now supratherapeutic and her Lovenox will be held. Pharmacy is dosing INR. Creatinine is 1.4 with estimated GFR of 36 and BUN of 49. Lasix was stopped after the morning dose yesterday. Today is day 6 of antibiotics for her UTI and she should be able to stop them tomorrow. White count has increased to 12.5, but she has been placed on moderately high Solu-Medrol. INR is also likely higher because of the Bactrim. This will make getting her INR stabilized difficult. 06/14/2021 This is a 80-year-old female post Covid who was admitted due to acute on chronic respiratory failure. She has been requiring high flow and is currently on 55 L with an FiO2 of 85%. She is initially treated for possible pneumonia and given labs and CT results it appears she has more of a pulmonary fibrosis picture. She was noted to have a UTI and was switched to Bactrim DS and she will complete treatment today. Questioning myocarditis. She also has a left leg DVT and was started on Eliquis, however patient has concerns with affording this and she was switched to warfarin. INR today is 4.21. She was started on steroids and will be decreased to 60 mg IV push Solu-Medrol twice daily today. Given the Bactrim and Solu-Medrol her INR has been somewhat variable with difficult to dose warfarin. Pharmacy continues to dose this. WBC today is 11.29. Hemoglobin 11.3. Platelet 391,000. Neutrophils are 87%. Sodium 135. Potassium 4.4. Chloride 104. Carbon dioxide 25. Anion gap 10.4. BUN is 55. Creatinine 1.1. GFR is up to 48. Glucose is 126. Phosphorus 3.4. Magnesium 2.2. Total bilirubin 0.2. AST is 18, ALT 24, alkaline phosphatase 62. CRP is down to 3.2. Protein is 5.9. Albumin is down to 1.9. Patient was complaining of some diarrhea today and given all of her antibiotic she was on we checked a C. difficile which was negative. We will therefore schedule Imodium. Unknown length of stay due to severity of symptoms and concern over minimal improvement in oxygenation. We will look at possible swing bed/LTAC facilities in the future. 06/15/2021 This is a 80-year-old female post COVID-19 pneumonia who was admitted to the floor due to acute respiratory failure now believed to be secondary to pulmonary fibrosis. She was also noted to have a left leg DVT and was started on Eliquis ultimately is being switched to warfarin with Lovenox bridging. UA and culture were suggestive of E. coli UTI and she completed treatment for this. Remains on high flow 50 L with an FiO2 of 90% and we have not been able to make much movement with this. She continues to have dyspnea with exertion. She has mild diarrhea which is improving. C. difficile screen was negative. Labs today show WBC which is elevated at 12.79, likely secondary to steroid use. Platelet is 423. INR on warfarin is therapeutic at 2.50. Sodium is 136. Potassium 4.9. Chloride 104. Carbon oxide 25. Anion gap 11.9. BUN is 55. Creatinine 1.0. GFR is up to 53. Calcium is 8.9. Magnesium is 2.2. CRP is down to 1.8. Overall she remains stable. was in room today and all questions were answered. We discussed the possibility of a transfer to an LTAC such as [facility] and [facility] and they are very interested in this. We discussed how she may never recover from this and if she does it will be very slow progress. She is currently on 60 mg twice daily Solu-Medrol and we will continue to wean this. Plan will be to discharge to LTAC once available. - Plan Plan:: Dyspnea Hypoxia History of COVID-19 On home oxygen therapy Acute on chronic respiratory failure Pulmonary fibrosis -on CT scan * Droplet isolation (airborne/contact while on high flow O2) * O2 as needed to keep saturation greater than 90% * I-S/Acapella * Discontinued zosyn and vancomycin on 06/11/2021 * High flow oxygen as directed * 4 times daily scheduled DuoNebs * Every 2 hours as needed albuterol nebulizer * Consult RT * Telemetry * Blood cultures negative * Continuous pulse oximetry * Mucinex BID * Recommend PFT after recovery due to emphysematous changes noted in CTA * Recommend pulmonology follow-up after discharge * Repeat procalcitonin 0.18 on 06/11/2021 * Continue solu-medrol 60mg BID * Continue to follow CRP DVT Elevated d-dimer * CTA in ED negative for PE * Discontinue Eliquis as patient reports $600 for 30 day supply * Warfarin with pharmacy to dose; INR for today therapeutic * DC Lovenox 60mg (1mg/kg) BID as bridging Myocarditis - suspected Elevated troponin, resolved Elevated brain natriuretic peptide (BNP) level New onset A-fib * Troponin increased returned to normal of 0.056 and she is back in sinus rhythm * Metoprolol tartrate - 25mg BID * Continue 81mg daily aspirin * DC Cardizem and switch to PRN * Echocardiogram obtained as noted * Monitor patient's weight * Monitor I&O's * Telemetry * Continue to hold Lasix * Supplement potassium as needed * Monitor CRP UTI (urinary tract infection), Resolved * UA weakly positivepatient was treated for E. coli UTI with Rocephin in [place] * Urine culture showing >100cfu E. Coli, with good sensitivities to Bactrim DS * Blood cultures negative thus far * Switch from zosyn/vancomycin to Bactrim DS BID PO --> Completed treatment on 06/14/2021 GERD (gastroesophageal reflux disease) * No acute concerns * Monitor Meniere disease * No acute concerns * Monitor Hypokalemiaresolved * Supplement as needed Hypotension - resolved * Noted in ED and multiple fluid boluses given * Monitor Dysphagia * Patient reports difficulty swallowing pills * RENEWAL SPECIALIST evaluation -> crush pills Diarrhea, improved * Check c. diff -->negative * ContinuePRN Imodium Code status: DNR/DNI PCP: Dr. Morley in [place] DVT prophylaxis: Warfarin Disposition: Patient admitted to the floor for management and further work-up of suspected pneumonia, hypoxia, elevated troponin, elevated D-dimer, and weak UTI. Length of stay greater than 96 hours due to need for continued treatment. Unfortunately very poor overall prognosis
[2021-06-15] MEDS: Metoprolol Tartrate 25 MG Tab PO SCH ×2 (09:19→21:19)
[2021-06-15] MEDS: Aspirin 81 MG Tab.EC PO SCH (09:19)
[2021-06-15] MEDS: guaiFENesin 600 MG Tab.ER PO SCH ×2 (09:20→21:19)
[2021-06-15] MEDS ORDERED: Warfarin 3 MG Tab PO SCH (18:00)
[2021-06-16] MEDS: Albuterol/Ipratropium 3.0-0.5 MG/3 ML Neb Soln NEB SCH ×4 (06:15→20:10)
[2021-06-16] MEDS: methylPREDNISolone Sodium Succinate 40 MG/1 ML SDV IVPUSH SCH ×2 (06:34→09:06)
--- NOTE | 2021-06-16 07:53 | PCM.PN ---
- General Info Date of Service: 06/16/21 Admission Dx/Problem (Free Text): Admission Diagnosis/Problem Admission Diagnosis/Problem Hypoxia Functional Status: Reports: Pain Controlled, Tolerating Diet, Ambulating, Urinating, Incentive Spirometry. Denies: New Symptoms - Review of Systems General: Reports: Weakness. Denies: Fever, Fatigue, Malaise, Chills HEENT: Reports: No Symptoms. Denies: Headaches, Sore Throat Pulmonary: Reports: Shortness of Breath, Cough. Denies: Sputum Cardiovascular: Reports: Dyspnea on Exertion. Denies: Chest Pain, Palpitations, Edema Gastrointestinal: Reports: Diarrhea (mild ). Denies: Abdominal Pain, Constipation, Nausea, Vomiting Genitourinary: Reports: No Symptoms. Denies: Pain Musculoskeletal: Reports: No Symptoms Skin: Reports: No Symptoms. Denies: Cyanosis Neurological: Reports: Difficulty Walking (2/2 oxygen demand). Denies: Confusion, Dizziness, Headache, Numbness, Pre-Existing Deficit, Seizure, Syncope, Tingling, Trouble Speaking Psychiatric: Reports: No Symptoms - Patient Data Vitals - Most Recent: Last Vital Signs Temp 98.1 F 06/16/21 05:31 Pulse 59 L 06/16/21 05:31 Resp 25 H 06/16/21 05:31 BP 125/108 H 06/16/21 05:31 Pulse Ox 91 L 06/16/21 06:15 Weight - Most Recent: 131 lb 11.2 oz I&O - Last 24 Hours: Intake & Output 06/15/21 06/16/21 06/16/21 22:59 06:59 14:59 Intake Total 380 800 Output Total 600 750 Balance -220 50 Lab Results Last 24 Hours: Laboratory Results - last 24 hr 06/16/21 06/16/21 06/16/21 Range/Units 05:20 05:20 05:20 WBC 12.41 H (3.98-10.04) K/mm3 RBC 3.95 L (3.98-5.22) M/mm3 Hgb 11.7 (11.2-15.7) gm/dl Hct 36.0 (34.1-44.9) % MCV 91.1 (79.4-94.8) fl MCH 29.6 (25.6-32.2) pg MCHC 32.5 (32.2-35.5) g/dl RDW Std Deviation 47.6 H (36.4-46.3) fL Plt Count 393 H (182-369) K/mm3 MPV 10.3 (9.4-12.3) fl Neut % (Auto) 88.9 H (34.0-71.1) % Lymph % (Auto) 5.0 L (19.3-51.7) % Cook % (Auto) 4.7 (4.7-12.5) % Eos % (Auto) 0 L (0.7-5.8) Baso % (Auto) 0.1 (0.1-1.2) % Neut # (Auto) 11.04 H (1.56-6.13) K/mm3 Lymph # (Auto) 0.62 L (1.18-3.74) K/mm3 Cook # (Auto) 0.58 H (0.24-0.36) K/mm3 Eos # (Auto) 0.00 L (0.04-0.36) K/mm3 Baso # (Auto) 0.01 (0.01-0.08) K/mm3 PT 21.2 H (9.7-12.0) SECONDS INR 1.96 Sodium 136 (136-145) mEq/L Potassium 5.0 (3.5-5.1) mEq/L Chloride 106 (98-107) mEq/L Carbon Dioxide 22 (21-32) mEq/L Anion Gap 13.0 (5-15) BUN 51 H (7-18) mg/dL Creatinine 0.8 (0.55-1.02) mg/dL Est Cr Clr Drug Dosing 43.03 mL/min Estimated GFR (MDRD) > 60 (>60) mL/min BUN/Creatinine Ratio 63.8 H (14-18) Glucose 111 H (70-99) mg/dL Calcium 8.8 (8.5-10.1) mg/dL Magnesium 2.0 (1.8-2.4) mg/dL C-Reactive Protein 0.6 (<1.0) mg/dL Med Orders - Current: Current Medications Al Hydroxide/Mg Hydroxide (Aluminum Hydroxide/Magnesium Hydroxide/Simethicone Susp 30 Ml Cup) 30 ml PO Q4H PRN PRN Reason: Heartburn Last Admin: 06/11/21 23:27 Dose: 30 ml Documented by: Albuterol (Albuterol 0.083% 2.5 Mg/3 Ml Neb Soln) 2.5 mg NEB Q2H PRN PRN Reason: Shortness Of Breath/wheezing Last Admin: 06/14/21 03:26 Dose: 2.5 mg Documented by: Albuterol/Ipratropium (Albuterol/Ipratropium 3.0-0.5 Mg/3 Ml Neb Soln) 3 ml NEB QIDRT [facility] Last Admin: 06/16/21 06:15 Dose: 3 ml Documented by: Aspirin (Aspirin 81 Mg Tab.Ec) 81 mg PO DAILY [facility] Last Admin: 06/15/21 09:19 Dose: 81 mg Documented by: Diltiazem HCl (Diltiazem 50 Mg/10 Ml Sdv) 10 mg IVPUSH Q1H PRN PRN Reason: Tachycardia Last Admin: 06/12/21 10:36 Dose: 10 mg Documented by: Docusate Sodium (Docusate Sodium 100 Mg Cap) 100 mg PO Q12H PRN PRN Reason: Constipation Last Admin: 06/10/21 09:12 Dose: 100 mg Documented by: Guaifenesin (Guaifenesin 600 Mg Tab.Er) 600 mg PO BID [facility] Last Admin: 06/15/21 21:19 Dose: 600 mg Documented by: Loperamide HCl (Loperamide 2 Mg Cap) 2 mg PO Q4H PRN PRN Reason: Diarrhea Methylprednisolone Sodium Succinate (Methylprednisolone Sodium Succinate 40 Mg/1 Ml Sdv) 60 mg IVPUSH Q12H [facility] Last Admin: 06/16/21 06:34 Dose: 60 mg Documented by: Metoprolol Tartrate (Metoprolol Tartrate 25 Mg Tab) 25 mg PO BID [facility] Ondansetron HCl (Ondansetron 4 Mg/2 Ml Sdv) 4 mg IV Q6H PRN PRN Reason: Nausea/Vomiting Sodium Chloride (Sodium Chloride 0.9% 10 Ml Syringe) 10 ml FLUSH ASDIRECTED PRN PRN Reason: Keep Vein Open Last Admin: 06/07/21 18:12 Dose: 10 ml Documented by: Warfarin Sodium (Pharmacy To Dose - Warfarin) 1 dose .XX ASDIRECTED PRN PRN Reason: RX TOD DOSE WARFARIN Discontinued Medications Albuterol (Albuterol 0.083% 2.5 Mg/3 Ml Neb Soln) 2.5 mg NEB ONETIME ONE Stop: 06/07/21 15:19 Last Admin: 06/07/21 15:47 Dose: 2.5 mg Documented by: Albuterol/Ipratropium (Albuterol/Ipratropium 3.0-0.5 Mg/3 Ml Neb Soln) 3 ml NEB ONETIME ONE Stop: 06/08/21 08:21 Last Admin: 06/08/21 08:37 Dose: 3 ml Documented by: Apixaban (Apixaban 5 Mg Tab) 10 mg PO BID [facility] Stop: 06/15/21 21:01 Last Admin: 06/10/21 09:13 Dose: 10 mg Documented by: Diltiazem HCl (Diltiazem Ir 30 Mg Tab) 30 mg PO Q8HR [facility] Last Admin: 06/13/21 05:51 Dose: 30 mg Documented by: Enoxaparin Sodium (Enoxaparin 40 Mg/0.4 Ml Syringe) 40 mg SUBCUT DAILY [facility] Last Admin: 06/08/21 14:49 Dose: 40 mg Documented by: Enoxaparin Sodium (Enoxaparin 60 Mg/0.6 Ml Syringe) 20 mg SUBCUT ONETIME ONE Stop: 06/08/21 16:31 Last Admin: 06/08/21 16:53 Dose: 20 mg Documented by: Enoxaparin Sodium (Enoxaparin 60 Mg/0.6 Ml Syringe) 60 mg SUBCUT Q12H [facility] Last Admin: 06/13/21 12:17 Dose: Not Given Documented by: Furosemide (Furosemide 40 Mg/4 Ml Vial) 40 mg IVPUSH NOW ONE Stop: 06/08/21 20:04 Last Admin: 06/08/21 21:33 Dose: 40 mg Documented by: Furosemide (Furosemide 20 Mg/2 Ml Vial) 20 mg IVPUSH TIDMEALS [facility] Last Admin: 06/11/21 06:34 Dose: 20 mg Documented by: Furosemide (Furosemide 20 Mg/2 Ml Vial) 20 mg IVPUSH DAILY [facility] Furosemide (Furosemide 20 Mg/2 Ml Vial) 20 mg IVPUSH DAILY [facility] Last Admin: 06/12/21 09:05 Dose: 20 mg Documented by: Sodium Chloride (Normal Saline) 100 mls @ 60 mls/min IV ASDIRECTED [facility] Last Admin: 06/07/21 18:12 Dose: 60 mls/min Documented by: Sodium Chloride (Normal Saline) 1,000 mls @ 250 mls/hr IV ASDIRECTED [facility] Last Admin: 06/07/21 22:14 Dose: 250 mls/hr Documented by: Ceftriaxone Sodium 1 gm/ (Sodium Chloride) 100 mls @ 200 mls/hr IV ONETIME ONE Stop: 06/08/21 09:25 Last Admin: 06/08/21 09:20 Dose: 200 mls/hr Documented by: Vancomycin HCl 1 gm/ Sodium (Chloride) 250 mls @ 250 mls/hr IV Q18H [facility] Last Admin: 06/08/21 14:26 Dose: Not Given Documented by: Vancomycin HCl 1 gm/ Sodium (Chloride) 250 mls @ 250 mls/hr IV Q18H [facility] Last Admin: 06/08/21 15:37 Dose: Not Given Documented by: Piperacillin Sod/Tazobactam (Sod 4.5 gm/ Sodium Chloride) 100 mls @ 200 mls/hr IV ONETIME ONE Stop: 06/08/21 14:59 Last Admin: 06/08/21 14:19 Dose: 200 mls/hr Documented by: Piperacillin Sod/Tazobactam (Sod 4.5 gm/ Sodium Chloride) 100 mls @ 25 mls/hr IV Q8H [facility] Last Admin: 06/11/21 06:34 Dose: 25 mls/hr Documented by: Vancomycin HCl 1 gm/ Sodium (Chloride) 250 mls @ 250 mls/hr IV Q18H [facility] Stop: 06/10/21 23:59 Last Admin: 06/10/21 22:00 Dose: 250 mls/hr Documented by: Sodium Chloride (Normal Saline) 1,000 mls @ 100 mls/hr IV ASDIRECTED [facility] Vancomycin HCl 1 gm/ Sodium (Chloride) 250 mls @ 250 mls/hr IV Q12H [facility] Potassium Chloride 10 meq/ (Premix) 100 mls @ 100 mls/hr IV Q1H [facility] Stop: 06/11/21 12:59 Last Admin: 06/11/21 15:37 Dose: 100 mls/hr Documented by: Sodium Chloride (Normal Saline) 250 mls @ 40 mls/hr IV ASDIRECTED [facility] Last Admin: 06/11/21 15:51 Dose: 40 mls/hr Documented by: Iopamidol (Iopamidol 755 Mg/Ml 100 Ml Bottle) 100 ml IVPUSH ONETIME ONE Stop: 06/07/21 18:12 Last Admin: 06/07/21 18:12 Dose: 100 ml Documented by: Loperamide HCl (Loperamide 2 Mg Cap) 4 mg PO ONETIME ONE Stop: 06/14/21 10:51 Last Admin: 06/14/21 11:06 Dose: 4 mg Documented by: Methylprednisolone Sodium Succinate (Methylprednisolone Sodium Succinate 125 Mg/2 Ml Sdv) 125 mg IVPUSH ONETIME ONE Stop: 06/08/21 08:21 Last Admin: 06/08/21 08:25 Dose: 125 mg Documented by: Methylprednisolone Sodium Succinate (Methylprednisolone Sodium Succinate 40 Mg/1 Ml Sdv) 60 mg IVPUSH Q8H [facility] Last Admin: 06/14/21 06:45 Dose: 60 mg Documented by: Metoprolol Tartrate (Metoprolol Tartrate 25 Mg Tab) 25 mg PO Q12H [facility] Last Admin: 06/15/21 21:19 Dose: 25 mg Documented by: Potassium Chloride (Potassium Chloride 10 Meq Tab.Er) 10 meq PO TID [facility] Last Admin: 06/10/21 22:00 Dose: 10 meq Documented by: Potassium Chloride (Potassium Chloride 20 Meq Tab.Er) 20 meq PO ONETIME ONE Stop: 06/09/21 07:21 Last Admin: 06/09/21 08:37 Dose: 20 meq Documented by: Sodium Chloride (Sodium Chloride 0.9% 10 Ml Sdv) 10 ml FLUSH ONETIME ONE Stop: 06/07/21 18:12 Last Admin: 06/07/21 20:31 Dose: 10 ml Documented by: Trimethoprim/Sulfamethoxazole (Sulfamethoxazole/Trimethoprim 800-160 Mg Tab) 1 tab PO BID [facility] Last Admin: 06/14/21 08:44 Dose: 1 tab Documented by: Vancomycin HCl (Pharmacy To Dose - Vancomycin) 1 dose .XX ASDIRECTED [facility] Warfarin Sodium (Warfarin 4 Mg Tab) 4 mg PO QPM [facility] Stop: 06/10/21 18:01 Last Admin: 06/10/21 18:08 Dose: 4 mg Documented by: Warfarin Sodium (Warfarin 4 Mg Tab) 4 mg PO QPM [facility] Stop: 06/11/21 18:01 Last Admin: 06/11/21 18:36 Dose: 4 mg Documented by: Warfarin Sodium (Warfarin 4 Mg Tab) 4 mg PO QPM [facility] Stop: 06/12/21 18:01 Last Admin: 06/12/21 18:15 Dose: 4 mg Documented by: Warfarin Sodium (Warfarin 1 Mg Tab) 1 mg PO QPM [facility] Last Admin: 06/13/21 18:04 Dose: 1 mg Documented by: Warfarin Sodium (Warfarin Sliding Scale) 0 each PO QPM [facility] Stop: 06/14/21 18:01 Last Admin: 06/14/21 17:46 Dose: Not Given Documented by: Warfarin Sodium (Warfarin 3 Mg Tab) 3 mg PO QPM [facility] Stop: 06/15/21 18:01 Last Admin: 06/15/21 19:19 Dose: 3 mg Documented by: - Exam Quality Assessment: Supplemental Oxygen (55 L with an FiO2 of 80%), DVT Prophylaxis. No: Urine Catheter General: Alert, Oriented, Cooperative, No Acute Distress HEENT: Pupils Equal, Pupils Reactive, Mucous Membr. Moist/[place] Neck: Supple, Trachea Midline Lungs: Decreased Breath Sounds, Crackles. No: Normal Respiratory Effort (Tachypnea) Cardiovascular: Regular Rate, Regular Rhythm GI/Abdominal Exam: Normal Bowel Sounds, Soft, Non-Tender, No Distention (Female) Exam: Deferred Back Exam: Normal Inspection, Full Range of Motion Extremities: Normal Inspection, Normal Range of Motion, Non-Tender, No Pedal Edema, Normal Capillary Refill Skin: Warm, Dry, Intact Neurological: No New Focal Deficit Psy/Mental Status: Alert, Normal Affect, Normal Mood - Patient Data Lab Results Last 24 hrs: Laboratory Results - last 24 hr 06/16/21 06/16/21 06/16/21 Range/Units 05:20 05:20 05:20 WBC 12.41 H (3.98-10.04) K/mm3 RBC 3.95 L (3.98-5.22) M/mm3 Hgb 11.7 (11.2-15.7) gm/dl Hct 36.0 (34.1-44.9) % MCV 91.1 (79.4-94.8) fl MCH 29.6 (25.6-32.2) pg MCHC 32.5 (32.2-35.5) g/dl RDW Std Deviation 47.6 H (36.4-46.3) fL Plt Count 393 H (182-369) K/mm3 MPV 10.3 (9.4-12.3) fl Neut % (Auto) 88.9 H (34.0-71.1) % Lymph % (Auto) 5.0 L (19.3-51.7) % Cook % (Auto) 4.7 (4.7-12.5) % Eos % (Auto) 0 L (0.7-5.8) Baso % (Auto) 0.1 (0.1-1.2) % Neut # (Auto) 11.04 H (1.56-6.13) K/mm3 Lymph # (Auto) 0.62 L (1.18-3.74) K/mm3 Cook # (Auto) 0.58 H (0.24-0.36) K/mm3 Eos # (Auto) 0.00 L (0.04-0.36) K/mm3 Baso # (Auto) 0.01 (0.01-0.08) K/mm3 PT 21.2 H (9.7-12.0) SECONDS INR 1.96 Sodium 136 (136-145) mEq/L Potassium 5.0 (3.5-5.1) mEq/L Chloride 106 (98-107) mEq/L Carbon Dioxide 22 (21-32) mEq/L Anion Gap 13.0 (5-15) BUN 51 H (7-18) mg/dL Creatinine 0.8 (0.55-1.02) mg/dL Est Cr Clr Drug Dosing 43.03 mL/min Estimated GFR (MDRD) > 60 (>60) mL/min BUN/Creatinine Ratio 63.8 H (14-18) Glucose 111 H (70-99) mg/dL Calcium 8.8 (8.5-10.1) mg/dL Magnesium 2.0 (1.8-2.4) mg/dL C-Reactive Protein 0.6 (<1.0) mg/dL Result Diagrams: 06/16/21 05:20 06/16/21 05:20 Sepsis Event Note - Evaluation Sepsis Screening Result: No Definite Risk - Focused Exam Vital Signs: Vital Signs Temp Pulse Resp BP Pulse Ox Pulse Ox 06/16/21 06:15 91 L 06/16/21 05:31 98.1 F 59 L 25 H 125/108 H 90 L 06/15/21 21:19 66 112/89 06/15/21 21:13 97.3 F 66 26 H 112/89 91 L 06/15/21 20:35 91 L - Problem List & Annotations (1) History of COVID-19 SNOMED Code(s): 333429114933393081, 061643636418013153 Code(s): Z86.16 - PERSONAL HISTORY OF COVID-19 Status: Chronic Priority: Medium Current Visit: Yes (2) Elevated d-dimer SNOMED Code(s): 583968655 Code(s): R79.89 - OTHER SPECIFIED ABNORMAL FINDINGS OF BLOOD CHEMISTRY Status: Acute Priority: Medium Current Visit: Yes (3) Elevated troponin SNOMED Code(s): 586032800, 398177689, 143590152 Code(s): R77.8 - OTHER SPECIFIED ABNORMALITIES OF PLASMA PROTEINS Status: Resolved Priority: High Current Visit: Yes (4) Pneumonia SNOMED Code(s): 796704252 Code(s): J18.9 - PNEUMONIA, UNSPECIFIED ORGANISM Status: Ruled-out Priori ty: High Current Visit: Yes Qualifiers: Pneumonia type: due to unspecified organism Laterality: unspecified laterality Lung location: unspecified part of lung Qualified Code(s): J18.9 - Pneumonia, unspecified organism (5) Dyspnea SNOMED Code(s): 239006587 Code(s): R06.00 - DYSPNEA, UNSPECIFIED Status: Acute Priority: High Current Visit: Yes Qualifiers: Dyspnea type: unspecified Qualified Code(s): R06.00 - Dyspnea, unspecified (6) Hypoxia SNOMED Code(s): 685148489 Code(s): R09.02 - HYPOXEMIA Status: Acute Priority: High Current Visit: Yes (7) UTI (urinary tract infection) SNOMED Code(s): 93687622 Code(s): N39.0 - URINARY TRACT INFECTION, SITE NOT SPECIFIED Status: Acute Priority: High Current Visit: Yes Qualifiers: Urinary tract infection type: site unspecified Hematuria presence: without hematuria Qualified Code(s): N39.0 - Urinary tract infection, site not specified (8) Elevated brain natriuretic peptide (BNP) level SNOMED Code(s): 683262547, 867898174 Code(s): R79.89 - OTHER SPECIFIED ABNORMAL FINDINGS OF BLOOD CHEMISTRY Status: Acute Priority: High Current Visit: Yes (9) On home oxygen therapy SNOMED Code(s): 704187960169 Code(s): Z99.81 - DEPENDENCE ON SUPPLEMENTAL OXYGEN Status: Chronic Priority: Medium Current Visit: Yes (10) GERD (gastroesophageal reflux disease) SNOMED Code(s): 258347662 Code(s): K21.9 - GASTRO-ESOPHAGEAL REFLUX DISEASE WITHOUT ESOPHAGITIS Status: Chronic Priority: Low Current Visit: No Qualifiers: Esophagitis presence: esophagitis presence not specified Qualified Code(s): K21.9 - Gastro-esophageal reflux disease without esophagitis (11) Meniere disease SNOMED Code(s): 67370071 Code(s): H81.09 - MENIERE'S DISEASE, UNSPECIFIED EAR Status: Chronic Priority: Low Current Visit: No Qualifiers: Laterality: unspecified laterality Qualified Code(s): H81.09 - Meniere's disease, unspecified ear (12) DVT (deep venous thrombosis) SNOMED Code(s): 300510674 Code(s): I82.409 - ACUTE EMBOLISM AND THOMBOS UNSP DEEP VN UNSP LOWER EXTREMITY Status: Acute Priority: High Current Visit: Yes Qualifiers: DVT location: lower extremity Affected thrombotic vein of extremity: unspecified vein of extremity Chronicity: acute Laterality: left Qualified Code(s): I82.402 - Acute embolism and thrombosis of unspecified deep veins of left lower extremity (13) Hypotension SNOMED Code(s): 59899803 Code(s): I95.9 - HYPOTENSION, UNSPECIFIED Status: Resolved Priority: High Current Visit: Yes Qualifiers: Hypotension type: unspecified hypotension type Qualified Code(s): I95.9 - Hypotension, unspecified (14) Acute and chronic respiratory failure SNOMED Code(s): 67871622 Code(s): J96.20 - ACUTE AND CHR RESP FAILURE, UNSP W HYPOXIA OR HYPERCAPNIA Status: Acute Priority: High Current Visit: Yes Qualifiers: Respiratory failure complication: hypoxia Qualified Code(s): J96.21 - Acute and chronic respiratory failure with hypoxia (15) Myocarditis SNOMED Code(s): 57377831 Code(s): I51.4 - MYOCARDITIS, UNSPECIFIED Status: Suspected Priority: High Current Visit: Yes Qualifiers: Myocarditis type: infective Infective myocarditis organism: viral Chronicity: acute Qualified Code(s): I40.0 - Infective myocarditis (16) Hypokalemia SNOMED Code(s): 09246080 Code(s): E87.6 - HYPOKALEMIA Status: Resolved Priority: High Current Visit: Yes (17) Pulmonary fibrosis SNOMED Code(s): 33240036 Code(s): J84.10 - PULMONARY FIBROSIS, UNSPECIFIED Status: Suspected Priority: High Current Visit: Yes (18) Diarrhea SNOMED Code(s): 54030001 Code(s): R19.7 - DIARRHEA, UNSPECIFIED Status: Acute Priority: Medium Current Visit: Yes Qualifiers: Diarrhea type: unspecified type Qualified Code(s): R19.7 - Diarrhea, unspecified (19) New onset a-fib SNOMED Code(s): 82880331 Code(s): I48.91 - UNSPECIFIED ATRIAL FIBRILLATION Status: Acute Priority: High Current Visit: Yes - Problem List Review Problem List Initiated/Reviewed/Updated: Yes - My Orders Last 24 Hours: My Active Orders 06/17/21 05:11 BASIC METABOLIC PANEL,BMP [CHEM] AM CBC WITH AUTO DIFF [HEME] AM CRP [C-REACTIVE PROTEIN] [CHEM] AM INR,PT,PROTHROMBIN TIME [COAG] AM MAGNESIUM [CHEM] AM 06/18/21 05:11 BASIC METABOLIC PANEL,BMP [CHEM] AM CBC WITH AUTO DIFF [HEME] AM CRP [C-REACTIVE PROTEIN] [CHEM] AM INR,PT,PROTHROMBIN TIME [COAG] AM MAGNESIUM [CHEM] AM - Assessment Assessment:: Admission assessment - 06/08/2021 * 80-year-old female who presents to ED on 06/07/2021 with low oxygen saturations * History of Mnire's disease, GERD, and prior Covid pneumonia * Was hospitalized from 05/17/2021 through 05/31/2021 with COVID-19 pneumonia at [facility] in [place]. * Discharged home on 4 L of oxygen with activity after completing 4 days of remdesivir and 10 days of Decadron. * Of note patient was noted to have episodes of bradycardia and hypotension with heart rate in the 30s and 40s. She was noticed to have episodes of Mobitz type I AV block and 2.5-second sinus pauses. It was believed this was due to remdesivir however this continued after stopping. Patient was to follow-up wit h EP and have a 2-week cardiac nurse practitioner after discharge. * Prior to presenting to the ED she was noted to have saturations in the low 50s. * Patient's increased her oxygen to 8 L via nasal cannula. * Denies any recent fever, chills, nausea, vomiting, diarrhea, urinary symptoms, or smoking history. * Of note patient did have acute cystitis with an E. coli UTI well in the hospital in [place] and completed 5 days of Rocephin there. * 12-lead EKG was obtained showing a sinus tachycardia at 109 bpm with a LAFB and very mild ST elevation in V2 and V3. * Placed on a nonrebreather mask which improved her saturations to 90 to 91%. * Noted to be dyspneic and only able to complete a few word sentences. * Labs are obtained: * WBC of 8.57. * Hemoglobin 13.0. * Hematocrit 30.5. * Platelet 250,000. * Neutrophils are elevated 75.7%. * D-dimer is very high at 8.16. * Sodium is low at 129. * Potassium 3.8. * Chloride 94. * Carbon dioxide 24. * Anion gap is 14.8. * BUN is 15. Creatinine 0.6. GFR greater than 60. * Glucose is 126. * Calcium 8.7. * Magnesium 1.8. * Total bilirubin 0.6. * AST is 36, ALT 31, alkaline phosphatase 86. * Troponin is elevated at 0.127-->0.156-->0.067. * CRP is very high at 29.3. * Protein 7.1. * Albumin 2.1. * proBNP is 3117 * UA is obtained and is mildly positive with slightly cloudy urine, 1+ protein, 3+ ketones, 2+ occult blood, 1+ leukocyte esterase, 5-10 RBCs, 20- 30 WBCs, rare WBC clumps, and moderate bacteria. * ABG obtained in the left radial with a pH of 7.44. PCO2 of 30.9. PO2 of 58.0. HCO3 of 20.5. O2 saturations 86%. Base excess is -2.3. Aa gradient is 15.0. This is obtained while on nonrebreather at 15 L. * Facility was out of CPAP and BiPAP-> started on high flow O2 with saturations in the low 90s. * CTA of the chest is obtained to rule out PE and shows: * 1. No findings of pulmonary embolism. * 2. Minimal left-sided pleural effusion. * 3. Diffuse emphysematous changes seen. Both lungs show diffuse increased density uncertain how much of this represents diffuse fibrosis versus possible superimposed pneumonia. Old comparison studies would be needed if available. * 4. 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 * 5. Other findings which are felt to be chronic as described above. * Chest x-ray shows scattered infiltrates bilaterally most prominent in the left lower lobe. * Plan was to transfer the patient for continued care due to elevated troponin however no beds are noted to be available [place], [place], or [place]. * Noted to have a blood pressure of 80/61 and is given a 500 mill fluid bolus over 2 hours. * Given 1 dose of Rocephin in the ED. She is also given 125 mg Solu-Medrol and a DuoNeb, which she reports greatly helped. * Ultimately inpatient bed does open up at our facility and she is admitted to the floor on telemetry for management of her hypoxia, suspected pneumonia, elevated BNP, elevated troponin - likely demand ischemia, and questionable UTI. * On floor bilateral lower extremity ultrasound shows thrombus within the left mid and distal superficial, femoral, popliteal, posterior tibial, and peroneal veins. 06/09/2021 This is a 80 years old female post Covid infection who was hospitalized in [place] for approximately 2 weeks who presented to our ED with low saturations. On admission D-dimer was noted to be elevated however CTA was negative for any PE. Lower extremity ultrasound did show a DVT in the left extremity and patient was started on 1 mg/kg Lovenox transitioning to 10 mg twice daily Eliquis today. Patient has been requiring high flow 60 L and was weaned down to 80% FiO2 today. Unfortunately given patient's history of recent Covid infection CTA was not very helpful in differentiating pulmonary cause. Given recent hospitalization there are concerns of a secondary bacterial infection. WBC has been WNL however neutrophils are elevated. Procalcitonin was obtained and was 0.29. Lactic acid yesterday was 1.0. Patient was noted to be hypotensive in the emergency room and was given 2 fluid boluses. She was also started on fluids over concerns of sepsis. UA was positive and urine culture is growing out greater than 100,000 CFU's of gram-negative rods thus far. She does have a history of a E. coli UTI treated with Rocephin in [place]. Patient denies any urinary symptoms. proBNP was elevated. Echocardiogram was obtained on 06/08/2021 And interpreted as: " 1. The left ventricular internal cavity size is normal. 2. Normal left ventricular systolic function. 3. Left ventricular ejection fraction, by visual estimation, is 55 to 60%. 4. No regional wall motion abnormalities. 5. Mild proximal septal hypertrophy. 6. Aortic valve is tricuspid. 7. Mild mitral valve regurgitation. 8. Trace tricuspid valve regurgitation. 9. Mild pulmonic valve regurgitation. 10. The inferior vena cava is normal. 11. The right ventricular systolic pressure is mildly elevated at 32.2 mmHg." Patient was started on 20 mg IV push Lasix 3 times daily yesterday and has had over 1 L output. Potassium today is down to 3.3 and this is being supplemented. Sodium 137. Carbon dioxide 24. Anion gap is 13.3. BUN is 19. Creatinine 0.6. GFR greater than 60. Glucose is 146. Calcium 8.4. Magnesium is 1.8. Total bilirubin 0.5. AST is 26, ALT 26, alkaline phosphatase 90. Troponin today was down to 0.031. CRP is down to 24.2. Albumin is down to 1.8. Mycoplasma and strep pneumonia were both checked and were negative. Respiratory viral panel was obtained and was negative however patient did return positive for Covid, which is unsurprising given the patient's recent known Covid infection. We will continue current treatment plan. It is felt it is prudent to continue IV antibiotics for now given patient's symptoms and lab results. We will continue diuresis and Eliquis for DVT treatment. 06/10/2021 This is a 80-year-old female post Covid infection who was admitted for suspected pneumonia, pulmonary fibrosis, myocarditis, DVT, and apparent UTI. Labs today show WBC of 8.94. Hemoglobin is 11.1. Neutrophils are elevated 77.7%. Smear review feels slight toxic granulation and abnormal RBC morphology. Sodium today is 140. Potassium 3.7. Chloride 103. Carbon dioxide 20. Anion gap is 12.7. BUN is 25. Creatinine 0.8. GFR greater than 60. Magnesium is 1.9. Bilirubin 0.5. AST is 24, ALT 29, alkaline phosphatase is 90. CRP is down to 12.5. Albumin is 1.8. Patient does report that she feels quite a bit better today. She is down on high flow to 55 L with an FiO2 of 70% with saturations of upper 80s to low 90s. Urine culture continues to show greater than 100,000 CFU's of E. coli. Sensitivities are pending. Blood cultures have returned negative. Strep pneumonia is negative. Discussed plan of care with Dr. Ibarra who recommends patient receive 1 more dose of Lasix and then either discontinue or continue with 20 mg daily. We will continue vancomycin and Zosyn due to concerns over possible pneumonia. Unfortunately today patient reported that her insurance company tells her Eliquis will be $600 for 30-day supply. She states she cannot afford this. Apparently Xarelto is around the same pricing per case management. We will therefore discontinue Eliquis start patient on 1 mg/kg Lovenox twice daily and start warfarin with pharmacy to dose. Patient has had no fevers. We will continue current treatment plan and hope to wean patient off of high flow. Unknown length of stay due to severity of symptoms. 06/11/2021 80-year-old female who is post Covid admitted for suspected pneumonia, pulmonary fibrosis, suspected myocarditis, DVT and UTI. Labs today show WBC of 8.33. Hemoglobin is 11.7. Neutrophils are 70.6. INR is 1.20. Sodium is 137. Potassium 3.2. Chloride 98. Carbon dioxide 29. Anion gap is 13.2. BUN is 29. Creatinine 1.0. GFR 53. Glucose 101. CRP is up to 16.2. Albumin is 1.9. Discussed plan of care with Dr. Youssef, attending hospitalist. We will at this time discontinue vancomycin and Zosyn and switch patient to Bactrim DS twice daily based on E. coli urine sensitivities. We will repeat a procalcitonin. We will also decrease Lasix to 20 mg IV push daily. Patient's potassium will be supplemented. Pharmacy continues to dose warfarin and patient remains on 1 mg/kg twice daily Lovenox bridging. Will start patient on 60 mg every 8 hour IV push methylprednisolone. Patient has been reporting difficulty with swallowing pills. Because of this we will order an HOME PARAPROFESSIONAL evaluation. We have made some improvement with her high flow she is now at 55 L with an FiO2 of 65%. We will continue to wean as patient tolerates. Unknown length of stay due to severity of symptoms. 06/12/2021 80-year-old female with post Covid admitted for suspected pneumonia, pulmonary fibrosis, suspected myocarditis, DVT, and UTI developed A. fib with RVR with rates in the 110s to 120s+ this morning. This required increasing oxygen support with high flow nasal cannula at 60 L with FiO2 of 95% and nonrebreather mask. Patient continues to be DNR/DNI. She was given 1 dose of Cardizem 10 mg IV x1. Blood pressure was stable with systolic in the 120s. After rate control was achieved we were able to remove the nonrebreather mask. CRP continues to be elevated at 12.7. She was started on methylprednisolone yesterday and switched vancomycin and Zosyn to Bactrim for her UTI. Procalcitonin did return at 0.18 reassuring us that she does not have a severe bacterial sepsis. Patient is getting warfarin secondary to DVT with INR today at 1.85. She continues on Lovenox until therapeutic INR. EKG shows diffuse T wave inversion consistent with heart strain. Troponin was drawn and increased to 0.14. Also suggesting some component of heart strain versus infarction. EKG also demonstrates new onset atrial fibrillation. She is not a candidate for transfer at this time and is already on full dose Lovenox and INR is 1.8 as we titrate up her warfarin. 06/13/2021 Patient has had a marginal improvement with high flow nasal cannula at 60 L and FiO2 of 90%. She no longer has a nonrebreather mask over it. Her INR is now supratherapeutic and her Lovenox will be held. Pharmacy is dosing INR. Creatinine is 1.4 with estimated GFR of 36 and BUN of 49. Lasix was stopped after the morning dose yesterday. Today is day 6 of antibiotics for her UTI and she should be able to stop them tomorrow. White count has increased to 12.5, but she has been placed on moderately high Solu-Medrol. INR is also likely higher because of the Bactrim. This will make getting her INR stabilized difficult. 06/14/2021 This is a 80-year-old female post Covid who was admitted due to acute on chronic respiratory failure. She has been requiring high flow and is currently on 55 L with an FiO2 of 85%. She is initially treated for possible pneumonia and given labs and CT results it appears she has more of a pulmonary fibrosis picture. She was noted to have a UTI and was switched to Bactrim DS and she will complete treatment today. Questioning myocarditis. She also has a left leg DVT and was started on Eliquis, however patient has concerns with affording this and she was switched to warfarin. INR today is 4.21. She was started on steroids and will be decreased to 60 mg IV push Solu-Medrol twice daily today. Given the Bactrim and Solu-Medrol her INR has been somewhat variable with difficult to dose warfarin. Pharmacy continues to dose this. WBC today is 11.29. Hemoglobin 11.3. Platelet 391,000. Neutrophils are 87%. Sodium 135. Potassium 4.4. Chloride 104. Carbon dioxide 25. Anion gap 10.4. BUN is 55. Creatinine 1.1. GFR is up to 48. Glucose is 126. Phosphorus 3.4. Magnesium 2.2. Total bilirubin 0.2. AST is 18, ALT 24, alkaline phosphatase 62. CRP is down to 3.2. Protein is 5.9. Albumin is down to 1.9. Patient was complaining of some diarrhea today and given all of her antibiotic she was on we checked a C. difficile which was negative. We will therefore schedule Imodium. Unknown length of stay due to severity of symptoms and concern over minimal improvement in oxygenation. We will look at possible swing bed/LTAC facilities in the future. 06/15/2021 This is a 80-year-old female post COVID-19 pneumonia who was admitted to the floor due to acute respiratory failure now believed to be secondary to pulmonary fibrosis. She was also noted to have a left leg DVT and was started on Eliquis ultimately is being switched to warfarin with Lovenox bridging. UA and culture were suggestive of E. coli UTI and she completed treatment for this. Remains on high flow 50 L with an FiO2 of 90% and we have not been able to make much movement with this. She continues to have dyspnea with exertion. She has mild diarrhea which is improving. C. difficile screen was negative. Labs today show WBC which is elevated at 12.79, likely secondary to steroid use. Platelet is 423. INR on warfarin is therapeutic at 2.50. Sodium is 136. Potassium 4.9. Chloride 104. Carbon oxide 25. Anion gap 11.9. BUN is 55. Creatinine 1.0. GFR is up to 53. Calcium is 8.9. Magnesium is 2.2. CRP is down to 1.8. Overall she remains stable. was in room today and all questions were answered. We discussed the possibility of a transfer to an LTAC such as [facility] and [facility] and they are very interested in this. We discussed how she may never recover from this and if she does it will be very slow progress. She is currently on 60 mg twice daily Solu-Medrol and we will continue to wean this. Plan will be to discharge to LTAC once available. 06/16/2021 This is a 80-year-old female post Covid found to have pulmonary fibrosis. She is remained in a sinus rhythm and there have been no calls on telemetry. She is on high flow we have made some improvement there with 55 L and 80% FiO2. Labs today show a WBC of 12.41, which is likely steroid related. Platelets are 393,000. Neutrophils are 88.9%. INR is a bit low at 1.96 and pharmacy is dosi ng warfarin for her DVT. This will likely be a somewhat moving target due to patient requiring steroids. She has completed treatment for UTI. Electrolytes have remained good. Renal function has improved with a BUN of 51. Creatinine 0.8. GFR greater than 60. CRP is down to 0.6. We will decrease steroids today to 60 mg IV push methylprednisolone daily and continue to wean. We have discussed LTAC care with the family and they are in agreement to this as it is likely the best option for the patient. [facility] is reviewing patient chart at this time. Patient will remain hospitalized until placement can be arranged. - Plan Plan:: Dyspnea Hypoxia History of COVID-19 On home oxygen therapy Acute on chronic respiratory failure Pulmonary fibrosis -on CT scan * Droplet isolation (airborne/contact while on high flow O2) * O2 as needed to keep saturation greater than 90% * I-S/Acapella * Discontinued zosyn and vancomycin on 06/11/2021 * High flow oxygen as directed * 4 times daily scheduled DuoNebs * Every 2 hours as needed albuterol nebulizer * Consult RT * Telemetry * Blood cultures negative * Continuous pulse oximetry * Mucinex BID * Recommend PFT after recovery due to emphysematous changes noted in CTA * Recommend pulmonology follow-up after discharge * Repeat procalcitonin 0.18 on 06/11/2021 * Continue solu-medrol 60mg BID * Continue to follow CRP DVT Elevated d-dimer * CTA in ED negative for PE * Discontinue Eliquis as patient reports $600 for 30 day supply * Warfarin with pharmacy to dose; INR for today therapeutic * DC Lovenox 60mg (1mg/kg) BID as bridging Myocarditis - suspected Elevated troponin, resolved Elevated brain natriuretic peptide (BNP) level New onset A-fib * Troponin increased returned to normal of 0.056 and she is back in sinus rhythm * Metoprolol tartrate - 25mg BID * Continue 81mg daily aspirin * DC Cardizem and switch to PRN * Echocardiogram obtained as noted * Monitor patient's weight * Monitor I&O's * Telemetry * Continue to hold Lasix * Supplement potassium as needed * Monitor CRP UTI (urinary tract infection), Resolved * UA weakly positivepatient was treated for E. coli UTI with Rocephin in [place] * Urine culture showing >100cfu E. Coli, with good sensitivities to Bactrim DS * Blood cultures negative thus far * Switch from zosyn/vancomycin to Bactrim DS BID PO --> Completed treatment on 06/14/2021 GERD (gastroesophageal reflux disease) * No acute concerns * Monitor Meniere disease * No acute concerns * Monitor Hypokalemiaresolved * Supplement as needed Hypotension - resolved * Noted in ED and multiple fluid boluses given * Monitor Dysphagia * Patient reports difficulty swallowing pills * HOME PARAPROFESSIONAL evaluation -> crush pills Diarrhea, improved * Check c. diff -->negative * ContinuePRN Imodium Code status: DNR/DNI PCP: Dr. Morley in [place] DVT prophylaxis: Warfarin Disposition: Patient admitted to the floor for management and further work-up of suspected pneumonia, hypoxia, elevated troponin, elevated D-dimer, and weak UTI. Length of stay greater than 96 hours due to need for continued treatment. Unfortunately very poor overall prognosis
[2021-06-16] MEDS: Metoprolol Tartrate 25 MG Tab PO SCH ×2 (09:05→20:21)
[2021-06-16] MEDS: Aspirin 81 MG Tab.EC PO SCH (09:06)
[2021-06-16] MEDS: guaiFENesin 600 MG Tab.ER PO SCH ×2 (09:06→20:21)
[2021-06-16] MEDS: Loperamide 2 MG Cap PO PRN (10:46)
[2021-06-16] MEDS ORDERED: Warfarin 3 MG Tab PO SCH (18:00)
[2021-06-17] MEDS: Albuterol/Ipratropium 3.0-0.5 MG/3 ML Neb Soln NEB SCH ×4 (05:59→20:49)
--- NOTE | 2021-06-17 06:45 | PCM.PN ---
- General Info Date of Service: 06/17/21 Admission Dx/Problem (Free Text): Admission Diagnosis/Problem Admission Diagnosis/Problem Hypoxia Functional Status: Reports: Pain Controlled, Tolerating Diet, Ambulating, Urinating, Incentive Spirometry. Denies: New Symptoms - Review of Systems General: Reports: Weakness. Denies: Fever, Fatigue, Malaise, Chills HEENT: Reports: No Symptoms. Denies: Headaches, Sore Throat Pulmonary: Reports: Shortness of Breath, Cough. Denies: Pleuritic Chest Pain, Sputum, Wheezing Cardiovascular: Reports: Dyspnea on Exertion. Denies: Chest Pain, Palpitations Gastrointestinal: Reports: No Symptoms. Denies: Abdominal Pain, Constipation, Diarrhea, Nausea, Vomiting Genitourinary: Reports: No Symptoms. Denies: Pain Musculoskeletal: Reports: No Symptoms Skin: Reports: No Symptoms. Denies: Cyanosis Neurological: Reports: No Symptoms, Difficulty Walking, Weakness. Denies: Confusion, Dizziness, Headache, Numbness, Pre-Existing Deficit, Seizure, Syncope, Tingling, Tremors, Gait Disturbance Psychiatric: Reports: No Symptoms - Patient Data Vitals - Most Recent: Last Vital Signs Temp 97.2 F 06/17/21 03:51 Pulse 63 06/17/21 03:51 Resp 24 H 06/17/21 03:51 BP 111/91 H 06/17/21 03:51 Pulse Ox 90 L 06/17/21 06:00 Weight - Most Recent: 131 lb 11.2 oz I&O - Last 24 Hours: Intake & Output 06/16/21 06/16/21 06/17/21 14:59 22:59 06:59 Intake Total 400 500 Output Total 200 480 Balance 200 20 Lab Results Last 24 Hours: Laboratory Results - last 24 hr 06/17/21 06/17/21 Range/Units 05:12 05:12 WBC 17.12 H (3.98-10.04) K/mm3 RBC 4.28 (3.98-5.22) M/mm3 Hgb 12.7 (11.2-15.7) gm/dl Hct 38.6 (34.1-44.9) % MCV 90.2 (79.4-94.8) fl MCH 29.7 (25.6-32.2) pg MCHC 32.9 (32.2-35.5) g/dl RDW Std Deviation 47.4 H (36.4-46.3) fL Plt Count 432 H (182-369) K/mm3 MPV 9.9 (9.4-12.3) fl Neut % (Auto) 84.4 H (34.0-71.1) % Lymph % (Auto) 7.7 L (19.3-51.7) % Bates % (Auto) 5.6 (4.7-12.5) % Eos % (Auto) 0 L (0.7-5.8) Baso % (Auto) 0.2 (0.1-1.2) % Neut # (Auto) 14.46 H (1.56-6.13) K/mm3 Lymph # (Auto) 1.31 (1.18-3.74) K/mm3 Bates # (Auto) 0.96 H (0.24-0.36) K/mm3 Eos # (Auto) 0.00 L (0.04-0.36) K/mm3 Baso # (Auto) 0.03 (0.01-0.08) K/mm3 Sodium 135 L (136-145) mEq/L Potassium 4.6 (3.5-5.1) mEq/L Chloride 106 (98-107) mEq/L Carbon Dioxide 22 (21-32) mEq/L Anion Gap 11.6 (5-15) BUN 45 H (7-18) mg/dL Creatinine 0.7 (0.55-1.02) mg/dL Est Cr Clr Drug Dosing 49.18 mL/min Estimated GFR (MDRD) > 60 (>60) mL/min BUN/Creatinine Ratio 64.3 H (14-18) Glucose 88 (70-99) mg/dL Calcium 8.7 (8.5-10.1) mg/dL Magnesium 1.8 (1.8-2.4) mg/dL C-Reactive Protein 0.3 (<1.0) mg/dL Med Orders - Current: Current Medications Al Hydroxide/Mg Hydroxide (Aluminum Hydroxide/Magnesium Hydroxide/Simethicone Susp 30 Ml Cup) 30 ml PO Q4H PRN PRN Reason: Heartburn Last Admin: 06/11/21 23:27 Dose: 30 ml Documented by: Albuterol (Albuterol 0.083% 2.5 Mg/3 Ml Neb Soln) 2.5 mg NEB Q2H PRN PRN Reason: Shortness Of Breath/wheezing Last Admin: 06/14/21 03:26 Dose: 2.5 mg Documented by: Albuterol/Ipratropium (Albuterol/Ipratropium 3.0-0.5 Mg/3 Ml Neb Soln) 3 ml NEB QIDRT [facility] Last Admin: 06/17/21 05:59 Dose: 3 ml Documented by: Aspirin (Aspirin 81 Mg Tab.Ec) 81 mg PO DAILY [facility] Last Admin: 06/16/21 09:06 Dose: 81 mg Documented by: Diltiazem HCl (Diltiazem 50 Mg/10 Ml Sdv) 10 mg IVPUSH Q1H PRN PRN Reason: Tachycardia Last Admin: 06/12/21 10:36 Dose: 10 mg Documented by: Docusate Sodium (Docusate Sodium 100 Mg Cap) 100 mg PO Q12H PRN PRN Reason: Constipation Last Admin: 06/10/21 09:12 Dose: 100 mg Documented by: Guaifenesin (Guaifenesin 600 Mg Tab.Er) 600 mg PO BID [facility] Last Admin: 06/16/21 20:21 Dose: 600 mg Documented by: Loperamide HCl (Loperamide 2 Mg Cap) 2 mg PO Q4H PRN PRN Reason: Diarrhea Last Admin: 06/16/21 10:46 Dose: 2 mg Documented by: Methylprednisolone Sodium Succinate (Methylprednisolone Sodium Succinate 40 Mg/1 Ml Sdv) 60 mg IVPUSH DAILY [facility] Last Admin: 06/16/21 09:06 Dose: Not Given Documented by: Metoprolol Tartrate (Metoprolol Tartrate 25 Mg Tab) 25 mg PO BID [facility] Last Admin: 06/16/21 20:21 Dose: 25 mg Documented by: Ondansetron HCl (Ondansetron 4 Mg/2 Ml Sdv) 4 mg IV Q6H PRN PRN Reason: Nausea/Vomiting Sodium Chloride (Sodium Chloride 0.9% 10 Ml Syringe) 10 ml FLUSH ASDIRECTED PRN PRN Reason: Keep Vein Open Last Admin: 06/07/21 18:12 Dose: 10 ml Documented by: Warfarin Sodium (Pharmacy To Dose - Warfarin) 1 dose .XX ASDIRECTED PRN PRN Reason: RX TOD DOSE WARFARIN Discontinued Medications Albuterol (Albuterol 0.083% 2.5 Mg/3 Ml Neb Soln) 2.5 mg NEB ONETIME ONE Stop: 06/07/21 15:19 Last Admin: 06/07/21 15:47 Dose: 2.5 mg Documented by: Albuterol/Ipratropium (Albuterol/Ipratropium 3.0-0.5 Mg/3 Ml Neb Soln) 3 ml NEB ONETIME ONE Stop: 06/08/21 08:21 Last Admin: 06/08/21 08:37 Dose: 3 ml Documented by: Apixaban (Apixaban 5 Mg Tab) 10 mg PO BID [facility] Stop: 06/15/21 21:01 Last Admin: 06/10/21 09:13 Dose: 10 mg Documented by: Diltiazem HCl (Diltiazem Ir 30 Mg Tab) 30 mg PO Q8HR [facility] Last Admin: 06/13/21 05:51 Dose: 30 mg Documented by: Enoxaparin Sodium (Enoxaparin 40 Mg/0.4 Ml Syringe) 40 mg SUBCUT DAILY [facility] Last Admin: 06/08/21 14:49 Dose: 40 mg Documented by: Enoxaparin Sodium (Enoxaparin 60 Mg/0.6 Ml Syringe) 20 mg SUBCUT ONETIME ONE Stop: 06/08/21 16:31 Last Admin: 06/08/21 16:53 Dose: 20 mg Documented by: Enoxaparin Sodium (Enoxaparin 60 Mg/0.6 Ml Syringe) 60 mg SUBCUT Q12H [facility] Last Admin: 06/13/21 12:17 Dose: Not Given Documented by: Furosemide (Furosemide 40 Mg/4 Ml Vial) 40 mg IVPUSH NOW ONE Stop: 06/08/21 20:04 Last Admin: 06/08/21 21:33 Dose: 40 mg Documented by: Furosemide (Furosemide 20 Mg/2 Ml Vial) 20 mg IVPUSH TIDMEALS [facility] Last Admin: 06/11/21 06:34 Dose: 20 mg Documented by: Furosemide (Furosemide 20 Mg/2 Ml Vial) 20 mg IVPUSH DAILY [facility] Furosemide (Furosemide 20 Mg/2 Ml Vial) 20 mg IVPUSH DAILY [facility] Last Admin: 06/12/21 09:05 Dose: 20 mg Documented by: Sodium Chloride (Normal Saline) 100 mls @ 60 mls/min IV ASDIRECTED [facility] Last Admin: 06/07/21 18:12 Dose: 60 mls/min Documented by: Sodium Chloride (Normal Saline) 1,000 mls @ 250 mls/hr IV ASDIRECTED [facility] Last Admin: 06/07/21 22:14 Dose: 250 mls/hr Documented by: Ceftriaxone Sodium 1 gm/ (Sodium Chloride) 100 mls @ 200 mls/hr IV ONETIME ONE Stop: 06/08/21 09:25 Last Admin: 06/08/21 09:20 Dose: 200 mls/hr Documented by: Vancomycin HCl 1 gm/ Sodium (Chloride) 250 mls @ 250 mls/hr IV Q18H [facility] Last Admin: 06/08/21 14:26 Dose: Not Given Documented by: Vancomycin HCl 1 gm/ Sodium (Chloride) 250 mls @ 250 mls/hr IV Q18H [facility] Last Admin: 06/08/21 15:37 Dose: Not Given Documented by: Piperacillin Sod/Tazobactam (Sod 4.5 gm/ Sodium Chloride) 100 mls @ 200 mls/hr IV ONETIME ONE Stop: 06/08/21 14:59 Last Admin: 06/08/21 14:19 Dose: 200 mls/hr Documented by: Piperacillin Sod/Tazobactam (Sod 4.5 gm/ Sodium Chloride) 100 mls @ 25 mls/hr IV Q8H [facility] Last Admin: 06/11/21 06:34 Dose: 25 mls/hr Documented by: Vancomycin HCl 1 gm/ Sodium (Chloride) 250 mls @ 250 mls/hr IV Q18H [facility] Stop: 06/10/21 23:59 Last Admin: 06/10/21 22:00 Dose: 250 mls/hr Documented by: Sodium Chloride (Normal Saline) 1,000 mls @ 100 mls/hr IV ASDIRECTED [facility] Vancomycin HCl 1 gm/ Sodium (Chloride) 250 mls @ 250 mls/hr IV Q12H [facility] Potassium Chloride 10 meq/ (Premix) 100 mls @ 100 mls/hr IV Q1H [facility] Stop: 06/11/21 12:59 Last Admin: 06/11/21 15:37 Dose: 100 mls/hr Documented by: Sodium Chloride (Normal Saline) 250 mls @ 40 mls/hr IV ASDIRECTED [facility] Last Admin: 06/11/21 15:51 Dose: 40 mls/hr Documented by: Iopamidol (Iopamidol 755 Mg/Ml 100 Ml Bottle) 100 ml IVPUSH ONETIME ONE Stop: 06/07/21 18:12 Last Admin: 06/07/21 18:12 Dose: 100 ml Documented by: Loperamide HCl (Loperamide 2 Mg Cap) 4 mg PO ONETIME ONE Stop: 06/14/21 10:51 Last Admin: 06/14/21 11:06 Dose: 4 mg Documented by: Methylprednisolone Sodium Succinate (Methylprednisolone Sodium Succinate 125 Mg/2 Ml Sdv) 125 mg IVPUSH ONETIME ONE Stop: 06/08/21 08:21 Last Admin: 06/08/21 08:25 Dose: 125 mg Documented by: Methylprednisolone Sodium Succinate (Methylprednisolone Sodium Succinate 40 Mg/1 Ml Sdv) 60 mg IVPUSH Q8H [facility] Last Admin: 06/14/21 06:45 Dose: 60 mg Documented by: Methylprednisolone Sodium Succinate (Methylprednisolone Sodium Succinate 40 Mg/1 Ml Sdv) 60 mg IVPUSH Q12H [facility] Last Admin: 06/16/21 06:34 Dose: 60 mg Documented by: Metoprolol Tartrate (Metoprolol Tartrate 25 Mg Tab) 25 mg PO Q12H [facility] Last Admin: 06/15/21 21:19 Dose: 25 mg Documented by: Potassium Chloride (Potassium Chloride 10 Meq Tab.Er) 10 meq PO TID [facility] Last Admin: 06/10/21 22:00 Dose: 10 meq Documented by: Potassium Chloride (Potassium Chloride 20 Meq Tab.Er) 20 meq PO ONETIME ONE Stop: 06/09/21 07:21 Last Admin: 06/09/21 08:37 Dose: 20 meq Documented by: Sodium Chloride (Sodium Chloride 0.9% 10 Ml Sdv) 10 ml FLUSH ONETIME ONE Stop: 06/07/21 18:12 Last Admin: 06/07/21 20:31 Dose: 10 ml Documented by: Trimethoprim/Sulfamethoxazole (Sulfamethoxazole/Trimethoprim 800-160 Mg Tab) 1 tab PO BID [facility] Last Admin: 06/14/21 08:44 Dose: 1 tab Documented by: Vancomycin HCl (Pharmacy To Dose - Vancomycin) 1 dose .XX ASDIRECTED [facility] Warfarin Sodium (Warfarin 4 Mg Tab) 4 mg PO QPM [facility] Stop: 06/10/21 18:01 Last Admin: 06/10/21 18:08 Dose: 4 mg Documented by: Warfarin Sodium (Warfarin 4 Mg Tab) 4 mg PO QPM [facility] Stop: 06/11/21 18:01 Last Admin: 06/11/21 18:36 Dose: 4 mg Documented by: Warfarin Sodium (Warfarin 4 Mg Tab) 4 mg PO QPM [facility] Stop: 06/12/21 18:01 Last Admin: 06/12/21 18:15 Dose: 4 mg Documented by: Warfarin Sodium (Warfarin 1 Mg Tab) 1 mg PO QPM [facility] Last Admin: 06/13/21 18:04 Dose: 1 mg Documented by: Warfarin Sodium (Warfarin Sliding Scale) 0 each PO QPM [facility] Stop: 06/14/21 18:01 Last Admin: 06/14/21 17:46 Dose: Not Given Documented by: Warfarin Sodium (Warfarin 3 Mg Tab) 3 mg PO QPM [facility] Stop: 06/15/21 18:01 Last Admin: 06/15/21 19:19 Dose: 3 mg Documented by: Warfarin Sodium (Warfarin 3 Mg Tab) 3 mg PO QPM [facility] Stop: 06/16/21 18:01 Last Admin: 06/16/21 17:13 Dose: 3 mg Documented by: - Exam Quality Assessment: Supplemental Oxygen (55 L with an FiO2 of 70%.), DVT Prophylaxis. No: Urine Catheter General: Alert, Oriented, Cooperative, No Acute Distress HEENT: Pupils Equal, Pupils Reactive, Mucous Membr. Moist/[place] Neck: Supple, Trachea Midline Lungs: Normal Respiratory Effort, Decreased Breath Sounds, Crackles Cardiovascular: Regular Rate, Regular Rhythm GI/Abdominal Exam: Normal Bowel Sounds, Soft, Non-Tender, No Distention (Female) Exam: Deferred Back Exam: Normal Inspection, Full Range of Motion Extremities: Normal Inspection, Normal Range of Motion, Non-Tender, No Pedal Edema, Normal Capillary Refill Skin: Warm, Dry, Intact Neurological: No New Focal Deficit Psy/Mental Status: Alert, Normal Affect, Normal Mood - Patient Data Lab Results Last 24 hrs: Laboratory Results - last 24 hr 06/17/21 06/17/21 Range/Units 05:12 05:12 WBC 17.12 H (3.98-10.04) K/mm3 RBC 4.28 (3.98-5.22) M/mm3 Hgb 12.7 (11.2-15.7) gm/dl Hct 38.6 (34.1-44.9) % MCV 90.2 (79.4-94.8) fl MCH 29.7 (25.6-32.2) pg MCHC 32.9 (32.2-35.5) g/dl RDW Std Deviation 47.4 H (36.4-46.3) fL Plt Count 432 H (182-369) K/mm3 MPV 9.9 (9.4-12.3) fl Neut % (Auto) 84.4 H (34.0-71.1) % Lymph % (Auto) 7.7 L (19.3-51.7) % Bates % (Auto) 5.6 (4.7-12.5) % Eos % (Auto) 0 L (0.7-5.8) Baso % (Auto) 0.2 (0.1-1.2) % Neut # (Auto) 14.46 H (1.56-6.13) K/mm3 Lymph # (Auto) 1.31 (1.18-3.74) K/mm3 Bates # (Auto) 0.96 H (0.24-0.36) K/mm3 Eos # (Auto) 0.00 L (0.04-0.36) K/mm3 Baso # (Auto) 0.03 (0.01-0.08) K/mm3 Sodium 135 L (136-145) mEq/L Potassium 4.6 (3.5-5.1) mEq/L Chloride 106 (98-107) mEq/L Carbon Dioxide 22 (21-32) mEq/L Anion Gap 11.6 (5-15) BUN 45 H (7-18) mg/dL Creatinine 0.7 (0.55-1.02) mg/dL Est Cr Clr Drug Dosing 49.18 mL/min Estimated GFR (MDRD) > 60 (>60) mL/min BUN/Creatinine Ratio 64.3 H (14-18) Glucose 88 (70-99) mg/dL Calcium 8.7 (8.5-10.1) mg/dL Magnesium 1.8 (1.8-2.4) mg/dL C-Reactive Protein 0.3 (<1.0) mg/dL Result Diagrams: 06/17/21 05:12 06/17/21 05:12 Sepsis Event Note - Evaluation Sepsis Screening Result: Sepsis Risk - Focused Exam Vital Signs: Vital Signs Temp Pulse Resp BP Pulse Ox Pulse Ox 06/17/21 06:00 90 L 06/17/21 03:51 97.2 F 63 24 H 111/91 H 88 L 06/16/21 20:21 78 128/84 06/16/21 20:19 97.5 F 78 26 H 128/84 95 06/16/21 20:10 90 L - Problem List & Annotations (1) History of COVID-19 SNOMED Code(s): 253777898113010114, 184521205294802297 Code(s): Z86.16 - PERSONAL HISTORY OF COVID-19 Status: Chronic Priority: Medium Current Visit: Yes (2) Elevated d-dimer SNOMED Code(s): 514467180 Code(s): R79.89 - OTHER SPECIFIED ABNORMAL FINDINGS OF BLOOD CHEMISTRY Status: Acute Priority: Medium Current Visit: Yes (3) Elevated troponin SNOMED Code(s): 213913229, 734607751, 078232949 Code(s): R77.8 - OTHER SPECIFIED ABNORMALITIES OF PLASMA PROTEINS Status: R esolved Priority: High Current Visit: Yes (4) Pneumonia SNOMED Code(s): 378370147 Code(s): J18.9 - PNEUMONIA, UNSPECIFIED ORGANISM Status: Ruled-out Priority: High Current Visit: Yes Qualifiers: Pneumonia type: due to unspecified organism Laterality: unspecified laterality Lung location: unspecified part of lung Qualified Code(s): J18.9 - Pneumonia, unspecified organism (5) Dyspnea SNOMED Code(s): 951808546 Code(s): R06.00 - DYSPNEA, UNSPECIFIED Status: Acute Priority: High Current Visit: Yes Qualifiers: Dyspnea type: unspecified Qualified Code(s): R06.00 - Dyspnea, unspecified (6) Hypoxia SNOMED Code(s): 607524085 Code(s): R09.02 - HYPOXEMIA Status: Acute Priority: High Current Visit: Yes (7) UTI (urinary tract infection) SNOMED Code(s): 56842688 Code(s): N39.0 - URINARY TRACT INFECTION, SITE NOT SPECIFIED Status: Acute Priority: High Current Visit: Yes Qualifiers: Urinary tract infection type: site unspecified Hematuria presence: without hematuria Qualified Code(s): N39.0 - Urinary tract infection, site not specified (8) Elevated brain natriuretic peptide (BNP) level SNOMED Code(s): 167778974, 949848691 Code(s): R79.89 - OTHER SPECIFIED ABNORMAL FINDINGS OF BLOOD CHEMISTRY Status: Acute Priority: High Current Visit: Yes (9) On home oxygen therapy SNOMED Code(s): 009023826740 Code(s): Z99.81 - DEPENDENCE ON SUPPLEMENTAL OXYGEN Status: Chronic Priority: Medium Current Visit: Yes (10) GERD (gastroesophageal reflux disease) SNOMED Code(s): 997572560 Code(s): K21.9 - GASTRO-ESOPHAGEAL REFLUX DISEASE WITHOUT ESOPHAGITIS Status: Chronic Priority: Low Current Visit: No Qualifiers: Esophagitis presence: esophagitis presence not specified Qualified Code(s): K21.9 - Gastro-esophageal reflux disease without esophagitis (11) Meniere disease SNOMED Code(s): 86457727 Code(s): H81.09 - MENIERE'S DISEASE, UNSPECIFIED EAR Status: Chronic Priority: Low Current Visit: No Qualifiers: Laterality: unspecified laterality Qualified Code(s): H81.09 - Meniere's disease, unspecified ear (12) DVT (deep venous thrombosis) SNOMED Code(s): 322173058 Code(s): I82.409 - ACUTE EMBOLISM AND THOMBOS UNSP DEEP VN UNSP LOWER EXTREMITY Status: Acute Priority: High Current Visit: Yes Qualifiers: DVT location: lower extremity Affected thrombotic vein of extremity: unspecified vein of extremity Chronicity: acute Laterality: left Qualified Code(s): I82.402 - Acute embolism and thrombosis of unspecified deep veins of left lower extremity (13) Hypotension SNOMED Code(s): 67969123 Code(s): I95.9 - HYPOTENSION, UNSPECIFIED Status: Resolved Priority: High Current Visit: Yes Qualifiers: Hypotension type: unspecified hypotension type Qualified Code(s): I95.9 - H ypotension, unspecified (14) Acute and chronic respiratory failure SNOMED Code(s): 61908124 Code(s): J96.20 - ACUTE AND CHR RESP FAILURE, UNSP W HYPOXIA OR HYPERCAPNIA Status: Acute Priority: High Current Visit: Yes Qualifiers: Respiratory failure complication: hypoxia Qualified Code(s): J96.21 - Acute and chronic respiratory failure with hypoxia (15) Myocarditis SNOMED Code(s): 08696701 Code(s): I51.4 - MYOCARDITIS, UNSPECIFIED Status: Suspected Priority: High Current Visit: Yes Qualifiers: Myocarditis type: infective Infective myocarditis organism: viral Ch ronicity: acute Qualified Code(s): I40.0 - Infective myocarditis (16) Hypokalemia SNOMED Code(s): 61947852 Code(s): E87.6 - HYPOKALEMIA Status: Resolved Priority: High Current Visit: Yes (17) Pulmonary fibrosis SNOMED Code(s): 73465518 Code(s): J84.10 - PULMONARY FIBROSIS, UNSPECIFIED Status: Suspected Priority: High Current Visit: Yes (18) Diarrhea SNOMED Code(s): 15271519 Code(s): R19.7 - DIARRHEA, UNSPECIFIED Status: Acute Priority: Medium Current Visit: Yes Qualifiers: Diarrhea type: unspecified type Qualified Code(s): R19.7 - Diarrhea, un specified (19) New onset a-fib SNOMED Code(s): 96768581 Code(s): I48.91 - UNSPECIFIED ATRIAL FIBRILLATION Status: Acute Priority: High Current Visit: Yes - Problem List Review Problem List Initiated/Reviewed/Updated: Yes - My Orders Last 24 Hours: My Active Orders 06/16/21 09:00 methylPREDNISolone Sod Succ [Solu-MEDROL] 60 mg IVPUSH DAILY 06/17/21 05:12 INR,PT,PROTHROMBIN TIME [COAG] AM 06/18/21 05:11 BASIC METABOLIC PANEL,BMP [CHEM] AM CBC WITH AUTO DIFF [HEME] AM CRP [C-REACTIVE PROTEIN] [CHEM] AM INR,PT,PROTHROMBIN TIME [COAG] AM MAGNESIUM [CHEM] AM - Assessment Assessment:: Admission assessment - 06/08/2021 * 80-year-old female who presents to ED on 06/07/2021 with low oxygen saturations * History of Mnire's disease, GERD, and prior Covid pneumonia * Was hospitalized from 05/17/2021 through 05/31/2021 with COVID-19 pneumonia at [facility] in [place]. * Discharged home on 4 L of oxygen with activity after completing 4 days of remdesivir and 10 days of Decadron. * Of note patient was noted to have episodes of bradycardia and hypotension with heart rate in the 30s and 40s. She was noticed to have episodes of Mobitz type I AV block and 2.5-second sinus pauses. It was believed this was due to r emdesivir however this continued after stopping. Patient was to follow-up with EP and have a 2-week warper creeler after discharge. * Prior to presenting to the ED she was noted to have saturations in the low 50s. * Patient's increased her oxygen to 8 L via nasal cannula. * Denies any recent fever, chills, nausea, vomiting, diarrhea, urinary symptoms, or smoking history. * Of note patient did have acute cystitis with an E. coli UTI well in the hospital in [place] and completed 5 days of Rocephin there. * 12-lead EKG was obtained showing a sinus tachycardia at 109 bpm with a LAFB and very mild ST elevation in V2 and V3. * Placed on a nonrebreather mask which improved her saturations to 90 to 91%. * Noted to be dyspneic and only able to complete a few word sentences. * Labs are obtained: * WBC of 8.57. * Hemoglobin 13.0. * Hematocrit 30.5. * Platelet 250,000. * Neutrophils are elevated 75.7%. * D-dimer is very high at 8.16. * Sodium is low at 129. * Potassium 3.8. * Chloride 94. * Carbon dioxide 24. * Anion gap is 14.8. * BUN is 15. Creatinine 0.6. GFR greater than 60. * Glucose is 126. * Calcium 8.7. * Magnesium 1.8. * Total bilirubin 0.6. * AST is 36, ALT 31, alkaline phosphatase 86. * Troponin is elevated at 0.127-->0.156-->0.067. * CRP is very high at 29.3. * Protein 7.1. * Albumin 2.1. * proBNP is 3117 * UA is obtained and is mildly positive with slightly cloudy urine, 1+ protein, 3+ ketones, 2+ occult blood, 1+ leukocyte esterase, 5-10 RBCs, 20- 30 WBCs, rare WBC clumps, and moderate bacteria. * ABG obtained in the left radial with a pH of 7.44. PCO2 of 30.9. PO2 of 58.0. HCO3 of 20.5. O2 saturations 86%. Base excess is -2.3. Aa gradient is 15.0. This is obtained while on nonrebreather at 15 L. * Facility was out of CPAP and BiPAP-> started on high flow O2 with saturations in the low 90s. * CTA of the chest is obtained to rule out PE and shows: * 1. No findings of pulmonary embolism. * 2. Minimal left-sided pleural effusion. * 3. Diffuse emphysematous changes seen. Both lungs show diffuse increased density uncertain how much of this represents diffuse fibrosis versus possible superimposed pneumonia. Old comparison studies would be needed if available. * 4. 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 * 5. Other findings which are felt to be chronic as described above. * Chest x-ray shows scattered infiltrates bilaterally most prominent in the left lower lobe. * Plan was to transfer the patient for continued care due to elevated troponin however no beds are noted to be available [place], [place], or [place]. * Noted to have a blood pressure of 80/61 and is given a 500 mill fluid bolus over 2 hours. * Given 1 dose of Rocephin in the ED. She is also given 125 mg Solu-Medrol and a DuoNeb, which she reports greatly helped. * Ultimately inpatient bed does open up at our facility and she is admitted to the floor on telemetry for management of her hypoxia, suspected pneumonia, elevated BNP, elevated troponin - likely demand ischemia, and questionable UTI. * On floor bilateral lower extremity ultrasound shows thrombus within the left mid and distal superficial, femoral, popliteal, posterior tibial, and peroneal veins. 06/09/2021 This is a 80 years old female post Covid infection who was hospitalized in [place] for approximately 2 weeks who presented to our ED with low saturations. On admission D-dimer was noted to be elevated however CTA was negative for any PE. Lower extremity ultrasound did show a DVT in the left extremity and patient was started on 1 mg/kg Lovenox transitioning to 10 mg twice daily Eliquis today. Patient has been requiring high flow 60 L and was weaned down to 80% FiO2 today. Unfortunately given patient's history of recent Covid infection CTA was not very helpful in differentiating pulmonary cause. Given recent hospitalization there are concerns of a secondary bacterial infection. WBC has been WNL however neutrophils are elevated. Procalcitonin was obtained and was 0.29. Lactic acid yesterday was 1.0. Patient was noted to be hypotensive in the emergency room and was given 2 fluid boluses. She was also started on fluids over concerns of sepsis. UA was positive and urine culture is growing out greater than 100,000 CFU's of gram-negative rods thus far. She does have a history of a E. coli UTI treated with Rocephin in [place]. Patient denies any urinary symptoms. proBNP was elevated. Echocardiogram was obtained on 06/08/2021 And interpreted as: " 1. The left ventricular internal cavity size is normal. 2. Normal left ventricular systolic function. 3. Left ventricular ejection fraction, by visual estimation, is 55 to 60%. 4. No regional wall motion abnormalities. 5. Mild proximal septal hypertrophy. 6. Aortic valve is tricuspid. 7. Mild mitral valve regurgitation. 8. Trace tricuspid valve regurgitation. 9. Mild pulmonic valve regurgitation. 10. The inferior vena cava is normal. 11. The right ventricular systolic pressure is mildly elevated at 32.2 mmHg." Patient was started on 20 mg IV push Lasix 3 times daily yesterday and has had over 1 L output. Potassium today is down to 3.3 and this is being supplemented. Sodium 137. Carbon dioxide 24. Anion gap is 13.3. BUN is 19. Creatinine 0.6. GFR greater than 60. Glucose is 146. Calcium 8.4. Magnesium is 1.8. Total bilirubin 0.5. AST is 26, ALT 26, alkaline phosphatase 90. Troponin today was down to 0.031. CRP is down to 24.2. Albumin is down to 1.8. Mycoplasma and strep pneumonia were both checked and were negative. Respiratory viral panel was obtained and was negative however patient did return positive for Covid, which is unsurprising given the patient's recent known Covid infection. We will continue current treatment plan. It is felt it is prudent to continue IV antibiotics for now given patient's symptoms and lab results. We will continue diuresis and Eliquis for DVT treatment. 06/10/2021 This is a 80-year-old female post Covid infection who was admitted for suspected pneumonia, pulmonary fibrosis, myocarditis, DVT, and apparent UTI. Labs today show WBC of 8.94. Hemoglobin is 11.1. Neutrophils are elevated 77.7%. Smear review feels slight toxic granulation and abnormal RBC morphology. Sodium today is 140. Potassium 3.7. Chloride 103. Carbon dioxide 20. Anion gap is 12.7. BUN is 25. Creatinine 0.8. GFR greater than 60. Magnesium is 1.9. Bilirubin 0.5. AST is 24, ALT 29, alkaline phosphatase is 90. CRP is down to 12.5. Albumin is 1.8. Patient does report that she feels quite a bit better today. She is down on high flow to 55 L with an FiO2 of 70% with saturations of upper 80s to low 90s. Urine culture continues to show greater than 100,000 CFU's of E. coli. Sensitivities are pending. Blood cultures have returned negative. Strep pneumonia is negative. Discussed plan of care with Dr. Ibarra who recommends patient receive 1 more dose of Lasix and then either discontinue or continue with 20 mg daily. We will continue vancomycin and Zosyn due to concerns over possible pneumonia. Unfortunately today patient reported that her insurance company tells her Eliquis will be $600 for 30-day supply. She states she cannot afford this. Apparently Xarelto is around the same pricing per case management. We will therefore discontinue Eliquis start patient on 1 mg/kg Lovenox twice daily and start warfarin with pharmacy to dose. Patient has had no fevers. We will continue current treatment plan and hope to wean patient off of high flow. Unknown length of stay due to severity of symptoms. 06/11/2021 80-year-old female who is post Covid admitted for suspected pneumonia, pulmonary fibrosis, suspected myocarditis, DVT and UTI. Labs today show WBC of 8.33. Hemoglobin is 11.7. Neutrophils are 70.6. INR is 1.20. Sodium is 137. P otassium 3.2. Chloride 98. Carbon dioxide 29. Anion gap is 13.2. BUN is 29. Creatinine 1.0. GFR 53. Glucose 101. CRP is up to 16.2. Albumin is 1.9. Discussed plan of care with Dr. Youssef, attending hospitalist. We will at this time discontinue vancomycin and Zosyn and switch patient to Bactrim DS twice daily based on E. coli urine sensitivities. We will repeat a procalcitonin. We will also decrease Lasix to 20 mg IV push daily. Patient's potassium will be supplemented. Pharmacy continues to dose warfarin and patient remains on 1 mg/kg twice daily Lovenox bridging. Will start patient on 60 mg every 8 hour IV push methylprednisolone. Patient has been reporting difficulty with swallowing pills. Because of this we will order an SPEECH PATHOLOGIST ASSISTANT evaluation. We have made some improvement with her high flow she is now at 55 L with an FiO2 of 65%. We will continue to wean as patient tolerates. Unknown length of stay due to severity of symptoms. 06/12/2021 80-year-old female with post Covid admitted for suspected pneumonia, pulmonary fibrosis, suspected myocarditis, DVT, and UTI developed A. fib with RVR with rates in the 110s to 120s+ this morning. This required increasing oxygen support with high flow nasal cannula at 60 L with FiO2 of 95% and nonrebreather mask. Patient continues to be DNR/DNI. She was given 1 dose of Cardizem 10 mg IV x1. Blood pressure was stable with systolic in the 120s. After rate control was achieved we were able to remove the nonrebreather mask. CRP continues to be elevated at 12.7. She was started on methylprednisolone yesterday and switched vancomycin and Zosyn to Bactrim for her UTI. Procalcitonin did return at 0.18 reassuring us that she does not have a severe bacterial sepsis. Patient is getting warfarin secondary to DVT with INR today at 1.85. She continues on Lovenox until therapeutic INR. EKG shows diffuse T wave inversion consistent with heart strain. Troponin was drawn and increased to 0.14. Also suggesting some component of heart strain versus infarction. EKG also demonstrates new onset atrial fibrillation. She is not a candidate for transfer at this time and is already on full dose Lovenox and INR is 1.8 as we titrate up her warfarin. 06/13/2021 Patient has had a marginal improvement with high flow nasal cannula at 60 L and FiO2 of 90%. She no longer has a nonrebreather mask over it. Her INR is now supratherapeutic and her Lovenox will be held. Pharmacy is dosing INR. Creatinine is 1.4 with estimated GFR of 36 and BUN of 49. Lasix was stopped after the morning dose yesterday. Today is day 6 of antibiotics for her UTI and she should be able to stop them tomorrow. White count has increased to 12.5, but she has been placed on moderately high Solu-Medrol. INR is also likely higher because of the Bactrim. This will make getting her INR stabilized difficult. 06/14/2021 This is a 80-year-old female post Covid who was admitted due to acute on chronic respiratory failure. She has been requiring high flow and is currently on 55 L with an FiO2 of 85%. She is initially treated for possible pneumonia and given labs and CT results it appears she has more of a pulmonary fibrosis picture. She was noted to have a UTI and was switched to Bactrim DS and she will complete treatment today. Questioning myocarditis. She also has a left leg DVT and was started on Eliquis, however patient has concerns with affording this and she was switched to warfarin. INR today is 4.21. She was started on steroids and will be decreased to 60 mg IV push Solu-Medrol twice daily today. Given the Bactrim and Solu-Medrol her INR has been somewhat variable with difficult to dose warfarin. Pharmacy continues to dose this. WBC today is 11.29. Hemoglobin 11.3. Platelet 391,000. Neutrophils are 87%. Sodium 135. Potassium 4.4. Chloride 104. Carbon dioxide 25. Anion gap 10.4. BUN is 55. Creatinine 1.1. GFR is up to 48. Glucose is 126. Phosphorus 3.4. Magnesium 2.2. Total bilirubin 0.2. AST is 18, ALT 24, alkaline phosphatase 62. CRP is down to 3.2. Protein is 5.9. Albumin is down to 1.9. Patient was complaining of some diarrhea today and given all of her antibiotic she was on we checked a C. difficile which was negative. We will therefore schedule Imodium. Unknown length of stay due to severity of symptoms and concern over minimal improvement in oxygenation. We will look at possible swing bed/LTAC facilities in the future. 06/15/2021 This is a 80-year-old female post COVID-19 pneumonia who was admitted to the floor due to acute respiratory failure now believed to be secondary to pulmonary fibrosis. She was also noted to have a left leg DVT and was started on Eliquis ultimately is being switched to warfarin with Lovenox bridging. UA and culture were suggestive of E. coli UTI and she completed treatment for this. Remains on high flow 50 L with an FiO2 of 90% and we have not been able to make much movement with this. She continues to have dyspnea with exertion. She has mild diarrhea which is improving. C. difficile screen was negative. Labs today show WBC which is elevated at 12.79, likely secondary to steroid use. Platelet is 423. INR on warfarin is therapeutic at 2.50. Sodium is 136. Potassium 4.9. Chloride 104. Carbon oxide 25. Anion gap 11.9. BUN is 55. Creatinine 1.0. GFR is up to 53. Calcium is 8.9. Magnesium is 2.2. CRP is down to 1.8. Overall she remains stable. was in room today and all questions were answered. We discussed the possibility of a transfer to an LTAC such as [facility] and [facility] and they are very interested in this. We discussed how she may never recover from this and if she does it will be very slow progress. She is currently on 60 mg twice daily Solu-Medrol and we will continue to wean this. Plan will be to discharge to LTAC once available. 06/16/2021 This is a 80-year-old female post Covid found to have pulmonary fibrosis. She is remained in a sinus rhythm and there have been no calls on telemetry. She is on high flow we have made some improvement there with 55 L and 80% FiO2. Labs today show a WBC of 12.41, which is likely steroid related. Platelets are 39 3,000. Neutrophils are 88.9%. INR is a bit low at 1.96 and pharmacy is dosing warfarin for her DVT. This will likely be a somewhat moving target due to patient requiring steroids. She has completed treatment for UTI. Electrolytes have remained good. Renal function has improved with a BUN of 51. Creatinine 0.8. GFR greater than 60. CRP is down to 0.6. We will decrease steroids today to 60 mg IV push methylprednisolone daily and continue to wean. We have discussed LTAC care with the family and they are in agreement to this as it is likely the best option for the patient. [facility] in [facility] is reviewing patient chart at this time. Patient will remain hospitalized until placement can be arranged. 06/17/2021 This is a 80-year-old female admitted to the floor for hypoxia post Covid and found to have pulmonary fibrosis. WBC today is up to 17.2, likely steroid related. We will decrease her steroids from 60 mg daily to 40 mg daily and continue to wean. Hemoglobin is 12.7. Platelets 432,000. Neutrophils are elevated at 84.4%. INR is 2.39. Sodium 135. Potassium 4.6. Chloride 106. Carbon dioxide 22. Anion gap is 11.6. BUN is 45. Creatinine 0.7. GFR greater than 60. Magnesium is 1.8. CRP is down to 0.3. She is currently on high flow oxygen 55 L with an FiO2 of 70%. We have been making very slow but fairly steady gains on her oxygen. She reports she feels pretty good. She remains on warfarin for her left lower extremity DVT. She has been very pleasant and her has been visiting regularly. We are hopeful for LTAC placement in the near future. - Plan Plan:: Dyspnea Hypoxia History of COVID-19 On home oxygen therapy Acute on chronic respiratory failure Pulmonary fibrosis -on CT scan * Droplet isolation (airborne/contact while on high flow O2) * O2 as needed to keep saturation greater than 90% * I-S/Acapella * Discontinued zosyn and vancomycin on 06/11/2021 * High flow oxygen as directed * 4 times daily scheduled DuoNebs * Every 2 hours as needed albuterol nebulizer * Consult RT * Telemetry * Blood cultures negative * Continuous pulse oximetry * Mucinex BID * Recommend PFT after recovery due to emphysematous changes noted in CTA * Recommend pulmonology follow-up after discharge * Repeat procalcitonin 0.18 on 06/11/2021 * Decrease solumedrol to 40mg daily * Continue to follow CRP DVT Elevated d-dimer * CTA in ED negative for PE * Discontinue Eliquis as patient reports $600 for 30 day supply * Warfarin with pharmacy to dose * DC Lovenox 60mg (1mg/kg) BID as bridging * Daily INR Myocarditis - suspected Elevated troponin, resolved Elevated brain natriuretic peptide (BNP) level New onset A-fib * Troponin increased returned to normal of 0.056 and she is back in sinus rhythm * Metoprolol tartrate - 25mg BID * Continue 81mg daily aspirin * DC Cardizem and switch to PRN * Echocardiogram obtained as noted * Monitor patient's weight * Monitor I&O's * Telemetry * Continue to hold Lasix * Supplement potassium as needed * Monitor CRP UTI (urinary tract infection), Resolved * UA weakly positivepatient was treated for E. coli UTI with Rocephin in [place] * Urine culture showing >100cfu E. Coli, with good sensitivities to Bactrim DS * Blood cultures negative thus far * Switch from zosyn/vancomycin to Bactrim DS BID PO --> Completed treatment on 06/14/2021 GERD (gastroesophageal reflux disease) * No acute concerns * Monitor Meniere disease * No acute concerns * Monitor Hypokalemiaresolved * Supplement as needed Hypotension - resolved * Noted in ED and multiple fluid boluses given * Monitor Dysphagia * Patient reports difficulty swallowing pills * SPEECH PATHOLOGIST ASSISTANT evaluation -> crush pills Diarrhea, improved to resolved * Check c. diff -->negative * Continue PRN Imodium Code status: DNR/DNI PCP: Dr. Morley in [place] DVT prophylaxis: Warfarin Disposition: Patient admitted to the floor for management and further work-up of suspected pneumonia, hypoxia, elevated troponin, elevated D-dimer, and weak UTI. Length of stay greater than 96 hours due to need for continued treatment, hopeful for LTAC placement in the near future. Unfortunately very poor overall prognosis
[2021-06-17] MEDS: methylPREDNISolone Sodium Succinate 40 MG/1 ML SDV IVPUSH SCH (08:54)
[2021-06-17] MEDS: Aspirin 81 MG Tab.EC PO SCH (08:54)
[2021-06-17] MEDS: Metoprolol Tartrate 25 MG Tab PO SCH ×2 (09:14→20:51)
[2021-06-17] MEDS: guaiFENesin 100 MG/5 ML Soln 10 ML UD Cup PO SCH ×4 (10:08→20:50)
[2021-06-17] MEDS: guaiFENesin 600 MG Tab.ER PO SCH (11:37)
[2021-06-17] MEDS: Loperamide 2 MG Cap PO PRN (13:11)
[2021-06-17] MEDS: Albuterol 0.083% 2.5 MG/3 ML Neb Soln NEB PRN (23:28)
[2021-06-18] MEDS: guaiFENesin 100 MG/5 ML Soln 10 ML UD Cup PO SCH ×5 (02:48→17:28)
[2021-06-18] MEDS: Albuterol/Ipratropium 3.0-0.5 MG/3 ML Neb Soln NEB SCH ×3 (05:46→15:55)
[2021-06-18] MEDS: Aspirin 81 MG Tab.EC PO SCH (08:43)
[2021-06-18] MEDS: Metoprolol Tartrate 25 MG Tab PO SCH (08:45)
--- NOTE | 2021-06-18 08:47 | PCM.PN ---
- General Info Date of Service: 06/18/21 Admission Dx/Problem (Free Text): Admission Diagnosis/Problem Admission Diagnosis/Problem Hypoxia Functional Status: Reports: Pain Controlled, Tolerating Diet, Ambulating, Urinating, Incentive Spirometry. Denies: New Symptoms - Review of Systems General: Reports: Weakness, Fatigue, Malaise. Denies: Fever, Chills HEENT: Reports: No Symptoms, Other (Crepitus noted in neck). Denies: Headaches, Sore Throat Pulmonary: Reports: Shortness of Breath, Cough, Sputum. Denies: Pleuritic Chest Pain, Wheezing Cardiovascular: Reports: No Symptoms, Dyspnea on Exertion. Denies: Chest Pain, Palpitations, Lightheadedness Gastrointestinal: Reports: No Symptoms. Denies: Abdominal Pain, Constipation, Diarrhea, Nausea, Vomiting Genitourinary: Reports: No Symptoms. Denies: Pain Musculoskeletal: Reports: No Symptoms Skin: Reports: No Symptoms. Denies: Cyanosis Neurological: Reports: Difficulty Walking (2/2 dyspnea), Weakness, Change in Speech (Higher pitched and easily). Denies: Confusion, Dizziness, Headache, Numbness, Seizure, Syncope, Tingling Psychiatric: Reports: No Symptoms - Patient Data Vitals - Most Recent: Last Vital Signs Temp 97 F 06/18/21 04:00 Pulse 122 H 06/18/21 08:45 Resp 22 H 06/18/21 04:00 BP 91/62 06/18/21 08:45 Pulse Ox 92 L 06/18/21 05:47 Weight - Most Recent: 132 lb 12.8 oz I&O - Last 24 Hours: Intake & Output 06/17/21 06/18/21 06/18/21 22:59 06:59 14:59 Intake Total 350 150 Output Total 500 400 Balance -150 -250 Lab Results Last 24 Hours: Laboratory Results - last 24 hr 06/18/21 06/18/21 06/18/21 Range/Units 05:04 05:04 05:04 WBC 18.62 H (3.98-10.04) K/mm3 RBC 4.31 (3.98-5.22) M/mm3 Hgb 13.0 (11.2-15.7) gm/dl Hct 38.6 (34.1-44.9) % MCV 89.6 (79.4-94.8) fl MCH 30.2 (25.6-32.2) pg MCHC 33.7 (32.2-35.5) g/dl RDW Std Deviation 47.4 H (36.4-46.3) fL Plt Count 403 H (182-369) K/mm3 MPV 10.3 (9.4-12.3) fl Neut % (Auto) 85.4 H (34.0-71.1) % Lymph % (Auto) 7.2 L (19.3-51.7) % [place] % (Auto) 4.8 (4.7-12.5) % Eos % (Auto) 0.4 L (0.7-5.8) Baso % (Auto) 0.1 (0.1-1.2) % Neut # (Auto) 15.89 H (1.56-6.13) K/mm3 Lymph # (Auto) 1.34 (1.18-3.74) K/mm3 [place] # (Auto) 0.90 H (0.24-0.36) K/mm3 Eos # (Auto) 0.07 (0.04-0.36) K/mm3 Baso # (Auto) 0.02 (0.01-0.08) K/mm3 PT 25.5 H (9.7-12.0) SECONDS INR 2.38 Sodium 135 L (136-145) mEq/L Potassium 4.3 (3.5-5.1) mEq/L Chloride 106 (98-107) mEq/L Carbon Dioxide 23 (21-32) mEq/L Anion Gap 10.3 (5-15) BUN 43 H (7-18) mg/dL Creatinine 0.7 (0.55-1.02) mg/dL Est Cr Clr Drug Dosing 49.18 mL/min Estimated GFR (MDRD) > 60 (>60) mL/min BUN/Creatinine Ratio 61.4 H (14-18) Glucose 87 (70-99) mg/dL Calcium 8.7 (8.5-10.1) mg/dL Magnesium 1.8 (1.8-2.4) mg/dL C-Reactive Protein 1.4 H* (<1.0) mg/dL Med Orders - Current: Current Medications Al Hydroxide/Mg Hydroxide (Aluminum Hydroxide/Magnesium Hydroxide/Simethicone Susp 30 Ml Cup) 30 ml PO Q4H PRN PRN Reason: Heartburn Last Admin: 06/11/21 23:27 Dose: 30 ml Documented by: Albuterol (Albuterol 0.083% 2.5 Mg/3 Ml Neb Soln) 2.5 mg NEB Q2H PRN PRN Reason: Shortness Of Breath/wheezing Last Admin: 06/17/21 23:28 Dose: 2.5 mg Documented by: Albuterol/Ipratropium (Albuterol/Ipratropium 3.0-0.5 Mg/3 Ml Neb Soln) 3 ml NEB QIDRT [facility] Last Admin: 06/18/21 05:46 Dose: 3 ml Documented by: Aspirin (Aspirin 81 Mg Tab.Ec) 81 mg PO DAILY [facility] Last Admin: 06/18/21 08:43 Dose: 81 mg Documented by: Diltiazem HCl (Diltiazem 50 Mg/10 Ml Sdv) 10 mg IVPUSH Q1H PRN PRN Reason: Tachycardia Last Admin: 06/12/21 10:36 Dose: 10 mg Documented by: Docusate Sodium (Docusate Sodium 100 Mg Cap) 100 mg PO Q12H PRN PRN Reason: Constipation Last Admin: 06/10/21 09:12 Dose: 100 mg Documented by: Guaifenesin (Guaifenesin 100 Mg/5 Ml Soln 10 Ml Ud Cup) 200 mg PO Q4H [facility] Last Admin: 06/18/21 08:45 Dose: 200 mg Documented by: Loperamide HCl (Loperamide 2 Mg Cap) 2 mg PO Q4H PRN PRN Reason: Diarrhea Last Admin: 06/17/21 13:11 Dose: 2 mg Documented by: Methylprednisolone Sodium Succinate (Methylprednisolone Sodium Succinate 40 Mg/1 Ml Sdv) 40 mg IVPUSH DAILY [facility] Last Admin: 06/18/21 08:43 Dose: 40 mg Documented by: Metoprolol Tartrate (Metoprolol Tartrate 25 Mg Tab) 25 mg PO BID [facility] Last Admin: 06/18/21 08:45 Dose: 25 mg Documented by: Ondansetron HCl (Ondansetron 4 Mg/2 Ml Sdv) 4 mg IV Q6H PRN PRN Reason: Nausea/Vomiting Sodium Chloride (Sodium Chloride 0.9% 10 Ml Syringe) 10 ml FLUSH ASDIRECTED PRN PRN Reason: Keep Vein Open Last Admin: 06/07/21 18:12 Dose: 10 ml Documented by: Warfarin Sodium (Pharmacy To Dose - Warfarin) 1 dose .XX ASDIRECTED PRN PRN Reason: RX TOD DOSE WARFARIN Discontinued Medications Albuterol (Albuterol 0.083% 2.5 Mg/3 Ml Neb Soln) 2.5 mg NEB ONETIME ONE Stop: 06/07/21 15:19 Last Admin: 06/07/21 15:47 Dose: 2.5 mg Documented by: Albuterol/Ipratropium (Albuterol/Ipratropium 3.0-0.5 Mg/3 Ml Neb Soln) 3 ml NEB ONETIME ONE Stop: 06/08/21 08:21 Last Admin: 06/08/21 08:37 Dose: 3 ml Documented by: Apixaban (Apixaban 5 Mg Tab) 10 mg PO BID [facility] Stop: 06/15/21 21:01 Last Admin: 06/10/21 09:13 Dose: 10 mg Documented by: Diltiazem HCl (Diltiazem Ir 30 Mg Tab) 30 mg PO Q8HR [facility] Last Admin: 06/13/21 05:51 Dose: 30 mg Documented by: Enoxaparin Sodium (Enoxaparin 40 Mg/0.4 Ml Syringe) 40 mg SUBCUT DAILY [facility] Last Admin: 06/08/21 14:49 Dose: 40 mg Documented by: Enoxaparin Sodium (Enoxaparin 60 Mg/0.6 Ml Syringe) 20 mg SUBCUT ONETIME ONE Stop: 06/08/21 16:31 Last Admin: 06/08/21 16:53 Dose: 20 mg Documented by: Enoxaparin Sodium (Enoxaparin 60 Mg/0.6 Ml Syringe) 60 mg SUBCUT Q12H [facility] Last Admin: 06/13/21 12:17 Dose: Not Given Documented by: Furosemide (Furosemide 40 Mg/4 Ml Vial) 40 mg IVPUSH NOW ONE Stop: 06/08/21 20:04 Last Admin: 06/08/21 21:33 Dose: 40 mg Documented by: Furosemide (Furosemide 20 Mg/2 Ml Vial) 20 mg IVPUSH TIDMEALS [facility] Last Admin: 06/11/21 06:34 Dose: 20 mg Documented by: Furosemide (Furosemide 20 Mg/2 Ml Vial) 20 mg IVPUSH DAILY [facility] Furosemide (Furosemide 20 Mg/2 Ml Vial) 20 mg IVPUSH DAILY [facility] Last Admin: 06/12/21 09:05 Dose: 20 mg Documented by: Guaifenesin (Guaifenesin 600 Mg Tab.Er) 600 mg PO BID [facility] Last Admin: 06/17/21 11:37 Dose: Not Given Documented by: Sodium Chloride (Normal Saline) 100 mls @ 60 mls/min IV ASDIRECTED [facility] Last Admin: 06/07/21 18:12 Dose: 60 mls/min Documented by: Sodium Chloride (Normal Saline) 1,000 mls @ 250 mls/hr IV ASDIRECTED [facility] Last Admin: 06/07/21 22:14 Dose: 250 mls/hr Documented by: Ceftriaxone Sodium 1 gm/ (Sodium Chloride) 100 mls @ 200 mls/hr IV ONETIME ONE Stop: 06/08/21 09:25 Last Admin: 06/08/21 09:20 Dose: 200 mls/hr Documented by: Vancomycin HCl 1 gm/ Sodium (Chloride) 250 mls @ 250 mls/hr IV Q18H [facility] Last Admin: 06/08/21 14:26 Dose: Not Given Documented by: Vancomycin HCl 1 gm/ Sodium (Chloride) 250 mls @ 250 mls/hr IV Q18H [facility] Last Admin: 06/08/21 15:37 Dose: Not Given Documented by: Piperacillin Sod/Tazobactam (Sod 4.5 gm/ Sodium Chloride) 100 mls @ 200 mls/hr IV ONETIME ONE Stop: 06/08/21 14:59 Last Admin: 06/08/21 14:19 Dose: 200 mls/hr Documented by: Piperacillin Sod/Tazobactam (Sod 4.5 gm/ Sodium Chloride) 100 mls @ 25 mls/hr IV Q8H [facility] Last Admin: 06/11/21 06:34 Dose: 25 mls/hr Documented by: Vancomycin HCl 1 gm/ Sodium (Chloride) 250 mls @ 250 mls/hr IV Q18H [facility] Stop: 06/10/21 23:59 Last Admin: 06/10/21 22:00 Dose: 250 mls/hr Documented by: Sodium Chloride (Normal Saline) 1,000 mls @ 100 mls/hr IV ASDIRECTED [facility] Vancomycin HCl 1 gm/ Sodium (Chloride) 250 mls @ 250 mls/hr IV Q12H [facility] Potassium Chloride 10 meq/ (Premix) 100 mls @ 100 mls/hr IV Q1H [facility] Stop: 06/11/21 12:59 Last Admin: 06/11/21 15:37 Dose: 100 mls/hr Documented by: Sodium Chloride (Normal Saline) 250 mls @ 40 mls/hr IV ASDIRECTED [facility] Last Admin: 06/11/21 15:51 Dose: 40 mls/hr Documented by: Iopamidol (Iopamidol 755 Mg/Ml 100 Ml Bottle) 100 ml IVPUSH ONETIME ONE Stop: 06/07/21 18:12 Last Admin: 06/07/21 18:12 Dose: 100 ml Documented by: Loperamide HCl (Loperamide 2 Mg Cap) 4 mg PO ONETIME ONE Stop: 06/14/21 10:51 Last Admin: 06/14/21 11:06 Dose: 4 mg Documented by: Methylprednisolone Sodium Succinate (Methylprednisolone Sodium Succinate 125 Mg/2 Ml Sdv) 125 mg IVPUSH ONETIME ONE Stop: 06/08/21 08:21 Last Admin: 06/08/21 08:25 Dose: 125 mg Documented by: Methylprednisolone Sodium Succinate (Methylprednisolone Sodium Succinate 40 Mg/1 Ml Sdv) 60 mg IVPUSH Q8H [facility] Last Admin: 06/14/21 06:45 Dose: 60 mg Documented by: Methylprednisolone Sodium Succinate (Methylprednisolone Sodium Succinate 40 Mg/1 Ml Sdv) 60 mg IVPUSH Q12H [facility] Last Admin: 06/16/21 06:34 Dose: 60 mg Documented by: Methylprednisolone Sodium Succinate (Methylprednisolone Sodium Succinate 40 Mg/1 Ml Sdv) 60 mg IVPUSH DAILY [facility] Last Admin: 06/17/21 08:54 Dose: 60 mg Documented by: Metoprolol Tartrate (Metoprolol Tartrate 25 Mg Tab) 25 mg PO Q12H [facility] Last Admin: 06/15/21 21:19 Dose: 25 mg Documented by: Potassium Chloride (Potassium Chloride 10 Meq Tab.Er) 10 meq PO TID [facility] Last Admin: 06/10/21 22:00 Dose: 10 meq Documented by: Potassium Chloride (Potassium Chloride 20 Meq Tab.Er) 20 meq PO ONETIME ONE Stop: 06/09/21 07:21 Last Admin: 06/09/21 08:37 Dose: 20 meq Documented by: Sodium Chloride (Sodium Chloride 0.9% 10 Ml Sdv) 10 ml FLUSH ONETIME ONE Stop: 06/07/21 18:12 Last Admin: 06/07/21 20:31 Dose: 10 ml Documented by: Trimethoprim/Sulfamethoxazole (Sulfamethoxazole/Trimethoprim 800-160 Mg Tab) 1 tab PO BID [facility] Last Admin: 06/14/21 08:44 Dose: 1 tab Documented by: Vancomycin HCl (Pharmacy To Dose - Vancomycin) 1 dose .XX ASDIRECTED [facility] Warfarin Sodium (Warfarin 4 Mg Tab) 4 mg PO QPM [facility] Stop: 06/10/21 18:01 Last Admin: 06/10/21 18:08 Dose: 4 mg Documented by: Warfarin Sodium (Warfarin 4 Mg Tab) 4 mg PO QPM [facility] Stop: 06/11/21 18:01 Last Admin: 06/11/21 18:36 Dose: 4 mg Documented by: Warfarin Sodium (Warfarin 4 Mg Tab) 4 mg PO QPM [facility] Stop: 06/12/21 18:01 Last Admin: 06/12/21 18:15 Dose: 4 mg Documented by: Warfarin Sodium (Warfarin 1 Mg Tab) 1 mg PO QPM [facility] Last Admin: 06/13/21 18:04 Dose: 1 mg Documented by: Warfarin Sodium (Warfarin Sliding Scale) 0 each PO QPM [facility] Stop: 06/14/21 18:01 Last Admin: 06/14/21 17:46 Dose: Not Given Documented by: Warfarin Sodium (Warfarin 3 Mg Tab) 3 mg PO QPM [facility] Stop: 06/15/21 18:01 Last Admin: 06/15/21 19:19 Dose: 3 mg Documented by: Warfarin Sodium (Warfarin 3 Mg Tab) 3 mg PO QPM [facility] Stop: 06/16/21 18:01 Last Admin: 06/16/21 17:13 Dose: 3 mg Documented by: Warfarin Sodium (Warfarin 1 Mg Tab) 2 mg PO QPM [facility] Stop: 06/17/21 18:01 Last Admin: 06/17/21 17:21 Dose: 2 mg Documented by: - Exam Quality Assessment: Supplemental Oxygen (55L with FiO2 at 85%), DVT Prophylaxis. No: Urine Catheter General: Alert, Oriented, Cooperative, Mild Distress (looks ill) HEENT: Pupils Equal, Pupils Reactive, Mucous Membr. Moist/[place] Neck: Supple, Trachea Midline, Other (Crepitus noted in neck) Lungs: Decreased Breath Sounds, Crackles. No: Normal Respiratory Effort (Tachypnea) Cardiovascular: Regular Rate, Tachycardia GI/Abdominal Exam: Normal Bowel Sounds, Non-Tender, No Distention (Female) Exam: Deferred Back Exam: Normal Inspection, Full Range of Motion Extremities: Normal Inspection, Normal Range of Motion, Non-Tender, No Pedal Edema, Normal Capillary Refill Skin: Warm, Dry, Intact Neurological: No New Focal Deficit Psy/Mental Status: Alert, Normal Affect, Normal Mood #1 Interpretation EKG Date: 06/18/21 Time: 09:15 Rhythm: Other (Sinus tachycardia) [place]: LAD-Left [place] Deviation (-53) P-Wave: Present QRS: Normal ST-T: Normal QT: Normal Comparison: Change From Previous EKG EKG Interpretation Comments: Sinus tachycardia at 119 bpm. LAFB. LVH pattern with secondary repolarization abnormality noted. LAFB. - Patient Data Lab Results Last 24 hrs: Laboratory Results - last 24 hr 06/18/21 06/18/21 06/18/21 Range/Units 05:04 05:04 05:04 WBC 18.62 H (3.98-10.04) K/mm3 RBC 4.31 (3.98-5.22) M/mm3 Hgb 13.0 (11.2-15.7) gm/dl Hct 38.6 (34.1-44.9) % MCV 89.6 (79.4-94.8) fl MCH 30.2 (25.6-32.2) pg MCHC 33.7 (32.2-35.5) g/dl RDW Std Deviation 47.4 H (36.4-46.3) fL Plt Count 403 H (182-369) K/mm3 MPV 10.3 (9.4-12.3) fl Neut % (Auto) 85.4 H (34.0-71.1) % Lymph % (Auto) 7.2 L (19.3-51.7) % [place] % (Auto) 4.8 (4.7-12.5) % Eos % (Auto) 0.4 L (0.7-5.8) Baso % (Auto) 0.1 (0.1-1.2) % Neut # (Auto) 15.89 H (1.56-6.13) K/mm3 Lymph # (Auto) 1.34 (1.18-3.74) K/mm3 [place] # (Auto) 0.90 H (0.24-0.36) K/mm3 Eos # (Auto) 0.07 (0.04-0.36) K/mm3 Baso # (Auto) 0.02 (0.01-0.08) K/mm3 PT 25.5 H (9.7-12.0) SECONDS INR 2.38 Sodium 135 L (136-145) mEq/L Potassium 4.3 (3.5-5.1) mEq/L Chloride 106 (98-107) mEq/L Carbon Dioxide 23 (21-32) mEq/L Anion Gap 10.3 (5-15) BUN 43 H (7-18) mg/dL Creatinine 0.7 (0.55-1.02) mg/dL Est Cr Clr Drug Dosing 49.18 mL/min Estimated GFR (MDRD) > 60 (>60) mL/min BUN/Creatinine Ratio 61.4 H (14-18) Glucose 87 (70-99) mg/dL Calcium 8.7 (8.5-10.1) mg/dL Magnesium 1.8 (1.8-2.4) mg/dL C-Reactive Protein 1.4 H* (<1.0) mg/dL Result Diagrams: 06/18/21 05:04 06/18/21 05:04 Sepsis Event Note - Evaluation Sepsis Screening Result: Sepsis Risk - Focused Exam Vital Signs: Vital Signs Temp Temp Pulse Resp BP BP Pulse Ox 06/18/21 08:45 122 H 91/62 06/18/21 05:47 06/18/21 04:00 97 F 22 H 119/89 92 L 06/17/21 23:29 06/17/21 22:00 97.6 F 20 109/90 89 L 06/17/21 20:55 97.9 F 88 22 H 119/89 89 L 06/17/21 20:51 85 119/89 06/17/21 20:49 Pulse Ox 06/18/21 08:45 06/18/21 05:47 92 L 06/18/21 04:00 06/17/21 23:29 91 L 06/17/21 22:00 06/17/21 20:55 06/17/21 20:51 06/17/21 20:49 88 L - Problem List & Annotations (1) History of COVID-19 SNOMED Code(s): 693019058948401002, 533401206678948236 Code(s): Z86.16 - PERSONAL HISTORY OF COVID-19 Status: Chronic Priority: Medium Current Visit: Yes (2) Elevated d-dimer SNOMED Code(s): 456146791 Code(s): R79.89 - OTHER SPECIFIED ABNORMAL FINDINGS OF BLOOD CHEMISTRY Status: Acute Priority: Medium Current Visit: Yes (3) Elevated troponin SNOMED Code(s): 832382792, 877842613, 769630755 Code(s): R77.8 - OTHER SPECIFIED ABNORMALITIES OF PLASMA PROTEINS Status: Resolved Priority: High Current Visit: Yes (4) Pneumonia SNOMED Code(s): 288493464 Code(s): J18.9 - PNEUMONIA, UNSPECIFIED ORGANISM Status: Ruled-out Priority: High Current Visit: Yes Qualifiers: Pneumonia type: due to unspecified organism Laterality: unspecified laterality Lung location: unspecified part of lung Qualified Code(s): J18.9 - Pneumonia, unspecified organism (5) Dyspnea SNOMED Code(s): 765278013 Code(s): R06.00 - DYSPNEA, UNSPECIFIED Status: Acute Priority: High Current Visit: Yes Qualifiers: Dyspnea type: unspecified Qualified Code(s): R06.00 - Dyspnea, unspecified (6) Hypoxia SNOMED Code(s): 413551558 Code(s): R09.02 - HYPOXEMIA Status: Acute Priority: High Current Visit: Yes (7) UTI (urinary tract infection) SNOMED Code(s): 31881128 Code(s): N39.0 - URINARY TRACT INFECTION, SITE NOT SPECIFIED Status: Acute Priority: High Current Visit: Yes Qualifiers: Urinary tract infection type: site unspecified Hematuria presence: without hematuria Qualified Code(s): N39.0 - Urinary tract infection, site not specified (8) Elevated brain natriuretic peptide (BNP) level SNOMED Code(s): 755351377, 407170821 Code(s): R79.89 - OTHER SPECIFIED ABNORMAL FINDINGS OF BLOOD CHEMISTRY Status: Acute Priority: High Current Visit: Yes (9) On home oxygen therapy SNOMED Code(s): 869999866441 Code(s): Z99.81 - DEPENDENCE ON SUPPLEMENTAL OXYGEN Status: Chronic Priority: Medium Current Visit: Yes (10) GERD (gastroesophageal reflux disease) SNOMED Code(s): 412127152 Code(s): K21.9 - GASTRO-ESOPHAGEAL REFLUX DISEASE WITHOUT ESOPHAGITIS Status: Chronic Priority: Low Current Visit: No Qualifiers: Esophagitis presence: esophagitis presence not specified Qualified Code(s): K21.9 - Gastro-esophageal reflux disease without esophagitis (11) Meniere disease SNOMED Code(s): 63636278 Code(s): H81.09 - MENIERE'S DISEASE, UNSPECIFIED EAR Status: Chronic Priority: Low Current Visit: No Qualifiers: Laterality: unspecified laterality Qualified Code(s): H81.09 - Meniere's disease, unspecified ear (12) DVT (deep venous thrombosis) SNOMED Code(s): 861580682 Code(s): I82.409 - ACUTE EMBOLISM AND THOMBOS UNSP DEEP VN UNSP LOWER EXTREMITY Status: Acute Priority: High Current Visit: Yes Qualifiers: DVT location: lower extremity Affected thrombotic vein of extremity: unspecified vein of extremity Chronicity: acute Laterality: left Qualified Code(s): I82.402 - Acute embolism and thrombosis of unspecified deep veins of left lower extremity (13) Hypotension SNOMED Code(s): 03050131 Code(s): I95.9 - HYPOTENSION, UNSPECIFIED Status: Resolved Priority: High Current Visit: Yes Qualifiers: Hypotension type: unspecified hypotension type Qualified Code(s): I95.9 - Hypotension, unspecified (14) Acute and chronic respiratory failure SNOMED Code(s): 66648938 Code(s): J96.20 - ACUTE AND CHR RESP FAILURE, UNSP W HYPOXIA OR HYPERCAPNIA Status: Acute Priority: High Current Visit: Yes Qualifiers: Respiratory failure complication: hypoxia Qualified Code(s): J96.21 - Acute and chronic respiratory failure with hypoxia (15) Myocarditis SNOMED Code(s): 15049409 Code(s): I51.4 - MYOCARDITIS, UNSPECIFIED Status: Suspected Priority: High Current Visit: Yes Qualifiers: Myocarditis type: infective Infective myocarditis organism: viral Chronicity: acute Qualified Code(s): I40.0 - Infective myocarditis (16) Hypokalemia SNOMED Code(s): 90979397 Code(s): E87.6 - HYPOKALEMIA Status: Resolved Priority: High Current Visit: Yes (17) Pulmonary fibrosis SNOMED Code(s): 06098990 Code(s): J84.10 - PULMONARY FIBROSIS, UNSPECIFIED Status: Suspected Priority: High Current Visit: Yes (18) Diarrhea SNOMED Code(s): 60684640 Code(s): R19.7 - DIARRHEA, UNSPECIFIED Status: Acute Priority: Medium Current Visit: Yes Qualifiers: Diarrhea type: unspecified type Qualified Code(s): R19.7 - Diarrhea, unspecified (19) New onset a-fib SNOMED Code(s): 16664657 Code(s): I48.91 - UNSPECIFIED ATRIAL FIBRILLATION Status: Acute Priority: High Current Visit: Yes (20) Pneumothorax SNOMED Code(s): 13283219 Code(s): J93.9 - PNEUMOTHORAX, UNSPECIFIED Status: Acute Priority: High Current Visit: Yes Qualifiers: Pneumothorax type: unspecified pneumothorax Qualified Code(s): J93.9 - Pneumothorax, unspecified (21) Pneumomediastinum SNOMED Code(s): 83591799 Code(s): J98.2 - INTERSTITIAL EMPHYSEMA Status: Acute Priority: High Current Visit: Yes (22) Subcutaneous emphysema SNOMED Code(s): 4945916 Code(s): T79.7XXA - TRAUMATIC SUBCUTANEOUS EMPHYSEMA, INITIAL ENCOUNTER Status: Acute Priority: High Current Visit: Yes Qualifiers: Encounter type: initial encounter Qualified Code(s): T79.7XXA - Traumatic subcutaneous emphysema, initial encounter - Problem List Review Problem List Initiated/Reviewed/Updated: Yes - My Orders Last 24 Hours: My Active Orders 06/17/21 09:30 guaiFENesin [Robitussin] 200 mg PO Q4H 06/18/21 09:00 methylPREDNISolone Sod Succ [Solu-MEDROL] 40 mg IVPUSH DAILY - Assessment Assessment:: Admission assessment - 06/08/2021 * 80-year-old female who presents to ED on 06/07/2021 with low oxygen saturations * History of Mnire's disease, GERD, and prior Covid pneumonia * Was hospitalized from 05/17/2021 through 05/31/2021 with COVID-19 pneumonia at [facility] in [place]. * Discharged home on 4 L of oxygen with activity after completing 4 days of remdesivir and 10 days of Decadron. * Of note patient was noted to have episodes of bradycardia and hypotension with heart rate in the 30s and 40s. She was noticed to have episodes of Mobitz type I AV block and 2.5-second sinus pauses. It was believed this was due to remdesivir however this continued after stopping. Patient was to follow-up with EP and have a 2-week library monitor after discharge. * Prior to presenting to the ED she was noted to have saturations in the low 50s. * Patient's increased her oxygen to 8 L via nasal cannula. * Denies any recent fever, chills, nausea, vomiting, diarrhea, urinary symptoms, or smoking history. * Of note patient did have acute cystitis with an E. coli UTI well in the hospital in [place] and completed 5 days of Rocephin there. * 12-lead EKG was obtained showing a sinus tachycardia at 109 bpm with a LAFB and very mild ST elevation in V2 and V3. * Placed on a nonrebreather mask which improved her saturations to 90 to 91%. * Noted to be dyspneic and only able to complete a few word sentences. * Labs are obtained: * WBC of 8.57. * Hemoglobin 13.0. * Hematocrit 30.5. * Platelet 250,000. * Neutrophils are elevated 75.7%. * D-dimer is very high at 8.16. * Sodium is low at 129. * Potassium 3.8. * Chloride 94. * Carbon dioxide 24. * Anion gap is 14.8. * BUN is 15. Creatinine 0.6. GFR greater than 60. * Glucose is 126. * Calcium 8.7. * Magnesium 1.8. * Total bilirubin 0.6. * AST is 36, ALT 31, alkaline phosphatase 86. * Troponin is elevated at 0.127-->0.156-->0.067. * CRP is very high at 29.3. * Protein 7.1. * Albumin 2.1. * proBNP is 3117 * UA is obtained and is mildly positive with slightly cloudy urine, 1+ protein, 3+ ketones, 2+ occult blood, 1+ leukocyte esterase, 5-10 RBCs, 20- 30 WBCs, rare WBC clumps, and moderate bacteria. * ABG obtained in the left radial with a pH of 7.44. PCO2 of 30.9. PO2 of 58.0. HCO3 of 20.5. O2 saturations 86%. Base excess is -2.3. Aa gradient is 15.0. This is obtained while on nonrebreather at 15 L. * Facility was out of CPAP and BiPAP-> started on high flow O2 with saturations in the low 90s. * CTA of the chest is obtained to rule out PE and shows: * 1. No findings of pulmonary embolism. * 2. Minimal left-sided pleural effusion. * 3. Diffuse emphysematous changes seen. Both lungs show diffuse increased density uncertain how much of this represents diffuse fibrosis versus possible superimposed pneumonia. Old comparison studies would be needed if available. * 4. 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 * 5. Other findings which are felt to be chronic as described above. * Chest x-ray shows scattered infiltrates bilaterally most prominent in the left lower lobe. * Plan was to transfer the patient for continued care due to elevated troponin however no beds are noted to be available [place], [place], or [facility]. * Noted to have a blood pressure of 80/61 and is given a 500 mill fluid bolus over 2 hours. * Given 1 dose of Rocephin in the ED. She is also given 125 mg Solu-Medrol and a DuoNeb, which she reports greatly helped. * Ultimately inpatient bed does open up at our facility and she is admitted to the floor on telemetry for management of her hypoxia, suspected pneumonia, elevated BNP, elevated troponin - likely demand ischemia, and questionable UTI. * On floor bilateral lower extremity ultrasound shows thrombus within the left mid and distal superficial, femoral, popliteal, posterior tibial, and peroneal veins. 06/09/2021 This is a 80 years old female post Covid infection who was hospitalized in [place] for approximately 2 weeks who presented to our ED with low saturations. On admission D-dimer was noted to be elevated however CTA was negative for any PE. Lower extremity ultrasound did show a DVT in the left extremity and patient was started on 1 mg/kg Lovenox transitioning to 10 mg twice daily Eliquis today. Patient has been requiring high flow 60 L and was weaned down to 80% FiO2 today. Unfortunately given patient's history of recent Covid infection CTA was not very helpful in differentiating pulmonary cause. Given recent hospitalization there are concerns of a secondary bacterial infection. WBC has been WNL however neutrophils are elevated. Procalcitonin was obtained and was 0.29. Lactic acid yesterday was 1.0. Patient was noted to be hypotensive in the emergency room and was given 2 fluid boluses. She was also started on fluids over concerns of sepsis. UA was positive and urine culture is growing out greater than 100,000 CFU's of gram-negative rods thus far. She does have a history of a E. coli UTI treated with Rocephin in [place]. Patient denies any urinary symptoms. proBNP was elevated. Echocardiogram was obtained on 2020 And interpreted as: " 1. The left ventricular internal cavity size is normal. 2. Normal left ventricular systolic function. 3. Left ventricular ejection fraction, by visual estimation, is 55 to 60%. 4. No regional wall motion abnormalities. 5. Mild proximal septal hypertrophy. 6. Aortic valve is tricuspid. 7. Mild mitral valve regurgitation. 8. Trace tricuspid valve regurgitation. 9. Mild pulmonic valve regurgitation. 10. The inferior vena cava is normal. 11. The right ventricular systolic pressure is mildly elevated at 32.2 mmHg." Patient was started on 20 mg IV push Lasix 3 times daily yesterday and has had over 1 L output. Potassium today is down to 3.3 and this is being supplemented. Sodium 137. Carbon dioxide 24. Anion gap is 13.3. BUN is 19. Creatinine 0.6. GFR greater than 60. Glucose is 146. Calcium 8.4. Magnesium is 1.8. Total bilirubin 0.5. AST is 26, ALT 26, alkaline phosphatase 90. Troponin today was down to 0.031. CRP is down to 24.2. Albumin is down to 1.8. Mycoplasma and strep pneumonia were both checked and were negative. Respiratory viral panel was obtained and was negative however patient did return positive for Covid, which is unsurprising given the patient's recent known Covid infection. We will continue current treatment plan. It is felt it is prudent to continue IV antibiotics for now given patient's symptoms and lab results. We will continue diuresis and Eliquis for DVT treatment. 06/10/2021 This is a 80-year-old female post Covid infection who was admitted for suspected pneumonia, pulmonary fibrosis, myocarditis, DVT, and apparent UTI. Labs today show WBC of 8.94. Hemoglobin is 11.1. Neutrophils are elevated 77.7%. Smear review feels slight toxic granulation and abnormal RBC morphology. Sodium today is 140. Potassium 3.7. Chloride 103. Carbon dioxide 20. Anion gap is 12.7. BUN is 25. Creatinine 0.8. GFR greater than 60. Magnesium is 1.9. Bilirubin 0.5. AST is 24, ALT 29, alkaline phosphatase is 90. CRP is down to 12.5. Albumin is 1.8. Patient does report that she feels quite a bit better today. She is down on high flow to 55 L with an FiO2 of 70% with saturations of upper 80s to low 90s. Urine culture continues to show greater than 100,000 CFU's of E. coli. Sensitivities are pending. Blood cultures have returned negative. Strep pneumonia is negative. Discussed plan of care with Dr. Ibarra who recommends patient receive 1 more dose of Lasix and then either discontinue or continue with 20 mg daily. We will continue vancomycin and Zosyn due to co ncerns over possible pneumonia. Unfortunately today patient reported that her insurance company tells her Eliquis will be $600 for 30-day supply. She states she cannot afford this. Apparently Xarelto is around the same pricing per case management. We will therefore discontinue Eliquis start patient on 1 mg/kg Lovenox twice daily and start warfarin with pharmacy to dose. Patient has had no fevers. We will continue current treatment plan and hope to wean patient off of high flow. Unknown length of stay due to severity of symptoms. 06/11/2021 80-year-old female who is post Covid admitted for suspected pneumonia, pulmonary fibrosis, suspected myocarditis, DVT and UTI. Labs today show WBC of 8.33. Hemoglobin is 11.7. Neutrophils are 70.6. INR is 1.20. Sodium is 137. Potassium 3.2. Chloride 98. Carbon dioxide 29. Anion gap is 13.2. BUN is 29. Creatinine 1.0. GFR 53. Glucose 101. CRP is up to 16.2. Albumin is 1.9. Discussed plan of care with Dr. Youssef, attending hospitalist. We will at this time discontinue vancomycin and Zosyn and switch patient to Bactrim DS twice daily based on E. coli urine sensitivities. We will repeat a procalcitonin. We will also decrease Lasix to 20 mg IV push daily. Patient's potassium will be supplemented. Pharmacy continues to dose warfarin and patient remains on 1 mg/kg twice daily Lovenox bridging. Will start patient on 60 mg every 8 hour IV push methylprednisolone. Patient has been reporting difficulty with swallowing pills. Because of this we will order an [employer] evaluation. We have made some im provement with her high flow she is now at 55 L with an FiO2 of 65%. We will continue to wean as patient tolerates. Unknown length of stay due to severity of symptoms. 06/12/2021 80-year-old female with post Covid admitted for suspected pneumonia, pulmonary fibrosis, suspected myocarditis, DVT, and UTI developed A. fib with RVR with rates in the 110s to 120s+ this morning. This required increasing oxygen support with high flow nasal cannula at 60 L with FiO2 of 95% and nonrebreather mask. Patient continues to be DNR/DNI. She was given 1 dose of Cardizem 10 mg IV x1. Blood pressure was stable with systolic in the 120s. After rate control was achieved we were able to remove the nonrebreather mask. CRP continues to be elevated at 12.7. She was started on methylprednisolone yesterday and switched vancomycin and Zosyn to Bactrim for her UTI. Procalcitonin did return at 0.18 reassuring us that she does not have a severe bacterial sepsis. Patient is getting warfarin secondary to DVT with INR today at 1.85. She continues on Lovenox until therapeutic INR. EKG shows diffuse T wave inversion consistent with heart strain. Troponin was drawn and increased to 0.14. Also suggesting some component of heart strain versus infarction. EKG also demonstrates new onset atrial fibrillation. She is not a candidate for transfer at this time and is already on full dose Lovenox and INR is 1.8 as we titrate up her warfarin. 06/13/2021 Patient has had a marginal improvement with high flow nasal cannula at 60 L and FiO2 of 90%. She no longer has a nonrebreather mask over it. Her INR is now supratherapeutic and her Lovenox will be held. Pharmacy is dosing INR. Creatinine is 1.4 with estimated GFR of 36 and BUN of 49. Lasix was stopped after the morning dose yesterday. Today is day 6 of antibiotics for her UTI and she should be able to stop them tomorrow. White count has increased to 12.5, but she has been placed on moderately high Solu-Medrol. INR is also likely higher because of the Bactrim. This will make getting her INR stabilized difficult. 06/14/2021 This is a 80-year-old female post Covid who was admitted due to acute on chronic respiratory failure. She has been requiring high flow and is currently on 55 L with an FiO2 of 85%. She is initially treated for possible pneumonia and given labs and CT results it appears she has more of a pulmonary fibrosis picture. She was noted to have a UTI and was switched to Bactrim DS and she will complete treatment today. Questioning myocarditis. She also has a left leg DVT and was started on Eliquis, however patient has concerns with affording this and she was switched to warfarin. INR today is 4.21. She was started on steroids and will be decreased to 60 mg IV push Solu-Medrol twice daily today. Given the Bactrim and Solu-Medrol her INR has been somewhat variable with difficult to dose warfarin. Pharmacy continues to dose this. WBC today is 11.29. Hemoglobin 11.3. Platelet 391,000. Neutrophils are 87%. Sodium 135. Potassium 4.4. Chloride 104. Carbon dioxide 25. Anion gap 10.4. BUN is 55. Creatinine 1.1. GFR is up to 48. Glucose is 126. Phosphorus 3.4. Magnesium 2.2. Total bilirubin 0.2. AST is 18, ALT 24, alkaline phosphatase 62. CRP is down to 3.2. Protein is 5.9. Albumin is down to 1.9. Patient was complaining of some diarrhea today and given all of her antibiotic she was on we checked a C. diff icile which was negative. We will therefore schedule Imodium. Unknown length of stay due to severity of symptoms and concern over minimal improvement in oxygenation. We will look at possible swing bed/LTAC facilities in the future. 06/15/2021 This is a 80-year-old female post COVID-19 pneumonia who was admitted to the floor due to acute respiratory failure now believed to be secondary to pulmonary fibrosis. She was also noted to have a left leg DVT and was started on Eliquis ultimately is being switched to warfarin with Lovenox bridging. UA and culture were suggestive of E. coli UTI and she completed treatment for this. Remains on high flow 50 L with an FiO2 of 90% and we have not been able to make much movement with this. She continues to have dyspnea with exertion. She has mild diarrhea which is improving. C. difficile screen was negative. Labs today show WBC which is elevated at 12.79, likely secondary to steroid use. Platelet is 423. INR on warfarin is therapeutic at 2.50. Sodium is 136. Potassium 4.9. Chloride 104. Carbon oxide 25. Anion gap 11.9. BUN is 55. Creatinine 1.0. GFR is up to 53. Calcium is 8.9. Magnesium is 2.2. CRP is down to 1.8. Overall she remains stable. was in room today and all questions were answered. We discussed the possibility of a transfer to an LTAC such as [facility] and [facility] and they are very interested in this. We discussed how she may never recover from this and if she does it will be very slow progress. She is currently on 60 mg twice daily Solu-Medrol and we will continue to wean this. Plan will be to discharge to LTAC once available. 06/16/2021 This is a 80-year-old female post Covid found to have pulmonary fibrosis. She is remained in a sinus rhythm and there have been no calls on telemetry. She is on high flow we have made some improvement there with 55 L and 80% FiO2. Labs today show a WBC of 12.41, which is likely steroid related. Platelets are 393,000. Neutrophils are 88.9%. INR is a bit low at 1.96 and pharmacy is dosing warfarin for her DVT. This will likely be a somewhat moving target due to patient requiring steroids. She has completed treatment for UTI. Electrolytes have remained good. Renal function has improved with a BUN of 51. Creatinine 0.8. GFR greater than 60. CRP is down to 0.6. We will decrease steroids today to 60 mg IV push methylprednisolone daily and continue to wean. We have discussed LTAC care with the family and they are in agreement to this as it is likely the best option for the patient. [facility] in [facility] is reviewing patient chart at this time. Patient will remain hospitalized until placement can be arranged. 06/17/2021 This is a 80-year-old female admitted to the floor for hypoxia post Covid and found to have pulmonary fibrosis. WBC today is up to 17.2, likely steroid related. We will decrease her steroids from 60 mg daily to 40 mg daily and continue to wean. Hemoglobin is 12.7. Platelets 432,000. Neutrophils are elevated at 84.4%. INR is 2.39. Sodium 135. Potassium 4.6. Chloride 106. Carbon dioxide 22. Anion gap is 11.6. BUN is 45. Creatinine 0.7. GFR greater than 60. Magnesium is 1.8. CRP is down to 0.3. She is currently on high flow oxygen 55 L with an FiO2 of 70%. We have been making very slow but fairly steady gains on her oxygen. She reports she feels pretty good. She remains on warfarin for her left lower extremity DVT. She has been very pleasant and her has been visiting regularly. We are hopeful for LTAC placement in the near future. 06/18/2021 80-year-old female admitted to the floor for hypoxia. She is post Covid and found to have pulmonary fibrosis. Today she was noted to be tachycardic and have worsening saturations requiring higher levels of high flow. CTA was obta ined and shows "1. Diffuse mediastinal air is noted. Air extends into the upper chest wall and neck. There is also noted inferiorly within the mediastinum. 2. Small amount of pneumothorax is seen within both lung bases. 3. Stable parenchymal change within both lungs. 4. No findings of pulmonary embolism. 5. Stable aneurysm of the ascending aorta. Slight ectasia of the descending aorta is also noted." Dr. Spears, general surgeon is consulted who states patient is nonsurgical at this time but does recommend transfer due to risk of worsening condition and probable need for esophagram. Contacted both hospitals in [place] in the [facility] transfer center however no beds are currently available. We'll continue to work on this. In the meantime we'll have nursing check every hour neck circumference. We will check one-view portable chest x- ray at 1500 and repeat tomorrow morning, with serial daily chest x-rays thereafter. Will make patient bedridden with bedside commode. Patient and at bedside updated on plan and attempt to transfer. Labs today show worsening WBC of 18.62. Hemoglobin is 13.0. Platelet 403,000. INR is stable at 2.38. D-dimer is 4.36. Sodium 135. Potassium 4.3. Chloride 106. Carbon dioxide 23. Anion gap is 10.3. BUN is 43. Creatinine 0.7. GFR greater than 60. CRP is up to 1.4. Magnesium 1.8. Patient does report she feels better overall. She does have subcutaneous emphysema noted in her neck. Her voice is also noted to be higher pitched and more nasally. - Plan Plan:: Pneumomediastinum pneumothorax subcutaneous emphysema * General surgery consultation - Dr. Spears * Denies any need for surgical intervention at this point * Recommends transfer for esophagram * Repeat chest x-ray today at 1500 * Monitor daily chest x-rays * Bedrest bedside commode for now * Attempt transfer * Contacted both hospitals in [place] with no available beds * Contacted [facility] transfer center and they are working on finding available bed Dyspnea Hypoxia History of COVID-19 On home oxygen therapy Acute on chronic respiratory failure Pulmonary fibrosis -on CT scan * Droplet isolation (airborne/contact while on high flow O2) * O2 as needed to keep saturation greater than 90% * I-S/Acapella * Discontinued zosyn and vancomycin on 06/11/2021 * High flow oxygen as directed * 4 times daily scheduled DuoNebs * Every 2 hours as needed albuterol nebulizer * Consult RT * Telemetry * Blood cultures negative * Continuous pulse oximetry * Mucinex BID * Recommend PFT after recovery due to emphysematous changes noted in CTA * Recommend pulmonology follow-up after discharge * Repeat procalcitonin 0.18 on 06/11/2021 * Decrease solumedrol to 40mg daily * Continue to follow CRP * Repeat CTA today to rule out PE due to worsening dyspnea and tachycardia DVT Elevated d-dimer * CTA in ED negative for PE * Discontinue Eliquis as patient reports $600 for 30 day supply * Warfarin with pharmacy to dose * DC Lovenox 60mg (1mg/kg) BID as bridging * Daily INR Myocarditis - suspected Elevated troponin, resolved Elevated brain natriuretic peptide (BNP) level New onset A-fib * Troponin increased returned to normal of 0.056 and she is back in sinus rhythm * Metoprolol tartrate - 25mg BID * Continue 81mg daily aspirin * DC Cardizem and switch to PRN * Echocardiogram obtained as noted * Monitor patient's weight * Monitor I&O's * Telemetry * Continue to hold Lasix * Supplement potassium as needed * Monitor CRP UTI (urinary tract infection), Resolved * UA weakly positivepatient was treated for E. coli UTI with Rocephin in [place] * Urine culture showing >100cfu E. Coli, with good sensitivities to Bactrim DS * Blood cultures negative thus far * Switch from zosyn/vancomycin to Bactrim DS BID PO --> Completed treatment on 06/14/2021 GERD (gastroesophageal reflux disease) * No acute concerns * Monitor Meniere disease * No acute concerns * Monitor Hypokalemiaresolved * Supplement as needed Hypotension - resolved * Noted in ED and multiple fluid boluses given * Monitor Dysphagia * Patient reports difficulty swallowing pills * [employer] evaluation -> crush pills Diarrhea, improved to resolved * Check c. diff -->negative * Continue PRN Imodium Code status: DNR--> patient reports she would agree to be intubated if it came down to needing it. PCP: Dr. Morley in [place] DVT prophylaxis: Warfarin Disposition: Patient admitted to the floor for management and further work-up of suspected pneumonia, hypoxia, elevated troponin, elevated D-dimer, and weak UTI. Length of stay greater than 96 hours due to need for continued treatment, new onset pneumothorax, pneumomediastinum, and subcutaneous emphysema. Unfortunately very poor overall prognosis
[2021-06-18] MEDS ORDERED: methylPREDNISolone Sodium Succinate 40 MG/1 ML SDV IVPUSH SCH (09:00)
[2021-06-18] MEDS: Diltiazem 50 MG/10 ML SDV IVPUSH PRN (09:29)
[2021-06-18] MEDS ORDERED: Iopamidol 755 Mg/ML 100 ML Bottle IVPUSH ONE (10:59)
[2021-06-18] MEDS ORDERED: Sodium Chloride 0.9% 10 ML Syringe FLUSH PRN (10:59)
[2021-06-18] MEDS ORDERED: Sodium Chloride 0.9% 100 ML IV SCH (11:00)
--- NOTE | 2021-06-18 11:36 | CT ---
CT chest Technique: Multiple axial sections through the chest were obtained. Intravenous contrast was utilized. Study has been performed as a pulmonary angiogram protocol. Comparison: Prior CT chest study of 06/07/21. Findings: Pulmonary arteries are well opacified. No filling defects are seen to indicate pulmonary embolism. Ascending aorta is aneurysmal with AP dimension of 3.9 cm. Descending aorta is slightly ectatic. Diffuse air is seen within the mediastinum extending into the chest wall and neck. Mediastinal air also extends inferiorly within the mediastinum. Minimal areas of pneumothorax are seen on both sides. Moderately large hiatal hernia is noted. Mediastinum shows no adenopathy. No axillary adenopathy is seen. Diffuse parenchymal density is seen throughout both lungs which appears stable from prior exam. Bone window settings were reviewed which show scattered disc space narrowing within the spine with scattered endplate osteophytes. No definite acute osseous abnormality is appreciated. Impression: 1. Diffuse mediastinal air is noted. Air extends into the upper chest wall and neck. Air is also noted inferiorly within the mediastinum. 2. Small amount of pneumothorax is seen within both lung bases. 3. Stable parenchymal change within both lungs. 4. No findings of pulmonary embolism. 5. Stable aneurysm of the ascending aorta. Slight ectasia of the descending aorta is also noted. Diagnostic code #3
--- NOTE | 2021-06-18 13:33 | PCM.CONS ---
H&P History of Present Illness - General Date of Service: 06/18/21 Admit Problem/Dx: Admission Diagnosis/Problem Admission Diagnosis/Problem Hypoxia Source of Information: Patient, Provider History Limitations: Reports: No Limitations - History of Present Illness Initial Comments - Free Text/Narative: General Surgery is consulted for new finding of pneumomediastinum on imaging. The patient is a 80 yo woman who has been treated for COVID pneumonia for the past month. Within the past two days, she has had increased O2 requirement raising concern for possible underlying PE. Her WBC has also been climbing the past few days, from 12 now up to 18. CTA chest shows significant lung disease with massive pneumomediastinum. She also has a sizeable hiatal hernia. Clinically she appears comfortable and says she feels better today than yesterday. She is tolerating a diet without any problems. She denies chest pain or shortness of breath, but remains on high-flow nasal cannula to maintain saturation. - Related Data Allergies/Adverse Reactions: Allergies Allergy/AdvReac Type Severity Reaction Status Date / Time acetaminophen Allergy Rash Verified 06/07/21 17:26 Beef Containing Products Allergy Hives Verified 06/08/21 12:26 Pork/Porcine Containing Allergy Hives Verified 06/08/21 12:25 Products soap Allergy Rash Verified 06/08/21 12:27 codeine AdvReac Nausea and Verified 06/08/21 12:25 Vomiting Home Medications: Home Meds Cholecalciferol (Vitamin D3) [Vitamin D] 4,000 unit PO DAILY 06/08/21 [History] Fish Oil/Borage/Flax/Om3,6,9 1 [[place] 3-6-9 Complex Softgel] 1 each PO DAILY 06/08/21 [History] Mv-Mn/Folic AC/Calcium/Vit K1 [Women 50 Plus Multivit Adv Tab] 1 tab PO DAILY 06/08/21 [History] Zinc 1 tab PO DAILY 06/08/21 [History] Past Medical History HEENT History: Reports: Cataract Respiratory History: Reports: Other (See Below) Other Respiratory History: meiners disease; covid pneumonia Gastrointestinal History: Reports: GERD Genitourinary History: Reports: None MANAGER DISH History: Reports: None Musculoskeletal History: Reports: None Neurological History: Reports: None - Infectious Disease History Infectious Disease History: Reports: Chicken Pox, Influenza, Measles, Mumps, Novel Coronavirus - Past Surgical History HEENT Surgical History: Reports: Adenoidectomy, Cataract Surgery, Tonsillectomy GI Surgical History: Reports: Hernia, Inguinal Female Surgical History: Reports: Hysterectomy Musculoskeletal Surgical History: Reports: None Social & Family History - Tobacco Use Tobacco Use Status *Q: Never Tobacco User - Caffeine Use Caffeine Use: Reports: Coffee, Tea - Recreational Drug Use Recreational Drug Use: No H&P Review of Systems - Review of Systems: Review Of Systems: See Below General: Reports: No Symptoms HEENT: Reports: No Symptoms Pulmonary: Reports: No Symptoms Cardiovascular: Reports: No Symptoms Gastrointestinal: Reports: No Symptoms Genitourinary: Reports: No Symptoms Musculoskeletal: Reports: No Symptoms Skin: Reports: No Symptoms Psychiatric: Reports: No Symptoms Neurological: Reports: No Symptoms Hematologic/Lymphatic: Reports: No Symptoms Immunologic: Reports: No Symptoms Exam - Exam Exam: See Below - Vital Signs Vital Signs: Last Vital Signs Temp 36.6 C 06/18/21 08:41 Pulse 122 H 06/18/21 08:45 Resp 24 H 06/18/21 08:41 BP 116/70 06/18/21 10:19 Pulse Ox 91 L 06/18/21 09:14 Weight: 60.237 kg - Exam Quality Assessment: Supplemental Oxygen General: Alert, Oriented, Cooperative HEENT: Conjunctiva Clear, EOMI Neck: Other (palpable crepitus) Lungs: Clear to Auscultation, Normal Respiratory Effort Cardiovascular: Other (radial pulse normal rate with regular skipped beats, distant heart sounds on auscultation, no rub or murmur) GI/Abdominal Exam: Soft, Non-Tender Extremities: Normal Inspection Skin: Warm, Dry Neuro Extensive - Mental Status: Alert, Oriented x3 Psychiatric: Normal Mood - Patient Data Lab Results Last 24 hrs: Laboratory Results - last 24 hr 06/18/21 06/18/21 06/18/21 Range/Units 05:04 05:04 05:04 WBC 18.62 H (3.98-10.04) K/mm3 RBC 4.31 (3.98-5.22) M/mm3 Hgb 13.0 (11.2-15.7) gm/dl Hct 38.6 (34.1-44.9) % MCV 89.6 (79.4-94.8) fl MCH 30.2 (25.6-32.2) pg MCHC 33.7 (32.2-35.5) g/dl RDW Std Deviation 47.4 H (36.4-46.3) fL Plt Count 403 H (182-369) K/mm3 MPV 10.3 (9.4-12.3) fl Neut % (Auto) 85.4 H (34.0-71.1) % Lymph % (Auto) 7.2 L (19.3-51.7) % [place] % (Auto) 4.8 (4.7-12.5) % Eos % (Auto) 0.4 L (0.7-5.8) Baso % (Auto) 0.1 (0.1-1.2) % Neut # (Auto) 15.89 H (1.56-6.13) K/mm3 Lymph # (Auto) 1.34 (1.18-3.74) K/mm3 [place] # (Auto) 0.90 H (0.24-0.36) K/mm3 Eos # (Auto) 0.07 (0.04-0.36) K/mm3 Baso # (Auto) 0.02 (0.01-0.08) K/mm3 PT 25.5 H (9.7-12.0) SECONDS INR 2.38 D-Dimer, Quantitative (0.19-0.50) mg/L Sodium 135 L (136-145) mEq/L Potassium 4.3 (3.5-5.1) mEq/L Chloride 106 (98-107) mEq/L Carbon Dioxide 23 (21-32) mEq/L Anion Gap 10.3 (5-15) BUN 43 H (7-18) mg/dL Creatinine 0.7 (0.55-1.02) mg/dL Est Cr Clr Drug Dosing 49.18 mL/min Estimated GFR (MDRD) > 60 (>60) mL/min BUN/Creatinine Ratio 61.4 H (14-18) Glucose 87 (70-99) mg/dL Calcium 8.7 (8.5-10.1) mg/dL Magnesium 1.8 (1.8-2.4) mg/dL C-Reactive Protein 1.4 H* (<1.0) mg/dL 06/18/21 Range/Units 05:04 WBC (3.98-10.04) K/mm3 RBC (3.98-5.22) M/mm3 Hgb (11.2-15.7) gm/dl Hct (34.1-44.9) % MCV (79.4-94.8) fl MCH (25.6-32.2) pg MCHC (32.2-35.5) g/dl RDW Std Deviation (36.4-46.3) fL Plt Count (182-369) K/mm3 MPV (9.4-12.3) fl Neut % (Auto) (34.0-71.1) % Lymph % (Auto) (19.3-51.7) % [place] % (Auto) (4.7-12.5) % Eos % (Auto) (0.7-5.8) Baso % (Auto) (0.1-1.2) % Neut # (Auto) (1.56-6.13) K/mm3 Lymph # (Auto) (1.18-3.74) K/mm3 [place] # (Auto) (0.24-0.36) K/mm3 Eos # (Auto) (0.04-0.36) K/mm3 Baso # (Auto) (0.01-0.08) K/mm3 PT (9.7-12.0) SECONDS INR D-Dimer, Quantitative 4.36 H (0.19-0.50) mg/L Sodium (136-145) mEq/L Potassium (3.5-5.1) mEq/L Chloride (98-107) mEq/L Carbon Dioxide (21-32) mEq/L Anion Gap (5-15) BUN (7-18) mg/dL Creatinine (0.55-1.02) mg/dL Est Cr Clr Drug Dosing mL/min Estimated GFR (MDRD) (>60) mL/min BUN/Creatinine Ratio (14-18) Glucose (70-99) mg/dL Calcium (8.5-10.1) mg/dL Magnesium (1.8-2.4) mg/dL C-Reactive Protein (<1.0) mg/dL Result Diagrams: 06/18/21 05:04 06/18/21 05:04 Sepsis Event Note - Evaluation Sepsis Screening Result: Sepsis Risk - Focused Exam Vital Signs: Vital Signs Temp Temp Pulse Resp BP BP Pulse Ox 06/18/21 10:19 116/70 06/18/21 09:14 06/18/21 08:45 122 H 91/62 06/18/21 08:41 36.6 C 122 H 24 H 91/62 91 L 06/18/21 05:47 06/18/21 04:00 36.1 C 22 H 119/89 92 L Pulse Ox 06/18/21 10:19 06/18/21 09:14 91 L 06/18/21 08:45 06/18/21 08:41 06/18/21 05:47 92 L 06/18/21 04:00 Consult PN Assessment/Plan Problem List Initiated/Reviewed/Updated: Yes Plan: 80 yo woman recovering from COIVD pneumonia now with increased O2 requirement, tachycardia, rising leukocytosis and new finding of significant pneumomediastinum, also with noted significant hiatal hernia. No significant pneumothorax to warrant tube thoracostomy. Findings may be benign and patient appears well on exam, but differential includes perforated viscus. Her rising WBC and continued requirement of high O2 supplement are concerning for complicating pneumonia. I recommend imaging with oral contrast to evaluate the esophagus and proximal stomach, and although the patient may not require a higher level of care now it would be better to have resources available immediately were her clinical status to deteriorate. I think she is at risk for this given her apparent frailty, leukocytosis, tachycardia, hypoxia and new finding of pneumomediastinum.
--- NOTE | 2021-06-18 15:34 | CR ---
Chest: Portable view of the chest was obtained. Comparison: Prior chest x-ray of 06/07/21. Chest CT of 06/07/21 was also available. Diffuse increased density is seen within both sides of chest. Findings are minimally improved on the right side from prior chest x-ray. Heart size is normal. Tortuous thoracic aorta is seen. Small amount of air is noted within the upper chest wall and neck. Minimal mediastinal air is seen. Mild scoliosis is noted. Impression: 1. Subcutaneous air within the upper chest and neck. Mild mediastinal air is seen. 2. Minimal decreased density within the right chest from prior study. Other portions of the parenchymal densities are stable. 3. Other findings are stable. Diagnostic code #3
--- NOTE | 2021-06-18 16:26 | PCM.DCSUM1 ---
Discharge Summary - Hospital Course HPI Initial Comments: This is a 80-year-old female who presents to ED on 06/07/2021 with low oxygen saturations. Patient was hospitalized from 05/17/2021 through 05/31/2021 with COVID-19 pneumonia at in [place]. She was discharged home on 4 L of oxygen with activity after completing 4 days of remdesivir and 10 days of Decadron. Of note patient was noted to have episodes of bradycardia and hypotension with heart rate in the 30s and 40s. She was noticed to have episodes of Mobitz type I AV block and 2.5-second sinus pauses. It was believed this was due to remdesivir however this continued after stopping. Patient was to follow- up with EP and have a 2-week roller skater after discharge. Prior to presenting to the ED she was noted to have saturations in the low 50s. Patient's increased her oxygen to 8 L via nasal cannula. Denies any recent fever, chills, nausea, vomiting, diarrhea, urinary symptoms, or smoking history. Of note patient did have acute cystitis with an E. coli UTI well in the hospital in [place] and completed 5 days of Rocephin there. In the ED twelve-lead EKG was obtained showing a sinus tachycardia at 109 bpm with a LAFB and very mild ST elevation in V2 and V3. She was placed on a nonrebreather mask which improved her saturations to 90 to 91%. She is noted to be dyspneic and only able to complete a few word sentences. Labs are obtained showing WBC of 8.57. Hemoglobin 13.0. Hematocrit 30.5. Platelet 250,000. Neutrophils are elevated 75.7%. D-dimer is very high at 8.16. Sodium is low at 129. Potassium 3.8. Chloride 94. Carbon dioxide 24. Anion gap is 14.8. BUN is 15. Creatinine 0.6. GFR greater than 60. Glucose is 126. Calcium 8.7. Magnesium 1.8. Total bilirubin 0.6. AST is 36, ALT 31, alkaline phosphatase 86. Troponin is elevated at 0.127. CRP is very high at 29.3. Protein 7.1. Albumin 2.1. ABGs obtained in the left radial with a pH of 7.44. PCO2 of 30.9. PO2 of 58.0. HCO3 of 20.5. O2 saturations 86%. Base excess is -2.3. Aa gradient is 15.0. This is obtained while on nonrebreather at 15 L. Facility was out of CPAP and BiPAP as they were being used on other patients and patient was started on high flow O2 with saturations in the low 90s. CTA of the chest is obtained to rule out PE and shows "1. No findings of pulmonary embolism. 2. Minimal left-sided pleural effusion. 3. Diffuse emphysematous changes seen. Both lungs show diffuse increased density uncertain how much of this represents diffuse fibrosis versus possible superimposed pneumonia. Old comparison studies would be needed if available. 4. 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 5. Other findings which are felt to be chronic as described above. Chest x-ray shows scattered infiltrates bilaterally most prominent in the left lower lobe. Plan was to transfer the patient for continued care due to elevated troponin however no beds are noted to be available [place], [place], or [place]. Patient does request to be a DNR/DNI. Patient is noted to have a blood pressure of 80/61 and is given a 500 mill fluid bolus over 2 hours. Repeat blood pressure is 69/52 and another 500 mL fluid bolus is given. proBNP is 3117. Repeat troponin is elevated at 0.156. UA is obtained and is mildly positive with slightly cloudy urine, 1+ protein, 3+ ketones, 2+ occult blood, 1+ leukocyte esterase, 5-10 RBCs, 20-30 WBCs, rare WBC clumps, and moderate bacteria. Patient remained in her ER. Attempts were made to decrease O2 but these were unsuccessful. Repeat troponin returns decreased at 0.067. She is given 1 dose of Rocephin in the ED. She is also given 125 mg Solu- Medrol and a DuoNeb, which she reports greatly helped. Ultimately inpatient bed does open up at our facility and she is admitted to the floor on telemetry for management of her hypoxia, suspected pneumonia, elevated BNP, elevated troponin - likely demand ischemia, and questionable UTI. She is a DNR/DNI. Her PCP is Dr. Isidoro Morley in [place]. She carries a history of Mnire's disease, GERD, and prior Covid pneumonia. Diagnosis: Stroke: No - Discharge Data Discharge Date: 06/18/21 (Admit date: 06/08/2021) Discharge Disposition: DC/Tfer to Acute Hospital 02 Condition: Stable - Referral to Home Health Primary Care Physician: Isidoro Morley MD - Discharge Diagnosis/Problem(s) (1) History of COVID-19 SNOMED Code(s): 777224038924816628, [id number] ICD Code: Z86.16 - PERSONAL HISTORY OF COVID-19 Status: Chronic Priority: Medium Current Visit: Yes (2) Elevated d-dimer SNOMED Code(s): 825084073 ICD Code: R79.89 - OTHER SPECIFIED ABNORMAL FINDINGS OF BLOOD CHEMISTRY Status: Acute Priority: Medium Current Visit: Yes (3) Elevated troponin SNOMED Code(s): 117654009, 929022304, 856343463 ICD Code: R77.8 - OTHER SPECIFIED ABNORMALITIES OF PLASMA PROTEINS Status: Resolved Priority: High Current Visit: Yes (4) Pneumonia SNOMED Code(s): 300639706 ICD Code: J18.9 - PNEUMONIA, UNSPECIFIED ORGANISM Status: Ruled-out Priority: High Current Visit: Yes Qualifiers: Pneumonia type: due to unspecified organism Laterality: unspecified latera lity Lung location: unspecified part of lung Qualified Code(s): J18.9 - Pneumonia, unspecified organism (5) Dyspnea SNOMED Code(s): 683774599 ICD Code: R06.00 - DYSPNEA, UNSPECIFIED Status: Acute Priority: High Current Visit: Yes Qualifiers: Dyspnea type: unspecified Qualified Code(s): R06.00 - Dyspnea, unspecified (6) Hypoxia SNOMED Code(s): 156793572 ICD Code: R09.02 - HYPOXEMIA Status: Acute Priority: High Current Visit: Yes (7) UTI (urinary tract infection) SNOMED Code(s): 82319112 ICD Code: N39.0 - URINARY TRACT INFECTION, SITE NOT SPECIFIED Status: Resolved Priority: High Current Visit: Yes Qualifiers: Urinary tract infection type: site unspecified Hematuria presence: without hematuria Qualified Code(s): N39.0 - Urinary tract infection, site not specified (8) Elevated brain natriuretic peptide (BNP) level SNOMED Code(s): 826893848, 862577944 ICD Code: R79.89 - OTHER SPECIFIED ABNORMAL FINDINGS OF BLOOD CHEMISTRY Status: Acute Priority: High Current Visit: Yes (9) On home oxygen therapy SNOMED Code(s): 007823188657 ICD Code: Z99.81 - DEPENDENCE ON SUPPLEMENTAL OXYGEN Status: Chronic Priority: Medium Current Visit: Yes (10) GERD (gastroesophageal reflux disease) SNOMED Code(s): 889433522 ICD Code: K21.9 - GASTRO-ESOPHAGEAL REFLUX DISEASE WITHOUT ESOPHAGITIS Status: Chronic Priority: Low Current Visit: No Qualifiers: Esophagitis presence: esophagitis presence not specified Qualified Code(s): K21.9 - Gastro-esophageal reflux disease without esophagitis (11) Meniere disease SNOMED Code(s): 63496224 ICD Code: H81.09 - MENIERE'S DISEASE, UNSPECIFIED EAR Status: Chronic Priority: Low Current Visit: No Qualifiers: Laterality: unspecified laterality Qualified Code(s): H81.09 - Meniere's disease, unspecified ear (12) DVT (deep venous thrombosis) SNOMED Code(s): 592611356 ICD Code: I82.409 - ACUTE EMBOLISM AND THOMBOS UNSP DEEP VN UNSP LOWER EXTREMITY Status: Acute Priority: High Current Visit: Yes Qualifiers: DVT location: lower extremity Affected thrombotic vein of extremity: unspecified vein of extremity Chronicity: acute Laterality: left Qualified Code(s): I82.402 - Acute embolism and thrombosis of unspecified deep veins of left lower extremity (13) Hypotension SNOMED Code(s): 78748149 ICD Code: I95.9 - HYPOTENSION, UNSPECIFIED Status: Resolved Priority: High Current Visit: Yes Qualifiers: Hypotension type: unspecified hypotension type Qualified Code(s): I95.9 - Hypotension, unspecified (14) Acute and chronic respiratory failure SNOMED Code(s): 08920436 ICD Code: J96.20 - ACUTE AND CHR RESP FAILURE, UNSP W HYPOXIA OR HYPERCAPNIA Status: Acute Priority: High Current Visit: Yes Qualifiers: Respiratory failure complication: hypoxia Qualified Code(s): J96.21 - Acute and chronic respiratory failure with hypoxia (15) Myocarditis SNOMED Code(s): 70153258 ICD Code: I51.4 - MYOCARDITIS, UNSPECIFIED Status: Ruled-out Priority: High Current Visit: Yes Qualifiers: Myocarditis type: infective Infective myocarditis organism: viral Chronicity: acute Qualified Code(s): I40.0 - Infective myocarditis (16) Hypokalemia SNOMED Code(s): 13789071 ICD Code: E87.6 - HYPOKALEMIA Status: Resolved Priority: High Current Visit: Yes (17) Pulmonary fibrosis SNOMED Code(s): 61636582 ICD Code: J84.10 - PULMONARY FIBROSIS, UNSPECIFIED Status: Suspected Priority: High Current Visit: Yes (18) Diarrhea SNOMED Code(s): 51456516 ICD Code: R19.7 - DIARRHEA, UNSPECIFIED Status: Resolved Priority: Medium Current Visit: Yes Qualifiers: Diarrhea type: unspecified type Qualified Code(s): R19.7 - Diarrhea, unspecified (19) New onset a-fib SNOMED Code(s): 29728310 ICD Code: I48.91 - UNSPECIFIED ATRIAL FIBRILLATION Status: Acute Priority: High Current Visit: Yes (20) Pneumothorax SNOMED Code(s): 99470869 ICD Code: J93.9 - PNEUMOTHORAX, UNSPECIFIED Status: Acute Priority: High Current Visit: Yes Qualifiers: Pneumothorax type: unspecified pneumothorax Qualified Code(s): J93.9 - Pneumothorax, unspecified (21) Pneumomediastinum SNOMED Code(s): 18276500 ICD Code: J98.2 - INTERSTITIAL EMPHYSEMA Status: Acute Priority: High Current Visit: Yes (22) Subcutaneous emphysema SNOMED Code(s): 9457932 ICD Code: T79.7XXA - TRAUMATIC SUBCUTANEOUS EMPHYSEMA, INITIAL ENCOUNTER Status: Acute Priority: High Current Visit: Yes Qualifiers: Encounter type: initial encounter Qualified Code(s): T79.7XXA - Traumatic subcutaneous emphysema, initial encounter - Patient Summary/Data Consults: Consultations 06/08/21 11:21 OT Evaluation and Treatment [CONS] Routine PT Evaluation and Treatment [CONS] Routine Respiratory Care Assess and Treatment [CONS] Routine 06/11/21 06:55 BOSOM PRESSER Evaluation and Treatment [CONS] Routine 06/18/21 10:08 Consult to Spiritual Care [CONS] Routine 06/18/21 12:44 Consult to Physician [CONS] Routine Labs Pending at D/C: None Hospital Course: Admission assessment - 06/08/2021 * 80-year-old female who presents to ED on 06/07/2021 with low oxygen saturations * History of Mnire's disease, GERD, and prior Covid pneumonia * Was hospitalized from 05/17/2021 through 05/31/2021 with COVID-19 pneumonia at in [place]. * Discharged home on 4 L of oxygen with activity after completing 4 days of remdesivir and 10 days of Decadron. * Of note patient was noted to have episodes of bradycardia and hypotension with heart rate in the 30s and 40s. She was noticed to have episodes of Mobitz type I AV block and 2.5-second sinus pauses. It was believed this was due to remdesivir however this continued after stopping. Patient was to follow-up with EP and have a 2-week roller skater after discharge. * Prior to presenting to the ED she was noted to have saturations in the low 50s. * Patient's increased her oxygen to 8 L via nasal cannula. * Denies any recent fever, chills, nausea, vomiting, diarrhea, urinary symptoms, or smoking history. * Of note patient did have acute cystitis with an E. coli UTI well in the hospital in [place] and completed 5 days of Rocephin there. * 12-lead EKG was obtained showing a sinus tachycardia at 109 bpm with a LAFB and very mild ST elevation in V2 and V3. * Placed on a nonrebreather mask which improved her saturations to 90 to 91%. * Noted to be dyspneic and only able to complete a few word sentences. * Labs are obtained: * WBC of 8.57. * Hemoglobin 13.0. * Hematocrit 30.5. * Platelet 250,000. * Neutrophils are elevated 75.7%. * D-dimer is very high at 8.16. * Sodium is low at 129. * Potassium 3.8. * Chloride 94. * Carbon dioxide 24. * Anion gap is 14.8. * BUN is 15. Creatinine 0.6. GFR greater than 60. * Glucose is 126. * Calcium 8.7. * Magnesium 1.8. * Total bilirubin 0.6. * AST is 36, ALT 31, alkaline phosphatase 86. * Troponin is elevated at 0.127-->0.156-->0.067. * CRP is very high at 29.3. * Protein 7.1. * Albumin 2.1. * proBNP is 3117 * UA is obtained and is mildly positive with slightly cloudy urine, 1+ protein, 3+ ketones, 2+ occult blood, 1+ leukocyte esterase, 5-10 RBCs, 20- 30 WBCs, rare WBC clumps, and moderate bacteria. * ABG obtained in the left radial with a pH of 7.44. PCO2 of 30.9. PO2 of 58.0. HCO3 of 20.5. O2 saturations 86%. Base excess is -2.3. Aa gradient is 15.0. This is obtained while on nonrebreather at 15 L. * Facility was out of CPAP and BiPAP-> started on high flow O2 with saturations in the low 90s. * CTA of the chest is obtained to rule out PE and shows: * 1. No findings of pulmonary embolism. * 2. Minimal left-sided pleural effusion. * 3. Diffuse emphysematous changes seen. Both lungs show diffuse increased density uncertain how much of this represents diffuse fibrosis versus possible superimposed pneumonia. Old comparison studies would be needed if available. * 4. 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 * 5. Other findings which are felt to be chronic as described above. * Chest x-ray shows scattered infiltrates bilaterally most prominent in the left lower lobe. * Plan was to transfer the patient for continued care due to elevated troponin however no beds are noted to be available [place], [place], or [place]. * Noted to have a blood pressure of 80/61 and is given a 500 mill fluid bolus over 2 hours. * Given 1 dose of Rocephin in the ED. She is also given 125 mg Solu-Medrol and a DuoNeb, which she reports greatly helped. * Ultimately inpatient bed does open up at our facility and she is admitted to the floor on telemetry for management of her hypoxia, suspected pneumonia, elevated BNP, elevated troponin - likely demand ischemia, and questionable UTI. * On floor bilateral lower extremity ultrasound shows thrombus within the left mid and distal superficial, femoral, popliteal, posterior tibial, and peroneal veins. 06/09/2021 This is a 80 years old female post Covid infection who was hospitalized in [place] for approximately 2 weeks who presented to our ED with low saturations. On admission D-dimer was noted to be elevated however CTA was negative for any PE. Lower extremity ultrasound did show a DVT in the left extremity and patient was started on 1 mg/kg Lovenox transitioning to 10 mg twice daily Eliquis today. Patient has been requiring high flow 60 L and was weaned down to 80% FiO2 today. Unfortunately given patient's history of recent Covid infection CTA was not very helpful in differentiating pulmonary cause. Given recent hospitalization there are concerns of a secondary bacterial infection. WBC has been WNL however neutrophils are elevated. Procalcitonin was obtained and was 0.29. Lactic acid yesterday was 1.0. Patient was noted to be hypotensive in the emergency room and was given 2 fluid boluses. She was also started on fluids over concerns of sepsis. UA was positive and urine culture is growing out greater than 100,000 CFU's of gram-negative rods thus far. She does have a history of a E. coli UTI treated with Rocephin in [place]. Patient denies any urinary symptoms. proBNP was elevated. Echocardiogram was obtained on 06/08/2021 And interpreted as: " 1. The left ventricular internal cavity size is normal. 2. Normal left ventricular systolic function. 3. Left ventricular ejection fraction, by visual estimation, is 55 to 60%. 4. No reg ional wall motion abnormalities. 5. Mild proximal septal hypertrophy. 6. Aortic valve is tricuspid. 7. Mild mitral valve regurgitation. 8. Trace tricuspid valve regurgitation. 9. Mild pulmonic valve regurgitation. 10. The inferior vena cava is normal. 11. The right ventricular systolic pressure is mildly elevated at 32.2 mmHg." Patient was started on 20 mg IV push Lasix 3 times daily yesterday and has had over 1 L output. Potassium today is down to 3.3 and this is being supplemented. Sodium 137. Carbon dioxide 24. Anion gap is 13.3. BUN is 19. Creatinine 0.6. GFR greater than 60. Glucose is 146. Calcium 8.4. Magnesium is 1.8. Total bilirubin 0.5. AST is 26, ALT 26, alkaline phosphatase 90. Troponin today was down to 0.031. CRP is down to 24.2. Albumin is down to 1.8. Mycoplasma and strep pneumonia were both checked and were negative. Respiratory viral panel was obtained and was negative however patient did return positive for Covid, which is unsurprising given the patient's recent known Covid infection. We will continue current treatment plan. It is felt it is prudent to continue IV antibiotics for now given patient's symptoms and lab results. We will continue diuresis and Eliquis for DVT treatment. 06/10/2021 This is a 80-year-old female post Covid infection who was admitted for suspected pneumonia, pulmonary fibrosis, myocarditis, DVT, and apparent UTI. Labs today show WBC of 8.94. Hemoglobin is 11.1. Neutrophils are elevated 77.7%. Smear review feels slight toxic granulation and abnormal RBC morphology. Sodium today is 140. Potassium 3.7. Chloride 103. Carbon dioxide 20. Anion gap is 12.7. BUN is 25. Creatinine 0.8. GFR greater than 60. Magnesium is 1.9. Bilirubin 0.5. AST is 24, ALT 29, alkaline phosphatase is 90. CRP is down to 12.5. Albumin is 1.8. Patient does report that she feels quite a bit better today. She is down on high flow to 55 L with an FiO2 of 70% with saturations of upper 80s to low 90s. Urine culture continues to show greater than 100,000 CFU's of E. coli. Sensitivities are pending. Blood cultures have returned negative. Strep pneumonia is negative. Discussed plan of care with Dr. Ibarra who recommends patient receive 1 more dose of Lasix and then either discontinue or continue with 20 mg daily. We will continue vancomycin and Zosyn due to concerns over possible pneumonia. Unfortunately today patient reported that her insurance company tells her Eliquis will be $600 for 30-day supply. She states she cannot afford this. Apparently Xarelto is around the same pricing per case management. We will therefore discontinue Eliquis start patient on 1 mg/kg Lovenox twice daily and start warfarin with pharmacy to dose. Patient has had no fevers. We will continue current treatment plan and hope to wean patient off of high flow. Unknown length of stay due to severity of symptoms. 06/11/2021 80-year-old female who is post Covid admitted for suspected pneumonia, pulmonary fibrosis, suspected myocarditis, DVT and UTI. Labs today show WBC of 8.33. Hemoglobin is 11.7. Neutrophils are 70.6. INR is 1.20. Sodium is 137. Potassium 3.2. Chloride 98. Carbon dioxide 29. Anion gap is 13.2. BUN is 29. Creatinine 1.0. GFR 53. Glucose 101. CRP is up to 16.2. Albumin is 1.9. Discussed plan of care with Dr. Youssef, attending hospitalist. We will at this time discontinue vancomycin and Zosyn and switch patient to Bactrim DS twice daily based on E. coli urine sensitivities. We will repeat a procalcitonin. We will also decrease Lasix to 20 mg IV push daily. Patient's potassium will be supplemented. Pharmacy continues to dose warfarin and patient remains on 1 mg/kg twice daily Lovenox bridging. Will start patient on 60 mg every 8 hour IV push methylprednisolone. Patient has been reporting difficulty with swallowing pills. Because of this we will order an BOSOM PRESSER evaluation. We have made some improvement with her high flow she is now at 55 L with an FiO2 of 65%. We will continue to wean as patient tolerates. Unknown length of stay due to severity of symptoms. 06/12/2021 80-year-old female with post Covid admitted for suspected pneumonia, pulmonary fibrosis, suspected myocarditis, DVT, and UTI developed A. fib with RVR with rates in the 110s to 120s+ this morning. This required increasing oxygen support with high flow nasal cannula at 60 L with FiO2 of 95% and nonrebreather mask. Patient continues to be DNR/DNI. She was given 1 dose of Cardizem 10 mg IV x1. Blood pressure was stable with systolic in the 120s. After rate control was achieved we were able to remove the nonrebreather mask. CRP continues to be elevated at 12.7. She was started on methylprednisolone yesterday and switched vancomycin and Zosyn to Bactrim for her UTI. Procalcitonin did return at 0.18 reassuring us that she does not have a severe bacterial sepsis. Patient is getting warfarin secondary to DVT with INR today at 1.85. She continues on Lovenox until therapeutic INR. EKG shows diffuse T wave inversion consistent with heart strain. Troponin was drawn and increased to 0.14. Also suggesting some component of heart strain versus infarction. EKG also demonstrates new onset atrial fibrillation. She is not a candidate for transfer at this time and is already on full dose Lovenox and INR is 1.8 as we titrate up her warfarin. 06/13/2021 Patient has had a marginal improvement with high flow nasal cannula at 60 L and FiO2 of 90%. She no longer has a nonrebreather mask over it. Her INR is now supratherapeutic and her Lovenox will be held. Pharmacy is dosing INR. Creatinine is 1.4 with estimated GFR of 36 and BUN of 49. Lasix was stopped after the morning dose yesterday. Today is day 6 of antibiotics for her UTI and she should be able to stop them tomorrow. White count has increased to 12.5, but she has been placed on moderately high Solu-Medrol. INR is also likely higher because of the Bactrim. This will make getting her INR stabilized difficult. 06/14/2021 This is a 80-year-old female post Covid who was admitted due to acute on chronic respiratory failure. She has been requiring high flow and is currently on 55 L with an FiO2 of 85%. She is initially treated for possible pneumonia and given labs and CT results it appears she has more of a pulmonary fibrosis picture. She was noted to have a UTI and was switched to Bactrim DS and she will complete treatment today. Questioning myocarditis. She also has a left leg DVT and was started on Eliquis, however patient has concerns with affording this and she was switched to warfarin. INR today is 4.21. She was started on steroids and will be decreased to 60 mg IV push Solu-Medrol twice daily today. Given the Bactrim and Solu-Medrol her INR has been somewhat variable with difficult to dose warfarin. Pharmacy continues to dose this. WBC today is 11.29. Hemoglobin 11.3. Platelet 391,000. Neutrophils are 87%. Sodium 135. Potassium 4.4. Chloride 104. Carbon dioxide 25. Anion gap 10.4. BUN is 55. Creatinine 1.1. GFR is up to 48. Glucose is 126. Phosphorus 3.4. Magnesium 2.2. Total bilirubin 0.2. AST is 18, ALT 24, alkaline phosphatase 62. CRP is down to 3.2. Protein is 5.9. Albumin is down to 1.9. Patient was complaining of some diarrhea today and given all of her antibiotic she was on we checked a C. difficile which was negative. We will therefore schedule Imodium. Unknown length of stay due to severity of symptoms and concern over minimal improvement in oxygenation. We will look at possible swing bed/LTAC facilities in the future. 06/15/2021 This is a 80-year-old female post COVID-19 pneumonia who was admitted to the floor due to acute respiratory failure now believed to be secondary to pulmonary fibrosis. She was also noted to have a left leg DVT and was started on Eliquis ultimately is being switched to warfarin with Lovenox bridging. UA and culture were suggestive of E. coli UTI and she completed treatment for this. Remains on high flow 50 L with an FiO2 of 90% and we have not been able to make much movement with this. She continues to have dyspnea with exertion. She has mild diarrhea which is improving. C. difficile screen was negative. Labs today show WBC which is elevated at 12.79, likely secondary to steroid use. Platelet is 423. INR on warfarin is therapeutic at 2.50. Sodium is 136. Potassium 4.9. Chloride 104. Carbon oxide 25. Anion gap 11.9. BUN is 55. Creatinine 1.0. GFR is up to 53. Calcium is 8.9. Magnesium is 2.2. CRP is down to 1.8. Overall she remains stable. was in room today and all questions were answered. We discussed the possibility of a transfer to an LTAC such as [facility] and [facility] and they are very interested in this. We discussed how she may never recover from this and if she does it will be very slow progress. She is currently on 60 mg twice daily Solu-Medrol and we will continue to wean this. Plan will be to discharge to LTAC once available. 06/16/2021 This is a 80-year-old female post Covid found to have pulmonary fibrosis. She is remained in a sinus rhythm and there have been no calls on telemetry. She is on high flow we have made some improvement there with 55 L and 80% FiO2. Labs today show a WBC of 12.41, which is likely steroid related. Platelets are 393,000. Neutrophils are 88.9%. INR is a bit low at 1.96 and pharmacy is dosing warfarin for her DVT. This will likely be a somewhat moving target due to patient requiring steroids. She has completed treatment for UTI. Electrolytes have remained good. Renal function has improved with a BUN of 51. Creatinine 0.8. GFR greater than 60. CRP is down to 0.6. We will decrease steroids today to 60 mg IV push methylprednisolone daily and continue to wean. We have discussed LTAC care with the family and they are in agreement to this as it is likely the best option for the patient. [facility] in [facility] is reviewing patient chart at this time. Patient will remain hospitalized until placement can be arranged. 06/17/2021 This is a 80-year-old female admitted to the floor for hypoxia post Covid and found to have pulmonary fibrosis. WBC today is up to 17.2, likely steroid rela jeremy. We will decrease her steroids from 60 mg daily to 40 mg daily and continue to wean. Hemoglobin is 12.7. Platelets 432,000. Neutrophils are elevated at 84.4%. INR is 2.39. Sodium 135. Potassium 4.6. Chloride 106. Carbon dioxide 22. Anion gap is 11.6. BUN is 45. Creatinine 0.7. GFR greater than 60. Magnesium is 1.8. CRP is down to 0.3. She is currently on high flow oxygen 55 L with an FiO2 of 70%. We have been making very slow but fairly steady gains on her oxygen. She reports she feels pretty good. She remains on warfarin for her left lower extremity DVT. She has been very pleasant and her has been visiting regularly. We are hopeful for LTAC placement in the near future. 06/18/2021 80-year-old female admitted to the floor for hypoxia. She is post Covid and found to have pulmonary fibrosis. Today she was noted to be tachycardic and have worsening saturations requiring higher levels of high flow. CTA was obtained and shows "1. Diffuse mediastinal air is noted. Air extends into the upper chest wall and neck. There is also noted inferiorly within the mediastinum. 2. Small amount of pneumothorax is seen within both lung bases. 3. Stable parenchymal change within both lungs. 4. No findings of pulmonary embolism. 5. Stable aneurysm of the ascending aorta. Slight ectasia of the descending aorta is also noted." Dr. Spears, general surgeon is consulted who states patient is nonsurgical at this time but does recommend transfer due to risk of worsening condition and probable need for esophagram. Contacted both hospitals in [place] in the [facility] transfer center however no beds are currently available. We'll continue to work on this. In the meantime we'll have nursing check every hour neck circumference. We will check one-view portable chest x-ray at 1500 and repeat tomorrow morning, with serial daily chest x-rays thereafter. Will make patient bedridden with bedside commode. Patient and at bedside updated on plan and attempt to transfer. Labs today show worsening WBC of 18.62. Hemoglobin is 13.0. Platelet 403,000. INR is stable at 2.38. D-dimer is 4.36. Sodium 135. Potassium 4.3. Chloride 106. Carbon dioxide 23. Anion gap is 10.3. BUN is 43. Creatinine 0.7. GFR greater than 60. CRP is up to 1.4. Magnesium 1.8. Patient does report she feels better overall. She does have subcutaneous emphysema noted in her neck. Her voice is also noted to be higher pitched and more nasally. We will make her n.p.o. for now in case of urgent surgical/airway intervention. Later on in the day contacted by [facility] and notified that they do have a hospital bed open. Report given to Dr. Laurent who graciously accepts the patient for transfer. Patient is ultimately transferred to [place] via air ambulance. Plan:: Pneumomediastinum pneumothorax subcutaneous emphysema * General surgery consultation - Dr. Spears * Denies any need for surgical intervention at this point * Recommends transfer for esophagram * Repeat chest x-ray today at 1500 * Monitor daily chest x-rays * Bedrest bedside commode for now * Attempt transfer * Contacted both hospitals in [place] with no available beds * Contacted [facility] transfer center and they are working on finding available bed Dyspnea Hypoxia History of COVID-19 On home oxygen therapy Acute on chronic respiratory failure Pulmonary fibrosis -on CT scan * Droplet isolation (airborne/contact while on high flow O2) * O2 as needed to keep saturation greater than 90% * I-S/Acapella * Discontinued zosyn and vancomycin on 06/11/2021 * High flow oxygen as directed * 4 times daily scheduled DuoNebs * Every 2 hours as needed albuterol nebulizer * Consult RT * Telemetry * Blood cultures negative * Continuous pulse oximetry * Mucinex BID * Recommend PFT after recovery due to emphysematous changes noted in CTA * Recommend pulmonology follow-up after discharge * Repeat procalcitonin 0.18 on 06/11/2021 * Decrease solumedrol to 40mg daily * Continue to follow CRP * Repeat CTA today to rule out PE due to worsening dyspnea and tachycardia DVT Elevated d-dimer * CTA in ED negative for PE * Discontinue Eliquis as patient reports $600 for 30 day supply * Warfarin with pharmacy to dose * DC Lovenox 60mg (1mg/kg) BID as bridging * Daily INR Myocarditis - ruled out Elevated troponin, resolved Elevated brain natriuretic peptide (BNP) level New onset A-fib * Troponin increased returned to normal of 0.056 and she is back in sinus rhythm * Metoprolol tartrate - 25mg BID * Continue 81mg daily aspirin * DC Cardizem and switch to PRN * Echocardiogram obtained as noted * Monitor patient's weight * Monitor I&O's * Telemetry * Continue to hold Lasix * Supplement potassium as needed * Monitor CRP UTI (urinary tract infection), Resolved * UA weakly positivepatient was treated for E. coli UTI with Rocephin in [place] * Urine culture showing >100cfu E. Coli, with good sensitivities to Bactrim DS * Blood cultures negative thus far * Switch from zosyn/vancomycin to Bactrim DS BID PO --> Completed treatment on 06/14/2021 GERD (gastroesophageal reflux disease) * No acute concerns * Monitor Meniere disease * No acute concerns * Monitor Hypokalemiaresolved * Supplement as needed Hypotension - resolved * Noted in ED and multiple fluid boluses given * Monitor Dysphagia * Patient reports difficulty swallowing pills * [employer] evaluation -> crush pills Diarrhea, improved to resolved * Check c. diff -->negative * Continue PRN Imodium Code status: DNR--> patient reports she would agree to be intubated if it came down to needing it. (Change from DNR/DNI on admission) PCP: Dr. Morley in [place] DVT prophylaxis: Warfarin Disposition: Patient admitted to the floor for management and further work-up of suspected pneumonia, hypoxia, elevated troponin, elevated D-dimer, and weak UTI. Length of stay greater than 96 hours due to need for continued treatment, new onset pneumothorax, pneumomediastinum, and subcutaneous emphysema. Unfortunately very poor overall prognosis - Patient Instructions Diet: NPO - Discharge Plan *PRESCRIPTION DRUG MONITORING PROGRAM REVIEWED*: No *COPY OF PRESCRIPTION DRUG MONITORING REPORT IN PATIENT ZAHRAA: No Home Medications: Home Meds Cholecalciferol (Vitamin D3) [Vitamin D] 4,000 unit PO DAILY 06/08/21 [History] Fish Oil/Borage/Flax/Om3,6,9 1 [[place] 3-6-9 Complex Softgel] 1 each PO DAILY 06/08/21 [History] Mv-Mn/Folic AC/Calcium/Vit K1 [Women 50 Plus Multivit Adv Tab] 1 tab PO DAILY 06/08/21 [History] Zinc 1 tab PO DAILY 06/08/21 [History] Oxygen Therapy Mode: High Flow Nasal Cannula Oxygen Flow Rate (L/min): 55 FiO2: 85 Patient Handouts: Warfarin Information, Sepsis, Diagnosis, Adult, Warfarin tablets, Deep Vein Thrombosis, Venous Thromboembolism Prevention Referrals: Isidoro Morley MD [Primary Care Provider] - - Discharge Summary/Plan Comment DC Time >30 min.: Yes Total # of Minutes for Discharge Time: 90 - General Info Date of Service: 06/18/21 Admission Dx/Problem (Free Text: Admission Diagnosis/Problem Admission Diagnosis/Problem Hypoxia Functional Status: Reports: Pain Controlled, Tolerating Diet, Ambulating, Urinating, Incentive Spirometry. Denies: New Symptoms - Review of Systems General: Reports: Weakness, Fatigue, Malaise. Denies: Fever, Chills HEENT: Reports: Other (Crepitus in neck with changes to voice. Patient noted to have higher pitched and more nasally voice per ). Denies: Headaches, Sore Throat Pulmonary: Reports: Shortness of Breath, Cough, Sputum. Denies: Pleuritic Chest Pain, Wheezing Cardiovascular: Reports: Dyspnea on Exertion. Denies: Chest Pain, Palpitations, Edema Gastrointestinal: Reports: No Symptoms. Denies: Abdominal Pain, Constipation, Diarrhea, Nausea, Vomiting Genitourinary: Reports: No Symptoms. Denies: Pain Musculoskeletal: Reports: No Symptoms. Denies: Neck Pain Skin: Reports: No Symptoms. Denies: Cyanosis Neurological: Reports: Difficulty Walking (2/2 dyspnea), Weakness. Denies: Confusion, Dizziness, Headache, Numbness, Pre-Existing Deficit, Seizure, Syncope, Tingling, Gait Disturbance Psychiatric: Reports: No Symptoms - Patient Data Vitals - Most Recent: Last Vital Signs Temp 97.9 F 06/18/21 08:41 Pulse 122 H 06/18/21 08:45 Resp 24 H 06/18/21 08:41 BP 116/70 06/18/21 10:19 Pulse Ox 93 L 06/18/21 15:55 Weight - Most Recent: 132 lb 12.8 oz I&O - Last 24 hours: Intake & Output 06/18/21 06/18/21 06/18/21 06:59 14:59 22:59 Intake Total 150 175 Output Total 400 Balance -250 175 Lab Results - Last 24 hrs: Laboratory Results - last 24 hr 06/18/21 06/18/21 06/18/21 Range/Units 05:04 05:04 05:04 WBC 18.62 H (3.98-10.04) K/mm3 RBC 4.31 (3.98-5.22) M/mm3 Hgb 13.0 (11.2-15.7) gm/dl Hct 38.6 (34.1-44.9) % MCV 89.6 (79.4-94.8) fl MCH 30.2 (25.6-32.2) pg MCHC 33.7 (32.2-35.5) g/dl RDW Std Deviation 47.4 H (36.4-46.3) fL Plt Count 403 H (182-369) K/mm3 MPV 10.3 (9.4-12.3) fl Neut % (Auto) 85.4 H (34.0-71.1) % Lymph % (Auto) 7.2 L (19.3-51.7) % [place] % (Auto) 4.8 (4.7-12.5) % Eos % (Auto) 0.4 L (0.7-5.8) Baso % (Auto) 0.1 (0.1-1.2) % Neut # (Auto) 15.89 H (1.56-6.13) K/mm3 Lymph # (Auto) 1.34 (1.18-3.74) K/mm3 [place] # (Auto) 0.90 H (0.24-0.36) K/mm3 Eos # (Auto) 0.07 (0.04-0.36) K/mm3 Baso # (Auto) 0.02 (0.01-0.08) K/mm3 PT 25.5 H (9.7-12.0) SECONDS INR 2.38 D-Dimer, Quantitative (0.19-0.50) mg/L Sodium 135 L (136-145) mEq/L Potassium 4.3 (3.5-5.1) mEq/L Chloride 106 (98-107) mEq/L Carbon Dioxide 23 (21-32) mEq/L Anion Gap 10.3 (5-15) BUN 43 H (7-18) mg/dL Creatinine 0.7 (0.55-1.02) mg/dL Est Cr Clr Drug Dosing 49.18 mL/min Estimated GFR (MDRD) > 60 (>60) mL/min BUN/Creatinine Ratio 61.4 H (14-18) Glucose 87 (70-99) mg/dL Calcium 8.7 (8.5-10.1) mg/dL Magnesium 1.8 (1.8-2.4) mg/dL C-Reactive Protein 1.4 H* (<1.0) mg/dL 06/18/21 Range/Units 05:04 WBC (3.98-10.04) K/mm3 RBC (3.98-5.22) M/mm3 Hgb (11.2-15.7) gm/dl Hct (34.1-44.9) % MCV (79.4-94.8) fl MCH (25.6-32.2) pg MCHC (32.2-35.5) g/dl RDW Std Deviation (36.4-46.3) fL Plt Count (182-369) K/mm3 MPV (9.4-12.3) fl Neut % (Auto) (34.0-71.1) % Lymph % (Auto) (19.3-51.7) % [place] % (Auto) (4.7-12.5) % Eos % (Auto) (0.7-5.8) Baso % (Auto) (0.1-1.2) % Neut # (Auto) (1.56-6.13) K/mm3 Lymph # (Auto) (1.18-3.74) K/mm3 [place] # (Auto) (0.24-0.36) K/mm3 Eos # (Auto) (0.04-0.36) K/mm3 Baso # (Auto) (0.01-0.08) K/mm3 PT (9.7-12.0) SECONDS INR D-Dimer, Quantitative 4.36 H (0.19-0.50) mg/L Sodium (136-145) mEq/L Potassium (3.5-5.1) mEq/L Chloride (98-107) mEq/L Carbon Dioxide (21-32) mEq/L Anion Gap (5-15) BUN (7-18) mg/dL Creatinine (0.55-1.02) mg/dL Est Cr Clr Drug Dosing mL/min Estimated GFR (MDRD) (>60) mL/min BUN/Creatinine Ratio (14-18) Glucose (70-99) mg/dL Calcium (8.5-10.1) mg/dL Magnesium (1.8-2.4) mg/dL C-Reactive Protein (<1.0) mg/dL Med Orders - Current: Current Medications Al Hydroxide/Mg Hydroxide (Aluminum Hydroxide/Magnesium Hydroxide/Simethicone Susp 30 Ml Cup) 30 ml PO Q4H PRN PRN Reason: Heartburn Last Admin: 06/11/21 23:27 Dose: 30 ml Documented by: Albuterol (Albuterol 0.083% 2.5 Mg/3 Ml Neb Soln) 2.5 mg NEB Q2H PRN PRN Reason: Shortness Of Breath/wheezing Last Admin: 06/17/21 23:28 Dose: 2.5 mg Documented by: Albuterol/Ipratropium (Albuterol/Ipratropium 3.0-0.5 Mg/3 Ml Neb Soln) 3 ml NEB QIDRT [facility] Last Admin: 06/18/21 15:55 Dose: 3 ml Documented by: Aspirin (Aspirin 81 Mg Tab.Ec) 81 mg PO DAILY [facility] Last Admin: 06/18/21 08:43 Dose: 81 mg Documented by: Diltiazem HCl (Diltiazem 50 Mg/10 Ml Sdv) 10 mg IVPUSH Q1H PRN PRN Reason: Tachycardia Last Admin: 06/18/21 09:29 Dose: 10 mg Documented by: Docusate Sodium (Docusate Sodium 100 Mg Cap) 100 mg PO Q12H PRN PRN Reason: Constipation Last Admin: 06/10/21 09:12 Dose: 100 mg Documented by: Guaifenesin (Guaifenesin 100 Mg/5 Ml Soln 10 Ml Ud Cup) 200 mg PO Q4H [facility] Last Admin: 06/18/21 12:52 Dose: 200 mg Documented by: Loperamide HCl (Loperamide 2 Mg Cap) 2 mg PO Q4H PRN PRN Reason: Diarrhea Last Admin: 06/17/21 13:11 Dose: 2 mg Documented by: Methylprednisolone Sodium Succinate (Methylprednisolone Sodium Succinate 40 Mg/1 Ml Sdv) 40 mg IVPUSH DAILY [facility] Last Admin: 06/18/21 08:43 Dose: 40 mg Documented by: Metoprolol Tartrate (Metoprolol Tartrate 25 Mg Tab) 25 mg PO BID [facility] Last Admin: 06/18/21 08:45 Dose: 25 mg Documented by: Ondansetron HCl (Ondansetron 4 Mg/2 Ml Sdv) 4 mg IV Q6H PRN PRN Reason: Nausea/Vomiting Sodium Chloride (Sodium Chloride 0.9% 10 Ml Syringe) 10 ml FLUSH ASDIRECTED PRN PRN Reason: Keep Vein Open Last Admin: 06/07/21 18:12 Dose: 10 ml Documented by: Warfarin Sodium (Pharmacy To Dose - Warfarin) 1 dose .XX ASDIRECTED PRN PRN Reason: RX TOD DOSE WARFARIN Warfarin Sodium (Warfarin 1 Mg Tab) 2 mg PO QPM [facility] Stop: 06/18/21 18:01 Discontinued Medications Albuterol (Albuterol 0.083% 2.5 Mg/3 Ml Neb Soln) 2.5 mg NEB ONETIME ONE Stop: 06/07/21 15:19 Last Admin: 06/07/21 15:47 Dose: 2.5 mg Documented by: Albuterol/Ipratropium (Albuterol/Ipratropium 3.0-0.5 Mg/3 Ml Neb Soln) 3 ml NEB ONETIME ONE Stop: 06/08/21 08:21 Last Admin: 06/08/21 08:37 Dose: 3 ml Documented by: Apixaban (Apixaban 5 Mg Tab) 10 mg PO BID [facility] Stop: 06/15/21 21:01 Last Admin: 06/10/21 09:13 Dose: 10 mg Documented by: Diltiazem HCl (Diltiazem Ir 30 Mg Tab) 30 mg PO Q8HR [facility] Last Admin: 06/13/21 05:51 Dose: 30 mg Documented by: Enoxaparin Sodium (Enoxaparin 40 Mg/0.4 Ml Syringe) 40 mg SUBCUT DAILY [facility] Last Admin: 06/08/21 14:49 Dose: 40 mg Documented by: Enoxaparin Sodium (Enoxaparin 60 Mg/0.6 Ml Syringe) 20 mg SUBCUT ONETIME ONE Stop: 06/08/21 16:31 Last Admin: 06/08/21 16:53 Dose: 20 mg Documented by: Enoxaparin Sodium (Enoxaparin 60 Mg/0.6 Ml Syringe) 60 mg SUBCUT Q12H [facility] Last Admin: 06/13/21 12:17 Dose: Not Given Documented by: Furosemide (Furosemide 40 Mg/4 Ml Vial) 40 mg IVPUSH NOW ONE Stop: 06/08/21 20:04 Last Admin: 06/08/21 21:33 Dose: 40 mg Documented by: Furosemide (Furosemide 20 Mg/2 Ml Vial) 20 mg IVPUSH TIDMEALS [facility] Last Admin: 06/11/21 06:34 Dose: 20 mg Documented by: Furosemide (Furosemide 20 Mg/2 Ml Vial) 20 mg IVPUSH DAILY [facility] Furosemide (Furosemide 20 Mg/2 Ml Vial) 20 mg IVPUSH DAILY [facility] Last Admin: 06/12/21 09:05 Dose: 20 mg Documented by: Guaifenesin (Guaifenesin 600 Mg Tab.Er) 600 mg PO BID [facility] Last Admin: 06/17/21 11:37 Dose: Not Given Documented by: Sodium Chloride (Normal Saline) 100 mls @ 60 mls/min IV ASDIRECTED [facility] Last Admin: 06/07/21 18:12 Dose: 60 mls/min Documented by: Sodium Chloride (Normal Saline) 1,000 mls @ 250 mls/hr IV ASDIRECTED [facility] Last Admin: 06/07/21 22:14 Dose: 250 mls/hr Documented by: Ceftriaxone Sodium 1 gm/ (Sodium Chloride) 100 mls @ 200 mls/hr IV ONETIME ONE Stop: 06/08/21 09:25 Last Admin: 06/08/21 09:20 Dose: 200 mls/hr Documented by: Vancomycin HCl 1 gm/ Sodium (Chloride) 250 mls @ 250 mls/hr IV Q18H [facility] Last Admin: 06/08/21 14:26 Dose: Not Given Documented by: Vancomycin HCl 1 gm/ Sodium (Chloride) 250 mls @ 250 mls/hr IV Q18H [facility] Last Admin: 06/08/21 15:37 Dose: Not Given Documented by: Piperacillin Sod/Tazobactam (Sod 4.5 gm/ Sodium Chloride) 100 mls @ 200 mls/hr IV ONETIME ONE Stop: 06/08/21 14:59 Last Admin: 06/08/21 14:19 Dose: 200 mls/hr Documented by: Piperacillin Sod/Tazobactam (Sod 4.5 gm/ Sodium Chloride) 100 mls @ 25 mls/hr IV Q8H [facility] Last Admin: 06/11/21 06:34 Dose: 25 mls/hr Documented by: Vancomycin HCl 1 gm/ Sodium (Chloride) 250 mls @ 250 mls/hr IV Q18H [facility] Stop: 06/10/21 23:59 Last Admin: 06/10/21 22:00 Dose: 250 mls/hr Documented by: Sodium Chloride (Normal Saline) 1,000 mls @ 100 mls/hr IV ASDIRECTED [facility] Vancomycin HCl 1 gm/ Sodium (Chloride) 250 mls @ 250 mls/hr IV Q12H [facility] Potassium Chloride 10 meq/ (Premix) 100 mls @ 100 mls/hr IV Q1H [facility] Stop: 06/11/21 12:59 Last Admin: 06/11/21 15:37 Dose: 100 mls/hr Documented by: Sodium Chloride (Normal Saline) 250 mls @ 40 mls/hr IV ASDIRECTED [facility] Last Admin: 06/11/21 15:51 Dose: 40 mls/hr Documented by: Sodium Chloride (Normal Saline) 100 mls @ 60 mls/hr IV ASDIRECTED [facility] Stop: 06/18/21 16:00 Last Admin: 06/18/21 11:15 Dose: 60 mls/hr Documented by: Iopamidol (Iopamidol 755 Mg/Ml 100 Ml Bottle) 100 ml IVPUSH ONETIME ONE Stop: 06/07/21 18:12 Last Admin: 06/07/21 18:12 Dose: 100 ml Documented by: Iopamidol (Iopamidol 755 Mg/Ml 100 Ml Bottle) 100 ml IVPUSH ONETIME ONE Stop: 06/18/21 11:00 Last Admin: 06/18/21 11:15 Dose: 100 ml Documented by: Loperamide HCl (Loperamide 2 Mg Cap) 4 mg PO ONETIME ONE Stop: 06/14/21 10:51 Last Admin: 06/14/21 11:06 Dose: 4 mg Documented by: Methylprednisolone Sodium Succinate (Methylprednisolone Sodium Succinate 125 Mg/2 Ml Sdv) 125 mg IVPUSH ONETIME ONE Stop: 06/08/21 08:21 Last Admin: 06/08/21 08:25 Dose: 125 mg Documented by: Methylprednisolone Sodium Succinate (Methylprednisolone Sodium Succinate 40 Mg/1 Ml Sdv) 60 mg IVPUSH Q8H [facility] Last Admin: 06/14/21 06:45 Dose: 60 mg Documented by: Methylprednisolone Sodium Succinate (Methylprednisolone Sodium Succinate 40 Mg/1 Ml Sdv) 60 mg IVPUSH Q12H [facility] Last Admin: 06/16/21 06:34 Dose: 60 mg Documented by: Methylprednisolone Sodium Succinate (Methylprednisolone Sodium Succinate 40 Mg/1 Ml Sdv) 60 mg IVPUSH DAILY [facility] Last Admin: 06/17/21 08:54 Dose: 60 mg Documented by: Metoprolol Tartrate (Metoprolol Tartrate 25 Mg Tab) 25 mg PO Q12H [facility] Last Admin: 06/15/21 21:19 Dose: 25 mg Documented by: Potassium Chloride (Potassium Chloride 10 Meq Tab.Er) 10 meq PO TID [facility] Last Admin: 06/10/21 22:00 Dose: 10 meq Documented by: Potassium Chloride (Potassium Chloride 20 Meq Tab.Er) 20 meq PO ONETIME ONE Stop: 06/09/21 07:21 Last Admin: 06/09/21 08:37 Dose: 20 meq Documented by: Sodium Chloride (Sodium Chloride 0.9% 10 Ml Sdv) 10 ml FLUSH ONETIME ONE Stop: 06/07/21 18:12 Last Admin: 06/07/21 20:31 Dose: 10 ml Documented by: Sodium Chloride (Sodium Chloride 0.9% 10 Ml Syringe) 10 ml FLUSH ONETIME PRN PRN Reason: Keep Vein Open Stop: 06/18/21 16:00 Last Admin: 06/18/21 11:15 Dose: 10 ml Documented by: Trimethoprim/Sulfamethoxazole (Sulfamethoxazole/Trimethoprim 800-160 Mg Tab) 1 tab PO BID [facility] Last Admin: 06/14/21 08:44 Dose: 1 tab Documented by: Vancomycin HCl (Pharmacy To Dose - Vancomycin) 1 dose .XX ASDIRECTED [facility] Warfarin Sodium (Warfarin 4 Mg Tab) 4 mg PO QPM [facility] Stop: 06/10/21 18:01 Last Admin: 06/10/21 18:08 Dose: 4 mg Documented by: Warfarin Sodium (Warfarin 4 Mg Tab) 4 mg PO QPM [facility] Stop: 06/11/21 18:01 Last Admin: 06/11/21 18:36 Dose: 4 mg Documented by: Warfarin Sodium (Warfarin 4 Mg Tab) 4 mg PO QPM [facility] Stop: 06/12/21 18:01 Last Admin: 06/12/21 18:15 Dose: 4 mg Documented by: Warfarin Sodium (Warfarin 1 Mg Tab) 1 mg PO QPM [facility] Last Admin: 06/13/21 18:04 Dose: 1 mg Documented by: Warfarin Sodium (Warfarin Sliding Scale) 0 each PO QPM [facility] Stop: 06/14/21 18:01 Last Admin: 06/14/21 17:46 Dose: Not Given Documented by: Warfarin Sodium (Warfarin 3 Mg Tab) 3 mg PO QPM [facility] Stop: 06/15/21 18:01 Last Admin: 06/15/21 19:19 Dose: 3 mg Documented by: Warfarin Sodium (Warfarin 3 Mg Tab) 3 mg PO QPM [facility] Stop: 06/16/21 18:01 Last Admin: 06/16/21 17:13 Dose: 3 mg Documented by: Warfarin Sodium (Warfarin 1 Mg Tab) 2 mg PO QPM [facility] Stop: 06/17/21 18:01 Last Admin: 06/17/21 17:21 Dose: 2 mg Documented by: - Exam Quality Assessment: Reports: Supplemental Oxygen, DVT Prophylaxis. Denies: Urine Catheter General: Reports: Alert, Oriented, Cooperative, No Acute Distress HEENT: Reports: Pupils Equal, Pupils Reactive, Mucous Membr. Moist/[place], Other (Subcutaneous emphysema noted in neck. Patient's voice noted to be more nasally and higher pitched.) Neck: Reports: Supple, Trachea Midline Lungs: Reports: Normal Respiratory Effort, Decreased Breath Sounds, Crackles. Denies: Rhonchi, Wheezing Cardiovascular: Reports: Regular Rate, Tachycardia GI/Abdominal Exam: Normal Bowel Sounds, Soft, Non-Tender, No Distention (Female) Exam: Deferred Rectal (Female) Exam: Deferred Back Exam: Reports: Normal Inspection, Full Range of Motion Extremities: Normal Inspection, Normal Range of Motion, Non-Tender, No Pedal Edema, Normal Capillary Refill Skin: Reports: Warm, Dry, Intact Neurological: Reports: No New Focal Deficit Psy/Mental Status: Reports: Alert, Normal Affect, Normal Mood
== END 2021-06-18 18:30 | DRG 196 ==
LOC: JD.ED 13:34 → JD.MS 06-08 11:05
PROVIDERS: ADMIT Internal Medicine; ATTEND Internal Medicine
PROC: 8E0ZXY6 Isolation (ICD-10-PCS; principal; 2021-06-08)
DX: R09.02 Hypoxemia (principal); R06.00 Dyspnea, unspecified; J84.10 Pulmonary fibrosis, unspecified; J96.21 Acute and chronic respiratory failure with hypoxia; N39.0 Urinary tract infection, site not specified; I82.402 Acute embolism and thrombosis of unspecified deep veins of left lower extremity; J93.9 Pneumothorax, unspecified; T79.7XXA Traumatic subcutaneous emphysema, initial encounter; R77.8 Other specified abnormalities of plasma proteins; Z66 Do not resuscitate; R79.89 Other specified abnormal findings of blood chemistry; K21.9 Gastro-esophageal reflux disease without esophagitis; H81.09 Meniere's disease, unspecified ear; I51.4 Myocarditis, unspecified; E87.6 Hypokalemia; R19.7 Diarrhea, unspecified; I08.3 Combined rheumatic disorders of mitral, aortic and tricuspid valves; I71.2 Thoracic aortic aneurysm, without rupture; B96.20 Unspecified Escherichia coli [E. coli] as the cause of diseases classified elsewhere; D72.829 Elevated white blood cell count, unspecified; T38.0X5A Adverse effect of glucocorticoids and synthetic analogues, initial encounter; I95.9 Hypotension, unspecified; Z86.16 Personal history of COVID-19; Z99.81 Dependence on supplemental oxygen; Z88.6 Allergy status to analgesic agent; Z91.018 Allergy to other foods; Z91.09 Other allergy status, other than to drugs and biological substances; Z88.5 Allergy status to narcotic agent; Z98.49 Cataract extraction status, unspecified eye; Z98.890 Other specified postprocedural states; Z90.710 Acquired absence of both cervix and uterus; Z79.899 Other long term (current) drug therapy; Z88.8 Allergy status to other drugs, medicaments and biological substances; Z87.01 Personal history of pneumonia (recurrent)
CPT/HCPCS: 36415 ×2; 36600; 71045; 71275; 80053; 81001; 82803; 83735; 83880; 84145; 84484 ×3; 85025; 85379; 86140; 86738; 87086; 87088; 87186; 87899; 93005; 94640 ×2; 96365; 96375; 99285; J0696; J2930; J7030; Q9967; 80048; 80202; 83605; 84100; 85610; 87040; 87486; 87493; 87581; 87633; 87798; 92610-GN; 93306; 93970; 93970-26; 94668; 94762; 97162-GP; A9270-GY; J1650; J1940; J2543; J2920; J3370; J3480; J3490; J7050; J7620-GY